=== PATIENT | female | born 1935 | race Caucasian/White ===

== ENCOUNTER 2016-11-30 04:39 | Emergency (ER) | payer OTHER ==
[~2016-11-30] VITALS: Ht 172.7 cm; Wt 77.0 kg
[~2016-11-30 04:39] MED LIST: ALEN70TA2 PO; ASPEC81 PO; CALC600T9 PO; FLUT0.15 NAE; LORA10CA2 PO; LSN5 PO; RXC5 PO; SNM/25100 PO
[2016-11-30 04:40] VITALS: Ht 172.7 cm; Wt 77.0 kg
--- NOTE | 2016-11-30 05:11 | EMERGENCY ROOM VISIT NOTE ---
History Report prepared by Jacob: Hipolito Bustamante Under the Supervision of: Dr. Ray Smith M.D. First contact with patient: 04:46 Chief Complaint: FALL Stated Complaint: FALL-POSSIBLE BROKEN THUMB History of Present Illness The patient is a 81 year old female who presents to the Emergency Room with complaints of right thumb pain that occurred 5 hours ago. She rates her current pain a 10/10 in severity. At this time, the patient fell down onto a carpet floor. She has brush green on her legs and bumped her head. She did not lose consciousness or become weak. She denies any fevers, headache, neck pain, back pain, or any other pain. Source of History: patient Onset: 5 hours ago Position: finger(s) (right thumb) Symptom Intensity: 10/10 Quality: sharp Timing: constant Modifying Factors (Worsening): movement Associated Symptoms: No LOC, No fevers, No headache, No neck pain, No back pain, No weakness Review of Systems See HPI for pertinent positives & negatives. A total of 10 systems reviewed and were otherwise negative. Past Medical & Surgical Medical Problems: (1) HLD (hyperlipidemia) (2) HTN (hypertension) (3) Osteoporosis (4) Parkinson disease Surgical Problems: (1) H/O colonoscopy (2) Hx of cataract surgery Family History FH: cancer FATHER (esophageal) MOTHER (breast) Social History Smoking Status: Never Smoker Smokeless Tobacco Use: No Drug Use: none Marital Status: Housing Status: lives with significant other Occupation Status: retired Current/Historical Medications Scheduled Alendronate Sodium (Fosamax), 70 MG PO WK Calcium Carbonate-Vitamin D (Calcium + D), 1 TAB PO DAILY Fluticasone Propionate (Nasal) (Flonase Allergy Relief), 2 SPRAYS JI DAILY Levodopa/Carbidopa (Sinemet 25MG/100MG), 1 TAB PO TID Lisinopril (Lisinopril), 1 TAB PO DAILY Allergies Coded Allergies: No Known Allergies (Unverified , 11/30/16) Physical Exam Vital Signs Date Time Temp Pulse Resp B/P (MAP) Pulse Ox O2 Delivery O2 Flow Rate FiO2 11/30/16 04:40 36.6 102 18 149/76 96 Nasal Cannula Physical Exam GENERAL: Patient is uncomfortable appearing and in mild acute distress. HEENT: No acute trauma, normocephalic, slight bruise to the left forehead, mucous membranes moist, no nasal congestion, no scleral icterus. Teardrop pupil in the left eye radiating to 5 o'clock, mildly reactive. EOMI. Normal right pupil, reactive. NECK: No stridor, no adenopathy, no meningismus, trachea is midline. LUNGS: No dyspnea. Clear to auscultation and equal bilaterally. No wheeze, no rhonchi. HEART: Regular rate and rhythm. No murmurs, rubs, gallops appreciated. ABDOMEN: Soft, nontender, bowel sounds positive, no masses appreciated, no peritonitis. BACK: No midline tenderness, no CVA tenderness EXTREMITIES: Blue, discolored right thumb with bruising over the thenar eminence. Poor capillary refill in the distal thumb. Sensation intact. Angulation at the MCP joint. Tenderness to palpation. NEUROLOGIC: Alert and oriented, no acute motor or sensory deficits, no focal weakness, cranial nerves grossly intact. SKIN: No rash, no jaundice, no diaphoresis. Medical Decision & Procedures ER Provider Diagnostic Interpretation: Radiology results and stated below per my review and radiologist interpretation: 2 VIEW RIGHT 1ST DIGIT HAND X-RAY: First MCP joint dislocation. Distal phalanx fracture. No foreign body. REPEAT: 3 VIEW RIGHT THUMB: Reduction of MCP joint. Distal phalanx fracture intact. Per me CT HEAD: Comparison: CT dated 06/01/2015. No intracranial hemorrhage, skull fracture, or other acute intracranial abnormality. Mild left forehead soft tissue swelling. Stable mild senescent changes of the brain. Radiologist: Jena Zhu MD Procedure Reduction Procedure: Location: 1st MCP joint on the right hand Indication: Dislocation Reviewed Risks/Benefits and patient gives verbal consent. No anesthesia, patient aware this will be uncomfortable. Gentle traction to thumb with gentle rotation and thumb slid in to place nicely. Immediate improvement in pain. Cap refill improved as well. Neuro intact. Repeat imaging confirms reduction successful. ED Course 0446: The patient was evaluated in room B12B. A complete history and physical exam was performed. 0455: The patient's bedside X-ray was obtained on arrival. It shows a dislocation of the right thumb with a fracture. Thus immediate reduction of the joint was done without sedation and analgesia. Patient tolerated the procedure well. Afterward, she states feeling much improved. 0508: I asked the nursing staff to obtain the patient's visual acuities. 0559: She is feeling okay. She asked for something for the pain to take at home. Her finger has much better coloration. It still has some bruising, but excellent capillary refill. 0600: Ordered Oxycodone HCl 1 homepack PO. Reevaluated the patient. Discussed results and discharge instructions: She verbalized understanding and agreement. The patient is ready for discharge. Medical Decision Differential diagnoses include: Medication Reconciliation: I attest that I have personally reviewed the patient 's current medication list. Blood Pressure Screening: Patient was found to have a slightly elevated blood pressure due to circumstances. I do not believe that the patient requires hypertension monitoring. Very pleasant 81 yr old female with fall last evening striking left forehead, right hand and bilateral knees. No issues with walking and other than mild anterior knee abrasions no evidence knee fracture. Right thumb dislocated by exam and since xray outside door I had them confirm this, thumb was quickly reduced, and repeat imaging done. She did have minor decrease in cap refill to thumb which improved with reduction. Still significant bruising/swelling/ ecchymosis. Advised follow up with ortho in 1 week. She has pupil defect left eye which I do not see having been documented on previous visits. That said, she has stable vision, no pain, and no proptosis. I do not feel she requires emergent transfer to optho but should follow up with her primary optho in the next few days which I explained to her and her . Reviewed symptoms to monitor for and RTED if worsening or other concerns. Splint care reviewed as well. Oxy IR given for discomfort and those instructions reviewed. 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 I confirm that the note above accurately reflects all work, treatment, procedures, and medical decision making performed by me. Departure Information Dispostion Home / Self-Care Referrals Markel James M.D. Benito Hsieh M.D. Forms HOME CARE DOCUMENTATION FORM, IMPORTANT VISIT INFORMATION Patient Instructions My [facility] Additional Instructions Please follow up with your Outside Plant Field Engineer in 1 week for repeat evaluation of your thumb. Left left arm raised when you can and avoid using it. If severe pain or other concerns return for further evaluation. Do not get splint wet. Please follow up with Ophthalmology in the next few days for repeat evaluation of the abnormal pupil of your left eye. If you develop pain, loss of vision or other concerning symptoms return here for further evaluation immediately. You have received a narcotic pain medication. These medications may cause drowsiness and should not be used with other sedative medications. Do not drive , drink alcohol, perform dangerous activities, nor make important decisions after taking these medications. termite exterminator helper use or inappropriate use may lead to addiction. Problem Qualifiers
[2016-11-30] MEDS ORDERED: OXYCODONE IR HOME PACK PO ONE (06:00)
[2016-11-30 06:27] VITALS: BP 164/85; PULSE 89; TEMP 36.6; O2SAT 98
--- NOTE | 2016-11-30 06:38 | DIAGNOSTIC IMAGING REPORT ---
HEAD WITHOUT CONTRAST (CT) HISTORY: left forehead injury status post fall TECHNIQUE: Multiple axial CT images of the head were obtained without contrast. CT DOSE: 537.48 mGy.cm COMPARISON: Head CT 06/01/2015. FINDINGS: No acute intracranial hemorrhage, midline shift, mass, large territorial ischemia or abnormal extra-axial collection. There is mild cerebral atrophy. The calvarium is intact. The paranasal sinuses, mastoid air cells, and middle ear cavities are clear. Mild left frontal soft tissue swelling is present. There has been prior bilateral cataract repair. IMPRESSION: Mild left frontal soft tissue swelling without acute intracranial abnormality or calvarial fracture. The above report was generated using voice recognition software. It may contain grammatical, syntax or spelling errors. Electronically signed by: Meño Aleman M.D. 11/30/2016 6:37 AM Dictated Date/Time: 11/30/2016 6:34 AM
--- NOTE | 2016-11-30 07:01 | DIAGNOSTIC IMAGING REPORT ---
RIGHT FINGER(S) MIN 2 VIEWS ROUTINE CLINICAL HISTORY: Right thumb trauma Right pain COMPARISON: None. DISCUSSION: Limited study suggesting dislocation of the metacarpal phalangeal joint. Degenerative change of the interphalangeal joints as well as first carpometacarpal joint. Moderate soft tissue edema IMPRESSION: Dislocation first metacarpophalangeal joint The above report was generated using voice recognition software. It may contain grammatical, syntax or spelling errors. Electronically signed by: Jc Le M.D. 11/30/2016 7:00 AM Dictated Date/Time: 11/30/2016 6:59 AM
--- NOTE | 2016-11-30 07:03 | DIAGNOSTIC IMAGING REPORT ---
RIGHT FINGER(S) MIN 2 VIEWS ROUTINE CLINICAL HISTORY: s/p thumb reduction Right dislocation COMPARISON: 11/30/2016 4:55 AM DISCUSSION: Anatomic alignment status post closed reduction. Fracture distal phalanx. This is not appreciated on the prior study. No evidence of dislocation. Moderate soft tissue edema IMPRESSION: 1. Anatomic alignment status post closed reduction. 2. Oblique fracture distal phalanx aligned anatomically. This is not appreciated on the prereduction images The above report was generated using voice recognition software. It may contain grammatical, syntax or spelling errors. Electronically signed by: Jc Le M.D. 11/30/2016 7:01 AM Dictated Date/Time: 11/30/2016 7:00 AM
== END 2016-11-30 06:27 | disposition home or self-care (01) ==
LOC: C.EDB 04:39
DX: S62.501B Fracture of unspecified phalanx of right thumb, initial encounter for open fracture (principal); T14.8 Other injury of unspecified body region; H21.562 Pupillary abnormality, left eye; W19.XXXA Unspecified fall, initial encounter; E78.00 Pure hypercholesterolemia, unspecified; I10 Essential (primary) hypertension; M81.0 Age-related osteoporosis without current pathological fracture; G20 Parkinson's disease; Z98.49 Cataract extraction status, unspecified eye; Z80.3 Family history of malignant neoplasm of breast; Z80.0 Family history of malignant neoplasm of digestive organs; Z79.899 Other long term (current) drug therapy

== ENCOUNTER 2017-03-15 08:31 | Inpatient (IN) | payer OTHER ==
[~2017-03-15] VITALS: Ht 172.7 cm; Wt 73.3 kg
[2017-03-15] VITALS (7 sets, daily range): BP systolic 115–152; BP diastolic 59–77; PULSE 77–97; TEMP 36.3–37.3; O2SAT 94–97; Ht 172.7 cm; Wt 73.3 kg
[~2017-03-15 08:31] MED LIST changes: -ASPEC81 PO; -LORA10CA2 PO; -RXC5 PO
[2017-03-15] MEDS ORDERED: SODIUM CHLORIDE 0.9% 1000ML 1,000 ML IV STA (09:09)
--- NOTE | 2017-03-15 09:12 | EMERGENCY ROOM VISIT NOTE ---
History Report prepared by Jacob: Rachel Nix Under the Supervision of: Dr. Karyn Dickson M.D. First contact with patient: 08:46 Chief Complaint: FALL Stated Complaint: MULTIPLE FALLS History of Present Illness The patient is an 81 year old female who presents to the Emergency Room with complaints of persistent weakness that began Tuesday evening. She currently rates her discomfort as a 5/10 in severity. The patient states that recently she has been feeling weak. She states that today she was trying to walk to the bathroom when her legs gave out from under her. The patient states that her legs feel like rubber. Per the patient's daughter in law, the patient fell yesterday and was on the floor for four hours. She notes that the patient's typically goes to dialysis at 0330 Tuesday and Tuesday. The patient's daughter in law states that the patient typically picks her up from dialysis because it is daylight by the time he is finished. She states that since the patient did not arrive to pick her up from dialysis, the patient's called his son to come pick him up. The patient's daughter in law states that when they arrived home they found the patient on the floor. She states that the patient's son picked her up and put her in the bed. The patient states that today she had to lower herself to the floor because of her weakness. She denies any head trauma or loss of consciousness. The patient denies being on any anticoagulants. She reports a decrease in appetite since yesterday. The patient reports a recent increase in urination. She denies any cough, fever, chest pain, shortness of breath, vomiting, or diarrhea. The patient states that she has a history of Parkinson's Disease. Source of History: patient, family (daughter in law) Onset: Tuesday evening Position: other (global) Symptom Intensity: 5/10 Quality: other (weakness) Timing: other (persistent) Associated Symptoms: + urinary symptoms (increase in urination), No LOC, No fevers, No cough, No chest pain, No SOB, No vomiting, No diarrhea Review of Systems See HPI for pertinent positives & negatives. A total of 10 systems reviewed and were otherwise negative. Past Medical & Surgical Medical Problems: (1) Chronic allergic rhinitis (2) Dyslipidemia (3) Elevated troponin (4) History of fracture of left hip (5) HLD (hyperlipidemia) (6) HTN (hypertension) (7) Osteoporosis (8) Parkinson disease Surgical Problems: (1) H/O colonoscopy (2) History of left hip replacement (3) Hx of cataract surgery Family History FH: cancer FATHER (esophageal) MOTHER (breast) Social History Smoking Status: Never Smoker Drug Use: none Marital Status: Housing Status: lives with significant other Occupation Status: retired Current/Historical Medications Scheduled Alendronate Sodium (Fosamax), 70 MG PO WK Calcium Carbonate-Vitamin D (Calcium + D3 600-200 mg-Unit), 1 TAB PO DAILY Fluticasone Propionate (Nasal) (Flonase Allergy Relief), 2 SPRAYS JI DAILY Levodopa/Carbidopa (Sinemet 25MG/100MG), 1.5 TAB PO TID Lisinopril (Lisinopril), 1 TAB PO DAILY Scheduled PRN Hydrochlorothiazide (Hydrochlorothiazide), 1 TAB PO DAILY PRN for LE edema Allergies Coded Allergies: No Known Allergies (Unverified , 03/15/17) Physical Exam Vital Signs Date Time Temp Pulse Resp B/P (MAP) Pulse Ox O2 Delivery O2 Flow Rate FiO2 03/15/17 11:46 80 21 96 03/15/17 11:31 118/72 03/15/17 11:16 78 24 97 03/15/17 11:11 81 27 96 03/15/17 11:01 136/64 03/15/17 10:47 82 18 122/59 96 Room Air 03/15/17 10:41 83 25 96 03/15/17 10:36 84 23 96 03/15/17 10:31 113/76 03/15/17 10:15 122/59 03/15/17 09:39 90 03/15/17 09:36 88 28 94 03/15/17 09:01 116/60 03/15/17 08:58 92 109/60 94 Room Air 03/15/17 08:31 37.1 95 18 103/63 92 Room Air Physical Exam Vital signs reviewed. General: Elderly generally well-appearing female, in no significant distress. Strong smell of urine. HEENT: No scleral icterus, PERRLA, neck supple. Atraumatic. Cardiovascular: Regular rate and rhythm, no extra sounds. Pulmonary: Clear to auscultation bilaterally, normal work of breathing. Abdomen: Soft, nontender, nondistended, positive bowel sounds. Musculoskeletal: Atraumatic, no peripheral edema. No pain with range of motion of lower extremities. No pain with pelvic stress. Neurologic: Patient awake alert and oriented x 3, 4/5 strength in the left lower extremity, 5/5 strength in right lower extremity. Cranial nerves 2 through 12 grossly intact. Skin: Warm, dry, no rash Medical Decision & Procedures ER Provider Diagnostic Interpretation: Radiology results as stated below per my review and radiologist interpretation: CHEST ONE VIEW PORTABLE CLINICAL HISTORY: fall, weakness trauma COMPARISON STUDY: 2015 FINDINGS: The bones soft tissues and hemidiaphragms are normal. The cardiomediastinal silhouette is normal. The lungs are clear. The pulmonary vasculature is normal. IMPRESSION: Negative chest. The above report was generated using voice recognition software. It may contain grammatical, syntax or spelling errors. Electronically signed by: Jc Le M.D. 03/15/2017 9:44 AM Dictated Date/Time: 03/15/2017 9:44 AM HEAD WITHOUT CONTRAST (CT) CT DOSE: 537.48 mGy.cm HISTORY: L status change weakness, fall TECHNIQUE: Multiaxial CT images of the head were performed without the use of intravenous contrast. A dose lowering technique was utilized adhering to the principles of ALARA. Comparison: 11/30/2016 Findings: The paranasal sinuses and mastoid air cells are clear. The calvarium and skull base are intact. The ventricles and sulci are within normal limits. There is no mass, hematoma, midline shift, or acute infarct. Impression: No acute intracranial abnormality. The above report was generated using voice recognition software. It may contain grammatical, syntax or spelling errors. Electronically signed by: Jc Le M.D. 03/15/2017 10:13 AM Dictated Date/Time: 03/15/2017 10:12 AM Laboratory Results Test 03/15/17 09:23 03/15/17 09:34 03/15/17 09:48 Immature Granulocyte % (Auto) 0.2 % White Blood Count 9.41 K/uL (4.8-10.8) Red Blood Count 4.07 M/uL (4.2-5.4) Hemoglobin 12.5 g/dL (12.0-16.0) Hematocrit 37.7 % (37-47) Mean Corpuscular Volume 92.6 fL (80-100) Mean Corpuscular Hemoglobin 30.7 pg (25-34) Mean Corpuscular Hemoglobin Concent 33.2 g/dl (32-36) Platelet Count 160 K/uL (130-400) Mean Platelet Volume 11.4 fL (7.4-10.4) Neutrophils (%) (Auto) 83.4 % Lymphocytes (%) (Auto) 5.0 % Monocytes (%) (Auto) 10.9 % Eosinophils (%) (Auto) 0.2 % Basophils (%) (Auto) 0.3 % Neutrophils # (Auto) 7.84 K/uL (1.4-6.5) Lymphocytes # (Auto) 0.47 K/uL (1.2-3.4) Monocytes # (Auto) 1.03 K/uL (0.11-0.59) Eosinophils # (Auto) 0.02 K/uL (0-0.5) Basophils # (Auto) 0.03 K/uL (0-0.2) Immature Granulocyte # (Auto) 0.02 K/uL (0.00-0.02) Magnesium Level 2.2 mg/dl (1.8-2.4) Total Bilirubin 0.8 mg/dl (0.2-1) Direct Bilirubin 0.2 mg/dl (0-0.2) Aspartate Amino Transf (AST/SGOT) 65 U/L (15-37) Alanine Aminotransferase (ALT/SGPT) 7 U/L (12-78) Alkaline Phosphatase 62 U/L (45-117) Total Protein 7.1 gm/dl (6.4-8.2) Albumin 3.1 gm/dl (3.4-5.0) Thyroid Stimulating Hormone (TSH) 0.414 uIu/ml (0.300-4.500) Bedside Troponin I 1.310 ng/ml (0-0.045) Urine Color DK YELLOW Urine Appearance CLEAR (CLEAR) Urine pH 5.5 (4.5-7.5) Urine Specific [place] 1.018 (1.000-1.030) Urine Protein 2+ (NEG) Urine Glucose (UA) NEG (NEG) Urine Ketones 1+ (NEG) Urine Occult Blood 1+ (NEG) Urine Nitrite POS (NEG) Urine Bilirubin NEG (NEG) Urine Urobilinogen NEG (NEG) Urine Leukocyte Esterase TRACE (NEG) Urine WBC (Auto) 5-10 /hpf (0-5) Urine RBC (Auto) 0-4 /hpf (0-4) Urine Hyaline Casts (Auto) 1-5 /lpf (0-5) Urine Epithelial Cells (Auto) 10-20 /lpf (0-5) Urine Bacteria (Auto) 4+ (NEG) Laboratory results per my review. Medications Administered Medications (Trade) Dose Ordered Sig/Aleks Route Start Time Stop Time Status Last Admin Dose Admin Sodium Chloride 1,000 ml @ 125 mls/hr Q8H STAT IV 03/15/17 09:09 03/15/17 12:59 DC 03/15/17 09:59 125 MLS/HR Aspirin (Aspirin Chew) 324 mg NOW STAT PO 03/15/17 10:14 03/15/17 10:15 DC 03/15/17 10:56 324 MG Ceftriaxone Sodium (Rocephin Inj) 1 gm NOW STAT IV 03/15/17 10:15 03/15/17 10:16 DC 03/15/17 10:55 1 GM Sodium Chloride 250 ml @ 999 mls/hr Q16M STAT IV 03/15/17 10:15 03/15/17 10:30 DC 03/15/17 10:57 999 MLS/HR Acetaminophen (Tylenol Tab) 650 mg Q4H PRN PO 03/15/17 11:30 04/14/17 11:29 03/16/17 16:56 650 MG ECG Indication: weakness Rate (beats per minute): 85 Rhythm: normal sinus Findings: RBBB (incomplete), no acute ischemic change, no ectopy ED Course 0902: Past medical records reviewed. The patient was evaluated in room B7. A complete history and physical examination was performed. 0909: Ordered Sodium Chloride 1000 ml @ 125 mls/hr IV. 1014: Ordered Aspirin 324 mg PO, Sodium Chloride 250 ml @ 999 mls/hr IV, Rocephin Inj 1 gm IV. 1029: I discussed the patients case with Tom Colindres. She is going to evaluate the patient for further treatment. 1040: I reevaluated the patient and she is resting comfortably. I discussed the exam findings with her and I discussed the treatment plan. She verbalized complete understanding and agreement. She is going to be evaluated for further treatment. Medical Decision Differential diagnosis: Etiologies such as metabolic, infection, hypo/hyperglycemia, electrolyte abnormalities, cardiac sources, intracerebral event, toxicologic, neurologic, as well as others were entertained. This pt was evaluated and appeared to be in no distress. IV access was obtained and lab work was drawn. Pt was placed on the case monitor. Pt was hydrated with NSS. EKG reveals no acute ischemia. Lab work is significant for elevated troponin, total CK and dehydration. UA is positive for infection. Pt was medicated with ceftriaxone 1 gm IV. She was given ASA 324 mg, although I suspect this is a demand mediated process from prolonged immobilization/ rhabdomyolysis. Pt was informed of the findings. She again confirms no chest pain. Pt was d/w the hospitalist service who will evaluate for further management. Medication Reconcilliation Current Medication List: was personally reviewed by me Blood Pressure Screening Patient's blood pressure: Normal blood pressure Blood pressure disposition: Did not require urgent referral Consults Time Called: 1014 Consulting Physician: Tom Colindres Returned Call: [phone] I discussed the patients case with Tom Colindres. She is going to evaluate the patient for further treatment. Impression Primary Impression: Rhabdomyolysis Additional Impressions: Weakness Fall Elevated troponin UTI (urinary tract infection) Scribe Attestation The scribe's documentation has been prepared under my direction and personally reviewed by me in its entirety. I confirm that the note above accurately reflects all work, treatment, procedures, and medical decision making performed by me. Departure Information Dispostion Being Evaluated By Hospitalist Referrals Marilou Bobby M.D. (MEDICAL) (PCP) Problem Qualifiers
[2017-03-15 09:39] LABS: BASO % 0.3 %; BASO ABS # 0.03 K/uL (0-0.2); COMPLETE YES; EOS % 0.2 %; HEMATOCRIT 37.7 % (37-47); IG% 0.2 %; LYMPH ABS # 0.47 K/uL (1.2-3.4); MEAN CELL VOLUME 92.6 fL (80-100); MEAN CORPUSCULAR HEMOGLOBIN 30.7 pg (25-34); MEAN CORPUSCULAR HGB CONC 33.2 g/dl (32-36); MEAN PLATELET VOLUME 11.4 fL (7.4-10.4); MONO % 10.9 %; NEUT % 83.4 %; PLATELET COUNT 160 K/uL (130-400); RED BLOOD COUNT 4.07 M/uL (4.2-5.4); WHITE BLOOD COUNT 9.41 K/uL (4.8-10.8)
--- NOTE | 2017-03-15 09:46 | DIAGNOSTIC IMAGING REPORT ---
CHEST ONE VIEW PORTABLE CLINICAL HISTORY: fall, weakness trauma COMPARISON STUDY: 2015 FINDINGS: The bones soft tissues and hemidiaphragms are normal. The cardiomediastinal silhouette is normal. The lungs are clear. The pulmonary vasculature is normal. IMPRESSION: Negative chest. The above report was generated using voice recognition software. It may contain grammatical, syntax or spelling errors. Electronically signed by: Jc Le M.D. 03/15/2017 9:44 AM Dictated Date/Time: 03/15/2017 9:44 AM
[2017-03-15 09:57] LABS: BUN/CREATININE RATIO 31.1 (10-20); CALCIUM 8.6 mg/dl (8.5-10.1); CREATININE 1.07 mg/dl (0.60-1.20); MAGNESIUM 2.2 mg/dl (1.8-2.4); POTASSIUM 3.7 mmol/L (3.5-5.1)
[2017-03-15 10:09] LABS: MANUAL MICROSCOPIC REQUIRED? NO; REVIEW REQ? NO; URINE APPEARANCE CLEAR (CLEAR); URINE BILIRUBIN NEG (NEG); URINE COLOR DK YELLOW; URINE NITRITE POS (NEG); URINE PH 5.5 (4.5-7.5); URINE SPECIFIC GRAVITY 1.018 (1.000-1.030); UROBILINOGEN NEG (NEG); ZZURINE CULT IF INDIC CATH YES
[2017-03-15 10:11] LABS: CKMB/CK RATIO 0.5 (0-3.0); THYROID STIMULATING HORMONE 0.414 uIu/ml (0.300-4.500)
[2017-03-15] MEDS ORDERED: ASPIRIN 81 MG CHEW PO STA (10:14)
[2017-03-15] MEDS ORDERED: CEFTRIAXONE SOD INJ 1 GM ADDVIAL IV STA (10:15)
[2017-03-15] MEDS ORDERED: SODIUM CHLORIDE 0.9% 250ML 250 ML IV STA (10:15)
--- NOTE | 2017-03-15 10:15 | DIAGNOSTIC IMAGING REPORT ---
HEAD WITHOUT CONTRAST (CT) CT DOSE: 537.48 mGy.cm HISTORY: L status change weakness, fall TECHNIQUE: Multiaxial CT images of the head were performed without the use of intravenous contrast. A dose lowering technique was utilized adhering to the principles of ALARA. Comparison: 11/30/2016 Findings: The paranasal sinuses and mastoid air cells are clear. The calvarium and skull base are intact. The ventricles and sulci are within normal limits. There is no mass, hematoma, midline shift, or acute infarct. Impression: No acute intracranial abnormality. The above report was generated using voice recognition software. It may contain grammatical, syntax or spelling errors. Electronically signed by: Jc Le M.D. 03/15/2017 10:13 AM Dictated Date/Time: 03/15/2017 10:12 AM
[2017-03-15] MEDS ORDERED: ONDANSETRON INJ 2 MG/ML 2 ML VIAL IV PRN (11:30)
[2017-03-15] MEDS ORDERED: ACETAMINOPHEN 325 MG TAB PO PRN (11:30)
[2017-03-15] MEDS ORDERED: HYDR12.55 PO ×2 (11:42→12:21)
[2017-03-15] MEDS ORDERED: CALC-388 PO (11:42)
[2017-03-15] MEDS ORDERED: SODIUM CHLORIDE 0.9% 1000ML 1,000 ML IV SCH ×2 (12:45→21:00)
--- NOTE | 2017-03-15 13:50 | History and Physical ---
History & Physical Date & Time of Service: Mar 15, 2017 at 11:57 Chief Complaint: Multiple Falls Primary Care Physician: Marilou Bobby M.D. (MEDICAL) History of Present Illness Source: patient Pt is 81 y/o F with PMHx Parkinson's, HTN, hyperlipidemia, chronic rhinitis, osteoporosis presents with c/o leg weakness and fall. Pt states the past week her legs have been very weak. She typically walks with a cane, however for the past week has been having to use a walker. States yesterday walking back from bathroom and legs so weak that she slid to floor. She was unable to get up. Pt states tried multiple times but was unable to do so. She states she laid on right arm and side for approx 4-5 hours until step son and came home. Pt states while lying on floor she had some tingling to right arm and R leg after lying there for awhile. Once she was helped up later this resolved. States some left upper leg cramping intermittently. Pt states sat around remaining part of yesterday but felt overall weakness. Today tried to get out of bed and legs were too weak to stand and states slid to floor and decided to go to ER. Pt states past 3-4 days with decreased appetite, but has been thirsty past 2 days. yesterday didn't eat much but was drinking water. Pt denies any CP or SOB or MC recently. Denies any pains currently. Has HCTZ to use prn LE edema , however states doesn't use as doesn't have LE edema often. Hx urinary frequency at night. Was started on oxybutynin 5mg BID 01/27/17 - pt states took for 4 days and then stopped as caused dry mouth. Denies any other new meds or changes with meds. Denies dysuria, hematuria. Denies hitting head, fever/chills , diaphoresis, N/V/D/C, MC, dizziness, syncope, vision changes, neck pain, CP, SOB, orthopnea, palpitations, cough, sore throat, choking, otalgia, abdominal pain, pelvic pain, extremity edema, rashes. Hx ECHO 2013: EF: 55-59%, mild aortic valve sclerosis without stenosis, mild tricuspid regurg. Hx carotid u/s: less than 50% stenosis bilateral internal carotid arteries, however calcified plaque Seen in ER today. Negative head CT, negative CXR, troponin 1.3, CKMB: 5.9, CPK: 1164. TSH: 0.4, magnesium: 2.2. EKG: NSR rate 85, incomplete RBBB, no ST elevation. BUN:33, CR:1.0, GFR: 23 (previous from 01/13/17 was BUN 19, CR: 1.0, GFR>60). U/A: pos nitrites, trace leuk, 4+bacteria, 1+blood, 0-4 RBC. Pt afebrile. BP: 116/60, pulse: 92, Resp: 18, pulse ox: 94%. Given NSS 250ml bolus followed by 125/ml hr for total 1L. Past Medical/Surgical History Medical Problems: (1) Chronic allergic rhinitis Status: Chronic (2) Dyslipidemia Status: Chronic (3) History of fracture of left hip Status: Chronic (4) HLD (hyperlipidemia) Status: Chronic (5) HTN (hypertension) Status: Chronic (6) Osteoporosis Status: Chronic (7) Parkinson disease Status: Chronic Surgical Problems: (1) H/O colonoscopy Permanent Comment: 2011 Status: Chronic (2) History of left hip replacement Status: Chronic (3) Hx of cataract surgery Status: Chronic Family History FH: cancer FATHER (esophageal) MOTHER (breast) BROTHER (lymphoma, dx in 60's, age 73) Social History Smoking Status: Never Smoker Smokeless Tobacco Use: No Alcohol Use: none Drug Use: none Marital Status: Housing status: lives with significant other Occupational Status: retired Multi-Drug Resistant Organisms History of MDRO: No Allergies Coded Allergies: No Known Allergies (Unverified , 03/15/17) Home Medications Scheduled Alendronate Sodium (Fosamax), 70 MG PO WK Calcium Carbonate-Vitamin D (Calcium + D3 600-200 mg-Unit), 1 TAB PO DAILY Fluticasone Propionate (Nasal) (Flonase Allergy Relief), 2 SPRAYS JI DAILY Levodopa/Carbidopa (Sinemet 25MG/100MG), 1.5 TAB PO TID Lisinopril (Lisinopril), 1 TAB PO DAILY Scheduled PRN Hydrochlorothiazide (Hydrochlorothiazide), 1 TAB PO DAILY PRN for LE edema Review of Systems See HPI for pertinent positives & negatives. All other systems reviewed and were otherwise negative Physical Exam Vital Signs Date Time Temp Pulse Resp B/P (MAP) Pulse Ox O2 Delivery O2 Flow Rate FiO2 03/15/17 11:52 80 03/15/17 11:11 81 27 96 03/15/17 11:01 136/64 03/15/17 10:47 82 18 122/59 96 Room Air 03/15/17 10:41 83 25 96 03/15/17 10:36 84 23 96 03/15/17 10:31 113/76 03/15/17 10:15 122/59 03/15/17 09:39 90 03/15/17 09:36 88 28 94 03/15/17 09:01 116/60 03/15/17 08:58 92 109/60 94 Room Air 03/15/17 08:31 37.1 95 18 103/63 92 Room Air General Appearance: WD/WN, no apparent distress Head: normocephalic, atraumatic Eyes: EOMI, sclerae normal, + pertinent finding (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 left shoulder with yellow ecchymosis (pt reports hit shoulder on wall corner last week). ROM extremities intact) Neurologic/Psych: alert, normal mood/affect, normal reflexes, oriented x 3 Skin: normal color (ecchymosis as above in extremities), warm/dry Diagnostics Laboratory Results Results Past 24 Hours Test 03/15/17 09:23 03/15/17 09:34 03/15/17 09:48 Range/Units White Blood Count 9.41 4.8-10.8 K/uL Red Blood Count 4.07 4.2-5.4 M/uL Hemoglobin 12.5 12.0-16.0 g/dL Hematocrit 37.7 37-47 % Mean Corpuscular Volume 92.6 80-100 fL Mean Corpuscular Hemoglobin 30.7 25-34 pg Mean Corpuscular Hemoglobin Concent 33.2 32-36 g/dl Platelet Count 160 130-400 K/uL Mean Platelet Volume 11.4 7.4-10.4 fL Neutrophils (%) (Auto) 83.4 % Lymphocytes (%) (Auto) 5.0 % Monocytes (%) (Auto) 10.9 % Eosinophils (%) (Auto) 0.2 % Basophils (%) (Auto) 0.3 % Neutrophils # (Auto) 7.84 1.4-6.5 K/uL Lymphocytes # (Auto) 0.47 1.2-3.4 K/uL Monocytes # (Auto) 1.03 0.11-0.59 K/uL Eosinophils # (Auto) 0.02 0-0.5 K/uL Basophils # (Auto) 0.03 0-0.2 K/uL RDW Standard Deviation 50.9 36.4-46.3 fL RDW Coefficient of Variation 14.9 11.5-14.5 % Immature Granulocyte % (Auto) 0.2 % Immature Granulocyte # (Auto) 0.02 0.00-0.02 K/uL Sodium Level 140 136-145 mmol/L Potassium Level 3.7 3.5-5.1 mmol/L Chloride Level 107 98-107 mmol/L Carbon Dioxide Level 25 21-32 mmol/L Anion Gap 8.0 3-11 mmol/L Blood Urea Nitrogen 33 7-18 mg/dl Creatinine 1.07 0.60-1.20 mg/dl Est Creatinine Clear Calc Drug Dose 23.7 ml/min Estimated GFR () 56.0 Estimated GFR (Non- 48.3 BUN/Creatinine Ratio 31.1 10-20 Random Glucose 125 70-99 mg/dl Calcium Level 8.6 8.5-10.1 mg/dl Magnesium Level 2.2 1.8-2.4 mg/dl Total Bilirubin 0.8 0.2-1 mg/dl Direct Bilirubin 0.2 0-0.2 mg/dl Aspartate Amino Transf (AST/SGOT) 65 15-37 U/L Alanine Aminotransferase (ALT/SGPT) 7 12-78 U/L Alkaline Phosphatase 62 45-117 U/L Total Creatine Kinase 1164 26-192 U/L Creatine Kinase MB 5.9 0.5-3.6 ng/ml Creatine Kinase MB Ratio 0.5 0-3.0 Total Protein 7.1 6.4-8.2 gm/dl Albumin 3.1 3.4-5.0 gm/dl Thyroid Stimulating Hormone (TSH) 0.414 0.300-4.500 uIu/ml Bedside Troponin I 1.310 0-0.045 ng/ml Urine Color DK YELLOW Urine Appearance CLEAR CLEAR Urine pH 5.5 4.5-7.5 Urine Specific Grady 1.018 1.000-1.030 Urine Protein 2+ NEG Urine Glucose (UA) NEG NEG Urine Ketones 1+ NEG Urine Occult Blood 1+ NEG Urine Nitrite POS NEG Urine Bilirubin NEG NEG Urine Urobilinogen NEG NEG Urine Leukocyte Esterase TRACE NEG Urine WBC (Auto) 5-10 0-5 /hpf Urine RBC (Auto) 0-4 0-4 /hpf Urine Hyaline Casts (Auto) 1-5 0-5 /lpf Urine Epithelial Cells (Auto) 10-20 0-5 /lpf Urine Bacteria (Auto) 4+ NEG Microbiology Results 03/15/17 Urine Culture, Received Pending Diagnostic Radiology CXR: IMPRESSION: Negative chest CT HEAD: Impression: No acute intracranial abnormality. EKG EKG: NSR, rate 85, No ST elevation noted, incomplete RBBB read also by cardiology: Normal sinus rhythm Incomplete right bundle branch block Minimal voltage criteria for LVH, may be normal variant Borderline ECG When compared with ECG of 23-JUL-2015 07:55, Incomplete right bundle branch block is now Present Confirmed by JABIER NOVOA ([id number]) on 03/15/2017 11:01:46 AM Impression Assessment and Plan RHABDOMYOLYSIS/ELI CPK: 1164, GFR from >60 to 23 today, CR from 0.7 to 1.0 today. Vitals stable at this time. -will hydrate NSS 125ml/hr x 1 Liter -repeat CBC, PRP in am -continue to monitor CPK -hold HCTZ, lisinopril at this time WEAKNESS Pt with hx Parkinson's. Was doing well previously ambulating with cane until past week. Question if weakness dehydration, UTI -U/A: pos nitrites, trace leuk, 4+bacteria -Urinalysis pending. -Will continue Rocephin -PT/OT consult ELEVATED TROPONIN Pt without any CP or SOB at this time. Will continue to monitor - Repeat EKG in am - Will trend cardiac enzymes -start ASA -lipid panel from 01/13/17: total: 177, LDL: 95, HDL: 61, Triglycerides: 106 -hold on statin at this time -repeat EKG for CP and alert provider if any CP -cardiology consult and then consider ECHO per cardiology -Pt with hx murmur in past PARKINSON'S -continue Sinemet DVT PROPHYLAXIS -Heparin SQ DISPOSITION -admit tele -Full Code as per discussion with pt -Follows with Dr Bobby for routine care Pt was seen with Dr Mcmahan ADDENDUM: I have seen and examined the patient and agree with the assessment and plan as above. Martir, Level of Care Telemetry Advanced Directives Existing Living Will: No Existing Power of Catalogue Compiler: No Resuscitation Status FULL RESUSCITATION VTE Prophylaxis VTE Risk Assessment Done? Y/N: Yes Risk Level: Moderate Given or contraindicated: Unfractionated heparin SQ Additional Copies To Marilou Bobby M.D. (MEDICAL)
[2017-03-15] MEDS: CARBIDOPA/LEVODOPA 25/100MG TAB PO SCH ×2 (13:57→20:44)
[2017-03-15] MEDS ORDERED: PNEUMOCOCCAL POLYSACCHARIDES 25 MCG/0.5 ML VIAL/SYR IM. ONE (14:00)
[2017-03-15] MEDS ORDERED: PNEUMOCOCCAL ADMINISTRATION CHARGE ONE (14:00)
[2017-03-15] MEDS ORDERED: ATORVASTATIN 40 MG TAB PO ONE (14:00)
[2017-03-15] MEDS ORDERED: ENOXAPARIN 30 MG/0.3 ML SYR SC SCH (14:15)
--- NOTE | 2017-03-15 14:17 | CARDIOLOGY CONSULTATION ---
DATE OF CONSULTATION: 03/15/2017 REFERRING PHYSICIAN: Dr. Mcmahan. REASON FOR CONSULTATION: Elevated troponin. CHIEF COMPLAINT ON ADMISSION: Falls. HISTORY OF PRESENT ILLNESS: Ms. Diaz is an 81-year-old female with no past medical cardiovascular history aside from mild bilateral carotid stenosis. She presented to the Emergency Department after a fall. On 03/14/2017, she states that she slid off the edge of her bed and was on the floor for 5 or 6 hours. There was no one to help her up. Eventually, she was brought to her feet with the aid of her . She then had difficulty going to use the restroom and her could not lift her from the ground. She came to the Emergency Department for further evaluation and treatment. She denies any chest discomfort or shortness of breath. No orthopnea, PND, or lower extremity edema. Notes subjective fever and chills. No objective evidence of fever since admission. Denies frequency, urgency or dysuria. No palpitations, lightheadedness, dizziness, syncope or near syncope. The patient notes a longstanding history of lower extremity weakness, which began approximately 2 years ago after a hip fracture. She typically ambulates with the use of a walker. Over the past several days, she has noted progressive weakness of her lower extremities. Baseline lab testing performed in the ED demonstrated mildly elevated troponin. Therefore, cardiac consultation was requested. REVIEW OF SYSTEMS: The pertinent positive noted above. A comprehensive 10-system review is otherwise negative. PAST MEDICAL HISTORY: 1. Parkinson disease. 2. Dyslipidemia. 3. Mild carotid vascular disease. 4. Hypertension. 5. Osteoporosis. PAST SURGICAL HISTORY: 1. Colonoscopy. 2. Cataract surgery. FAMILY HISTORY: Negative for premature CAD or sudden cardiac ; however, noncontributory given the patient's advanced age. SOCIAL HISTORY: Lifelong nonsmoker. She is and lives with her . OUTPATIENT MEDICATIONS: 1. Fosamax 70 mg daily. 2. Calcium carbonate with vitamin D 1 tablet daily. 3. Flonase 2 sprays daily. 4. Sinemet 25/100 t.i.d. 5. Lisinopril 5 mg daily. 6. Hydrochlorothiazide 12.5 mg as needed for edema. EKG on admission demonstrates sinus rhythm with an incomplete right bundle branch block, minimal criteria for left ventricular hypertrophy. No ischemic ST changes. LABORATORY DATA: Sodium is 140, potassium 3.7, chloride is 107, CO2 is 25, BUN is 33, and creatinine is 1.07 with a baseline creatinine of 0.55. Magnesium is 2.2. AST is 65 and ALT is normal. Total CK is 1164. CK-MB is 5.9. Point of care troponin is 1.310. Albumin is 3.1. White blood cell count 9.41, hemoglobin is 12.5, and platelet count is 160. Urinalysis is positive for ketones, occult blood, nitrites, leukocyte esterase, white blood cells, and bacteria. Telemetry demonstrates sinus rhythm. CT of the head: No acute intracranial abnormality. CHEST X-RAY: Negative chest. PHYSICAL EXAMINATION: VITAL SIGNS: Temperature is 36.9 degrees centigrade, pulse 87 beats per minute and regular, respiratory rate 20 breaths per minute, blood pressure 148/76 and SaO2 is 94% on room air. GENERAL: NAD, awake, alert and oriented x3. HEENT: Mucous membranes are dry. There is no scleral icterus. Conjunctivae are pink. NECK: Supple. There is no JVD, no HJR and no carotid bruit appreciated. HEART: Regular with a normal S1 and S2. There is a 2/6 early to mid peaking systolic ejection murmur heard best at the right second intercostal space. ABDOMEN: Soft and nontender. There is no rebound or guarding. Normal bowel sounds. EXTREMITIES: Warm and dry. There is no clubbing, cyanosis, or edema. NEUROLOGIC: Demonstrates no focal motor deficit; however, bilateral lower extremity weakness is present. FINAL IMPRESSION: 1. Mildly elevated troponin of unclear significance; however, may be related to mild rhabdomyolysis in the setting of fall with prolonged downtime on floor of approximately 5 hours and ELI. EKG demonstrates no ischemic changes. The patient denies any anginal symptoms. 2. Acute renal insufficiency secondary to mild rhabdomyolysis and volume depletion. 3. Systolic ejection murmur, suggestive of aortic stenosis -- severity unknown, although exam does not suggest severe disease. 4. Mild carotid vascular disease. 5. Urinary tract infection. PLAN AND RECOMMENDATIONS: I have ordered a resting 2D transthoracic echo to exclude the presence of regional wall motion abnormalities given elevated troponin. ECG is nonischemic. There are no dysrhythmias on telemetry. She will continue to be monitored on telemetry during hospitalization. Agree with intravenous hydration as well as antibiotic therapy for urinary tract infection. Cardiac enzymes will be trended x3 sets with a repeat troponin to be performed now. Repeat ECG will be performed in the a.m. as well. Further recommendations pending clinical course and review of testing. I would not add intravenous anticoagulation currently; however, the patient should continue aspirin daily. I will also add statin therapywhen CPK has normalized. Thank you for allowing me to take part in the care of your patient. NAYA
[2017-03-15 15:03] LABS: CKMB/CK RATIO 0.6 (0-3.0)
[2017-03-15] MEDS ORDERED: IV FLUIDS COMPLETED PRN (16:15)
--- NOTE | 2017-03-15 16:25 | ECHOCARDIOGRAM REPORT ---
*NOTICE TO RECEIVING REPUBLICAN AGENCY This information is strictly Confidential and protected under [place] law. [place] law prohibits you from making any further disclosure of this information unless further disclosure is expressly permitted by the written consent of the person to whom it pertains or is authorized by law. A general authorization for the release of medical or other information is not sufficient for this purpose. Hospital accepts no responsibility if the information is made available to any other person, INCLUDING THE PATIENT. Interpretation Summary * Name: TATIANA QUINTANA Study Date: 03/15/2017 02:50 PM BP: 148/76 mmHg * Patient Location: [facility]\S\N281\S\1 HR: 87 * : 1935 (M/d/yyyy) Gender: Female Height: 68 in * Age: 81 yrs Ethnicity: CA Weight: 167 lb * Ordering Physician: Chris Yost * Referring Physician: Self, Referred * Performed By: Rachel Moreno RDCS * * Reason For Study: ELEVATED TROPONIN * BSA: 1.9 m2 * The study was technically limited. * There is no comparison study available. * -- Conclusions -- * Ejection Fraction = 55-60%. * No regional wall motion abnormalities noted. * The aortic valve is mildly calcified. * 2D imaging and doppler interrogation of the aortic valve are discordant. * Mild to moderate aortic stenosis is suspected. * There is mild mitral regurgitation. * There is mild tricuspid regurgitation. * The estimated systolic PAP is 38mmHg. Procedure Details * A complete two-dimensional transthoracic echocardiogram was performed (2D, M-mode, Doppler and color flow Doppler). Left Ventricle * The left ventricle is normal in size. * There is mild concentric left ventricular hypertrophy. * The basal septum is thickened and angulated consistent with sigmoid septum. * Ejection Fraction = 55-60%. * Left ventricular systolic function is normal. * No regional wall motion abnormalities noted. Right Ventricle * The right ventricle is normal size. * The right ventricular systolic function is normal as assessed by tricuspid annular plane systolic excursion (TAPSE) (normal >1.5 cm). Atria * The left atrial size is normal. * Right atrial size is normal. * There is no evidence of atrial septal defect, but resolution does not allow assessment for a patent foramen ovale. Mitral Valve * There is mild mitral annular calcification. * There is no mitral valve stenosis. * There is mild mitral regurgitation. Tricuspid Valve * The tricuspid valve is normal. * There is no tricuspid stenosis. * There is mild tricuspid regurgitation. * The estimated systolic PAP is 38mmHg. Aortic Valve * The aortic valve is not well visualized. * The aortic valve is mildly calcified. * 2D imaging and doppler interrogation of the aortic valve are discordant. Mild to moderate aortic stenosis is suspected. * There is no significant aortic regurgitation. Pulmonic Valve * The pulmonary valve is not well seen, but the Doppler examination is normal without significant regurgitation or stenosis. Great Vessels * The aortic root is normal size. Pericardium/Pleural * There is no pericardial effusion. Great Vessels * Normal inferior vena cava diameter and respiratory variation suggests normal central venous pressure. Left Ventricular Diastolic Function * Grade I diastolic dysfunction, (abnormal relaxation pattern). MMode 2D Measurements and Calculations IVSd 1.3 cm IVSs 1.9 cm LVIDd 3.8 cm LVIDs 2.9 cm LVPWd 1.3 cm LVPWs 1.8 cm IVS/LVPW 1.0 FS 25.9 % EDV(Teich) 63.8 ml ESV(Teich) 30.9 ml EF(Teich) 51.5 % EDV(cubed) 56.9 ml ESV(cubed) 23.2 ml EF(cubed) 59.3 % % IVS thick 51.3 % % LVPW thick 40.7 % LV mass(C)d 171.2 grams LV mass(C)dI 90.4 grams/m\S\2 LV mass(C)s 218.1 grams LV mass(C)sI 115.2 grams/m\S\2 SV(Teich) 32.9 ml SI(Teich) 17.4 ml/m\S\2 SV(cubed) 33.7 ml SI(cubed) 17.8 ml/m\S\2 Ao root diam 2.9 cm Ao root area 6.7 cm\S\2 LA dimension 3.6 cm LA/Ao 1.2 LVAd ap4 24.6 cm\S\2 LVLd ap4 7.2 cm EDV(MOD-sp4) 70.6 ml EDV(sp4-el) 71.2 ml LVAs ap4 14.9 cm\S\2 LVLs ap4 5.8 cm ESV(MOD-sp4) 33.3 ml ESV(sp4-el) 32.4 ml EF(MOD-sp4) 52.8 % EF(sp4-el) 54.5 % LVAd ap2 25.6 cm\S\2 LVLd ap2 7.4 cm EDV(MOD-sp2) 73.3 ml EDV(sp2-el) 74.7 ml LVAs ap2 15.8 cm\S\2 LVLs ap2 6.4 cm ESV(MOD-sp2) 34.8 ml ESV(sp2-el) 33.2 ml EF(MOD-sp2) 52.5 % EF(sp2-el) 55.6 % LVLd %diff 2.8 % EDV(MOD-bp) 73.1 ml LVLs %diff 9.1 % ESV(MOD-bp) 35.7 ml EF(MOD-bp) 51.2 % SV(MOD-sp4) 37.2 ml SI(MOD-sp4) 19.7 ml/m\S\2 SV(MOD-sp2) 38.5 ml SI(MOD-sp2) 20.3 ml/m\S\2 SV(MOD-bp) 37.4 ml SI(MOD-bp) 19.8 ml/m\S\2 SV(sp4-el) 38.8 ml SI(sp4-el) 20.5 ml/m\S\2 SV(sp2-el) 41.6 ml SI(sp2-el) 22.0 ml/m\S\2 Doppler Measurements and Calculations MV E max clementine 106.8 cm/sec MV A max clementine 140.3 cm/sec MV E/A 0.76 MV dec time 0.18 sec Ao V2 max 211.4 cm/sec Ao max PG 17.9 mmHg Ao max PG (full) 14.5 mmHg LV V1 max PG 3.4 mmHg LV V1 max 91.9 cm/sec TR max clementine 277.6 cm/sec
[2017-03-15 20:22] LABS: PARTIAL THROMBOPLASTIN RATIO 1.2; PROTHROMBIN TIME (PATIENT) 10.8 SECONDS (9.0-12.0)
[2017-03-15 20:46] LABS: CKMB/CK RATIO 0.5 (0-3.0)
[2017-03-15] MEDS: HEPARIN SOD 5000 UNIT/0.5 ML CARP SQ SCH (22:08)
[2017-03-16] VITALS (10 sets, daily range): BP systolic 127–167; BP diastolic 69–79; PULSE 71–94; TEMP 36.5–37.6; O2SAT 92–96
[2017-03-16 02:43] LABS: CKMB/CK RATIO 0.4 (0-3.0)
[2017-03-16] MEDS: HEPARIN SOD 5000 UNIT/0.5 ML CARP SQ SCH ×3 (05:45→20:46)
[2017-03-16 06:13] LABS: HEMATOCRIT 36.4 % (37-47); MEAN CELL VOLUME 94.3 fL (80-100); MEAN CORPUSCULAR HEMOGLOBIN 30.6 pg (25-34); MEAN CORPUSCULAR HGB CONC 32.4 g/dl (32-36); MEAN PLATELET VOLUME 11.4 fL (7.4-10.4); PLATELET COUNT 145 K/uL (130-400); RED BLOOD COUNT 3.86 M/uL (4.2-5.4); WHITE BLOOD COUNT 6.46 K/uL (4.8-10.8)
[2017-03-16 06:48] LABS: BUN/CREATININE RATIO 32.4 (10-20); CALCIUM 7.9 mg/dl (8.5-10.1); CREATININE 0.69 mg/dl (0.60-1.20); POTASSIUM 3.6 mmol/L (3.5-5.1)
[2017-03-16] MEDS: ASPIRIN 81 MG ECTAB PO SCH (07:58)
[2017-03-16] MEDS: CARBIDOPA/LEVODOPA 25/100MG TAB PO SCH ×3 (07:58→20:46)
[2017-03-16] MEDS: FLUTICASONE PROPIONATE NA SPR 16 GM BTL NAE SCH (07:58)
[2017-03-16] MEDS ORDERED: ATORVASTATIN 40 MG TAB PO SCH (09:00)
[2017-03-16] MEDS ORDERED: CEFTRIAXONE SOD INJ 1 GM in DEXTROSE 5% ADD-VANTAGE 50ML 50 ML IV SCH (11:00)
--- NOTE | 2017-03-16 14:08 | Cardiology Follow-Up ---
Subjective General Date of Service: Mar 16, 2017. Pt evaluation today including: conversation w/ patient, physical exam, chart review, lab review, review of studies, review of inpatient medication list History of Present Illness The patient is a 81 year old female seen in follow-up. Denies chest pain or shortness of breath. Lower extremity weakness unchanged. No dysrhythmias on telemetry. Tolerating diet medications. Echocardiogram demonstrates mild to moderate aortic stenosis. Allergies Coded Allergies: No Known Allergies (Unverified , 03/15/17) Social History Smoking Status: Never Smoker Hx Alcohol Use - Type And Amou: No Hx Substance Use - Type And Am: No Problem List Medical Problems: (1) Cardiac ischemia Status: Acute (2) Contusion of multiple sites Status: Acute (3) Dislocation of right thumb Status: Acute (4) Fall Status: Acute (5) Fall Status: Acute (6) Fracture of thumb, right open Status: Acute (7) Left pupil malformation Status: Acute (8) Rhabdomyolysis Status: Acute (9) Weakness Status: Acute Review of Systems Respiratory: No cough, No sputum, No wheezing, No shortness of breath, No dyspnea at rest, No hemoptysis Cardiac: No chest pain, No orthopnea, No PND, No edema, No palpitations Physical Exam Vital Signs Last Vital Signs Documentation Date Time Temp Pulse Resp B/P (MAP) Pulse Ox O2 Delivery O2 Flow Rate FiO2 03/16/17 12:00 96 Room Air 03/16/17 11:31 37.3 84 24 136/74 (94) Physical Exam Constitutional: General Apperance: well-nourished Level of Distress: NAD Ambulation: ambulation with walker Head: normocephalic, atraumatic Neck: supple, trachea midline Lungs: Auscultation: breath sounds normal, no wheezing, no rales/crackles, no rhonchi Cardiovascular: Heart Auscultation: RRR, normal S1, normal S2, II/ MARGE Extremities: no cyanosis, no edema, no clubbing, no ulcers Neurologic: Gait & Station: pertinent finding (B/L LE weakness) Cranial Nerves: grossly intact Assessment and Plan Assessment and Plan FINAL IMPRESSION: 1. Mildly elevated troponin likely related to mild rhabdomyolysis in the setting of fall with prolonged downtime - No ischemic ECG changes. - No regional wall motion at amount is on resting 2-D transthoracic echo - No anginal symptoms 2. Acute renal insufficiency secondary to mild rhabdomyolysis and volume depletion. - improving 3. Mild to moderate aortic stenosis 4. Mild carotid vascular disease. 5. Urinary tract infection. PLAN AND RECOMMENDATIONS: Continue low-dose aspirin. Add statin therapy when CPK within normal range. Consider outpatient stress testing for further risk stratification. Patient will require a follow-up resting 2-D transthoracic echo in 6-12 months for surveillance of aortic stenosis. No other medication changes at this time. I will arrange for outpatient follow-up in 2-4 weeks. Laboratory Results Last 24 Hours Test 03/15/17 19:50 03/16/17 02:03 03/16/17 05:30 Prothrombin Time 10.8 SECONDS Prothromb Time International Ratio 1.0 Activated Partial Thromboplast Time 30.6 SECONDS Partial Thromboplastin Ratio 1.2 Total Creatine Kinase 1159 U/L 888 U/L Creatine Kinase MB 5.3 ng/ml 3.4 ng/ml Creatine Kinase MB Ratio 0.5 0.4 Troponin I 1.860 ng/ml 0.986 ng/ml White Blood Count 6.46 K/uL Red Blood Count 3.86 M/uL Hemoglobin 11.8 g/dL Hematocrit 36.4 % Mean Corpuscular Volume 94.3 fL Mean Corpuscular Hemoglobin 30.6 pg Mean Corpuscular Hemoglobin Concent 32.4 g/dl RDW Standard Deviation 51.6 fL RDW Coefficient of Variation 15.1 % Platelet Count 145 K/uL Mean Platelet Volume 11.4 fL Sodium Level 143 mmol/L Potassium Level 3.6 mmol/L Chloride Level 110 mmol/L Carbon Dioxide Level 25 mmol/L Anion Gap 8.0 mmol/L Blood Urea Nitrogen 23 mg/dl Creatinine 0.69 mg/dl Est Creatinine Clear Calc Drug Dose 63.4 ml/min Estimated GFR () 94.0 Estimated GFR (Non- 81.1 BUN/Creatinine Ratio 32.4 Random Glucose 94 mg/dl Calcium Level 7.9 mg/dl
--- NOTE | 2017-03-16 17:59 | Progress Note ---
Medicine Progress Note Date & Time of Visit: Mar 16, 2017 at 17:49. Subjective 81 yo F with parkinson's disease developed leg weakness and was unable to move from the floor for several hours, developed a mild rhabdomyolysis in the process. She was found to have a UTI and is being treated empirically for GNB. Aside from the weakness she is otherwise asymptomatic today and doing well. -tolerating PO -denies CP, SOB, nausea, vomiting, abdominal pain -feels stronger but is still weak overall -requests to stay one more day 2/2 weakness. Objective Last 8 Hrs Date Time Temp Pulse Resp B/P (MAP) Pulse Ox O2 Delivery O2 Flow Rate FiO2 03/16/17 16:30 Room Air 03/16/17 15:20 37.3 94 20 145/69 (94) 94 Room Air 03/16/17 15:07 89 96 03/16/17 12:00 96 Room Air 03/16/17 11:31 37.3 84 24 136/74 (94) 96 Room Air Physical Exam: GEN: WNWD, in no acute distress, alert and appropriate HEENT: NC/AT, normal sclerae, MMM CARDIO: 3/6 MARGE, no rubs, gallops LUNGS: CTA bilaterally, no crackles, rales or wheezes, good diaphragmatic excursion ABD: soft, non-tender, non-distended, no rebound or guarding, +BS EXTREMITY: RP and DP palpable 2+ bilat, no LE swelling or edema, extremities are warm and well-perfused NEURO/MUSC: CN 2-12 grossly intact, no gross focal deficits. SKIN: warm and dry Laboratory Results: 03/16/17 05:30 03/16/17 05:30 Test 03/15/17 09:23 03/15/17 09:34 03/15/17 09:48 03/15/17 19:50 Immature Granulocyte % (Auto) 0.2 % White Blood Count 9.41 K/uL (4.8-10.8) Red Blood Count 4.07 M/uL (4.2-5.4) Hemoglobin 12.5 g/dL (12.0-16.0) Hematocrit 37.7 % (37-47) Mean Corpuscular Volume 92.6 fL (80-100) Mean Corpuscular Hemoglobin 30.7 pg (25-34) Mean Corpuscular Hemoglobin Concent 33.2 g/dl (32-36) Platelet Count 160 K/uL (130-400) Mean Platelet Volume 11.4 fL (7.4-10.4) Neutrophils (%) (Auto) 83.4 % Lymphocytes (%) (Auto) 5.0 % Monocytes (%) (Auto) 10.9 % Eosinophils (%) (Auto) 0.2 % Basophils (%) (Auto) 0.3 % Neutrophils # (Auto) 7.84 K/uL (1.4-6.5) Lymphocytes # (Auto) 0.47 K/uL (1.2-3.4) Monocytes # (Auto) 1.03 K/uL (0.11-0.59) Eosinophils # (Auto) 0.02 K/uL (0-0.5) Basophils # (Auto) 0.03 K/uL (0-0.2) Immature Granulocyte # (Auto) 0.02 K/uL (0.00-0.02) Magnesium Level 2.2 mg/dl (1.8-2.4) Total Bilirubin 0.8 mg/dl (0.2-1) Direct Bilirubin 0.2 mg/dl (0-0.2) Aspartate Amino Transf (AST/SGOT) 65 U/L (15-37) Alanine Aminotransferase (ALT/SGPT) 7 U/L (12-78) Alkaline Phosphatase 62 U/L (45-117) Total Protein 7.1 gm/dl (6.4-8.2) Albumin 3.1 gm/dl (3.4-5.0) Thyroid Stimulating Hormone (TSH) 0.414 uIu/ml (0.300-4.500) Bedside Troponin I 1.310 ng/ml (0-0.045) Urine Color DK YELLOW Urine Appearance CLEAR (CLEAR) Urine pH 5.5 (4.5-7.5) Urine Specific [place] 1.018 (1.000-1.030) Urine Protein 2+ (NEG) Urine Glucose (UA) NEG (NEG) Urine Ketones 1+ (NEG) Urine Occult Blood 1+ (NEG) Urine Nitrite POS (NEG) Urine Bilirubin NEG (NEG) Urine Urobilinogen NEG (NEG) Urine Leukocyte Esterase TRACE (NEG) Urine WBC (Auto) 5-10 /hpf (0-5) Urine RBC (Auto) 0-4 /hpf (0-4) Urine Hyaline Casts (Auto) 1-5 /lpf (0-5) Urine Epithelial Cells (Auto) 10-20 /lpf (0-5) Urine Bacteria (Auto) 4+ (NEG) Prothrombin Time 10.8 SECONDS (9.0-12.0) Prothromb Time International Ratio 1.0 (0.9-1.1) Activated Partial Thromboplast Time 30.6 SECONDS (21.0-31.0) Partial Thromboplastin Ratio 1.2 Test 03/16/17 02:03 03/16/17 05:30 Total Creatine Kinase 888 U/L (26-192) Creatine Kinase MB 3.4 ng/ml (0.5-3.6) Creatine Kinase MB Ratio 0.4 (0-3.0) Troponin I 0.986 ng/ml (0-0.045) Red Blood Count 3.86 M/uL (4.2-5.4) Mean Corpuscular Volume 94.3 fL (80-100) Mean Corpuscular Hemoglobin 30.6 pg (25-34) Mean Corpuscular Hemoglobin Concent 32.4 g/dl (32-36) RDW Standard Deviation 51.6 fL (36.4-46.3) RDW Coefficient of Variation 15.1 % (11.5-14.5) Mean Platelet Volume 11.4 fL (7.4-10.4) Anion Gap 8.0 mmol/L (3-11) Est Creatinine Clear Calc Drug Dose 63.4 ml/min Estimated GFR () 94.0 Estimated GFR (Non- 81.1 BUN/Creatinine Ratio 32.4 (10-20) Calcium Level 7.9 mg/dl (8.5-10.1) Date/Time Source Procedure Growth Status 03/15/17 09:48 Urine,Catheterized Urine Culture - Preliminary Gram Negative Bacilli Resulted Last 24 Hours Test 03/15/17 19:50 03/16/17 02:03 03/16/17 05:30 Prothrombin Time 10.8 SECONDS Prothromb Time International Ratio 1.0 Activated Partial Thromboplast Time 30.6 SECONDS Partial Thromboplastin Ratio 1.2 Total Creatine Kinase 1159 U/L 888 U/L Creatine Kinase MB 5.3 ng/ml 3.4 ng/ml Creatine Kinase MB Ratio 0.5 0.4 Troponin I 1.860 ng/ml 0.986 ng/ml White Blood Count 6.46 K/uL Red Blood Count 3.86 M/uL Hemoglobin 11.8 g/dL Hematocrit 36.4 % Mean Corpuscular Volume 94.3 fL Mean Corpuscular Hemoglobin 30.6 pg Mean Corpuscular Hemoglobin Concent 32.4 g/dl RDW Standard Deviation 51.6 fL RDW Coefficient of Variation 15.1 % Platelet Count 145 K/uL Mean Platelet Volume 11.4 fL Sodium Level 143 mmol/L Potassium Level 3.6 mmol/L Chloride Level 110 mmol/L Carbon Dioxide Level 25 mmol/L Anion Gap 8.0 mmol/L Blood Urea Nitrogen 23 mg/dl Creatinine 0.69 mg/dl Est Creatinine Clear Calc Drug Dose 63.4 ml/min Estimated GFR () 94.0 Estimated GFR (Non- 81.1 BUN/Creatinine Ratio 32.4 Random Glucose 94 mg/dl Calcium Level 7.9 mg/dl Assessment & Plan 81 yo F with parkinson's disease developed leg weakness and was unable to move from the floor for several hours, developed a mild rhabdomyolysis in the process. She was found to have a UTI and is being treated empirically for GNB. Aside from the weakness she is otherwise asymptomatic today and doing well. 1. Rhabdo-improving. Held IVF as patient eating today and wanted to be cautious with fluid, but will give one more liter overnight. CK improving. Per cards add statin when CPK normalizes. Cont to hold HCTZ and lisinopril one more day. 2. Weakness 2/2 UTI in setting of Parkinson's. Rocephin pending UCx. PT/OT evaluated and recommended returning home. Apprec Case Management involvement to ensure rolling walker availability and to setup HH for PT at home. 3. Elevated trop likely 2/2 demand ischemia per cardiology. Cont with ASA and start statin when CK normalizes based on lipid panel in hospital. Apprec Cards recs. 4. Aortic stenosis-mild to mod on TTE performed this admission. Needs 6-12 month repeat as outpatient to assess progression. 5. Parkinson's-doing well. Cont Sinemet DVT PROPHYLAXIS -Heparin SQ DISPOSITION-transfer to Med/Surg. Likely to home in am. Would like to send with HH for PT. Tea Mcmahan DO [facility] Hospitalist Consultants: Jeffy Current Inpatient Medications: Current Inpatient Medications Medications (Trade) Dose Ordered Sig/Aleks Route Start Time Stop Time Status Last Admin Dose Admin Acetaminophen (Tylenol Tab) 650 mg Q4H PRN PO 03/15/17 11:30 04/14/17 11:29 03/16/17 16:56 650 MG Ondansetron HCl (Zofran Inj) 4 mg Q6H PRN IV 03/15/17 11:30 04/14/17 11:29 Aspirin (Ecotrin Tab) 81 mg QAM PO 03/16/17 09:00 04/15/17 08:59 03/16/17 07:58 81 MG Fluticasone Propionate (Flonase Nasal [place]) 2 sprays DAILY JI 03/16/17 09:00 04/15/17 08:59 03/16/17 07:58 2 SPRAYS Carbidopa/Levodopa (Sinemet 25/ 100MG Tab) 1.5 tab TID PO 03/15/17 14:00 04/14/17 13:59 03/16/17 14:13 1.5 TAB Ceftriaxone Sodium 1 gm/ Dextrose 50 ml @ 100 mls/hr Q24H IV 03/16/17 11:00 03/20/17 10:59 03/16/17 11:33 100 MLS/HR Heparin Sodium (Porcine) (Heparin Sq 5000 Unit/0.5ml) 5,000 unit Q8 SQ 03/15/17 22:00 04/14/17 21:59 03/16/17 14:16 5,000 UNIT Miscellaneous (Iv Fluids Completed) 1 ea PRN PRN N/A 03/15/17 16:15 03/15/18 16:14
[2017-03-16] MEDS ORDERED: SODIUM CHLORIDE 0.9% 1000ML 1,000 ML IV SCH (18:00)
[2017-03-17] MEDS: HEPARIN SOD 5000 UNIT/0.5 ML CARP SQ SCH (05:26)
[2017-03-17 06:10] LABS: BUN/CREATININE RATIO 33.9 (10-20); CREATININE 0.57 mg/dl (0.60-1.20); POTASSIUM 3.4 mmol/L (3.5-5.1)
[2017-03-17 07:59] VITALS: BP 172/84; PULSE 83; TEMP 36.7; O2SAT 95
[2017-03-17 08:00] VITALS: O2SAT 95
[2017-03-17] MEDS: ASPIRIN 81 MG ECTAB PO SCH (08:13)
[2017-03-17] MEDS: CARBIDOPA/LEVODOPA 25/100MG TAB PO SCH (08:14)
[2017-03-17] MEDS: FLUTICASONE PROPIONATE NA SPR 16 GM BTL NAE SCH (08:14)
[2017-03-17] MEDS ORDERED: NITROFURANTOIN MONOHYDRATE 100 MG CAP PO SCH (09:00)
[2017-03-17] MEDS ORDERED: HYDROCHLOROTHIAZIDE 25 MG TAB PO SCH (09:15)
[2017-03-17] MEDS ORDERED: LISINOPRIL 5 MG TAB PO SCH (09:15)
[2017-03-17] MEDS ORDERED: POTASSIUM CHLORIDE 20 MEQ TABCR PO STA (09:25)
[2017-03-17] MEDS ORDERED: MCRB100 PO (12:20)
[2017-03-17] MEDS ORDERED: ASPEC81 PO (12:20)
--- NOTE | 2017-03-17 12:40 | Discharge Instructions ---
Discharge Instructions Date of Service Mar 17, 2017. Admission Reason for Admission: Rhabdomyolysis, Weakness Discharge Discharge Diagnosis / Problem: Rhabdomyolysis Discharge Goals Goal(s): Prevent Disease Progression Activity Recommendations Activity Limitations: per Instructions/Follow-up section . Instructions / Follow-Up Instructions / Follow-Up Please take all medications as prescribed. You have been started on an antibiotic for a urinary tract infection. Please complete the 5 day course. You were also started on a baby aspirin to take daily. You have a follow-up appointment with Dr. Bobby on , 03/22 @ 1:05pm. At this visit you will need to discuss with Dr. Bobby about starting a statin when the CK has normalized. This was a recommendation by Cardiology-Dr. Yost- who saw you in the hospital. You will need a follow-up appointment with Dr. Yost's office in 2-4 weeks as a Cardiology appointment. An outpatient stress test is being considered. You will also need a repeat echocardiogram in 6-12 months to monitor your valve. It was a pleasure taking care of you! Call if you have any questions or problems. You can reach a [facility] hospitalist on duty at [facility] 24 hours a day by calling [phone]. Take care of yourself. Tea Mcmahan DO [facility] Hospitalist Current Hospital Diet Patient's current hospital diet: AHA Diet (Heart Healthy) Discharge Diet Recommended Diet: AHA Diet (Heart Healthy) Procedures Procedures Performed: TTE (03/14): Ejection Fraction = 55-60%. * No regional wall motion abnormalities noted. * The aortic valve is mildly calcified. * 2D imaging and doppler interrogation of the aortic valve are discordant. * Mild to moderate aortic stenosis is suspected. * There is mild mitral regurgitation. * There is mild tricuspid regurgitation. * The estimated systolic PAP is 38mmHg. Pending Studies Studies pending at discharge: no Laboratory Results 03/16/17 05:30 03/17/17 05:17 Test 03/15/17 09:23 03/15/17 09:34 03/15/17 09:48 03/15/17 19:50 Immature Granulocyte % (Auto) 0.2 % White Blood Count 9.41 K/uL (4.8-10.8) Red Blood Count 4.07 M/uL (4.2-5.4) Hemoglobin 12.5 g/dL (12.0-16.0) Hematocrit 37.7 % (37-47) Mean Corpuscular Volume 92.6 fL (80-100) Mean Corpuscular Hemoglobin 30.7 pg (25-34) Mean Corpuscular Hemoglobin Concent 33.2 g/dl (32-36) Platelet Count 160 K/uL (130-400) Mean Platelet Volume 11.4 fL (7.4-10.4) Neutrophils (%) (Auto) 83.4 % Lymphocytes (%) (Auto) 5.0 % Monocytes (%) (Auto) 10.9 % Eosinophils (%) (Auto) 0.2 % Basophils (%) (Auto) 0.3 % Neutrophils # (Auto) 7.84 K/uL (1.4-6.5) Lymphocytes # (Auto) 0.47 K/uL (1.2-3.4) Monocytes # (Auto) 1.03 K/uL (0.11-0.59) Eosinophils # (Auto) 0.02 K/uL (0-0.5) Basophils # (Auto) 0.03 K/uL (0-0.2) Immature Granulocyte # (Auto) 0.02 K/uL (0.00-0.02) Magnesium Level 2.2 mg/dl (1.8-2.4) Total Bilirubin 0.8 mg/dl (0.2-1) Direct Bilirubin 0.2 mg/dl (0-0.2) Aspartate Amino Transf (AST/SGOT) 65 U/L (15-37) Alanine Aminotransferase (ALT/SGPT) 7 U/L (12-78) Alkaline Phosphatase 62 U/L (45-117) Total Protein 7.1 gm/dl (6.4-8.2) Albumin 3.1 gm/dl (3.4-5.0) Thyroid Stimulating Hormone (TSH) 0.414 uIu/ml (0.300-4.500) Bedside Troponin I 1.310 ng/ml (0-0.045) Urine Color DK YELLOW Urine Appearance CLEAR (CLEAR) Urine pH 5.5 (4.5-7.5) Urine Specific [place] 1.018 (1.000-1.030) Urine Protein 2+ (NEG) Urine Glucose (UA) NEG (NEG) Urine Ketones 1+ (NEG) Urine Occult Blood 1+ (NEG) Urine Nitrite POS (NEG) Urine Bilirubin NEG (NEG) Urine Urobilinogen NEG (NEG) Urine Leukocyte Esterase TRACE (NEG) Urine WBC (Auto) 5-10 /hpf (0-5) Urine RBC (Auto) 0-4 /hpf (0-4) Urine Hyaline Casts (Auto) 1-5 /lpf (0-5) Urine Epithelial Cells (Auto) 10-20 /lpf (0-5) Urine Bacteria (Auto) 4+ (NEG) Prothrombin Time 10.8 SECONDS (9.0-12.0) Prothromb Time International Ratio 1.0 (0.9-1.1) Activated Partial Thromboplast Time 30.6 SECONDS (21.0-31.0) Partial Thromboplastin Ratio 1.2 Test 03/16/17 02:03 03/16/17 05:30 03/17/17 05:17 Creatine Kinase MB 3.4 ng/ml (0.5-3.6) Creatine Kinase MB Ratio 0.4 (0-3.0) Troponin I 0.986 ng/ml (0-0.045) Red Blood Count 3.86 M/uL (4.2-5.4) Mean Corpuscular Volume 94.3 fL (80-100) Mean Corpuscular Hemoglobin 30.6 pg (25-34) Mean Corpuscular Hemoglobin Concent 32.4 g/dl (32-36) RDW Standard Deviation 51.6 fL (36.4-46.3) RDW Coefficient of Variation 15.1 % (11.5-14.5) Mean Platelet Volume 11.4 fL (7.4-10.4) Anion Gap 7.0 mmol/L (3-11) Est Creatinine Clear Calc Drug Dose 76.7 ml/min Estimated GFR () 100.1 Estimated GFR (Non- 86.3 BUN/Creatinine Ratio 33.9 (10-20) Calcium Level 8.0 mg/dl (8.5-10.1) Total Creatine Kinase 386 U/L (26-192) Date/Time Source Procedure Growth Status 03/15/17 09:48 Urine,Catheterized Urine Culture - Final Escherichia Coli Complete Medical Emergencies . Who to Call and When: Medical Emergencies: If at any time you feel your situation is an emergency, please call 911 immediately. . Non-Emergent Contact Non-Emergency issues call your: Primary Care Provider . . "Provider Documentation" section prepared by Tea Mcmahan. . VTE Core Measure Inpt VTE Proph given/why not?: Unfractionated heparin SQ
--- NOTE | 2017-03-17 12:50 | Discharge Summary ---
Discharge Summary Date of Service Mar 17, 2017. Discharge Summary Admission Date: Mar 15, 2017 at 11:48 Discharge Date: Mar 17, 2017 Discharge Disposition: Home with services Principal Diagnosis: Weakness 2/2 UTI Rhabdomyolysis ELI Elevated troponin 2./2 demand ischemia Aortic stenosis Parkinson's Disease Hypokalemia Procedures: TTE 03/14: Ejection Fraction = 55-60%. * No regional wall motion abnormalities noted. * The aortic valve is mildly calcified. * 2D imaging and doppler interrogation of the aortic valve are discordant. * Mild to moderate aortic stenosis is suspected. * There is mild mitral regurgitation. * There is mild tricuspid regurgitation. * The estimated systolic PAP is 38mmHg. Vaccinations: Pneumovax 23 on 03/15 Consultations: Jeffy Pending Studies/Follow-Up: see instructions below. Medication Reconciliation New Medications: Aspirin (Aspirin EC Low Dose) 81 Mg Ectab 81 MG PO QAM for 90 Days, #90 TAB 1 Refill Nitrofurantoin Monohyd Macrocr (Nitrofurantoin Monohydrat) 100 Mg Cap 100 MG PO BID for 5 Days, #10 CAP Continued Medications: Alendronate Sodium (Fosamax) 70 Mg Tab 70 MG PO WK, TAB takes once weekly on Fridays Calcium Carbonate-Vitamin D (Calcium + D3 600-200 mg-Unit) 1 Tab Tab 1 TAB PO DAILY Fluticasone Propionate (Nasal) (Flonase Allergy Relief) 50 Mcg/Act Spr 2 SPRAYS JI DAILY Hydrochlorothiazide (Hydrochlorothiazide) 12.5 Mg Tab 1 TAB PO DAILY PRN for LE edema for 30 Days, #30 TAB 5 Refills Levodopa/Carbidopa (Sinemet 25MG/100MG) 1 Ea Tab 1.5 TAB PO TID, TAB Lisinopril (Lisinopril) 5 Mg Tab 1 TAB PO DAILY Admission Information HPI (per Admitting provider): Pt is 81 y/o F with PMHx Parkinson's, HTN, hyperlipidemia, chronic rhinitis, osteoporosis presents with c/o leg weakness and fall. Pt states the past week her legs have been very weak. She typically walks with a cane, however for the past week has been having to use a walker. States yesterday walking back from bathroom and legs so weak that she slid to floor. She was unable to get up. Pt states tried multiple times but was unable to do so. She states she laid on right arm and side for approx 4-5 hours until step son and came home. Pt states while lying on floor she had some tingling to right arm and R leg after lying there for awhile. Once she was helped up later this resolved. States some left upper leg cramping intermittently. Pt states sat around remaining part of yesterday but felt overall weakness. Today tried to get out of bed and legs were too weak to stand and states slid to floor and decided to go to ER. Pt states past 3-4 days with decreased appetite, but has been thirsty past 2 days. yesterday didn't eat much but was drinking water. Pt denies any CP or SOB or MC recently. Denies any pains currently. Has HCTZ to use prn LE edema , however states doesn't use as doesn't have LE edema often. Hx urinary frequency at night. Was started on oxybutynin 5mg BID 01/27/17 - pt states took for 4 days and then stopped as caused dry mouth. Denies any other new meds or changes with meds. Denies dysuria, hematuria. Denies hitting head, fever/chills , diaphoresis, N/V/D/C, MC, dizziness, syncope, vision changes, neck pain, CP, SOB, orthopnea, palpitations, cough, sore throat, choking, otalgia, abdominal pain, pelvic pain, extremity edema, rashes. Hx ECHO 2013: EF: 55-59%, mild aortic valve sclerosis without stenosis, mild tricuspid regurg. Hx carotid u/s: less than 50% stenosis bilateral internal carotid arteries, however calcified plaque Seen in ER today. Negative head CT, negative CXR, troponin 1.3, CKMB: 5.9, CPK: 1164. TSH: 0.4, magnesium: 2.2. EKG: NSR rate 85, incomplete RBBB, no ST elevation. BUN:33, CR:1.0, GFR: 23 (previous from 01/13/17 was BUN 19, CR: 1.0, GFR>60). U/A: pos nitrites, trace leuk, 4+bacteria, 1+blood, 0-4 RBC. Pt afebrile. BP: 116/60, pulse: 92, Resp: 18, pulse ox: 94%. Given NSS 250ml bolus followed by 125/ml hr for total 1L. 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 left shoulder with yellow ecchymosis (pt reports hit shoulder on wall corner last week). ROM extremities intact) Neurologic/Psych: alert, normal mood/affect, normal reflexes, oriented x 3 Skin: normal color (ecchymosis as above in extremities), warm/dry Hospital Course 81 yo F with parkinson's disease developed leg weakness and was unable to move from the floor for several hours, developed a mild rhabdomyolysis in the process. She was found to have a UTI and was treated with IV Ceftriaxone for two days until the culture returned as martínez-sensitive E coli. She was then placed on Macrobid to complete a 7 day course. IVF were given initially and her CK was seen to improve from 1400 to 300 with a resolution of her ELI. BP meds were initially held and then restarted at discharge. Weakness was evaluated by PT and OT who recommended returning home and home health for PT and OT was ordered for her at discharge. She has a rolling walker at home to help with ambulation until her strength is 100%. Her elevated troponin was evaluated by Dr. Yost from Cardiology. She underwent a resting echocardiogram revealing no wall motion abnormalities and a normal ejection fraction. She was noted to have mod aortic stenosis and an outpatient echo was recommended in 6-12 months for monitoring. She did not undergo an inpatient stress test, however, this was recommended as an outpatient soon after discharge. She will be following up with Cardiology in 2-4 weeks for these issues. She was started on a baby aspirin while in the hospital which is recommended for her to continue. She should also get on a statin once her CK has normalized for risk factor modification per Cardiology. On day of discharge she was ambulating well enough to return home per PT, mentating appropriately, tolerating PO, hemodynamically stable and afebrile, asymptomatic and feeling stronger with a resolution of her ELI and a drastic decrease in her elevated CK. She was sent home with home health services in good condition with close PCP followup scheduled within one week. Total time spent on discharge = 60 minutes This includes examination of the patient, discharge planning, medication reconciliation, and communication with other providers. Discharge Instructions [facility] [address] [place] [address] Discharge Medical Patient Name: Cassandra Diaz Unit Number: [id number] Date of : 1935 Patient Status: Admitted Inpatient Attending Doctor: Tea Mcmahan DO DI: Medical v4 Discharge Instructions Date of Service Mar 17, 2017. Admission Reason for Admission: Rhabdomyolysis, Weakness Discharge Discharge Diagnosis / Problem: Rhabdomyolysis Discharge Goals Goal(s): Prevent Disease Progression Activity Recommendations Activity Limitations: per Instructions/Follow-up section . Instructions / Follow-Up Instructions / Follow-Up Please take all medications as prescribed. You have been started on an antibiotic for a urinary tract infection. Please complete the 5 day course. You were also started on a baby aspirin to take daily. You have a follow-up appointment with Dr. Bobby on 03/22 @ 1:05pm. At this visit you will need to discuss with Dr. Bobby about starting a statin when the CK has normalized. This was a recommendation by Cardiology-Dr. Yost- who saw you in the hospital. You will need a follow-up appointment with Dr. Yost's office in 2-4 weeks as a Cardiology appointment. An outpatient stress test is being considered. You will also need a repeat echocardiogram in 6-12 months to monitor your valve. It was a pleasure taking care of you! Call if you have any questions or problems. You can reach a [facility] hospitalist on duty at [facility] 24 hours a day by calling [phone]. Take care of yourself. DO [facility] Hospital[facility] Current Hospital Diet Patient's current hospital diet: AHA Diet (Heart Healthy) Discharge Diet Recommended Diet: AHA Diet (Heart Healthy) Procedures Procedures Performed: TTE (03/14): Ejection Fraction = 55-60%. * No regional wall motion abnormalities noted. * The aortic valve is mildly calcified. * 2D imaging and doppler interrogation of the aortic valve are discordant. * Mild to moderate aortic stenosis is suspected. * There is mild mitral regurgitation. * There is mild tricuspid regurgitation. * The estimated systolic PAP is 38mmHg. Pending Studies Studies pending at discharge: no Laboratory Results 03/16/17 05:30 03/17/17 05:17 Test 03/15/17 09:23 03/15/17 09:34 03/15/17 09:48 03/15/17 19:50 Immature Granulocyte % (Auto) 0.2 % White Blood Count 9.41 K/uL (4.8-10.8) Red Blood Count 4.07 M/uL (4.2-5.4) Hemoglobin 12.5 g/dL (12.0-16.0) Hematocrit 37.7 % (37-47) Mean Corpuscular Volume 92.6 fL (80-100) Mean Corpuscular Hemoglobin 30.7 pg (25-34) Mean Corpuscular Hemoglobin Concent 33.2 g/dl (32-36) Platelet Count 160 K/uL (130-400) Mean Platelet Volume 11.4 fL (7.4-10.4) Neutrophils (%) (Auto) 83.4 % Lymphocytes (%) (Auto) 5.0 % Monocytes (%) (Auto) 10.9 % Eosinophils (%) (Auto) 0.2 % Basophils (%) (Auto) 0.3 % Neutrophils # (Auto) 7.84 K/uL (1.4-6.5) Lymphocytes # (Auto) 0.47 K/uL (1.2-3.4) Monocytes # (Auto) 1.03 K/uL (0.11-0.59) Eosinophils # (Auto) 0.02 K/uL (0-0.5) Basophils # (Auto) 0.03 K/uL (0-0.2) Immature Granulocyte # (Auto) 0.02 K/uL (0.00-0.02) Magnesium Level 2.2 mg/dl (1.8-2.4) Total Bilirubin 0.8 mg/dl (0.2-1) Direct Bilirubin 0.2 mg/dl (0-0.2) Aspartate Amino Transf (AST/SGOT) 65 U/L (15-37) Alanine Aminotransferase (ALT/SGPT) 7 U/L (12-78) Alkaline Phosphatase 62 U/L (45-117) Total Protein 7.1 gm/dl (6.4-8.2) Albumin 3.1 gm/dl (3.4-5.0) Thyroid Stimulating Hormone (TSH) 0.414 uIu/ml (0.300-4.500) Bedside Troponin I 1.310 ng/ml (0-0.045) Urine Color DK YELLOW Urine Appearance CLEAR (CLEAR) Urine pH 5.5 (4.5-7.5) Urine Specific [place]oun 1.018 (1.000-1.030) Urine Protein 2+ (NEG) Urine Glucose (UA) NEG (NEG) Urine Ketones 1+ (NEG) Urine Occult Blood 1+ (NEG) Urine Nitrite POS (NEG) Urine Bilirubin NEG (NEG) Urine Urobilinogen NEG (NEG) Urine Leukocyte Esterase TRACE (NEG) Urine WBC (Auto) 5-10 /hpf (0-5) Urine RBC (Auto) 0-4 /hpf (0-4) Urine Hyaline Casts (Auto) 1-5 /lpf (0-5) Urine Epithelial Cells (Auto) 10-20 /lpf (0-5) Urine Bacteria (Auto) 4+ (NEG) Prothrombin Time 10.8 SECONDS (9.0-12.0) Prothromb Time International Ratio 1.0 (0.9-1.1) Activated Partial Thromboplast Time 30.6 SECONDS (21.0-31.0) Partial Thromboplastin Ratio 1.2 Test 03/16/17 02:03 03/16/17 05:30 03/17/17 05:17 Creatine Kinase MB 3.4 ng/ml (0.5-3.6) Creatine Kinase MB Ratio 0.4 (0-3.0) Troponin I 0.986 ng/ml (0-0.045) Red Blood Count 3.86 M/uL (4.2-5.4) Mean Corpuscular Volume 94.3 fL (80-100) Mean Corpuscular Hemoglobin 30.6 pg (25-34) Mean Corpuscular Hemoglobin Concent 32.4 g/dl (32-36) RDW Standard Deviation 51.6 fL (36.4-46.3) RDW Coefficient of Variation 15.1 % (11.5-14.5) Mean Platelet Volume 11.4 fL (7.4-10.4) Anion Gap 7.0 mmol/L (3-11) Est Creatinine Clear Calc Drug Dose 76.7 ml/min Estimated GFR () 100.1 Estimated GFR (Non- 86.3 BUN/Creatinine Ratio 33.9 (10-20) Calcium Level 8.0 mg/dl (8.5-10.1) Total Creatine Kinase 386 U/L (26-192) Date/Time Source Procedure Growth Status 03/15/17 09:48 Urine,Catheterized Urine Culture - Final Escherichia Coli Complete Medical Emergencies . Who to Call and When: Medical Emergencies: If at any time you feel your situation is an emergency, please call 911 immediately. . Non-Emergent Contact Non-Emergency issues call your: Primary Care Provider . . "Provider Documentation" section prepared by Tea Mcmahan. . VTE Core Measure Inpt VTE Proph given/why not?: Unfractionated heparin SQ Additional Copies To Marilou Bobby M.D. (MEDICAL)
[2017-03-17 13:06] VITALS: BP 131/75; PULSE 78; TEMP 37; O2SAT 96
[2017-03-17 13:19] VITALS: BP 131/75; PULSE 78; TEMP 37; O2SAT 96
--- NOTE | 2017-03-18 12:44 | EDITING REQUIRED CODING QUERY ---
CODING QUERY To promote full compliance with coding requirements relating to patient care, provider participation is requested in all cases of nursery school attendant uncertainty. Please assist us with the question(s) below: Coding Question(s): ELI is documented through the record and on the Discharge Summary. ELI is not a recognized abbreviation. Please clarify below. ( x ) ELI stands for Acute Kidney Injury ( ) ELI stands for Acute Kidney Insufficiency ( ) ELI stands for other diagnosis: Specify Physician's Response(s): Thank you Sophie Sifuentes Principal Diagnosis: "_that condition established after study, to be chiefly responsible for occasioning the admission of the patient to the hospital for care." Co-Existing Principal Diagnosis: "_when two or more diagnoses equally meet the criteria for principal diagnosis as determined by the circumstances of admission, diagnostic work up, and/or therapy provided, and the Alphabetic Index, Tabular List, or another coding guideline does not provide sequencing direction, any one of the diagnoses may be sequenced first." "When the physician has documented what appears to be a current diagnosis in the body of the record, but has not included the diagnosis in the final diagnostic statement, the physician should be asked whether the diagnosis should be added." (Source [facility]oding [facility] 2 QTR90. p3-4)
--- NOTE | 2017-03-18 12:51 | EDITING REQUIRED CODING QUERY ---
CODING QUERY To promote full compliance with coding requirements relating to patient care, provider participation is requested in all cases of certified medical coder uncertainty. Please assist us with the question(s) below: Coding Question(s): Please clarify below, in your clinical opinion, to determine the diagnosis that is chiefly responsible for the inpatient admission. (x ) All of these diagnosis were treated equally as being responsible for the inpatient admission - UTI, ELI, Rhabdomylosis, and Demand Ischemia. ( ) UTI was chiefly responsible for the inpatient admission ( ) Rhabdomylosis was chiefly responsible for the inpatient admission ( ) Demand Ischemia was chiefly responsible for the inpatient admission ( ) ELI (abbreviation clarified on other query) was chiefly responsible for the inpatient admission ( ) Other Diagnosis was chiefly responsible for the inpatient admission - Specify Physician's Response(s): Thank you Sophie Sifuentes Principal Diagnosis: "_that condition established after study, to be chiefly responsible for occasioning the admission of the patient to the hospital for care." Co-Existing Principal Diagnosis: "_when two or more diagnoses equally meet the criteria for principal diagnosis as determined by the circumstances of admission, diagnostic work up, and/or therapy provided, and the Alphabetic Index, Tabular List, or another coding guideline does not provide sequencing direction, any one of the diagnoses may be sequenced first." "When the physician has documented what appears to be a current diagnosis in the body of the record, but has not included the diagnosis in the final diagnostic statement, the physician should be asked whether the diagnosis should be added." (Source [facility]oding [facility] 2 QTR90. p3-4)
== END 2017-03-17 14:10 | disposition home health service (06) | DRG 683 ==
LOC: EDBD 08:31 → C.EDB 08:32 → C.MED 11:48 → ENRESERV 12:22
PROVIDERS: ADMIT Hospitalist; ATTEND Hospitalist
DX: N17.9 Acute kidney failure, unspecified (principal); M62.82 Rhabdomyolysis; N39.0 Urinary tract infection, site not specified; I24.8 Other forms of acute ischemic heart disease; B96.20 Unspecified Escherichia coli [E. coli] as the cause of diseases classified elsewhere; I35.0 Nonrheumatic aortic (valve) stenosis; N28.9 Disorder of kidney and ureter, unspecified; G20 Parkinson's disease; I11.9 Hypertensive heart disease without heart failure; M81.0 Age-related osteoporosis without current pathological fracture; J30.9 Allergic rhinitis, unspecified; Z51.81 Encounter for therapeutic drug level monitoring; Z79.899 Other long term (current) drug therapy; Z91.81 History of falling; Z80.0 Family history of malignant neoplasm of digestive organs; Z80.3 Family history of malignant neoplasm of breast; Z80.7 Family history of other malignant neoplasms of lymphoid, hematopoietic and related tissues

== ENCOUNTER 2017-08-13 09:01 | Inpatient (IN) | payer OTHER ==
[~2017-08-13] VITALS: Ht 172.7 cm; Wt 75.0 kg
[~2017-08-13 09:01] MED LIST changes: +ASPEC81 PO; +CALC-388 PO; -CALC600T9 PO; +HYDR12.55 PO; +MCRB100 PO
[2017-08-13] MEDS ORDERED: SODIUM CHLORIDE 0.9% 1000ML 500 ML IV ONE (09:43)
[2017-08-13] MEDS ORDERED: IMIPENEM/CILASTATIN IV 500 MG in DEXTROSE 5% 100ML 100 ML IV STA (09:43)
[2017-08-13 10:05] LABS: BASO % 0.1 %; BASO ABS # 0.01 K/uL (0-0.2); EOS % 0.2 %; EOS ABS # 0.02 K/uL (0-0.5); HEMOGLOBIN 12.6 g/dL (12.0-16.0); IG# 0.04 K/uL (0.00-0.02); LYMPH ABS # 0.93 K/uL (1.2-3.4); MEAN CELL VOLUME 93.6 fL (80-100); MEAN CORPUSCULAR HGB CONC 33.2 g/dl (32-36); MEAN PLATELET VOLUME 11.2 fL (7.4-10.4); MONO % 13.3 %; MONO ABS # 1.38 K/uL (0.11-0.59); NEUT ABS # 7.96 K/uL (1.4-6.5); PLATELET COUNT 172 K/uL (130-400); RED CELL DISTRIBUTION WIDTH CV 14.6 % (11.5-14.5); RED CELL DISTRIBUTION WIDTH SD 49.8 fL (36.4-46.3); WHITE BLOOD COUNT 10.34 K/uL (4.8-10.8)
--- NOTE | 2017-08-13 10:07 | DIAGNOSTIC IMAGING REPORT ---
SINGLE VIEW CHEST CLINICAL HISTORY: Sepsis. FINDINGS: An AP, portable, upright chest radiograph is compared to study dated 03/15/2017. The examination is degraded by portable technique and patient rotation. The heart is mildly enlarged and there is atherosclerotic calcification of the thoracic aorta. The pulmonary vasculature is noncongested. Chronic interstitial thickening is similar to previous. Minimal bibasilar atelectasis is observed. No airspace consolidation or large pleural effusion is identified. No pneumothorax is seen. The skeletal structures are osteopenic. Degenerative change and scoliosis are noted in the thoracic spine. IMPRESSION: Cardiomegaly with no acute cardiopulmonary abnormality. Electronically signed by: Jone Tinoco M.D. 08/13/2017 10:05 AM Dictated Date/Time: 08/13/2017 10:05 AM
[2017-08-13 10:13] LABS: ALBUMIN 3.3 gm/dl (3.4-5.0); CALCIUM 8.9 mg/dl (8.5-10.1); CREATININE 0.73 mg/dl (0.60-1.20); POTASSIUM 3.7 mmol/L (3.5-5.1)
[2017-08-13 10:14] LABS: PTT PATIENT 30.8 SECONDS (21.0-31.0)
[2017-08-13 10:16] LABS: TOTAL PROTEIN 7.3 gm/dl (6.4-8.2)
[2017-08-13] MEDS ORDERED: ASPI81TA28 PO (10:48)
[2017-08-13] MEDS ORDERED: ACETAMINOPHEN 325 MG TAB PO PRN (11:30)
--- NOTE | 2017-08-13 11:56 | History and Physical ---
History & Physical Date & Time of Service: Aug 13, 2017 at 11:54 . Chief Complaint: weakness . Primary Care Physician: Marilou Bobby M.D. . History of Present Illness Source: patient, clinic records, hospital records 81-year-old female followed by Dr. Bobby. History of hypertension, Parkinson's disease, and other problems noted below. Noted onset of malaise about 3 days prior to admission. Yesterday, she felt weaker and fell without sustaining any injuries. Today she felt even weaker and came to the ED for evaluation. No fever at home, but noted to be febrile upon arrival to the ED. No chills or sweats. No significant cough, nausea, vomiting, abdominal pain, diarrhea, flank pain, dysuria, hematuria. Hypotensive with blood pressure of 95/52 upon arrival to ED. Received bolus 500 mL NSS with improvement of blood pressure. . Past Medical/Surgical History Chronic and Resolved Medical Problems: (1) Aortic stenosis Permanent Comment: mild-moderate per echo 03/15/17 Status: Chronic (2) Chronic allergic rhinitis Status: Chronic (3) Dyslipidemia Status: Chronic (4) History of fracture of left hip Status: Chronic (5) Hypertension Status: Chronic (6) Osteoporosis Status: Chronic (7) Parkinson disease Status: Chronic Surgical Problems: (1) H/O colonoscopy Permanent Comment: 2011 Status: Chronic (2) History of left hip replacement Status: Chronic (3) Hx of cataract surgery Status: Chronic . Family History FH: cancer FATHER (esophageal) MOTHER (breast) BROTHER (lymphoma, dx in 60's, age 73) Social History Smoking Status: Never Smoker Alcohol Use: none Drug Use: none Marital Status: Housing status: lives with significant other Occupational Status: retired Allergies Coded Allergies: No Known Allergies (Unverified , 08/13/17) Home Medications Scheduled Alendronate Sodium (Fosamax), 70 MG PO WK Aspirin (Aspirin Ec), 81 MG PO DAILY Calcium Carbonate-Vitamin D (Calcium + D3 600-200 mg-Unit), 1 TAB PO DAILY Fluticasone Propionate (Nasal) (Flonase Allergy Relief), 2 SPRAYS JI DAILY Levodopa/Carbidopa (Sinemet 25MG/100MG), 1.5 TAB PO TID Lisinopril (Lisinopril), 1 TAB PO DAILY Scheduled PRN Hydrochlorothiazide (Hydrochlorothiazide), 1 TAB PO DAILY PRN for LE edema Review of Systems CONSTITUTIONAL no fever weight fluctuates EYES no acute visual changes EARS, NOSE, MOUTH, AND THROAT no hearing loss no sinus symptoms no pharyngitis CARDIOVASCULAR no chest pain no palpitations no edema RESPIRATORY chronic mild nonproductive cough no dyspnea GASTROINTESTINAL no nausea or vomiting no diarrhea no constipation no melena or hematochezia GENITOURINARY as noted above in HPI MUSCULOSKELETAL no myalgias chronic knee pain INTEGUMENTARY no rash no new / changing lesions NEUROLOGIC no headaches + Parkinson symptoms ENDOCRINE no polyuria or polydipsia HEMATOLOGIC / LYMPHATIC + bruising no adenopathy . Physical Exam Vital Signs Date Time Temp Pulse Resp B/P (MAP) Pulse Ox O2 Delivery O2 Flow Rate FiO2 08/13/17 11:12 37.2 76 16 136/60 95 Room Air 08/13/17 10:11 77 08/13/17 10:05 97 Room Air 08/13/17 10:05 74 18 126/62 97 Room Air 08/13/17 09:09 38.1 89 20 95/52 92 Room Air CONSTITUTIONAL vital signs as noted above elderly female well-developed, well-nourished, no acute distress EYES anicteric conjunctivae clear; lids normal left iridectomy EARS, NOSE, MOUTH AND THROAT external inspection of ears and nose unremarkable hearing grossly intact to spoken voice upper partial plate oropharynx clear NECK no masses; trachea midline thyroid normal RESPIRATORY normal respiratory effort; no respiratory distress clear to percussion clear to auscultation CARDIOVASCULAR regular rate and rhythm III/ systolic murmur at base no gallop, rub appreciated carotid arteries 2/2 abdominal aorta not palpable pedal pulses intact and symmetric capillary refill toes < 2 seconds no pretibial edema GASTROINTESTINAL normal bowel sounds, soft, nontender; no palpable masses no hepatomegaly; no splenomegaly BACK no CVA tenderness LYMPHATIC no cervical adenopathy MUSCULOSKELETAL no cyanosis; no digital clubbing no calf tenderness motor strength extremities grossly intact SKIN no rash warm and dry NEUROLOGIC PERRL, EOMI, no facial palsy, no dysarthria, tongue midline patellar DTR's 1/2 bilat PSYCHIATRIC oriented to person, place, time mood and affect appropriate . Diagnostics Laboratory Results Results Past 24 Hours Test 08/13/17 09:35 08/13/17 09:53 Range/Units White Blood Count 10.34 4.8-10.8 K/uL Red Blood Count 4.06 4.2-5.4 M/uL Hemoglobin 12.6 12.0-16.0 g/dL Hematocrit 38.0 37-47 % Mean Corpuscular Volume 93.6 80-100 fL Mean Corpuscular Hemoglobin 31.0 25-34 pg Mean Corpuscular Hemoglobin Concent 33.2 32-36 g/dl Platelet Count 172 130-400 K/uL Mean Platelet Volume 11.2 7.4-10.4 fL Neutrophils (%) (Auto) 77.0 % Lymphocytes (%) (Auto) 9.0 % Monocytes (%) (Auto) 13.3 % Eosinophils (%) (Auto) 0.2 % Basophils (%) (Auto) 0.1 % Neutrophils # (Auto) 7.96 1.4-6.5 K/uL Lymphocytes # (Auto) 0.93 1.2-3.4 K/uL Monocytes # (Auto) 1.38 0.11-0.59 K/uL Eosinophils # (Auto) 0.02 0-0.5 K/uL Basophils # (Auto) 0.01 0-0.2 K/uL RDW Standard Deviation 49.8 36.4-46.3 fL RDW Coefficient of Variation 14.6 11.5-14.5 % Immature Granulocyte % (Auto) 0.4 % Immature Granulocyte # (Auto) 0.04 0.00-0.02 K/uL Prothrombin Time 10.5 9.0-12.0 SECONDS Prothromb Time International Ratio 1.0 0.9-1.1 Activated Partial Thromboplast Time 30.8 21.0-31.0 SECONDS Partial Thromboplastin Ratio 1.2 Urine Color YELLOW Urine Appearance CLOUDY CLEAR Urine pH 5.0 4.5-7.5 Urine Specific [place] 1.018 1.000-1.030 Urine Protein NEG NEG Urine Glucose (UA) NEG NEG Urine Ketones TRACE NEG Urine Occult Blood NEG NEG Urine Nitrite POS NEG Urine Bilirubin NEG NEG Urine Urobilinogen NEG NEG Urine Leukocyte Esterase MODERATE NEG Urine WBC (Auto) >30 0-5 /hpf Urine RBC (Auto) 0-4 0-4 /hpf Urine Hyaline Casts (Auto) 10-30 0-5 /lpf Urine Epithelial Cells (Auto) 0-5 0-5 /lpf Urine Bacteria (Auto) 4+ NEG Sodium Level 137 136-145 mmol/L Potassium Level 3.7 3.5-5.1 mmol/L Chloride Level 104 98-107 mmol/L Carbon Dioxide Level 28 21-32 mmol/L Anion Gap 5.0 3-11 mmol/L Blood Urea Nitrogen 19 7-18 mg/dl Creatinine 0.73 0.60-1.20 mg/dl Est Creatinine Clear Calc Drug Dose 59.9 ml/min Estimated GFR () 88.9 Estimated GFR (Non- 76.7 BUN/Creatinine Ratio 25.8 10-20 Random Glucose 110 70-99 mg/dl Calcium Level 8.9 8.5-10.1 mg/dl Total Bilirubin 1.2 0.2-1 mg/dl Aspartate Amino Transf (AST/SGOT) 23 15-37 U/L Alanine Aminotransferase (ALT/SGPT) 7 12-78 U/L Alkaline Phosphatase 71 45-117 U/L Total Creatine Kinase 321 26-192 U/L Total Protein 7.3 6.4-8.2 gm/dl Albumin 3.3 3.4-5.0 gm/dl Globulin 4.0 2.5-4.0 gm/dl Albumin/Globulin Ratio 0.8 0.9-2 Bedside Lactic Acid Venous 0.75 0.90-1.70 mmol/L Microbiology Results 08/13/17 Blood Culture, Received Pending 08/13/17 Blood Culture, Received Pending 08/13/17 Urine Culture, Received Pending Diagnostic Radiology CHEST X-RAY FINDINGS: An AP, portable, upright chest radiograph is compared to study dated 03/15/2017. The examination is degraded by portable technique and patient rotation. The heart is mildly enlarged and there is atherosclerotic calcification of the thoracic aorta. The pulmonary vasculature is noncongested. Chronic interstitial thickening is similar to previous. Minimal bibasilar atelectasis is observed. No airspace consolidation or large pleural effusion is identified. No pneumothorax is seen. The skeletal structures are osteopenic. Degenerative change and scoliosis are noted in the thoracic spine. IMPRESSION: Cardiomegaly with no acute cardiopulmonary abnormality. Electronically signed by: Jone Tinoco M.D. 08/13/2017 10:05 AM Dictated Date/Time: 08/13/2017 10:05 AM . EKG EKG performed at 1001 reviewed and demonstrated normal sinus rhythm at 53/minute , first-degree AV block, incomplete right bundle branch block, no acute ST or T- wave abnormalities. Impression Assessment and Plan URINARY TRACT INFECTION Pt presented to ED with fever, mild hypotension, generalized weakness. UA demonstrated pyuria and bacteriuria. Does not meet criteria for sepsis. Mild hypotension responded to fluid resuscitation with 500 mL normal saline. Serum lactate less than 1. Blood and urine cultures obtained in the ED. Patient received a dose of imipenem/cilastatin. Will change antibiotic therapy to ceftriaxone pending culture results. HYPERTENSION BP low in ED. Hold lisinopril. Follow and titrate therapy. ELEVATED CPK CPK 321. Elevation could be secondary to fall, infection, statin. No acute EKG changes. Doubt acute coronary syndrome. Follow. DYSLIPIDEMIA Hold statin in light of generalized weakness and slightly elevated CPK. PARKINSON'S DISEASE Continue Sinemet. Fall precautions. VTE PROPHYLAXIS Moderate risk for VTE. SQ enoxaparin. Ambulate. RESUSCITATION STATUS Discussed with pt. She does not have a living will. She would like resuscitation attempted in the event of a cardiopulmonary arrest. ). Therefore, code status = "Level 1" (full resuscitation). DISPOSITION Admit to Med-Surg Unit. In my clinical judgment this beneficiary meets acute admission criteria, established by [facility], that includes being hospitalized through two midnights. Expected discharge to home. Family Medicine follow-up with Dr. Bobby. . Resuscitation Status VTE Prophylaxis Will order VTE Prophylaxis: Yes
[2017-08-13 11:59] VITALS: O2SAT 95; Ht 172.7 cm; Wt 75.0 kg
[2017-08-13 12:10] VITALS: O2SAT 97
[2017-08-13 13:10] VITALS: BP 136/74; PULSE 80; TEMP 37; O2SAT 97
[2017-08-13] MEDS: CARBIDOPA/LEVODOPA 25/100MG TAB PO SCH ×2 (13:39→18:50)
[2017-08-13] MEDS ORDERED: LACTATED RINGER'S 1000ML 1,000 ML IV SCH (14:00)
[2017-08-13 15:30] VITALS: BP 136/80; PULSE 84; TEMP 37.2; O2SAT 94
--- NOTE | 2017-08-13 16:07 | EMERGENCY ROOM VISIT NOTE ---
History Report prepared by Jacob: Zack Lehman Under the Supervision of: Dr. Chris Mak M.D. First contact with patient: 09:34 Chief Complaint: BILATERAL LEG WEAKNESS Stated Complaint: WEAKNESS IN LEGS History of Present Illness The patient is a 81 year old female who presents to the Emergency Room with complaints of persistent bilateral lower extremity weakness that began yesterday. The patient states that she was getting ready for bed last night and went to sit back. She reports that when she sat back she moved too far and fell of the bed. The patient states that she landed on her buttocks on the floor but denies any injury or discomfort to her head or back. She reports that she has been falling recently because she has been consistently experiencing bilateral lower extremity weakness. She actually clarifies that the weakness is diffuse and all over her body. The patient states that she is also experiencing urinary frequency. She currently reports a headache, but reports she has not had anything to eat this morning. The patient reports she has been mildly coughing intermittently, but denies any cold symptoms. The patient states that she had similar symptoms in February, which she was hospitalized for. She had developed bilateral leg weakness at that time. She reports she was diagnosed with dehydration and a UTI. She denies urinary burning or frequency, chest pains , shortness of breath, vomiting, diarrhea, lightheadedness, and abdominal pain. She denies having any fevers at home. Source of History: patient Onset: yesterday Position: leg (bilateral) Quality: other (weakness) Timing: other (persistent) Associated Symptoms: + headache, + cough, + urinary symptoms, No chest pain , No SOB, No vomiting, No abdominal pain Review of Systems See HPI for pertinent positives & negatives. A total of 10 systems reviewed and were otherwise negative. Past Medical & Surgical Medical Problems: (1) Chronic allergic rhinitis (2) Dyslipidemia (3) Elevated troponin (4) History of fracture of left hip (5) HLD (hyperlipidemia) (6) HTN (hypertension) (7) Osteoporosis (8) Parkinson disease (9) Urinary tract infection Surgical Problems: (1) H/O colonoscopy (2) History of left hip replacement (3) Hx of cataract surgery Family History FH: cancer FATHER (esophageal) MOTHER (breast) BROTHER (lymphoma, dx in 60's, age 73) Social History Smoking Status: Never Smoker Drug Use: none Marital Status: Housing Status: lives with significant other Occupation Status: retired Current/Historical Medications Scheduled Alendronate Sodium (Fosamax), 70 MG PO WK Aspirin (Aspirin Ec), 81 MG PO DAILY Calcium Carbonate-Vitamin D (Calcium + D3 600-200 mg-Unit), 1 TAB PO DAILY Fluticasone Propionate (Nasal) (Flonase Allergy Relief), 2 SPRAYS JI DAILY Levodopa/Carbidopa (Sinemet 25MG/100MG), 1.5 TAB PO TID Lisinopril (Lisinopril), 1 TAB PO DAILY Scheduled PRN Hydrochlorothiazide (Hydrochlorothiazide), 1 TAB PO DAILY PRN for LE edema Allergies Coded Allergies: No Known Allergies (Unverified , 08/13/17) Physical Exam Vital Signs Date Time Temp Pulse Resp B/P (MAP) Pulse Ox O2 Delivery O2 Flow Rate FiO2 08/13/17 11:12 37.2 76 16 136/60 95 Room Air 08/13/17 10:11 77 08/13/17 10:05 97 Room Air 08/13/17 10:05 74 18 126/62 97 Room Air 08/13/17 09:09 38.1 89 20 95/52 92 Room Air Physical Exam Constitutional: Vital signs reviewed. Eyes: Pupils are equal round reactive to light. Conjunctiva are noninjected. ENT: Pharynx is clear without erythema or exudate. Mucous membranes are moist. Neck supple without meningeal signs. Respiratory: Clear to auscultation bilaterally. Breath sounds are equal bilaterally. Cardiovascular: Regular rate and rhythm. No rubs or gallops. GI: Soft, nondistended and nontender. Bowel sounds are present. Musculoskeletal: No peripheral edema. No lower extremity tenderness. No CVA tenderness. No midline tenderness to the lumbar spine. Integumentary: No cyanosis. Neurological: The patient is awake and alert. No focal deficits. Psychiatric: Normal affect. Medical Decision & Procedures ER Provider Diagnostic Interpretation: X-ray results as stated below per interpretation by me and the radiologist: SINGLE VIEW CHEST CLINICAL HISTORY: Sepsis. FINDINGS: An AP, portable, upright chest radiograph is compared to study dated 03/15/2017. The examination is degraded by portable technique and patient rotation. The heart is mildly enlarged and there is atherosclerotic calcification of the thoracic aorta. The pulmonary vasculature is noncongested. Chronic interstitial thickening is similar to previous. Minimal bibasilar atelectasis is observed. No airspace consolidation or large pleural effusion is identified. No pneumothorax is seen. The skeletal structures are osteopenic. Degenerative change and scoliosis are noted in the thoracic spine. IMPRESSION: Cardiomegaly with no acute cardiopulmonary abnormality. Electronically signed by: Jone Tinoco M.D. 08/13/2017 10:05 AM Dictated Date/Time: 08/13/2017 10:05 AM Laboratory Results 08/13/17 09:35 Red Blood Count 4.06, Mean Corpuscular Volume 93.6, Mean Corpuscular Hemoglobin 31.0, Mean Corpuscular Hemoglobin Concent 33.2, Mean Platelet Volume 11.2, Neutrophils (%) (Auto) 77.0, Lymphocytes (%) (Auto) 9.0, Monocytes (%) (Auto) 13.3, Eosinophils (%) (Auto) 0.2, Basophils (%) (Auto) 0.1, Neutrophils # (Auto ) 7.96, Lymphocytes # (Auto) 0.93, Monocytes # (Auto) 1.38, Eosinophils # (Auto ) 0.02, Basophils # (Auto) 0.01 08/13/17 09:35 Test 08/13/17 09:35 08/13/17 09:53 White Blood Count 10.34 K/uL (4.8-10.8) Red Blood Count 4.06 M/uL (4.2-5.4) Hemoglobin 12.6 g/dL (12.0-16.0) Hematocrit 38.0 % (37-47) Mean Corpuscular Volume 93.6 fL (80-100) Mean Corpuscular Hemoglobin 31.0 pg (25-34) Mean Corpuscular Hemoglobin Concent 33.2 g/dl (32-36) Platelet Count 172 K/uL (130-400) Mean Platelet Volume 11.2 fL (7.4-10.4) Neutrophils (%) (Auto) 77.0 % Lymphocytes (%) (Auto) 9.0 % Monocytes (%) (Auto) 13.3 % Eosinophils (%) (Auto) 0.2 % Basophils (%) (Auto) 0.1 % Neutrophils # (Auto) 7.96 K/uL (1.4-6.5) Lymphocytes # (Auto) 0.93 K/uL (1.2-3.4) Monocytes # (Auto) 1.38 K/uL (0.11-0.59) Eosinophils # (Auto) 0.02 K/uL (0-0.5) Basophils # (Auto) 0.01 K/uL (0-0.2) RDW Standard Deviation 49.8 fL (36.4-46.3) RDW Coefficient of Variation 14.6 % (11.5-14.5) Immature Granulocyte % (Auto) 0.4 % Immature Granulocyte # (Auto) 0.04 K/uL (0.00-0.02) Prothrombin Time 10.5 SECONDS (9.0-12.0) Prothromb Time International Ratio 1.0 (0.9-1.1) Activated Partial Thromboplast Time 30.8 SECONDS (21.0-31.0) Partial Thromboplastin Ratio 1.2 Urine Color YELLOW Urine Appearance CLOUDY (CLEAR) Urine pH 5.0 (4.5-7.5) Urine Specific [place] 1.018 (1.000-1.030) Urine Protein NEG (NEG) Urine Glucose (UA) NEG (NEG) Urine Ketones TRACE (NEG) Urine Occult Blood NEG (NEG) Urine Nitrite POS (NEG) Urine Bilirubin NEG (NEG) Urine Urobilinogen NEG (NEG) Urine Leukocyte Esterase MODERATE (NEG) Urine WBC (Auto) >30 /hpf (0-5) Urine RBC (Auto) 0-4 /hpf (0-4) Urine Hyaline Casts (Auto) 10-30 /lpf (0-5) Urine Epithelial Cells (Auto) 0-5 /lpf (0-5) Urine Bacteria (Auto) 4+ (NEG) Anion Gap 5.0 mmol/L (3-11) Est Creatinine Clear Calc Drug Dose 59.9 ml/min Estimated GFR () 88.9 Estimated GFR (Non- 76.7 BUN/Creatinine Ratio 25.8 (10-20) Calcium Level 8.9 mg/dl (8.5-10.1) Total Bilirubin 1.2 mg/dl (0.2-1) Aspartate Amino Transf (AST/SGOT) 23 U/L (15-37) Alanine Aminotransferase (ALT/SGPT) 7 U/L (12-78) Alkaline Phosphatase 71 U/L (45-117) Total Creatine Kinase 321 U/L (26-192) Total Protein 7.3 gm/dl (6.4-8.2) Albumin 3.3 gm/dl (3.4-5.0) Globulin 4.0 gm/dl (2.5-4.0) Albumin/Globulin Ratio 0.8 (0.9-2) Bedside Lactic Acid Venous 0.75 mmol/L (0.90-1.70) Laboratory results as reviewed by me. Medications Administered Medications (Trade) Dose Ordered Sig/Aleks Route Start Time Stop Time Status Last Admin Dose Admin Sodium Chloride 500 ml @ 999 mls/hr Q31M ONCE IV 08/13/17 09:43 08/13/17 10:13 DC 08/13/17 10:07 999 MLS/HR Imipenem/ Cilastatin Sodium 500 mg/Dextrose 110 ml @ 100 mls/hr NOW STAT IV 08/13/17 09:43 08/13/17 10:48 DC 08/13/17 10:07 100 MLS/HR ECG Per My Interpretation Indication: weakness Rate (beats per minute): 73 Rhythm: sinus rhythm Findings: 1st degree AV block, other (No ST elevation) ED Course 0939: The patient was evaluated in room A10. A complete history and physical exam was performed. 0943: Ordered Imipenem/ Cilastatin Sodium 500 mg/ Dextrose 110 ml @ 100 mls/hr IV, Sodium Chloride 500 ml @ 999 mls/hr IV. 1024: Blood pressure is normal after fluid bolus. 1038: Paged Hospitalist. 1050: I reevaluated the patient and discussed test results with her. 1108: I discussed the patients case with Dr. Acuña, [facility] Hospitalist. He understands the patients condition and agrees to accept the patient. The patient will be further evaluated. Medical Decision This is an 81-year-old female presents with weakness and fever. Differential diagnosis includes sepsis, Sirs, UTI, pyelonephritis, pneumonia. I did perform a limited focused review of portions of the patient's old chart on the electronic medical record. The patient had been admitted in February for bilateral leg weakness secondary to a UTI. Her urine culture grew out E. Coli. She also developed rhabdomyolysis because she was unable to move from the floor for several hours. I did evaluate the patient as noted above. Patient is presenting with generalized weakness and fever. IV access was established. The patient was placed on a continuous court recording monitor. Blood cultures were ordered. She is hypotensive and was given half a liter normal saline after which her blood pressure normalized. I did order and personally review the patient's 12-lead EKG and chest x-ray as described above. I did order and review the patient's blood work as noted in the electronic medical record. Her white count is elevated. She has slight elevation of her CPK but no signs of rhabdomyolysis. Her renal function is normal. I did order a catheterized urine which showed obvious infection. I did treat the patient with Primaxin IV. I did reassess the patient. I did discuss case with the hospitalist and case management social worker. Medication Reconcilliation Current Medication List: was personally reviewed by me Blood Pressure Screening Patient's blood pressure: Low blood pressure Consults Time Called: 1038 [facility] Returned Call: [phone] I discussed the [facility] He understands the patients condition and agrees to accept the patient. The patient will be further evaluated. Impression Primary Impression: Generalized weakness Additional Impressions: UTI (urinary tract infection) Hypotension Scribe Attestation The scribe's documentation has been prepared under my direct and personally reviewed by me in its entirety. I confirm that the note above accurately reflects all work, treatment, procedures, and medical decision making performed by me. Departure Information Dispostion Being Evaluated By Hospitalist Referrals Marilou Bobby M.D. (MEDICAL) (PCP) Patient Instructions My [facility] Problem Qualifiers Additional Impressions: UTI (urinary tract infection) Urinary tract infection type: acute cystitis Hematuria presence: without hematuria Qualified Codes: N30.00 - Acute cystitis without hematuria Hypotension Hypotension type: unspecified hypotension type Qualified Codes: I95.9 - Hypotension, unspecified
[2017-08-13] MEDS: CEFTRIAXONE SOD INJ 2,000 MG in DEXTROSE 5% 50ML 50 ML IV SCH (16:31)
[2017-08-13] MEDS: ENOXAPARIN 40 MG/0.4 ML SYR SQ SCH (20:59)
[2017-08-13 23:51] VITALS: BP 132/71; PULSE 79; TEMP 37.2; O2SAT 97
[2017-08-14] MEDS: CARBIDOPA/LEVODOPA 25/100MG TAB PO SCH ×3 (06:28→18:32)
[2017-08-14 07:18] LABS: CALCIUM 8.4 mg/dl (8.5-10.1); CREATININE 0.63 mg/dl (0.60-1.20); POTASSIUM 3.7 mmol/L (3.5-5.1)
[2017-08-14 08:19] VITALS: BP 100/60; PULSE 74; TEMP 36.8; O2SAT 95
[2017-08-14] MEDS: FLUTICASONE PROPIONATE NA SPR 16 GM BTL NAE SCH (08:50)
[2017-08-14] MEDS: ASPIRIN 81 MG ECTAB PO SCH (08:50)
[2017-08-14] MEDS: CEFTRIAXONE SOD INJ 2,000 MG in DEXTROSE 5% 50ML 50 ML IV SCH (16:13)
[2017-08-14 16:21] VITALS: BP 106/57; PULSE 75; TEMP 36.8; O2SAT 94
[2017-08-14] MEDS: ENOXAPARIN 40 MG/0.4 ML SYR SQ SCH (20:02)
--- NOTE | 2017-08-14 21:31 | Progress Note ---
Medicine Progress Note Date & Time of Visit: Aug 14, 2017 at 11:00 . Subjective No fever since ED. Feels stronger. No dysuria or flank pain. No nausea, vomiting, diarrhea. No chest pain. No cough or shortness of breath. . Objective Last 8 Hrs Date Time Temp Pulse Resp B/P (MAP) Pulse Ox O2 Delivery O2 Flow Rate FiO2 08/14/17 20:00 Room Air 08/14/17 16:21 36.8 75 18 106/57 (73) 94 Room Air 08/14/17 16:00 Room Air Physical Exam: General-lying in bed, no distress Lungs- clear to auscultation; no respiratory distress Cardiovascular- RRR; II/ systolic murmur at base; no gallop; no JVD; no pretibial edema Abdomen- + bowel sounds, soft, nontender Extremities- no cyanosis; no calf tenderness Neuro- alert, oriented Skin- warm & dry . Laboratory Results: Last 24 Hours Test 08/14/17 06:13 Sodium Level 138 mmol/L Potassium Level 3.7 mmol/L Chloride Level 105 mmol/L Carbon Dioxide Level 28 mmol/L Anion Gap 4.0 mmol/L Blood Urea Nitrogen 19 mg/dl Creatinine 0.63 mg/dl Est Creatinine Clear Calc Drug Dose 69.4 ml/min Estimated GFR () 96.8 Estimated GFR (Non- 83.5 BUN/Creatinine Ratio 30.9 Random Glucose 83 mg/dl Calcium Level 8.4 mg/dl Assessment & Plan URINARY TRACT INFECTION Pt presented to ED with fever, mild hypotension, generalized weakness. UA demonstrated pyuria and bacteriuria. Did not meet criteria for sepsis. Mild hypotension (95/52) responded to fluid resuscitation with 500 mL normal saline. Serum lactate 0.75. Blood and urine cultures obtained in the ED. Patient received a dose of imipenem/cilastatin. Changed antibiotic therapy to ceftriaxone pending culture results. HYPERTENSION BP low in ED. Holding lisinopril. Blood pressure this morning 100/60. Follow and titrate therapy. ELEVATED CPK CPK 321. Elevation could be secondary to fall, infection, statin. No acute EKG changes. Doubt acute coronary syndrome. Follow. DYSLIPIDEMIA Hold statin in light of generalized weakness and slightly elevated CPK. PARKINSON'S DISEASE Continue Sinemet. Fall precautions. VTE PROPHYLAXIS Moderate risk for VTE. SQ enoxaparin. Ambulate. RESUSCITATION STATUS Full code as noted in admission H&P. DISPOSITION Expected discharge to home. Family Medicine follow-up with Dr. Bobby. . Current Inpatient Medications: Current Inpatient Medications Medications (Trade) Dose Ordered Sig/Aleks Route Start Time Stop Time Status Last Admin Dose Admin Enoxaparin Sodium (Lovenox Inj) 40 mg HS SQ 08/13/17 21:00 09/12/17 20:59 08/14/17 20:02 40 MG Acetaminophen (Tylenol Tab) 650 mg Q4H PRN PO 08/13/17 11:30 09/12/17 11:29 Aspirin (Ecotrin Tab) 81 mg DAILY PO 08/14/17 09:00 09/13/17 08:59 08/14/17 08:50 81 MG Fluticasone Propionate (Flonase Nasal [place]) 2 sprays DAILY JI 08/14/17 09:00 09/13/17 08:59 08/14/17 08:50 2 SPRAYS Carbidopa/Levodopa (Sinemet 25/ 100MG Tab) 1.5 tab TID@0700,1200,1900 PO 08/13/17 12:00 09/12/17 11:59 08/14/17 18:32 1.5 TAB Ceftriaxone Sodium 2000 mg/ Dextrose 70 ml @ 100 mls/hr DAILY@1600 IV 08/13/17 16:00 08/18/17 15:59 08/14/17 16:13 100 MLS/HR
[2017-08-14 23:15] VITALS: BP 129/74; PULSE 76; TEMP 36.5; O2SAT 97
[2017-08-15] MEDS: CARBIDOPA/LEVODOPA 25/100MG TAB PO SCH ×2 (06:23→12:07)
[2017-08-15 07:16] LABS: HEMATOCRIT 37.2 % (37-47); HEMOGLOBIN 12.4 g/dL (12.0-16.0); MEAN CELL VOLUME 92.5 fL (80-100); MEAN CORPUSCULAR HEMOGLOBIN 30.8 pg (25-34); MEAN CORPUSCULAR HGB CONC 33.3 g/dl (32-36); MEAN PLATELET VOLUME 10.4 fL (7.4-10.4); PLATELET COUNT 181 K/uL (130-400); RED CELL DISTRIBUTION WIDTH CV 14.3 % (11.5-14.5); RED CELL DISTRIBUTION WIDTH SD 48.9 fL (36.4-46.3); WHITE BLOOD COUNT 6.04 K/uL (4.8-10.8)
[2017-08-15 07:46] LABS: CALCIUM 8.8 mg/dl (8.5-10.1); CREATININE 0.71 mg/dl (0.60-1.20); POTASSIUM 3.6 mmol/L (3.5-5.1)
[2017-08-15 07:51] VITALS: BP 132/80; PULSE 77; TEMP 36.7; O2SAT 95
[2017-08-15] MEDS: ASPIRIN 81 MG ECTAB PO SCH (07:55)
[2017-08-15] MEDS: FLUTICASONE PROPIONATE NA SPR 16 GM BTL NAE SCH (07:55)
[2017-08-15] MEDS ORDERED: LISINOPRIL 2.5 MG TAB PO SCH (09:00)
--- NOTE | 2017-08-15 12:56 | Progress Note ---
Medicine Progress Note Date & Time of Visit: Aug 15, 2017 at 12:56 . Subjective Doing well. Malaise, generalized weakness resolved. No fever or chills. No dysuria, hematuria, or flank pain. No nausea, vomiting, diarrhea. Ambulating with her cane. . Objective Last 8 Hrs Date Time Temp Pulse Resp B/P (MAP) Pulse Ox O2 Delivery O2 Flow Rate FiO2 08/15/17 08:00 Room Air 08/15/17 07:51 36.7 77 16 132/80 (97) 95 Room Air Physical Exam: General- no distress Lungs- clear to auscultation; no respiratory distress Cardiovascular- RRR; II/ systolic murmur at base; no gallop; no JVD; no pretibial edema Abdomen- + bowel sounds, soft, nontender Extremities- no cyanosis; no calf tenderness Neuro- alert, oriented Skin- warm & dry . Laboratory Results: Last 24 Hours Test 08/15/17 06:40 White Blood Count 6.04 K/uL Red Blood Count 4.02 M/uL Hemoglobin 12.4 g/dL Hematocrit 37.2 % Mean Corpuscular Volume 92.5 fL Mean Corpuscular Hemoglobin 30.8 pg Mean Corpuscular Hemoglobin Concent 33.3 g/dl RDW Standard Deviation 48.9 fL RDW Coefficient of Variation 14.3 % Platelet Count 181 K/uL Mean Platelet Volume 10.4 fL Sodium Level 139 mmol/L Potassium Level 3.6 mmol/L Chloride Level 106 mmol/L Carbon Dioxide Level 25 mmol/L Anion Gap 8.0 mmol/L Blood Urea Nitrogen 22 mg/dl Creatinine 0.71 mg/dl Est Creatinine Clear Calc Drug Dose 61.6 ml/min Estimated GFR () 91.9 Estimated GFR (Non- 79.3 BUN/Creatinine Ratio 31.9 Random Glucose 92 mg/dl Calcium Level 8.8 mg/dl Total Creatine Kinase 95 U/L Assessment & Plan URINARY TRACT INFECTION Pt presented to ED with fever, mild hypotension, generalized weakness. UA demonstrated pyuria and bacteriuria. Did not meet criteria for sepsis. Mild hypotension (95/52) responded to fluid resuscitation with 500 mL normal saline. Serum lactate 0.75. Blood and urine cultures obtained in the ED. Patient received a dose of imipenem/cilastatin. Changed antibiotic therapy to ceftriaxone pending culture results. Urine culture grew E. coli, pansensitive. Discharged on oral therapy with amoxicillin 500 mg TID to complete 7 days of antibiotic therapy. HYPERTENSION BP low in ED. Held lisinopril until hemodynamics improved. Discharged on usual dose of lisinopril. ELEVATED CPK CPK 321. Elevation could be secondary to fall, infection, statin. No acute EKG changes. Doubt acute coronary syndrome. Repeat CPK normal. DYSLIPIDEMIA Held statin in light of generalized weakness and slightly elevated CPK. Resumed at discharge. PARKINSON'S DISEASE Continue Sinemet. VTE PROPHYLAXIS Moderate risk for VTE. SQ enoxaparin. Ambulate. RESUSCITATION STATUS Full code as noted in admission H&P. DISPOSITION Discharge to home. Family Medicine follow-up with Dr. Bobby. . Current Inpatient Medications: Current Inpatient Medications Medications (Trade) Dose Ordered Sig/Aleks Route Start Time Stop Time Status Last Admin Dose Admin Enoxaparin Sodium (Lovenox Inj) 40 mg HS SQ 08/13/17 21:00 09/12/17 20:59 08/14/17 20:02 40 MG Acetaminophen (Tylenol Tab) 650 mg Q4H PRN PO 08/13/17 11:30 09/12/17 11:29 Aspirin (Ecotrin Tab) 81 mg DAILY PO 08/14/17 09:00 09/13/17 08:59 08/15/17 07:55 81 MG Fluticasone Propionate (Flonase Nasal Butler) 2 sprays DAILY JI 08/14/17 09:00 09/13/17 08:59 08/15/17 07:55 2 SPRAYS Carbidopa/Levodopa (Sinemet 25/ 100MG Tab) 1.5 tab TID@0700,1200,1900 PO 08/13/17 12:00 09/12/17 11:59 08/15/17 12:07 1.5 TAB Ceftriaxone Sodium 2000 mg/ Dextrose 70 ml @ 100 mls/hr DAILY@1600 IV 08/13/17 16:00 08/18/17 15:59 08/14/17 16:13 100 MLS/HR Lisinopril (Zestril Tab) 2.5 mg QAM PO 08/15/17 09:00 09/14/17 08:59 08/15/17 07:54 2.5 MG
[2017-08-15] MEDS ORDERED: AMX500 PO (13:01)
--- NOTE | 2017-08-15 13:07 | Discharge Instructions ---
Discharge Instructions Date of Service Aug 15, 2017. Admission Reason for Admission: Urinary Tract Infection Discharge Discharge Diagnosis / Problem: urinary tract infection Discharge Goals Goal(s): Improve disease control Activity Recommendations Activity Limitations: resume your previous activity . Instructions / Follow-Up Instructions / Follow-Up APPOINTMENTS: 08/18/2017 1:00 PM Cheryl Byers DO (covering for Dr. Bobby) [facility] OTHER INSTRUCTIONS: Take amoxicillin 3 times a day until gone. Seek medical attention if you have: * temperature above 101 * unusual weakness * burning when you urinate or blood in urine * chest pain or trouble breathing * abdominal pain, nausea, vomiting * diarrhea, dark stools or bloody stools * any unanswered questions or concerns Call 911 if symptoms are severe. Call if you have any questions or problems. My cell # is [phone]. You can also reach a [facility] hospitalist on duty at [facility] 24 hours a day by calling [phone]. Please take good care of yourself. Dwain Acuña . Current Hospital Diet Patient's current hospital diet: AHA Diet (Heart Healthy) Discharge Diet Recommended Diet: AHA Diet (Heart Healthy) Pending Studies Studies pending at discharge: no Medical Emergencies . Who to Call and When: Medical Emergencies: If at any time you feel your situation is an emergency, please call 911 immediately. . Non-Emergent Contact Non-Emergency issues call your: Primary Care Provider, Hospital Doctor . . "Provider Documentation" section prepared by Dwain Acuña. .
[2017-08-15 13:23] VITALS: BP 132/80; PULSE 77; TEMP 36.7; O2SAT 95
--- NOTE | 2017-08-16 09:54 | Discharge Summary ---
Discharge Summary Date of Service Aug 16, 2017. Discharge Summary Admission Date: Aug 13, 2017 at 11:31 Discharge Date: Aug 15, 2017 Discharge Disposition: Home Principal Diagnosis: urinary tract infection secondary to E. coli (present on admission) . Secondary Diagnoses/Problems: Chronic and Resolved Medical Problems: (1) Aortic stenosis Permanent Comment: Mild-moderate per echo 03/15/17 Status: Chronic (2) Chronic allergic rhinitis Status: Chronic (3) Dyslipidemia Status: Chronic (4) History of fracture of left hip Status: Chronic (5) Hypertension Status: Chronic (6) Osteoporosis Status: Chronic (7) Parkinson disease Status: Chronic Surgical Problems: (1) H/O colonoscopy Permanent Comment: 2011 Status: Chronic (2) History of left hip replacement Status: Chronic (3) Hx of cataract surgery Status: Chronic . Procedures: IV fluids IV meds . Medication Reconciliation New Medications: Amoxicillin (Amoxicillin) 500 Mg Cap 500 MG PO TID, #15 CAP Continued Medications: Alendronate Sodium (Fosamax) 70 Mg Tab 70 MG PO WK, TAB takes once weekly on Fridays Aspirin (Aspirin Ec) 81 Mg Tab 81 MG PO DAILY Calcium Carbonate-Vitamin D (Calcium + D3 600-200 mg-Unit) 1 Tab Tab 1 TAB PO DAILY Fluticasone Propionate (Nasal) (Flonase Allergy Relief) 50 Mcg/Act Spr 2 SPRAYS JI DAILY Hydrochlorothiazide (Hydrochlorothiazide) 12.5 Mg Tab 12.5 MG PO DAILY PRN for swelling of legs or feet, TAB Levodopa/Carbidopa (Sinemet 25MG/100MG) 1 Ea Tab 1.5 TAB PO TID, TAB Lisinopril (Lisinopril) 5 Mg Tab 5 MG PO DAILY Admission Information HPI (per Admitting provider): 81-year-old female followed by Dr. Bobby. History of hypertension, Parkinson's disease, and other problems noted below. Noted onset of malaise about 3 days prior to admission. Yesterday, she felt weaker and fell without sustaining any injuries. Today she felt even weaker and came to the ED for evaluation. No fever at home, but noted to be febrile upon arrival to the ED. No chills or sweats. No significant cough, nausea, vomiting, abdominal pain, diarrhea, flank pain, dysuria, hematuria. Hypotensive with blood pressure of 95/52 upon arrival to ED. Received bolus 500 mL NSS with improvement of blood pressure. . Physical Exam (per Admitting): CONSTITUTIONAL vital signs as noted above elderly female well-developed, well-nourished, no acute distress EYES anicteric conjunctivae clear; lids normal left iridectomy EARS, NOSE, MOUTH AND THROAT external inspection of ears and nose unremarkable hearing grossly intact to spoken voice upper partial plate oropharynx clear NECK no masses; trachea midline thyroid normal RESPIRATORY normal respiratory effort; no respiratory distress clear to percussion clear to auscultation CARDIOVASCULAR regular rate and rhythm III/ systolic murmur at base no gallop, rub appreciated carotid arteries 2/2 abdominal aorta not palpable pedal pulses intact and symmetric capillary refill toes < 2 seconds no pretibial edema GASTROINTESTINAL normal bowel sounds, soft, nontender; no palpable masses no hepatomegaly; no splenomegaly BACK no CVA tenderness LYMPHATIC no cervical adenopathy MUSCULOSKELETAL no cyanosis; no digital clubbing no calf tenderness motor strength extremities grossly intact SKIN no rash warm and dry NEUROLOGIC PERRL, EOMI, no facial palsy, no dysarthria, tongue midline patellar DTR's 1/2 bilat PSYCHIATRIC oriented to person, place, time mood and affect appropriate . Hospital Course URINARY TRACT INFECTION Pt presented to ED with fever, mild hypotension, generalized weakness. UA demonstrated pyuria and bacteriuria. Did not meet criteria for sepsis. Mild hypotension (95/52) responded to fluid resuscitation with 500 mL normal saline. Serum lactate 0.75. Blood and urine cultures obtained in the ED. Patient received a dose of imipenem/cilastatin. Changed antibiotic therapy to ceftriaxone pending culture results. Urine culture grew E. coli, pansensitive. Discharged on oral therapy with amoxicillin 500 mg TID to complete 7 days of antibiotic therapy. HYPERTENSION BP low in ED. Held lisinopril until hemodynamics improved. Discharged on usual dose of lisinopril. ELEVATED CPK CPK 321. Elevation could be secondary to fall, infection, statin. No acute EKG changes. Doubt acute coronary syndrome. Repeat CPK normal. DYSLIPIDEMIA Held statin in light of generalized weakness and slightly elevated CPK. Resumed at discharge. PARKINSON'S DISEASE Continue Sinemet. VTE PROPHYLAXIS Moderate risk for VTE. SQ enoxaparin. Ambulate. RESUSCITATION STATUS Full code as noted in admission H&P. DISPOSITION Discharge to home. Family Medicine follow-up with Dr. Bobby. . Total time spent on discharge = 35 min. This includes examination of the patient, discharge planning, medication reconciliation, and communication with other providers. . Discharge Instructions Date of Service Aug 15, 2017. Admission Reason for Admission: Urinary Tract Infection Discharge Discharge Diagnosis / Problem: urinary tract infection Discharge Goals Goal(s): Improve disease control Activity Recommendations Activity Limitations: resume your previous activity . Instructions / Follow-Up Instructions / Follow-Up APPOINTMENTS: 08/18/2017 1:00 PM Cheryl Byers DO (covering for Dr. Bobby) [facility] OTHER INSTRUCTIONS: Take amoxicillin 3 times a day until gone. Seek medical attention if you have: * temperature above 101 * unusual weakness * burning when you urinate or blood in urine * chest pain or trouble breathing * abdominal pain, nausea, vomiting * diarrhea, dark stools or bloody stools * any unanswered questions or concerns Call 911 if symptoms are severe. Call if you have any questions or problems. My cell # is [phone]. You can also reach a [facility] hospitalist on duty at [facility] 24 hours a day by calling [phone]. Please take good care of yourself. Dwain Acuña . Current Hospital Diet Patient's current hospital diet: AHA Diet (Heart Healthy) Discharge Diet Recommended Diet: AHA Diet (Heart Healthy) Pending Studies Studies pending at discharge: no Medical Emergencies . Who to Call and When: Medical Emergencies: If at any time you feel your situation is an emergency, please call 911 immediately. . Non-Emergent Contact Non-Emergency issues call your: Primary Care Provider, Hospital Doctor . . "Provider Documentation" section prepared by Dwain Acuña. .
== END 2017-08-15 14:10 | disposition home or self-care (01) | DRG 690 ==
LOC: C.EDB 09:02 → C.MS2W 11:31 → CANRESERV 11:46 → ENRESERV 11:46
PROVIDERS: ADMIT Hospitalist; ATTEND Hospitalist
DX: N39.0 Urinary tract infection, site not specified (principal); B96.20 Unspecified Escherichia coli [E. coli] as the cause of diseases classified elsewhere; E78.5 Hyperlipidemia, unspecified; I10 Essential (primary) hypertension; G20 Parkinson's disease; Z80.0 Family history of malignant neoplasm of digestive organs; Z80.3 Family history of malignant neoplasm of breast; Z80.7 Family history of other malignant neoplasms of lymphoid, hematopoietic and related tissues

== ENCOUNTER 2017-12-21 07:16 | Emergency (ER) | payer OTHER ==
[~2017-12-21 07:16] MED LIST changes: +AMX500 PO; -ASPEC81 PO; +ASPI81TA28 PO; +LISI-730 PO; -LSN5 PO; -MCRB100 PO
[2017-12-21 07:19] VITALS: TEMP 37; Ht 172.7 cm
[2017-12-21] MEDS ORDERED: IBUP-1050 PO (07:53)
--- NOTE | 2017-12-21 08:25 | DIAGNOSTIC IMAGING REPORT ---
LEFT HIP 2 VIEWS CLINICAL HISTORY: Left hip pain. FINDINGS: AP and frog-leg views of left hip are compared to study dated 07/23/2015. The skeletal structures are osteopenic. There is no radiographic evidence of fracture involving the left hip or the visualized left hemipelvis. A unipolar left hip arthroplasty is in near-anatomic alignment. No periprosthetic lucency is identified. Mild sclerotic change is noted in the left sacroiliac joint. Enthesophyte arises from the left anterior superior iliac spine. Lumbosacral spondylosis is partially visualized. The overlying soft tissues are within normal limits. IMPRESSION: No acute osseous abnormality is identified in the left hip noting a left hip arthroplasty is in place. Electronically signed by: Jone Tinoco M.D. 12/21/2017 8:23 AM Dictated Date/Time: 12/21/2017 8:22 AM
--- NOTE | 2017-12-21 08:40 | EMERGENCY ROOM VISIT NOTE ---
ED Visit Note First contact with patient: 07:22 I have seen and examined this patient with Dwain Brown and generally agree with the treatment plan as discussed. Problem List Medical Problems: (1) Aortic stenosis Permanent Comment: Mild-moderate per echo 03/15/17 Status: Chronic (2) Chronic allergic rhinitis Status: Chronic (3) Dyslipidemia Status: Chronic (4) History of fracture of left hip Status: Chronic (5) Hypertension Status: Chronic (6) Osteoporosis Status: Chronic (7) Parkinson disease Status: Chronic Surgical Problems: (1) H/O colonoscopy Permanent Comment: 2011 Status: Chronic (2) History of left hip replacement Status: Chronic (3) Hx of cataract surgery Status: Chronic Current/Historical Medications Scheduled Alendronate Sodium (Fosamax), 70 MG PO WK Aspirin (Aspirin Ec), 81 MG PO QAM Calcium Carbonate-Vitamin D (Calcium + D3 600-200 mg-Unit), 1 TAB PO QAM Fluticasone Propionate (Nasal) (Flonase Allergy Relief), 2 SPRAYS JI QAM Ibuprofen (Advil), 200 MG PO UD Levodopa/Carbidopa (Sinemet 25MG/100MG), 1.5 TAB PO TID Lisinopril (Lisinopril), 5 MG PO QAM Scheduled PRN Hydrochlorothiazide (Hydrochlorothiazide), 12.5 MG PO DAILY PRN for swelling of legs or feet Allergies Coded Allergies: No Known Allergies (Unverified , 12/21/17) Vital Signs Date Time Temp Pulse Resp B/P (MAP) Pulse Ox O2 Delivery O2 Flow Rate FiO2 12/21/17 08:15 72 18 146/77 96 Room Air 12/21/17 07:19 37.0 83 18 112/71 94 Room Air Departure Information Referrals Marilou Bobby M.D. (MEDICAL) (PCP) Patient Instructions My [facility]
[2017-12-21] MEDS ORDERED: TRAMADOL HCL 50 MG TAB PO STA (08:45)
[2017-12-21] MEDS ORDERED: METH4PAK PO (08:51)
[2017-12-21] MEDS ORDERED: TRAM-10 PO (08:51)
[2017-12-21 09:06] VITALS: BP 157/76; PULSE 73; O2SAT 96
--- NOTE | 2017-12-21 12:19 | EMERGENCY ROOM VISIT NOTE ---
ED Visit Note First contact with patient: 07:22 Chief Complaint: Left hip pain. History of Present Illness: Ms. Diaz is an 82-year-old female who is brought into the ED via wheelchair accompanied by female friend complaining of left hip pain. Historically patient has a history of osteoarthritis and is status post left knee arthroplasty from a hip fracture in July 2015 following a fall. Patient reports there were no complications postsurgically. Patient reports she started having left hip pain on Tuesday, 2 days ago, since that time her pain has been constant. She reports there was no precipitating injury and remembers the pain starting at rest. Currently patient complains of pain over the proximal femur in the area of the greater trochanter. She does report she has had previous hip bursitis and although this seems similar it is worse and has lasted longer than previous episodes. She currently describes her discomfort as a burning sensation. She rates her discomfort 8/10. Her pain is radiating down the anterior aspect of the thigh to the level of the knee. Moving from the sitting to standing position and ambulation and effort. She has been using ice and ibuprofen with mild relief of her discomfort. She has not taken any medications today for pain. She denies any associated symptoms including fevers, chills, sweats, skin eruptions, skin color changes, lumbar back pain, abdominal pain, nausea, vomiting, diarrhea, constipation, leg weakness/numbness/tingling. Review of Systems: As noted above in history of present illness. 8 body systems were reviewed and found to be negative as noted above. Past Medical History: As previously noted and aortic stenosis, dyslipidemia, hypertension, Parkinson's disease and urinary tract infections. Status post cataract surgery. Current Medications: Medications Dose Route/Sig Max Daily Dose Days Date Category Dose Instructions Advil (Ibuprofen) 200 Mg Tab 200 Mg PO UD 12/21/17 Reported Aspirin Ec (Aspirin) 81 Mg Tab 81 Mg PO QAM 08/13/17 Reported Hydrochlorothiazide 12.5 Mg Tab 12.5 Mg PO DAILY PRN 03/15/17 Reported Calcium + D3 600-200 mg-Unit (Calcium Carbonate-Vitamin D) 1 Tab Tab 1 Tab PO QAM 03/15/17 Reported Fosamax (Alendronate Sodium) 70 Mg Tab 70 Mg PO WK 07/22/15 Reported takes once weekly on Fridays Sinemet 25MG/100MG (Carbidopa/Levodopa) 1 Ea Tab 1.5 Tab PO TID 06/01/15 Reported Flonase Allergy Relief (Fluticasone Propionate (Nasal)) 50 Mcg/Act Spr 2 Sprays JI QAM 06/01/15 Reported Lisinopril 5 Mg Tab 5 Mg PO QAM 06/01/15 Reported Allergies to Medications: Patient denies. Social History: Patient is not employed; she feels safe in her home environment ; she denies tobacco use. Physical Examination: Vital Signs: Date Time Temp Pulse Resp B/P (MAP) Pulse Ox O2 Delivery O2 Flow Rate FiO2 12/21/17 09:06 73 18 157/76 96 Room Air 12/21/17 08:15 72 18 146/77 96 Room Air 12/21/17 07:19 37.0 83 18 112/71 94 Room Air GENERAL: 82-year-old female in mild to moderate distress due to pain, nontoxic- appearing, afebrile and hemodynamically stable. NEUROLOGICAL: Awake, alert and oriented to person, place and time. Answering questions appropriately and following commands. Good hand eye coordination. No focal motor sensory deficits. SKIN: Warm, dry and pink. No soft tissue eruptions or trauma noted. BACK: No tenderness over the bony lumbar spine or paraspinous muscles. ABDOMEN: Flat, soft and nontender. Positive bowel sounds in all quadrants. No guarding, rigidity or organomegaly. LEFT LOWER EXTREMITY: No gross bony deformity. No shortening or malrotation. Mild tenderness over the greater trochanter without erythema, edema, bony deformity or crepitus. Minimal tenderness over the upper femur without bony deformity or crepitus. No tenderness throughout the rest of the femur or knee. Full range of motion in all movements of the hip including flexion, extension , abduction, abduction and internal and external rotation without difficulty. Full range of motion in flexion and extension of the knee in plantarflexion and dorsiflexion of the ankle. Throughout the leg the skin was warm and pink and capillary refill was brisk. Distal pulses were intact and equal bilaterally. She is able to distinguish light sensations to all dermatomes of the leg and foot. ED Course: Patient is assessed as noted above. Patient's medication list was reviewed. Left Hip X-Rays: Were read by myself and the radiologist showing no of the left hip noting left hip arthroplasty is in place. Patient was given 50 mg of Ultram by mouth for pain. Patient's case was reviewed with Dr. Nagy; we agreed on diagnostic approach , treatment, disposition and plan. Patient was educated about today's findings and instructed on her treatment plan ; she verbalized understanding and agreement with this plan. Clinical Impression: Left hip pain. Possible bursitis. Decision-Making: Initially my differential diagnosis I considered bursitis, hip fracture, quadricep strain, tendinitis, muscle spasm, radiculopathy and other causes. Disposition: Patient discharged home in stable condition accompanied by female friend; prior to departure she was reassessed and subjectively reported she was feeling much better and rated her discomfort 2/10. Plan: Patient was encouraged to continue her current medications. Patient was placed on a sliding pain medication scale of acetaminophen, ibuprofen and Ultram; she was warned that Ultram was a narcotic and her name was checked on the state database and no red flags were noted. Additional comfort measures included ice and the use of her walker. Patient was encouraged to follow-up with her orthopedic surgeon for continued care and treatment. Patient was encouraged return the ED for worsening pain, any skin redness/ swelling in the area of the pain, fevers, leg weakness/numbness/tingling or any new/concerning symptoms.
== END 2017-12-21 09:41 | disposition home or self-care (01) ==
LOC: C.EDB 07:19 → C.EDC 09:41
DX: M25.552 Pain in left hip (principal); I10 Essential (primary) hypertension; G20 Parkinson's disease; Z79.82 Long term (current) use of aspirin; Z96.642 Presence of left artificial hip joint

== ENCOUNTER 2018-07-24 18:38 | Inpatient (IN) ==
[2018-07-24 19:45] LABS: Alanine Aminotransferase 11 U/L (12-78); Albumin Level 3.2 gm/dl (3.4-5.0); Aspartate Aminotransferase 17 U/L (15-37); Blood Urea Nitrogen 14 mg/dl (7-18); Calcium 8.8 mg/dl (8.5-10.1); Carbon Dioxide 29 mmol/L (21-32); Chloride 105 mmol/L (98-107); Creatinine Clr Calc Pharmacy 73.3 ml/min; Est GFR (African American) 97.7; Est GFR (Non-African American) 84.3; Glucose 86 mg/dl (70-99); Magnesium 1.9 mg/dl (1.8-2.4); Potassium 3.7 mmol/L (3.5-5.1); Sodium 139 mmol/L (136-145)
--- NOTE | 2018-07-24 19:50 | XRay Report ---
XR chest 1V portable CLINICAL HISTORY: Weakness. Fall. COMPARISON STUDY: Chest radiograph March 21, 2018. FINDINGS: Lung volumes are normal. There is no pneumothorax or pleural effusion. Cardiomegaly is unch anged. There is no evidence for pulmonary edema. There is no consolidation to suggest pneumonia. IMPRESSION: No acute cardiopulmonary findings. Electronically signed by: Uvaldo Peres M.D. 07/24/2018 7:49 PM
--- NOTE | 2018-07-24 19:52 | XRay Report ---
XR elbow LT min 3V routine CLINICAL HISTORY: Fall. COMPARISON: None FINDINGS: Alignment of the left elbow is anatomic. No acute fracture or joint effusion is identified . Irregularity of the medial and lateral condyles is chronic. IMPRESSION: No acute fracture or joint effusion of the left elbow. Electronically signed by: Uvaldo Peres M.D. 07/24/2018 7:51 PM
--- NOTE | 2018-07-24 19:54 | XRay Report ---
XR hand LT min 3V routine CLINICAL HISTORY: fall COMPARISON: None FINDINGS: There is slight cortical irregularity of the distal shaft of the left fifth metacarpal. Th is is age indeterminate. No additional fractures are identified. Carpal bones are intact. There is mo derate to severe osteoarthrosis within multiple articulations of the left hand. IMPRESSION: Slight cortical irregularity of the distal shaft of the left fifth metacarpal. This is pr obably old however could be correlated with point tenderness to exclude an acute fracture. Electronically signed by: Uvaldo Peres M.D. 07/24/2018 7:53 PM
[2018-07-24 19:56] LABS: Albumin Globulin Ratio 0.8 (0.9-2); Alkaline Phosphatase 84 U/L (45-117); Bilirubin,Total 0.5 mg/dl (0.2-1); Globulin 4.1 gm/dl (2.5-4.0); Total Protein 7.3 gm/dl (6.4-8.2); Troponin I < 0.015 ng/ml (0-0.045)
--- NOTE | 2018-07-24 19:56 | Emergency Department Note ---
Entered by Meredith Riggs acting as a scribe for ED Provider Note CHIEF COMPLAINT: Fall HISTORY OF PRESENT ILLNESS: The patient is an 82 year old female who presents to the Emergency Room with complaints of an episode of a fall that happened prior to arrival. The patient reports she was recently discharged from [facility] on Tuesday from previous fall. She states her stepdaughter owns the house she lives in and she wants to get out because she does not feel safe at home anymore. The patient states she was given a walker at [facility] and was trying to carry things with it and fell. She notes she fell on her left arm and has red mejias and bruises. The patient states she was on the ground for an hour. She notes some mild discomfort in the left arm but has no difficulty using it. No medication was given prior to ER arrival. Pt denies LOC, headache, fevers, chills, diaphoresis, visual changes, neck pain, chest pain, breathing difficulties, nausea, vomiting, abdominal pain, back pain, melena, hematochezia, urinary symptoms, numbness, weakness, lymphadenopathy, rash, or other complaints. REVIEW OF SYSTEMS: See HPI for pertinent positives and negatives. A total of ten systems were reviewed and were otherwise negative. PMHx/PSHx: Osteoporosis Parkinson disease Hypertension Dyslipidemia Chronic allergic rhinitis Aortic stenosis Urinary tract infection Hx of cataract surgery Hx of left hip replacement SOCIAL HISTORY: Patient lives at home. PHYSICAL EXAM: GENERAL: Awake, alert, well-appearing, in no distress HENT: Normocephalic, atraumatic. Oropharynx unremarkable. EYES: Normal conjunctiva. Sclera non-icteric. NECK: Inspection normal. Non-tender. Supple. No nuchal rigidity. FROM. No masses. RESPIRATORY: Clear to auscultation. No wheezes. No rales. Normal respiratory effort. CARDIAC: Borderline tachycardic rate. Normal rhythm. Systolic ejection murmur. No rubs. Extremities warm and well perfused. Pulses equal. No JVD. GI: Soft, non-distended. No tenderness to palpation. No rebound or guarding. No masses. RECTAL: Deferred. MUSCULOSKELETAL: Atraumatic. Chest examination reveals no tenderness. The back is symmetrical on inspection without obvious abnormality. There is no CVA tenderness to palpation. No joint edema. LOWER EXTREMITIES: Calves are equal size bilaterally and non-tender. No edema. No discoloration. UPPER EXTREMITIES: ROM of shoulder is well preserved. NEURO: Normal sensorium. No sensory or motor deficits noted. SKIN: No rash or jaundice noted. Contusion to dorsal left hand. Contusion and abrasion to the left elbow and shoulder. EMERGENCY DEPARTMENT COURSE: 1853: Past medical records reviewed. The patient was evaluated in room A3, and a complete history and physical examination were performed. 2124: I reevaluated the patient and updated her on test results. I discussed the treatment plan with her. The patient verbally agreed and understood. 2128: I reviewed the patient's case with Dr. De La Garza, [facility] Hospitalist. He will evaluate the patient for further management. MEDICAL DECISION MAKING: Prior records/ancillary studies reviewed. Nursing notes reviewed and agree them. Additional history obtained from family. The patient's history was concerning for a fall and concerns for safety at home. Differential diagnosis: Etiologies such as metabolic, infection, hypo/hyperglycemia, electrolyte abnormalities, cardiac sources, intracerebral event, toxicologic, neurologic, as well as others were entertained. Physical examination: As above. ER treatment provided: IV Lock Patient declined analgesia On reassessment the patient felt better. Patient was given her evening dose of carbidopa/levodopa IV Rocephin Diagnostics interpretation by me: ECG: No acute change. The labs revealed an unremarkable chemistry panel. Urinalysis very concerning for infection. CBC concerning for leukocytosis. Imaging studies: X-ray imaging of the left upper extremity did not reveal evidence of fracture or dislocation. Consultation: A consultation was placed with the hospitalist. The case was discussed and diagnostics were reviewed. The patient was evaluated in the ER for further treatment. IMPRESSION: UTI Left hand contusion Left elbow contusion Left shoulder contusion Fall Leukocytosis PLAN: Admit The scribe's documentation has been prepared under my direction and personally reviewed by me in its entirety. I confirm that the note above accurately reflects all work, treatment, procedures, and medical decision making performed by me. Impression & Plan UTI (urinary tract infection), Contusion of left hand, Contusion of left elbow, Contusion of left shoulder, Fall, Leukocytosis Past Med/Surg History Medical History Parkinson disease (Chronic) Osteoporosis (Chronic) Hypertension (Chronic) Dyslipidemia (Chronic) Chronic allergic rhinitis (Chronic) Aortic stenosis (Chronic) "Mild-moderate per echo 03/15/17" History of fracture of left hip (Chronic) Urinary tract infection Surgical History H/O colonoscopy (Chronic) "2011" Hx of cataract surgery (Chronic) History of left hip replacement (Chronic) Social History Feels Safe at Home: No Smoking Status: Unknown if ever smoked Results & Data Vital Signs Vital Signs - 24 hr 07/24/18 18:43 07/24/18 18:49 07/24/18 19:00 Temperature 36.7 C Temperature Source Oral Sepsis Recent Fever Within 48 Hours No Sepsis New/Unexplained Change in Mental Status No Sepsis Action Taken by Nursing No Action Required Pulse Rate 100 H 105 H 102 H Pulse Rate [Finger] 105 H Pulse Rate from SpO2 Sensor 101 H 101 H Respiratory Rate 17 19 18 Blood Pressure 153/103 H 153/103 H Blood Pressure [Right Arm] 153/103 H Blood Pressure Mean 119 119 Blood Pressure Mean [Right Arm] 119 Pulse Oximetry 100 96 97 Oxygen Delivery Method Room Air 07/24/18 19:10 07/24/18 19:20 07/24/18 19:30 Temperature Temperature Source Sepsis Recent Fever Within 48 Hours Sepsis New/Unexplained Change in Mental Status Sepsis Action Taken by Nursing Pulse Rate 99 H 102 H 101 H Pulse Rate [Finger] Pulse Rate from SpO2 Sensor Respiratory Rate 20 19 18 Blood Pressure Blood Pressure [Right Arm] Blood Pressure Mean Blood Pressure Mean [Right Arm] Pulse Oximetry Oxygen Delivery Method 07/24/18 19:40 07/24/18 19:50 07/24/18 20:00 Temperature Temperature Source Sepsis Recent Fever Within 48 Hours Sepsis New/Unexplained Change in Mental Status Sepsis Action Taken by Nursing Pulse Rate 100 H 103 H 102 H Pulse Rate [Finger] Pulse Rate from SpO2 Sensor Respiratory Rate 20 22 16 Blood Pressure Blood Pressure [Right Arm] Blood Pressure Mean Blood Pressure Mean [Right Arm] Pulse Oximetry Oxygen Delivery Method 07/24/18 20:10 07/24/18 20:14 07/24/18 20:20 Temperature Temperature Source Sepsis Recent Fever Within 48 Hours Sepsis New/Unexplained Change in Mental Status Sepsis Action Taken by Nursing Pulse Rate 102 H 102 H 108 H Pulse Rate [Finger] 102 H Pulse Rate from SpO2 Sensor 102 H 102 H Respiratory Rate 17 22 18 Blood Pressure 127/78 Blood Pressure [Right Arm] 127/78 Blood Pressure Mean 94 Blood Pressure Mean [Right Arm] 94 Pulse Oximetry 96 96 Oxygen Delivery Method Room Air 07/24/18 20:30 07/24/18 20:40 07/24/18 20:50 Temperature Temperature Source Sepsis Recent Fever Within 48 Hours Sepsis New/Unexplained Change in Mental Status Sepsis Action Taken by Nursing Pulse Rate 103 H 105 H Pulse Rate [Finger] Pulse Rate from SpO2 Sensor 103 H 104 H 109 H Respiratory Rate 19 16 17 Blood Pressure Blood Pressure [Right Arm] Blood Pressure Mean Blood Pressure Mean [Right Arm] Pulse Oximetry 95 94 93 Oxygen Delivery Method 07/24/18 21:06 07/24/18 21:10 07/24/18 21:20 Temperature Temperature Source Sepsis Recent Fever Within 48 Hours Sepsis New/Unexplained Change in Mental Status Sepsis Action Taken by Nursing Pulse Rate 109 H 103 H 107 H Pulse Rate [Finger] Pulse Rate from SpO2 Sensor Respiratory Rate 27 H 26 H 26 H Blood Pressure Blood Pressure [Right Arm] Blood Pressure Mean Blood Pressure Mean [Right Arm] Pulse Oximetry Oxygen Delivery Method 07/24/18 21:30 07/24/18 21:40 07/24/18 21:50 Temperature Temperature Source Sepsis Recent Fever Within 48 Hours Sepsis New/Unexplained Change in Mental Status Sepsis Action Taken by Nursing Pulse Rate 107 H 109 H 107 H Pulse Rate [Finger] Pulse Rate from SpO2 Sensor Respiratory Rate 16 22 22 Blood Pressure Blood Pressure [Right Arm] Blood Pressure Mean Blood Pressure Mean [Right Arm] Pulse Oximetry Oxygen Delivery Method 07/24/18 22:00 07/24/18 22:10 07/24/18 22:23 Temperature Temperature Source Sepsis Recent Fever Within 48 Hours Sepsis New/Unexplained Change in Mental Status Sepsis Action Taken by Nursing Pulse Rate 101 H 99 H Pulse Rate [Finger] 96 H Pulse Rate from SpO2 Sensor Respiratory Rate 22 23 19 Blood Pressure Blood Pressure [Right Arm] 127/78 Blood Pressure Mean Blood Pressure Mean [Right Arm] 94 Pulse Oximetry Oxygen Delivery Method Room Air Home Medications Current Medication List: was personally reviewed by me Laboratory Data Attestation: I reviewed the patient's lab results. Result diagrams: 07/24/18 19:19 07/24/18 19:19 Lab Results 07/24/18 07/24/18 07/24/18 Range/Units 19:19 19:19 21:05 WBC 14.80 H (4.8-10.8) K/uL RBC 4.28 (4.2-5.4) M/uL Hgb 12.7 (12.0-16.0) g/dL Hct 39.4 (37-47) % MCV 92.1 (80-100) fL MCH 29.7 (25-34) pg MCHC 32.2 (32-36) g/dL RDW Std Deviation 61.4 H (36.4-46.3) fL RDW Coeff of Conor 18.1 H (11.5-14.5) % Plt Count 275 (130-400) K/uL MPV 11.6 H (7.4-10.4) fL Immature Gran % (Auto) 0.3 % Neut % (Auto) 80.1 % Lymph % (Auto) 9.9 % [place] % (Auto) 7.2 % Eos % (Auto) 2.2 % Baso % (Auto) 0.3 % Immature Gran # (Auto) 0.05 H (0.00-0.02) K/uL Neut # (Auto) 11.85 H (1.4-6.5) K/uL Lymph # (Auto) 1.46 (1.2-3.4) K/uL [place] # (Auto) 1.07 H (0.11-0.59) K/uL Eos # (Auto) 0.33 (0-0.5) K/uL Baso # (Auto) 0.04 (0-0.2) K/uL Sodium 139 (136-145) mmol/L Potassium 3.7 (3.5-5.1) mmol/L Chloride 105 (98-107) mmol/L Carbon Dioxide 29 (21-32) mmol/L Anion Gap 6.0 (3-11) BUN 14 (7-18) mg/dl Creatinine 0.60 (0.6-1.2) mg/dl Est Cr Clr Drug Dosing 73.3 ml/min Est GFR ( Amer) 97.7 Est GFR (Non-Af Amer) 84.3 BUN/Creatinine Ratio 23.0 H (10-20) Glucose 86 (70-99) mg/dl Calcium 8.8 (8.5-10.1) mg/dl Magnesium 1.9 (1.8-2.4) mg/dl Total Bilirubin 0.5 (0.2-1) mg/dl AST 17 (15-37) U/L ALT 11 L (12-78) U/L Alkaline Phosphatase 84 (45-117) U/L Troponin I < 0.015 (0-0.045) ng/ml Total Protein 7.3 (6.4-8.2) gm/dl Albumin 3.2 L (3.4-5.0) gm/dl Globulin 4.1 H (2.5-4.0) gm/dl Albumin/Globulin Ratio 0.8 L (0.9-2) TSH 1.100 (0.300-4.500) uIu/ml Urine Color Yellow Urine Appearance Cloudy H (Clear) Urine pH 6.5 (4.5-7.5) Ur Specific [employer] 1.017 (1.000-1.030) Urine Protein Negative (Negative) Urine Glucose (UA) Negative (Negative) Urine Ketones 1+ H (Negative) Urine Blood Negative (Negative) Urine Nitrite Positive H (Negative) Urine Bilirubin Negative (Negative) Urine Urobilinogen Negative (Negative) Ur Leukocyte Esterase Trace H (Negative) Urine WBC (Auto) 5-10 H (0-5) /hpf Urine RBC (Auto) 0-4 (0-4) /hpf U Hyaline Cast (Auto) 1-5 (0-5) /lpf U Epithel Cells (Auto) 20-30 H (0-5) /lpf Urine Bacteria (Auto) 4+ H (Negative) Imaging Data Radiologist's Impression: Radiology results as stated below per my review and t he radiologist's interpretation: XR chest 1V portable CLINICAL HISTORY: Weakness. Fall. COMPARISON STUDY: Chest radiograph March 21, 2018. FINDINGS: Lung volumes are normal. There is no pneumothorax or pleural effusion. Cardiomegaly is unchanged. There is no evidence for pulmonary edema. There is no consolidation to suggest pneumonia. IMPRESSION: No acute cardiopulmonary findings. Electronically signed by: Uvaldo Peres M.D. 07/24/2018 7:49 PM XR hand LT min 3V routine CLINICAL HISTORY: fall COMPARISON: None FINDINGS: There is slight cortical irregularity of the distal shaft of the left fifth metacarpal. This is age indeterminate. No additional fractures are identified. Carpal bones are intact. 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 IMPRESSION: Slight cortical irregularity of the distal shaft of the left fifth metacarpal. This is probably old however could be correlated with point tenderness to exclude an acute fracture. Electronically signed by: Uvaldo Peres M.D. 07/24/2018 7:53 PM XR elbow LT min 3V routine CLINICAL HISTORY: Fall. COMPARISON: None FINDINGS: Alignment of the left elbow is anatomic. No acute fracture or joint effusion is identified. Irregularity of the medial and lateral condyles is chronic. IMPRESSION: No acute fracture or joint effusion of the left elbow. Electronically signed by: Uvaldo Peres M.D. 07/24/2018 7:51 PM ECG Data Attestation: I personally reviewed and interpreted this ECG as follows: Indication: other (fall) Rate (beats per minute): 100 Rhythm: sinus rhythm Findings: + other (LVH, poor baseline data) and + left axis deviation Comparison ECG Date: from (March 21, 2018) Change: no significant change Blood Pressure Blood Pressure Findings: Normal blood pressure Blood Pressure Disposition: did not require urgent referral Discharge Plan Visit Data Chief Complaint: Fall Stated Complaint: fall/ L arm pain ED Provider: Dwain Obando Discharge Problem: UTI (urinary tract infection), Contusion of left hand, Contusion of left elbow, Contusion of left shoulder, Fall, Leukocytosis Patient Disposition: Being Evaluated by Hospitalist Forms Stand Alone Forms: My [facility] Prescriptions Prescriptions: No Action aspirin [Aspir-81] 81 mg Tablet,Delayed Release (Dr/Ec) 81 mg PO DAILY RF: 0 alendronate [Fosamax] 70 mg Tablet 70 mg PO WK RF: 0 carbidopa-levodopa 25-100 mg Tablet 1.5 tab PO QID RF: 0 lisinopril 2.5 mg Tablet 2.5 mg PO DAILY RF: 0 tramadol 50 mg Tablet 50 mg PO UD PRN (Reason: Pain) RF: 0 Referrals Referrals: Cheryl Byers [Primary Care Provider] - Discharge Problem: UTI (urinary tract infection) Qualifiers: Urinary tract infection type: site unspecified Hematuria presence: without hematuria Qualified Code(s): N39.0 - Urinary tract infection, site not specified Contusion of left hand Qualifiers: Encounter type: initial encounter Qualified Code(s): S60.222A - Contusion of left hand, initial encounter Contusion of left elbow Qualifiers: Encounter type: initial encounter Qualified Code(s): S50.02XA - Contusion of left elbow, initial encounter Contusion of left shoulder Qualifiers: Encounter type: initial encounter Qualified Code(s): S40.012A - Contusion of left shoulder, initial encounter Fall Qualifiers: Encounter type: initial encounter Qualified Code(s): W19.XXXA - Unspecified fall, initial encounter Leukocytosis Qualifiers: Leukocytosis type: unspecified Qualified Code(s): D72.829 - Elevated white blood cell count, unspecified The scribe's documentation has been prepared under my direction and personally reviewed by me in its entirety. I confirm that the note above accurately reflects all work, treatment, procedures, and medical decision making performed by me.
[2018-07-24 20:53] LABS: Basophils # (auto) 0.04 K/uL (0-0.2); Basophils % (auto) 0.3 %; Eosinophils # (auto) 0.33 K/uL (0-0.5); Eosinophils % (auto) 2.2 %; Hematocrit (blood only) 39.4 % (37-47); Hemoglobin 12.7 g/dL (12.0-16.0); Immature Granulocytes # (auto) 0.05 K/uL (0.00-0.02); Immature Granulocytes % (auto) 0.3 %; Lymphocytes # (auto) 1.46 K/uL (1.2-3.4); Lymphocytes % (auto) 9.9 %; Mean Corpuscular Hgb Conc 32.2 g/dL (32-36); Mean Corpuscular Volume 92.1 fL (80-100); Mean Platelet Volume 11.6 fL (7.4-10.4); Monocytes # (auto) 1.07 K/uL (0.11-0.59); Monocytes % (auto) 7.2 %; Neutrophils # (auto) 11.85 K/uL (1.4-6.5); Neutrophils % (auto) 80.1 %; Platelet Count 275 K/uL (130-400); RDW Coefficient of Variation 18.1 % (11.5-14.5); RDW Standard Deviation 61.4 fL (36.4-46.3); Red Blood Count 4.28 M/uL (4.2-5.4)
[2018-07-24 22:01] LABS: Appearance Urine Cloudy (Clear); Bacteria Urine Automated 4+ (Negative); Bilirubin Urine Negative (Negative); Blood Urine Negative (Negative); Color Urine Yellow; Epithelial Cell Urine Auto 20-30 /lpf (0-5); Glucose Urine UA Negative (Negative); Ketones Urine 1+ (Negative); Leukocyte Esterase Urine Trace (Negative); Nitrite Urine Positive (Negative); Protein Urine Negative (Negative); RBC Urine Automated 0-4 /hpf (0-4); Specific Gravity Urine 1.017 (1.000-1.030); Urobilinogen Urine Negative (Negative); pH Urine 6.5 (4.5-7.5)
[2018-07-24] MEDS ORDERED: cefTRIAXone SODIUM 1,000 MG/50 ML BAG IV STA (22:23)
[2018-07-24] MEDS ORDERED: CARBIDOPA/LEVODOPA 25/100MG TAB PO STA (22:23)
[2018-07-25] MEDS ORDERED: SODIUM CHLORIDE 0.9% 1000ML 1,000 ML IV ONE (00:29)
--- NOTE | 2018-07-25 00:30 | History & Physical Report ---
Date of Service July 25, 2018 Assessment & Plan (1) Severe sepsis: SIRS plus lactic acid elevation secondary to complicated UTI Ambulatory dysfunction Hx Parkinson's disease hypertension, slight elevated history aortic stenosis/PVD as per records chronic anemia, hemoglobin at baseline Medical telemetry Cultures, IV Cefepime IVF, follow lactic acid PT OT eval Social service RE discharge planning (Possible placement at [facility] DVT prophylaxis. Lovenox subcu History of Present Illness Chief Complaint: Fall Primary Care Provider: Cheryl Byers History obtained from patient and records. Medical history significant for Parkinson's disease, hypertension, hyperlipidemia, history aortic stenosis/PVD as per records, chronic anemia (baseline hemoglobin of 10) Recent confinement July 2017 for E. coli UTI. Recent confinement [facility] March 2018 for left distal femoral fracture, manubrium/chest wall fractures, type III odontoid fracture secondary to fall from stairs. Patient underwent left hip surgery. No intervention for cervical fracture except for cervical collar. Cervical collar removed after recent outpatient [facility] Neurosurgery follow-up last month. Patient initially discharged to [facility] for SNF/rehab. Patient discharged from [facility] last Tuesday. Patient had a mechanical fall at home today causing her to land on her left side. No chest pain, no S OB, No head trauma, no LOC. Patient denies fever, chills, urinary symptoms. At the ER, patient received IV Ceftriaxone for UTI. 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 Allergies Allergy/AdvReac Type Severity Reaction Status Date / Time No Known Allergies Allergy Unverified 03/21/18 13:37 Home Medications Home Medications Medication Instructions Recorded Confirmed Type alendronate [Fosamax] 70 mg PO WK 03/21/18 07/24/18 History aspirin [Aspir-81] 81 mg PO DAILY 03/21/18 07/24/18 History carbidopa-levodopa 1.5 tab PO QID 03/21/18 07/24/18 History lisinopril 2.5 mg PO DAILY 03/21/18 07/24/18 History tramadol 50 mg PO UD PRN 07/24/18 07/24/18 History nitrofurantoin monohyd/m-cryst 100 mg PO BID 5 Days #10 cap 07/26/18 Rx Past Med/Surg History Medical History Parkinson disease (Chronic) Osteoporosis (Chronic) Hypertension (Chronic) Dyslipidemia (Chronic) Chronic allergic rhinitis (Chronic) Aortic stenosis (Chronic) "Mild-moderate per echo 03/15/17" History of fracture of left hip (Chronic) Urinary tract infection Surgical History H/O colonoscopy (Chronic) "2011" Hx of cataract surgery (Chronic) History of left hip replacement (Chronic) Social History Preferred Language: German Beliefs That Will Affect Care: None marital status: / Current Living Situation: Alone Other Information That Helps Us Care for You: No Feels Safe at Home: No Safety Concerns: Afraid for Self Smoking Status: Never smoker Hx Alcohol Use: No Hx Substance Use: No Review of Systems As per HPI, all 10 systems reviewed, all other ROS negative Physical Exam Vital Signs (Past 24 Hours): Last Vital Signs Temp 36.7 C 07/24/18 18:49 Pulse 103 H 07/24/18 23:12 Resp 16 07/24/18 23:12 BP 158/77 H 07/24/18 23:12 Pulse Ox 96 07/24/18 23:12 Physical Exam: GENERAL: Comfortable, no respiratory distress SKIN: Pallor, warm HEENT: Pale palpebral conjunctivae, no ptosis, dry buccal mucosa NECK : Supple, no tenderness CHEST : CTA, no tenderness HEART : Tachycardic, systolic murmur ABDOMEN: Some distention, nontender EXTREMITIES : No LE swelling/tenderness, no other conspicuous deformities noted NEUROLOGIC : Coherent, no facial asymmetry, rest tremors, gait and stance not assessed Results & Data Laboratory Results Laboratory Results WBC 14.80 K/uL (4.8-10.8) H 07/24/18 19:19 RBC 4.28 M/uL (4.2-5.4) 07/24/18 19:19 Hgb 12.7 g/dL (12.0-16.0) 07/24/18 19:19 Hct 39.4 % (37-47) 07/24/18 19:19 MCV 92.1 fL (80-100) 07/24/18 19: MCH 29.7 pg (25-34) 07/24/18 19: MCHC 32.2 g/dL (32-36) 07/24/18 19: RDW Std Deviation 61.4 fL (36.4-46.3) H 07/24/18 19:19 RDW Coeff of Conor 18.1 % (11.5-14.5) H 07/24/18 19: Plt Count 275 K/uL (130-400) 07/24/18 19: MPV 11.6 fL (7.4-10.4) H 07/24/18 19: Immature Gran % (Auto) 0.3 % 07/24/18: Neut % (Auto) 80.1 % 07/24/18 19: Lymph % (Auto) 9.9 % 07/24/18: [place] % (Auto) 7.2 % 07/24/18 19: Eos % (Auto) 2.2 % 07/24/18: Baso % (Auto) 0.3 % 07/24/18 19:19 Immature Gran # (Auto) 0.05 K/uL (0.00-0.02) H 07/24/18 19: Neut # (Auto) 11.85 K/uL (1.4-6.5) H 07/24/18 19:19 Lymph # (Auto) 1.46 K/uL (1.2-3.4) 07/24/18 19:19 [place] # (Auto) 1.07 K/uL (0.11-0.59) H 07/24/18 19:19 Eos # (Auto) 0.33 K/uL (0-0.5) 07/24/18:19 Baso # (Auto) 0.04 K/uL (0-0.2) 07/24/18 19:19 Sodium 139 mmol/L (136-145) 07/24/18 19:19 Potassium 3.7 mmol/L (3.5-5.1) 07/24/18 19:19 Chloride 105 mmol/L (98-107) 07/24/18 19:19 Carbon Dioxide 29 mmol/L (21-32) 07/24/18 19:19 Anion Gap 6.0 (3-11) 07/24/18 19:19 BUN 14 mg/dl (7-18) 07/24/18 19:19 Creatinine 0.60 mg/dl (0.6-1.2) 07/24/18 19:19 Est Cr Clr Drug Dosing 73.3 ml/min 07/24/18 19:19 Est GFR ( Amer) 97.7 07/24/18 19: Est GFR (Non-Af Amer) 84.3 07/24/18 19:19 BUN/Creatinine Ratio 23.0 (10-20) H 07/24/18 19:19 Glucose 86 mg/dl (70-99) 07/24/18 19: Lactate 2.7 mmol/L (0.4-2.0) H* 07/24/18 23:37 Calcium 8.8 mg/dl (8.5-10.1) 07/24/18 19: Magnesium 1.9 mg/dl (1.8-2.4) 07/24/18 19: Total Bilirubin 0.5 mg/dl (0.2-1) 07/24/18 19:19 AST 17 U/L (15-37) 07/24/18 19:19 ALT 11 U/L (12-78) L 07/24/18 19:19 Alkaline Phosphatase 84 U/L (45-117) 07/24/18 19:19 Troponin I < 0.015 ng/ml (0-0.045) 07/24/18 19: Total Protein 7.3 gm/dl (6.4-8.2) 07/24/18 19: Albumin 3.2 gm/dl (3.4-5.0) L 07/24/18 19:19 Globulin 4.1 gm/dl (2.5-4.0) H 07/24/18 19:19 Albumin/Globulin Ratio 0.8 (0.9-2) L 07/24/18 19: TSH 1.100 uIu/ml (0.300-4.500) 07/24/18 19:19 Urine Color Yellow 07/24/18 21:05 Urine Appearance Cloudy (Clear) H 07/24/18 21:05 Urine pH 6.5 (4.5-7.5) 07/24/18 21:05 Ur Specific [place] 1.017 (1.000-1.030) 07/24/18 21:05 Urine Protein Negative (Negative) 07/24/18 21:05 Urine Glucose (UA) Negative (Negative) 07/24/18 21:05 Urine Ketones 1+ (Negative) H 07/24/18 21:05 Urine Blood Negative (Negative) 07/24/18 21:05 Urine Nitrite Positive (Negative) H 07/24/18 21:05 Urine Bilirubin Negative (Negative) 07/24/18 21:05 Urine Urobilinogen Negative (Negative) 07/24/18 21:05 Ur Leukocyte Esterase Trace (Negative) H 07/24/18 21:05 Urine WBC (Auto) 5-10 /hpf (0-5) H 07/24/18 21:05 Urine RBC (Auto) 0-4 /hpf (0-4) 07/24/18 21:05 U Hyaline Cast (Auto) 1-5 /lpf (0-5) 07/24/18 21:05 U Epithel Cells (Auto) 20-30 /lpf (0-5) H 07/24/18 21:05 Urine Bacteria (Auto) 4+ (Negative) H 07/24/18 21:05 Diagnostic Findings Chest x-ray: No acute pathology Left hand x-ray: Slight cortical irregularity of the distal shaft of the left fifth metacarpal. This is probably old however could be correlated with point tenderness to exclude an acute fracture. EKG as per my interpretation : Rate 100, NSR, LAD, LAFB, no ischemia
[2018-07-25] MEDS ORDERED: CEFEPIME 2,000 MG in SYRINGE 7.5 ML IV STA (00:34)
[2018-07-25 00:49] LABS: Creatine Kinase 194 U/L (26-192)
[2018-07-25] MEDS ORDERED: ACETAMINOPHEN 325 MG TAB PO PRN (01:58)
[2018-07-25] MEDS ORDERED: TRAMADOL HCL 50 MG TABLET PO PRN ×2 (01:58→12:20)
[2018-07-25] MEDS ORDERED: NITROGLYCERIN SL 0.4 MG/TAB TAB SL PRN (01:58)
[2018-07-25] MEDS ORDERED: CEFEPIME CONSULT ACTIVE PRN (02:54)
[2018-07-25] MEDS ORDERED: NSS + 20MEQ KCL 20 MEQ/1,000 ML BAG IV SCH ×2 (05:00→06:54)
[2018-07-25 05:56] LABS: Basophils # (auto) 0.03 K/uL (0-0.2); Basophils % (auto) 0.3 %; Eosinophils # (auto) 0.53 K/uL (0-0.5); Eosinophils % (auto) 6.1 %; Hematocrit (blood only) 34.6 % (37-47); Hemoglobin 11.3 g/dL (12.0-16.0); Immature Granulocytes # (auto) 0.02 K/uL (0.00-0.02); Immature Granulocytes % (auto) 0.2 %; Lymphocytes # (auto) 1.96 K/uL (1.2-3.4); Lymphocytes % (auto) 22.6 %; Mean Corpuscular Hgb Conc 32.7 g/dL (32-36); Mean Platelet Volume 10.5 fL (7.4-10.4); Monocytes # (auto) 0.74 K/uL (0.11-0.59); Monocytes % (auto) 8.5 %; Neutrophils # (auto) 5.38 K/uL (1.4-6.5); Neutrophils % (auto) 62.3 %; Platelet Count 211 K/uL (130-400); RDW Coefficient of Variation 18.2 % (11.5-14.5); RDW Standard Deviation 61.3 fL (36.4-46.3); Red Blood Count 3.76 M/uL (4.2-5.4); White Blood Count 8.66 K/uL (4.8-10.8)
[2018-07-25 06:19] LABS: BUN Creatinine Ratio 24.1 (10-20); Calcium 7.6 mg/dl (8.5-10.1); Creatinine Clr Calc Pharmacy 75.3 ml/min; Est GFR (African American) 101.8; Est GFR (Non-African American) 87.8; Potassium 3.7 mmol/L (3.5-5.1)
[2018-07-25] MEDS: LISINOPRIL 2.5 MG TAB PO SCH (09:13)
[2018-07-25] MEDS: CARBIDOPA/LEVODOPA 25/100MG TAB PO SCH ×4 (09:13→21:16)
[2018-07-25] MEDS: ASPIRIN 81 MG ECTAB PO SCH (09:13)
[2018-07-25] MEDS: ENOXAPARIN INJ 30 MG/0.3 ML SYR SQ SCH (09:50)
[2018-07-25] MEDS: CEFEPIME 2,000 MG in SYRINGE 7.5 ML IV SCH (11:48)
[2018-07-25] MEDS ORDERED: BISACODYL 10 MG SUPP PR PRN (11:56)
--- NOTE | 2018-07-25 11:56 | Hospitalist Progress Note ---
Date of Service July 25, 2018 Assessment & Plan (1) Sepsis: Resuscitated on IVF and Cefepime. Source is likely UTI-cont antibiotics pending culture results. (2) UTI (urinary tract infection): as above (3) Fracture of fifth metacarpal bone of left hand: Ortho to evaluate. APAP as needed. (4) Fall: Multiple falls at home. Dispo to [facility] to strengthen her. (5) Ambulatory dysfunction: Ambulates with a walker. Will need to use extra care in the future and remove all rugs and tripping hazards in her home. She was on carpet when she fell. Cont PT/OT (6) DVT prophylaxis: Lovenox Full Dispo-to [facility] in 1-2 days. Awaiting Ortho recs and urine culture. Tea Mcmahan DO [facility] Hospitalist Subjective 82 yo F with a history of multiple falls in the last 6 months, again suffered a fall at home last night. She was alone in the house as her daughters had left. She reports trying to handl esome mail which slipped out of her hand and caused her to fall. She denies any loss of consciousness and has no chest pain, shortness of breath, abdominal pain, recent dysuria or urinary urgency. Chronic medical problems appear stable. She does report weakness in her legs for several days prior to the fall. And she reports she was unable to get up after the fall 2/2 LUE weakness. ROM appears intact aside from some difficulty with overhead press. There is some ecchymosis present that is minor on her proximal arm. X-rays revealed no fracture, but there was a question of fracture in the left hand. She has normal ROM of the hand and fingers and no tenderness on exam, however, Ortho was consulted to evaluate this further. She otherwise denies any pain in her hips or legs and these areas were also examined and nontender. She is tolerating PO. She denies fevers or chills. She reports ambulating w her walker this morning. Currently she is trying to move into a low-income housing ([facility]) which does not offer assistance. She reports that her daughter and granddaughter will be with her most of the time. She will consider something such as a Life Alert system in the event of future falls. Physical Exam Vital Signs (Past 24 Hours): Last Vital Signs Temp 36.6 C 07/25/18 11:16 Pulse 89 07/25/18 11:16 Resp 16 07/25/18 11:16 BP 124/69 07/25/18 11:16 Pulse Ox 95 07/25/18 11:16 CONSTITUTIONAL: WNWD, vitals as above, generally well-appearing EYES: normal conjuctivae, no scleral icterus ENT: MMM RESPIRATORY: clear to auscultation bilaterally, no crackles, rales or wheezes, normal respiratory effort CARDIOVASCULAR: regular rate and rhythm, 3/6 MARGE across precordium, no gallops or rubs, no JVD, no peripheral edema GASTROINTESTINAL: normal bowel sounds, soft, nontender, nondistended MUSCULOSKELETAL: strength 5/5 throughout, head is normocephalic and atraumatic, neck supple, normal palpation of chest wall without tenderness. Able to close left hand into a fist and open it fully stretched. No point tenderness on L hand, wrist or forearm. Restricted ROM of L wrist but this may be her baseline?, ecchymosis to dorsal hand and on arm proximal to elbow. Elbow demonstrates normal flexion and extension without point TTP. L shoulder is not painful to palpation and appears to have normal ROM but exam is limited 2/2 weakness. She cannot perform overhead press that well, again ? if this is her baseline per her report. No hip TTP bilaterally, well-healed scar on outer left thigh with some TTP along this without bruising. L knee with some restricted flexion but this is chronic per patient. Normal ROM of RLE. SKIN: warm and dry, minor bruising on LUE as above. NEUROLOGIC: No facial palsy, no dysarthria. CN 2-12 grossly intact, normal cognition, normal speech, no tremor PSYCHIATRIC: alert cooperative and oriented to person, place and time. Results & Data Laboratory Results Short CBC 07/24/18 07/25/18 Range/Units 19:19 05:37 WBC 14.80 H 8.66 (4.8-10.8) K/uL Hgb 12.7 11.3 L (12.0-16.0) g/dL Hct 39.4 34.6 L (37-47) % Plt Count 275 211 (130-400) K/uL BMP 07/24/18 07/25/18 19:19 05:37 Sodium 139 142 Potassium 3.7 3.7 Chloride 105 111 H Carbon Dioxide 29 26 BUN 14 13 Creatinine 0.60 0.53 L Glucose 86 79 Calcium 8.8 7.6 L Cardiac Enzymes 07/24/18 Range/Units 19:19 Total Creatine Kinase 194 H (26-192) U/L Troponin I < 0.015 (0-0.045) ng/ml Liver Function 07/24/18 Range/Units 19:19 Total Bilirubin 0.5 (0.2-1) mg/dl AST 17 (15-37) U/L ALT 11 L (12-78) U/L Alkaline Phosphatase 84 (45-117) U/L Albumin 3.2 L (3.4-5.0) gm/dl Urine 07/24/18 Range/Units 21:05 Urine Color Yellow Urine Appearance Cloudy H (Clear) Urine pH 6.5 (4.5-7.5) Ur Specific [place] 1.017 (1.000-1.030) Urine Protein Negative (Negative) Urine Glucose (UA) Negative (Negative) Diagnostic Findings XR hand LT min 3V routine CLINICAL HISTORY: fall COMPARISON: None FINDINGS: There is slight cortical irregularity of the distal shaft of the left fifth metacarpal. This is age indeterminate. No additional fractures are identified. Carpal bones are intact. 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 IMPRESSION: Slight cortical irregularity of the distal shaft of the left fifth metacarpal. This is probably old however could be correlated with point tenderness to exclude an acute fracture. XR chest 1V portable CLINICAL HISTORY: Weakness. Fall. COMPARISON STUDY: Chest radiograph March 21, 2018. FINDINGS: Lung volumes are normal. There is no pneumothorax or pleural effusion. Cardiomegaly is unchanged. There is no evidence for pulmonary edema. There is no consolidation to suggest pneumonia. IMPRESSION: No acute cardiopulmonary findings. XR elbow LT min 3V routine CLINICAL HISTORY: Fall. COMPARISON: None FINDINGS: Alignment of the left elbow is anatomic. No acute fracture or joint effusion is identified. Irregularity of the medial and lateral condyles is chronic. IMPRESSION: No acute fracture or joint effusion of the left elbow. Medications Administered Current Inpatient Medications Acetaminophen (Tylenol) 650 mg PO Q4H PRN PRN Reason: Pain or Fever Stop: 08/24/18 01:57 Aspirin (Ecotrin Ectab) 81 mg PO DAILY [facility] Stop: 08/24/18 08:59 Last Admin: 07/25/18 09:13 Dose: 81 mg Documented by: Carbidopa/Levodopa (Sinemet 25/100 Mg) 1.5 tab PO QID JEN Stop: 08/24/18 08:59 Last Admin: 07/25/18 09:13 Dose: 1.5 tab Documented by: Enoxaparin Sodium (Lovenox) 30 mg SQ QAM [facility] Stop: 08/24/18 08:59 Last Admin: 07/25/18 09:50 Dose: 30 mg Documented by: Cefepime HCl 2,000 mg/ Syringe 20 mls @ 5 mls/min IV Q12H [facility]; Protocol Stop: 08/04/18 11:59 Last Admin: 07/25/18 11:48 Dose: 5 mls/min Documented by: Potassium Chloride/Sodium Chloride (Normal Saline W/20 Meq Kcl) 20 meq in 1,000 mls @ 100 mls/hr IV .Q10H [facility] Stop: 07/25/18 16:53 Last Admin: 07/25/18 09:50 Dose: 100 mls/hr Documented by: Lisinopril (Zestril) 2.5 mg PO DAILY [facility] Stop: 08/24/18 08:59 Last Admin: 07/25/18 09:13 Dose: 2.5 mg Documented by: Miscellaneous Information (Cefepime Consult Active) 1 ea N/A UD PRN PRN Reason: Consult Stop: 08/24/18 02:53 Nitroglycerin (Nitrostat) 0.4 mg SL UD PRN PRN Reason: Chest Pain Stop: 08/24/18 01:57 Tramadol HCl (Ultram) 25 - 50 mg PO Q4H PRN PRN Reason: Pain Stop: 08/24/18 01:57 (1) UTI (urinary tract infection) Hematuria presence: without hematuria Urinary tract infection type: site unspecified Qualified Code(s): N39.0 - Urinary tract infection, site not specified (2) Fall Encounter type: initial encounter Qualified Code(s): W19.XXXA - Unspecified fall, initial encounter
--- NOTE | 2018-07-25 12:00 | Orthopedic Consultation ---
Date of Consultation July 25, 2018 Assessment & Plan (1) Fracture of fifth metacarpal bone of left hand: xrays reviewed, question of an old vs new fx of the 5th metacarpal, she denies any previous injuries or trauma to that hand, exam is consistent with a new fracture. fracture is non displaced and non angulated, no rotational deformity, no extensor lag. will place into a short arm ulnar gutter cast, RICE, she may use a walker as tolerated with her left hand, if it is too painful she could consider using a platform walker. she should contact [facility] at [phone] to schedule an appointment in 10-12 days to have repeat xrays performed and likely transition into a cast at that time. History of Present Illness Reason for Consultation: left hand pain Attending Physician: Tea Mcmahan, History of Present Illness Cassandra is an 82 year old female who presented to the Emergency Room on 07/24/18 with complaints of an episode of a fall that happened prior to arrival, during that fall she landed onto her left elbow and hand. she is a RHD female and denies any previous injuries or trauma to that left hand. she reports she was recently discharged from [facility] on Tuesday from another previous fall. She states her stepdaughter owns the house she lives in and she wants to get out because she does not feel safe at home anymore. The patient states she was given a walker at [facility] and was trying to carry things with it it, she dropped the item and then she fell to the ground. She notes she fell on her left arm and noticed bruises. The patient states she was on the ground for an hour. she denies any other injuries or trauma. Allergies Allergy/AdvReac Type Severity Reaction Status Date / Time No Known Allergies Allergy Unverified 03/21/18 13:37 Home Medications Home Medications Medication Instructions Recorded Confirmed Type alendronate [Fosamax] 70 mg PO WK 03/21/18 07/24/18 History aspirin [Aspir-81] 81 mg PO DAILY 03/21/18 07/24/18 History carbidopa-levodopa 1.5 tab PO QID 03/21/18 07/24/18 History lisinopril 2.5 mg PO DAILY 03/21/18 07/24/18 History tramadol 50 mg PO UD PRN 07/24/18 07/24/18 History Patient History Medical History Parkinson disease (Chronic) Osteoporosis (Chronic) Hypertension (Chronic) Dyslipidemia (Chronic) Chronic allergic rhinitis (Chronic) Aortic stenosis (Chronic) "Mild-moderate per echo 03/15/17" History of fracture of left hip (Chronic) Urinary tract infection Surgical History H/O colonoscopy (Chronic) "2011" Hx of cataract surgery (Chronic) History of left hip replacement (Chronic) Social History Communication Ability: Effective Beliefs That Will Affect Care: None marital status: / Current Living Situation: Alone Other Information That Helps Us Care for You: No Feels Safe at Home: No Safety Concerns: Afraid for Self Smoking Status: Never smoker Hx Alcohol Use: No Hx Substance Use: No Review of Systems Constitutional: as per Subjective / HPI Cardiovascular: no chest pain, no dyspnea and no orthopnea Gastrointestinal: no nausea and no vomiting Physical Exam Vital Signs (Past 24 Hours): Last Vital Signs Temp 36.6 C 07/25/18 11:16 Pulse 89 07/25/18 11:16 Resp 16 07/25/18 11:16 BP 124/69 07/25/18 11:16 Pulse Ox 95 07/25/18 11:16 Constitutional: WD/WN, vitals as above no acute distress Musculoskeletal: gentle A/PROM of her left shoulder and elbow show no discomfort. she does have ecchymotic area noted to her left dorsum hand with tenderness present over the shaft of her 4th and 5th metacarpals. she is NVDI, radial pulse +2, radial/ulnar/median nerves intact. CR less than 2 seconds. she has 4+/5 strength to her left wrist and elbow with flexion and extension. there is no extensor lag noted, no rotational deformity present. Results & Data Diagnostic Findings XR hand LT min 3V routine CLINICAL HISTORY: fall COMPARISON: None FINDINGS: There is slight cortical irregularity of the distal shaft of the left fifth metacarpal. This is age indeterminate. No additional fractures are identified. Carpal bones are intact. 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 IMPRESSION: Slight cortical irregularity of the distal shaft of the left fifth metacarpal. This is probably old however could be correlated with point tenderness to exclude an acute fracture.
[2018-07-26] MEDS: CEFEPIME 2,000 MG in SYRINGE 7.5 ML IV SCH ×2 (00:29→12:00)
[2018-07-26 07:28] LABS: Hematocrit (blood only) 35.4 % (37-47); Hemoglobin 11.3 g/dL (12.0-16.0); Mean Corpuscular Hgb Conc 31.9 g/dL (32-36); Mean Corpuscular Volume 91.2 fL (80-100); Mean Platelet Volume 10.8 fL (7.4-10.4); Platelet Count 213 K/uL (130-400); RDW Coefficient of Variation 18.2 % (11.5-14.5); RDW Standard Deviation 60.9 fL (36.4-46.3); Red Blood Count 3.88 M/uL (4.2-5.4); White Blood Count 7.02 K/uL (4.8-10.8)
[2018-07-26 08:07] LABS: BUN Creatinine Ratio 21.4 (10-20); Calcium 8.3 mg/dl (8.5-10.1); Creatinine Clr Calc Pharmacy 72.6 ml/min; Est GFR (African American) 100.5; Est GFR (Non-African American) 86.7; Potassium 3.9 mmol/L (3.5-5.1)
[2018-07-26] MEDS: ENOXAPARIN INJ 30 MG/0.3 ML SYR SQ SCH (08:22)
[2018-07-26] MEDS: CARBIDOPA/LEVODOPA 25/100MG TAB PO SCH ×2 (08:22→12:01)
[2018-07-26] MEDS: LISINOPRIL 2.5 MG TAB PO SCH (08:22)
[2018-07-26] MEDS: ASPIRIN 81 MG ECTAB PO SCH (08:22)
--- NOTE | 2018-07-26 12:50 | Discharge Summary ---
Date of Service July 26, 2018 Admission HPI Per Admitting Provider History obtained from patient and records. Medical history significant for Parkinson's disease, hypertension, hyperlipidemia, history aortic stenosis/PVD as per records, chronic anemia (baseline hemoglobin of 10) Recent confinement July 2017 for E. coli UTI. Recent confinement [facility] March 2018 for left distal femoral fracture, manubrium/chest wall fractures, type III odontoid fracture secondary to fall from stairs. Patient underwent left hip surgery. No intervention for cervical fracture except for cervical collar. Cervical collar removed after recent outpatient [facility] Neurosurgery follow-up last month. Patient initially discharged to [facility] for SNF/rehab. Patient discharged from [facility] last Tuesday. Patient had a mechanical fall at home today causing her to land on her left side. No chest pain, no S OB, No head trauma, no LOC. Patient denies fever, chills, urinary symptoms. At the ER, patient received IV Ceftriaxone for UTI. Admission Exam Per Admitting Provider per ER provider PHYSICAL EXAM: GENERAL: Awake, alert, well-appearing, in no distress HENT: Normocephalic, atraumatic. Oropharynx unremarkable. EYES: Normal conjunctiva. Sclera non-icteric. NECK: Inspection normal. Non-tender. Supple. No nuchal rigidity. FROM. No masses. RESPIRATORY: Clear to auscultation. No wheezes. No rales. Normal respiratory effort. CARDIAC: Borderline tachycardic rate. Normal rhythm. Systolic ejection murmur. No rubs. Extremities warm and well perfused. Pulses equal. No JVD. GI: Soft, non-distended. No tenderness to palpation. No rebound or guarding. No masses. RECTAL: Deferred. MUSCULOSKELETAL: Atraumatic. Chest examination reveals no tenderness. The back is symmetrical on inspection without obvious abnormality. There is no CVA tenderness to palpation. No joint edema. LOWER EXTREMITIES: Calves are equal size bilaterally and non-tender. No edema. No discoloration. UPPER EXTREMITIES: ROM of shoulder is well preserved. NEURO: Normal sensorium. No sensory or motor deficits noted. SKIN: No rash or jaundice noted. Contusion to dorsal left hand. Contusion and abrasion to the left elbow and shoulder. Principal Diagnosis Sepsis secondary to E. coli UTI-resuscitated Fracture of left fifth metacarpal bone Status post multiple falls at home Ambulatory dysfunction Discharge Data Allergies Allergy/AdvReac Type Severity Reaction Status Date / Time No Known Allergies Allergy Unverified 03/21/18 13:37 Consultations 07/24/18 22:39 ED Decision to Admit Stat 07/25/18 01:58 Consult Case Management - Discharge Planning Routine 07/25/18 10:46 Consult Orthopedic Surgery Routine Hospital Course (1) Sepsis: (2) Ambulatory dysfunction: (3) Fracture of fifth metacarpal bone of left hand: (4) UTI (urinary tract infection): 82 yo F with a history of multiple falls in the last 6 months, again suffered a fall at home one day prior to arrival.. She was alone in the house as her daughters had left. She was trying to handle some mail which slipped out of her hand and caused her to fall. She denied any loss of consciousness and h as no chest pain, shortness of breath, abdominal pain, recent dysuria or urinary urgency. Chronic medical problems appeared stable. She did report weakness in her legs for several days prior to the fall. And she reports she was unable to get up after the fall 2/2 LUE weakness. ROM appears intact aside from some difficulty with overhead press. There is some ecchymosis present that is minor on her proximal arm. X-rays revealed questionable fracture in the left hand. Ortho was consulted to further evaluate this. X-rays revealed a questionable old versus new fracture of the left fifth metacarpal. Exam was consistent with a new fracture which was nondisplaced and nonangulated. She was placed in a short arm ulnar gutter cast with RICE therapy recommended. Other recommendations included using her walker as tolerated with her left hand but if too painful could consider using a platform walker. She will need to [place] [facility] [place] [phone] to schedule an appointment in 10-12 days to have repeat x- rays performed and likely transition into a cast at that time. She otherwise denies any pain in her hips or legs and these areas were also examined and nontender. She was able to ambulate with her walker. Currently she is trying to move into a low-income housing ([facility]) which does not offer personal or medical assistance. She reports that her daughter and granddaughter will be with her most of the time and they can help her. She will consider something such as a Life Alert system in the event of future falls. At time of discharge she was hemodynamically stable and afebrile. Physical exam revealed no abdominal tenderness and was otherwise unremarkable. She was asymptomatic from a urinary tract infection standpoint. She denied any pain and reported some improvement in left lower leg weakness since admission. Urine culture revealed E. coli that was pansensitive and she was placed on Macrobid. Total Time Total Time Spent Total Time Spent (In Minutes): 60 Total Time Includes: Examination of the Patient, Discharge Planning, Medication Reconciliation and Communication With Other Providers Discharge Plan Discharge Items Patient Disposition[facility] Reason For Visit: SEPSIS Discharge Diagnosis: Sepsis 2/2 E coli UTI L finger fracture s/p fall at home Discharge Goals: Increase independence Activity: Resume your previous activity Non-emergency contact: Primary Care Provider Call non-emergency contact if: you have any medication questions, your symptoms worsen, your pain is not controlled and you have a fever Follow-up/Referrals: Cheryl Byers [Primary Care Provider] - Diet: Heart Healthy Addtl Provider Instructions: Please take all medications as instructed below. It is recommended that you follow-up with your primary care doctor within 1 week of discharge from [facility]. It was a pleasure taking care of you! Please call if you have any questions or problems. You can reach a [facility] hospitalist on duty at [facility] 24 hours a day by calling [phone]. Take care of yourself. Tea Mcmahan DO [facility] Hospitalist Prescriptions: New nitrofurantoin monohyd/m-cryst 100 mg Capsule 100 mg PO BID 5 Days Qty: 10 RF: 0 Continued aspirin [Aspir-81] 81 mg Tablet,Delayed Release (Dr/Ec) 81 mg PO DAILY RF: 0 alendronate [Fosamax] 70 mg Tablet 70 mg PO WK RF: 0 carbidopa-levodopa 25-100 mg Tablet 1.5 tab PO QID RF: 0 lisinopril 2.5 mg Tablet 2.5 mg PO DAILY RF: 0 tramadol 50 mg Tablet 50 mg PO UD PRN (Reason: Pain) RF: 0 Stand-Alone Forms: My [facility] Admission Data Admit Date/Time: 07/25/18 00:32 Attending Provider: Tea Mcmahan Admit Provider: Lazaro De La Garza Primary Care Provider: Cheryl Byers Other Providers: Lazaro De La Garza Casey R Service: Telemetry Medical
[2018-07-26] MEDS ORDERED: NITROFURANTOIN MONOHYDRATE 100 MG CAP PO SCH (21:00)
== END 2018-07-26 13:55 | DRG 872 ==
LOC: ED 18:38 → 2N 07-25 00:32

== ENCOUNTER 2020-05-30 21:03 | Inpatient (IN) ==
--- NOTE | 2020-05-30 21:20 | Emergency Department Note ---
History of Present Illness General Chief complaint: Weakness Stated complaint: WEAKNESS Time Seen by Provider: 05/30/20 21:08 Source: patient History of Present Illness Provider complaint: Weakness Onset (ago): day(s) 3 Location: upper extremity, lower extremity, left and right Severity: moderate Pain Consistency: + constant Quality: + other (Generalized weakness) Relieved By: + none Associated symptoms: + weakness; no chest pain, no cough, no fever/chills, no headaches, no nausea/vomiting, no shortness of breath and no syncope This is an 84-year-old female who presents with generalized weakness for the past 3 days. The patient normally lives in an independent [facility]. She gets around using a wheelchair. Over the past 3 days she has been having trouble transferring herself from the wheelchair due to generalized weakness. Her daughter came to visit her and brought her head in for evaluation as the last time she had similar symptoms she had a urinary tract infection. The patient complains of generalized weakness without any specific focal weakness. She denies fever, cough or cold symptoms, chest pain, shortness of breath, abdominal pain, vomiting, diarrhea, black or bloody stools or known exposure to COVID-19. The patient does states she is normally incontinent of urine. Home Medications Medication Instructions Recorded Confirmed Type alendronate [Fosamax] 70 mg PO WK 03/21/18 05/30/20 History carbidopa-levodopa 1.5 tab PO QID 03/21/18 05/30/20 History lisinopril 2.5 mg PO DAILY 03/21/18 05/30/20 History tramadol 50 mg PO UD PRN 07/24/18 05/30/20 History aspirin 81 mg PO DAILY 05/30/20 05/30/20 History Allergies Allergy/AdvReac Type Severity Reaction Status Date / Time No Known Allergies Allergy Verified 05/30/20 23:03 Past Med/Surg History Medical History (Updated 05/30/20 @ 23:41 by Chris Mak MD) Aortic stenosis "Mild-moderate per echo 03/15/17" Chronic allergic rhinitis Dyslipidemia History of fracture of left hip Hypertension Osteoporosis Parkinson disease Urinary tract infection Surgical History H/O colonoscopy "2011" History of left hip replacement Hx of cataract surgery Social History Smoking Status: Never smoker Second Hand Exposure: No; Hx Alcohol Use: No Hx Substance Use: No Preferred Language: Indonesian Communication Ability: Effective [employer] Required: No Beliefs That Will Affect Care: None marital status: / Current Living Situation: Alone How many Children do You have: 1 Feels Safe at Home: Yes Assistive Devices: Walker Review of Systems See HPI for pertinent positives & negatives. and A total of 10 systems reviewed and were otherwise negative Physical Exam Vital Signs Vital Signs - 24 hr 05/30/20 21:07 05/30/20 21:13 05/30/20 21:17 Temperature 36.9 C Temperature Source Oral Pulse Rate 84 86 84 Pulse Rate from SpO2 Sensor 85 83 Pulse Rhythm Regular Pulse Strength Normal Respiratory Rate 23 26 H 21 Respiratory Effort / Characteristics Non-Labored Respiratory Depth Normal Respiratory Pattern Regular Blood Pressure 195/88 H 195/88 H Blood Pressure Mean 123 139 Blood Pressure Position Lying Pulse Oximetry 98 96 97 Oxygen Delivery Method Room Air Sepsis Recent Fever Within 48 Hours No Sepsis New/Unexplained Change in Mental Status N/A Sepsis Action Taken by Nursing No Action Required 05/30/20 21:30 05/30/20 22:00 05/30/20 22:30 Temperature Temperature Source Pulse Rate 84 79 80 Pulse Rate from SpO2 Sensor 84 79 81 Pulse Rhythm Pulse Strength Respiratory Rate 22 20 20 Respiratory Effort / Characteristics Respiratory Depth Respiratory Pattern Blood Pressure 189/95 H 201/88 H 166/82 H Blood Pressure Mean 126 128 123 Blood Pressure Position Pulse Oximetry 99 97 96 Oxygen Delivery Method Sepsis Recent Fever Within 48 Hours Sepsis New/Unexplained Change in Mental Status Sepsis Action Taken by Nursing 05/30/20 23:00 05/30/20 23:31 Temperature Temperature Source Pulse Rate 85 88 Pulse Rate from SpO2 Sensor 84 89 Pulse Rhythm Pulse Strength Respiratory Rate 18 19 Respiratory Effort / Characteristics Respiratory Depth Respiratory Pattern Blood Pressure 143/70 H 158/105 H Blood Pressure Mean 99 121 Blood Pressure Position Pulse Oximetry 95 96 Oxygen Delivery Method Room Air Room Air Sepsis Recent Fever Within 48 Hours Sepsis New/Unexplained Change in Mental Status Sepsis Action Taken by Nursing Constitutional: Vital signs reviewed. Eyes: Pupils are equal round reactive to light. Conjunctiva are noninjected. ENT: Pharynx is clear without erythema or exudate. Mucous membranes are moist. Neck supple without meningeal signs. Respiratory: Clear to auscultation bilaterally. Breath sounds are equal bilaterally. Cardiovascular: Regular rate and rhythm. No rubs or gallops. GI: Soft, nondistended and nontender. Bowel sounds are present. Musculoskeletal: No peripheral edema. No lower extremity tenderness. Integumentary: No cyanosis. or jaundice. Neurological: The patient is awake and alert. No focal deficits. Psychiatric: Normal affect. Not anxious appearing. Course Administered Medications Sodium Chloride (1/2 Nss) 1,000 mls @ 60 mls/hr IV .[id number] STA Stop: 05/31/20 15:41 Last Admin: 05/30/20 23:13 Dose: 60 mls/hr Documented by: [id number] Discontinued Medications Lisinopril (Lisinopril 5 Mg Tab) 5 mg PO NOW STA Stop: 05/30/20 23:03 Last Admin: 05/30/20 23:13 Dose: 5 mg Documented by: [id number] Medical Decision Making Differential Diagnosis UTI, sepsis, bacteremia, dehydration, metabolic derangement, cardiac Medical Records Attestation: I reviewed the patient's medical records. I did perform a limited focused review of portions of the patient's old chart on the electronic medical record. The patient was admitted in July of 2018 for sepsis secondary to a UTI with E. coli. She was seen here in January of last year and had a UTI which grew out E. coli. She was not admitted at that time. Home Medications Current Medication List: was personally reviewed by me Laboratory Data Attestation: I reviewed the patient's lab results. Result diagrams: 05/30/20 21:40 05/30/20 21:40 Lab Results 05/30/20 05/30/20 05/30/20 Range/Units 21:17 21:40 21:40 WBC 9.10 (4.8-10.8) K/uL RBC 4.34 (4.2-5.4) M/uL Hgb 13.4 (12.0-16.0) g/dL Hct 42.0 (37-47) % MCV 96.8 (80-100) fL MCH 30.9 (25-34) pg MCHC 31.9 L (32-36) g/dL RDW Std Deviation 53.9 H (36.4-46.3) fL RDW Coeff of Conor 15.2 H (11.5-14.5) % Plt Count 212 (130-400) K/uL MPV 11.7 H (7.4-10.4) fL Immature Gran % (Auto) 0.3 % Neut % (Auto) 69.7 % Lymph % (Auto) 15.7 % [place] % (Auto) 8.4 % Eos % (Auto) 5.6 % Baso % (Auto) 0.3 % Neut # (Auto) 6.34 (1.4-6.5) K/uL Lymph # (Auto) 1.43 (1.2-3.4) K/uL [place] # (Auto) 0.76 H (0.11-0.59) K/uL Eos # (Auto) 0.51 H (0-0.5) K/uL Baso # (Auto) 0.03 (0-0.2) K/uL Immature Gran # (Auto) 0.03 H (0.00-0.02) K/uL PT (9.0-12.0) Seconds INR (0.9-1.1) APTT (21.0-31.0) Seconds PTT Ratio Sodium 141 (136-145) mmol/L Potassium 4.2 (3.5-5.1) mmol/L Chloride 109 H (98-107) mmol/L Carbon Dioxide 29 (21-32) mmol/L Anion Gap 3.0 (3-11) BUN 41 H (7-18) mg/dl Creatinine 0.94 (0.6-1.2) mg/dl Est Cr Clr Drug Dosing 42.6 ml/min Est GFR ( Amer) 64.1 Est GFR (Non-Af Amer) 55.3 BUN/Creatinine Ratio 42.9 H (10-20) Glucose 112 H (70-99) mg/dl Lactate (0.4-2.0) mmol/L Calcium 9.5 (8.5-10.1) mg/dl Magnesium 2.2 (1.8-2.4) mg/dl Total Bilirubin 0.4 (0.2-1) mg/dl AST 12 L (15-37) U/L ALT 8 L (12-78) U/L Alkaline Phosphatase 84 (45-117) U/L Troponin I < 0.015 (0-0.045) ng/ml Total Protein 7.8 (6.4-8.2) gm/dl Albumin 3.6 (3.4-5.0) gm/dl Globulin 4.2 H (2.5-4.0) gm/dl Albumin/Globulin Ratio 0.8 L (0.9-2) TSH 0.843 (0.300-4.500) uIu/ml Urine Color Yellow Urine Appearance Clear (Clear) Urine pH 5.0 (4.5-7.5) Ur Specific [place] 1.025 (1.000-1.030) Urine Protein Negative (Negative) Urine Glucose (UA) Negative (Negative) Urine Ketones Trace H (Negative) Urine Blood Negative (Negative) Urine Nitrite Negative (Negative) Urine Bilirubin Negative (Negative) Urine Urobilinogen Negative (Negative) Ur Leukocyte Esterase Negative (Negative) COVID-19 Eval Order SARS-CoV-2, RNA, NAAT (NEGATIVE) 05/30/20 05/30/20 05/30/20 Range/Units 21:40 21:40 21:40 WBC (4.8-10.8) K/uL RBC (4.2-5.4) M/uL Hgb (12.0-16.0) g/dL Hct (37-47) % MCV (80-100) fL MCH (25-34) pg MCHC (32-36) g/dL RDW Std Deviation (36.4-46.3) fL RDW Coeff of Conor (11.5-14.5) % Plt Count (130-400) K/uL MPV (7.4-10.4) fL Immature Gran % (Auto) % Neut % (Auto) % Lymph % (Auto) % [place] % (Auto) % Eos % (Auto) % Baso % (Auto) % Neut # (Auto) (1.4-6.5) K/uL Lymph # (Auto) (1.2-3.4) K/uL [place] # (Auto) (0.11-0.59) K/uL Eos # (Auto) (0-0.5) K/uL Baso # (Auto) (0-0.2) K/uL Immature Gran # (Auto) (0.00-0.02) K/uL PT 10.3 (9.0-12.0) Seconds INR 1.0 (0.9-1.1) APTT 32.2 H (21.0-31.0) Seconds PTT Ratio 1.2 Sodium (136-145) mmol/L Potassium (3.5-5.1) mmol/L Chloride (98-107) mmol/L Carbon Dioxide (21-32) mmol/L Anion Gap (3-11) BUN (7-18) mg/dl Creatinine (0.6-1.2) mg/dl Est Cr Clr Drug Dosing ml/min Est GFR ( Amer) Est GFR (Non-Af Amer) BUN/Creatinine Ratio (10-20) Glucose (70-99) mg/dl Lactate 1.3 (0.4-2.0) mmol/L Calcium (8.5-10.1) mg/dl Magnesium Cancelled (1.8-2.4) mg/dl Total Bilirubin (0.2-1) mg/dl AST (15-37) U/L ALT (12-78) U/L Alkaline Phosphatase (45-117) U/L Troponin I Cancelled (0-0.045) ng/ml Total Protein (6.4-8.2) gm/dl Albumin (3.4-5.0) gm/dl Globulin (2.5-4.0) gm/dl Albumin/Globulin Ratio (0.9-2) TSH (0.300-4.500) uIu/ml Urine Color Urine Appearance (Clear) Urine pH (4.5-7.5) Ur Specific [place] (1.000-1.030) Urine Protein (Negative) Urine Glucose (UA) (Negative) Urine Ketones (Negative) Urine Blood (Negative) Urine Nitrite (Negative) Urine Bilirubin (Negative) Urine Urobilinogen (Negative) Ur Leukocyte Esterase (Negative) COVID-19 Eval Order SARS-CoV-2, RNA, NAAT (NEGATIVE) 05/30/20 05/30/20 Range/Units 23:03 23:03 WBC (4.8-10.8) K/uL RBC (4.2-5.4) M/uL Hgb (12.0-16.0) g/dL Hct (37-47) % MCV (80-100) fL MCH (25-34) pg MCHC (32-36) g/dL RDW Std Deviation (36.4-46.3) fL RDW Coeff of Conor (11.5-14.5) % Plt Count (130-400) K/uL MPV (7.4-10.4) fL Immature Gran % (Auto) % Neut % (Auto) % Lymph % (Auto) % [place] % (Auto) % Eos % (Auto) % Baso % (Auto) % Neut # (Auto) (1.4-6.5) K/uL Lymph # (Auto) (1.2-3.4) K/uL [place] # (Auto) (0.11-0.59) K/uL Eos # (Auto) (0-0.5) K/uL Baso # (Auto) (0-0.2) K/uL Immature Gran # (Auto) (0.00-0.02) K/uL PT (9.0-12.0) Seconds INR (0.9-1.1) APTT (21.0-31.0) Seconds PTT Ratio Sodium (136-145) mmol/L Potassium (3.5-5.1) mmol/L Chloride (98-107) mmol/L Carbon Dioxide (21-32) mmol/L Anion Gap (3-11) BUN (7-18) mg/dl Creatinine (0.6-1.2) mg/dl Est Cr Clr Drug Dosing ml/min Est GFR ( Amer) Est GFR (Non-Af Amer) BUN/Creatinine Ratio (10-20) Glucose (70-99) mg/dl Lactate (0.4-2.0) mmol/L Calcium (8.5-10.1) mg/dl Magnesium (1.8-2.4) mg/dl Total Bilirubin (0.2-1) mg/dl AST (15-37) U/L ALT (12-78) U/L Alkaline Phosphatase (45-117) U/L Troponin I (0-0.045) ng/ml Total Protein (6.4-8.2) gm/dl Albumin (3.4-5.0) gm/dl Globulin (2.5-4.0) gm/dl Albumin/Globulin Ratio (0.9-2) TSH (0.300-4.500) uIu/ml Urine Color Urine Appearance (Clear) Urine pH (4.5-7.5) Ur Specific [place] (1.000-1.030) Urine Protein (Negative) Urine Glucose (UA) (Negative) Urine Ketones (Negative) Urine Blood (Negative) Urine Nitrite (Negative) Urine Bilirubin (Negative) Urine Urobilinogen (Negative) Ur Leukocyte Esterase (Negative) COVID-19 Eval Order Covid19 IDNow [facility] SARS-CoV-2, RNA, NAAT NEGATIVE (NEGATIVE) Imaging Data Attestation: I personally reviewed and interpreted this imaging study as follows: My Impression: Chest x-ray per my interpretation shows no acute cardiopulmonary process. ECG Data Attestation: I personally reviewed and interpreted this ECG as follows: Indication: + weakness Rate (beats per minute): 87 Rhythm: + normal sinus ECG Intervals/blocks: + First degree AV block and + Incomplete right bundle branch block ECG ST segments: no ST elevation ECG Findings: no PVCs MDM Narrative I did evaluate the patient as noted above. The patient is presenting with generalized weakness. She is unable to transfer herself from her wheelchair. The last time this happened she had a urinary tract infection. IV access was established. I did place an order for continuous cardiac monitoring. The monitor showed normal sinus rhythm at a rate of 85 bpm. I did order and personally review the patient's 12-lead EKG as described above. She has no acute ischemic changes. I did order and personally reviewed the images of the patient's chest x-ray as described above. There is no evidence of acute process. I did order a urine analysis. She does not have a UTI. I did order and review the patient's blood work as noted in the electronic medical record. Her white blood cell count is not elevated. She is not anemic. Platelets are within normal limits. Electrolytes are unremarkable. Lactate is negative. LFTs are unremarkable. I did discuss the test results with the patient. I did discuss the results with her daughter Milly as well with her permission. The patient lives alone and is unable to care for herself. Her daughter has been trying to get home care for her but has not been successful. She has been working with a gearcase assembler. She will be hospitalized here for further care and evaluation. I did discuss the case with the hospitalist and gearcase assembler. Impression & Plan Generalized weakness Discharge Plan Visit Data Chief Complaint: Weakness Stated Complaint: WEAKNESS ED Provider: Chris Mak Discharge Problem: Generalized weakness Patient Disposition: Being Evaluated by Hospitalist Forms Stand Alone Forms: My [facility] Prescriptions Prescriptions: No Action alendronate [Fosamax] 70 mg Tablet 70 mg PO WK RF: 0 carbidopa-levodopa 25-100 mg Tablet 1.5 tab PO QID RF: 0 lisinopril 2.5 mg Tablet 2.5 mg PO DAILY RF: 0 aspirin 81 mg Tablet,Delayed Release (Dr/Ec) 81 mg PO DAILY RF: 0 tramadol 50 mg Tablet 50 mg PO UD PRN (Reason: Pain) RF: 0 Referrals Referrals: Cheryl Byers DO [Primary Care Provider] -
[2020-05-30 21:37] LABS: Appearance Urine Clear (Clear); Bilirubin Urine Negative (Negative); Blood Urine Negative (Negative); Color Urine Yellow; Glucose Urine UA Negative (Negative); Ketones Urine Trace (Negative); Leukocyte Esterase Urine Negative (Negative); Nitrite Urine Negative (Negative); Protein Urine Negative (Negative); Specific Gravity Urine 1.025 (1.000-1.030); Urobilinogen Urine Negative (Negative)
[2020-05-30 21:58] LABS: Basophils # (auto) 0.03 K/uL (0-0.2); Basophils % (auto) 0.3 %; Eosinophils # (auto) 0.51 K/uL (0-0.5); Eosinophils % (auto) 5.6 %; Hemoglobin 13.4 g/dL (12.0-16.0); Immature Granulocytes # (auto) 0.03 K/uL (0.00-0.02); Immature Granulocytes % (auto) 0.3 %; Lymphocytes # (auto) 1.43 K/uL (1.2-3.4); Lymphocytes % (auto) 15.7 %; Mean Corpuscular Hemoglobin 30.9 pg (25-34); Mean Corpuscular Hgb Conc 31.9 g/dL (32-36); Mean Corpuscular Volume 96.8 fL (80-100); Mean Platelet Volume 11.7 fL (7.4-10.4); Monocytes # (auto) 0.76 K/uL (0.11-0.59); Monocytes % (auto) 8.4 %; Neutrophils # (auto) 6.34 K/uL (1.4-6.5); Neutrophils % (auto) 69.7 %; Platelet Count 212 K/uL (130-400); RDW Coefficient of Variation 15.2 % (11.5-14.5); RDW Standard Deviation 53.9 fL (36.4-46.3); Red Blood Count 4.34 M/uL (4.2-5.4)
[2020-05-30 22:07] LABS: Partial Thromboplastin Ratio 1.2; Partial Thromboplastin Time 32.2 Seconds (21.0-31.0); Prothrombin Time 10.3 Seconds (9.0-12.0)
[2020-05-30 22:15] LABS: Alanine Aminotransferase 8 U/L (12-78); Albumin Level 3.6 gm/dl (3.4-5.0); Aspartate Aminotransferase 12 U/L (15-37); BUN Creatinine Ratio 42.9 (10-20); Blood Urea Nitrogen 41 mg/dl (7-18); Calcium 9.5 mg/dl (8.5-10.1); Carbon Dioxide 29 mmol/L (21-32); Chloride 109 mmol/L (98-107); Creatinine Clr Calc Pharmacy 42.6 ml/min; Est GFR (African American) 64.1; Est GFR (Non-African American) 55.3; Glucose 112 mg/dl (70-99); Magnesium 2.2 mg/dl (1.8-2.4); Potassium 4.2 mmol/L (3.5-5.1); Sodium 141 mmol/L (136-145)
[2020-05-30 22:19] LABS: Albumin Globulin Ratio 0.8 (0.9-2); Alkaline Phosphatase 84 U/L (45-117); Bilirubin,Total 0.4 mg/dl (0.2-1); Globulin 4.2 gm/dl (2.5-4.0); Total Protein 7.8 gm/dl (6.4-8.2); Troponin I < 0.015 ng/ml (0-0.045)
[2020-05-30] MEDS ORDERED: lisinopril 5 MG TAB PO STA (23:02)
[2020-05-30] MEDS ORDERED: SODIUM CHLORIDE 0.45 % 1,000 ML IV STA (23:02)
[2020-05-30 23:27] LABS: Thyroid Stimulating Hormone 0.843 uIu/ml (0.300-4.500)
--- NOTE | 2020-05-30 23:59 | History & Physical Report ---
Date of Service May 30, 2020 History of Present Illness Primary Care Provider: Cheryl Byers DO Allergies Allergy/AdvReac Type Severity Reaction Status Date / Time No Known Allergies Allergy Verified 05/30/20 23:03 Home Medications Medication Instructions Recorded Confirmed Type alendronate [Fosamax] 70 mg PO WK 03/21/18 05/30/20 History carbidopa-levodopa 1.5 tab PO QID 03/21/18 05/30/20 History lisinopril 2.5 mg PO DAILY 03/21/18 05/30/20 History tramadol 50 mg PO UD PRN 07/24/18 05/30/20 History aspirin 81 mg PO DAILY 05/30/20 05/30/20 History Past Med/Surg History Medical History (Updated 05/30/20 @ 23:41 by Chris Mak MD) Aortic stenosis "Mild-moderate per echo 03/15/17" Chronic allergic rhinitis Dyslipidemia History of fracture of left hip Hypertension Osteoporosis Parkinson disease Urinary tract infection Surgical History H/O colonoscopy "2011" History of left hip replacement Hx of cataract surgery Social History Smoking Status: Never smoker Second Hand Exposure: No; Hx Alcohol Use: No Hx Substance Use: No Preferred Language: Portuguese Communication Ability: Effective Digital [employer] Required: No Beliefs That Will Affect Care: None marital status: / Current Living Situation: Alone How many Children do You have: 1 Feels Safe at Home: Yes Assistive Devices: Walker Results & Data Results & Data ([facility]) Vital Signs (Past 12 Hours) Vital Signs Temp Pulse Resp BP Pulse Ox 05/30/20 23:31 88 19 158/105 H 96 05/30/20 23:00 85 18 143/70 H 95 05/30/20 22:30 80 20 166/82 H 96 05/30/20 22:00 79 20 201/88 H 97 05/30/20 21:30 84 22 189/95 H 99 05/30/20 21:17 84 21 97 05/30/20 21:13 86 26 H 195/88 H 96 05/30/20 21:07 36.9 C 84 23 195/88 H 98 Laboratory Results Laboratory Results WBC 9.10 K/uL (4.8-10.8) 05/30/20 21:40 RBC 4.34 M/uL (4.2-5.4) 05/30/20 21:40 Hgb 13.4 g/dL (12.0-16.0) 05/30/20 21:40 Hct 42.0 % (37-47) 05/30/20 21:40 MCV 96.8 fL (80-100) 05/30/20 21:40 MCH 30.9 pg (25-34) 05/30/20 21:40 MCHC 31.9 g/dL (32-36) L 05/30/20 21:40 RDW Std Deviation 53.9 fL (36.4-46.3) H 05/30/20:40 RDW Coeff of Conor 15.2 % (11.5-14.5) H 05/30/20 21:40 Plt Count 212 K/uL (130-400) 05/30/20 21:40 MPV 11.7 fL (7.4-10.4) H 05/30/20 21:40 Immature Gran % (Auto) 0.3 % 05/30/20 21:40 Neut % (Auto) 69.7 % 05/30/20 21:40 Lymph % (Auto) 15.7 % 05/30/20 21:40 [place] % (Auto) 8.4 % 05/30/20 21:40 Eos % (Auto) 5.6 % 05/30/20 21:40 Baso % (Auto) 0.3 % 05/30/20 21:40 Neut # (Auto) 6.34 K/uL (1.4-6.5) 05/30/20 21:40 Lymph # (Auto) 1.43 K/uL (1.2-3.4) 05/30/20 21:40 [place] # (Auto) 0.76 K/uL (0.11-0.59) H 05/30/20 21:40 Eos # (Auto) 0.51 K/uL (0-0.5) H 05/30/20 21:40 Baso # (Auto) 0.03 K/uL (0-0.2) 05/30/20 21:40 Immature Gran # (Auto) 0.03 K/uL (0.00-0.02) H 05/30/20 21:40 PT 10.3 Seconds (9.0-12.0) 05/30/20 21:40 INR 1.0 (0.9-1.1) 05/30/20 21:40 APTT 32.2 Seconds (21.0-31.0) H 05/30/20 21:40 PTT Ratio 1.2 05/30/20 21:40 Sodium 141 mmol/L (136-145) 05/30/20 21:40 Potassium 4.2 mmol/L (3.5-5.1) 05/30/20 21:40 Chloride 109 mmol/L (98-107) H 05/30/20 21:40 Carbon Dioxide 29 mmol/L (21-32) 05/30/20 21:40 Anion Gap 3.0 (3-11) 05/30/20 21:40 BUN 41 mg/dl (7-18) H 05/30/20 21:40 Creatinine 0.94 mg/dl (0.6-1.2) 05/30/20 21:40 Est Cr Clr Drug Dosing 42.6 ml/min 05/30/20 21:40 Est GFR ( Amer) 64.1 05/30/20 21:40 Est GFR (Non-Af Amer) 55.3 05/30/20 21:40 BUN/Creatinine Ratio 42.9 (10-20) H 05/30/20 21:40 Glucose 112 mg/dl (70-99) H 05/30/20 21:40 Lactate 1.3 mmol/L (0.4-2.0) 05/30/20 21:40 Calcium 9.5 mg/dl (8.5-10.1) 05/30/20 21:40 Magnesium 2.2 mg/dl (1.8-2.4) 05/30/20 21:40 Magnesium Cancelled 05/30/20 21:40 Total Bilirubin 0.4 mg/dl (0.2-1) 05/30/20 21:40 AST 12 U/L (15-37) L 05/30/20 21:40 ALT 8 U/L (12-78) L 05/30/20 21:40 Alkaline Phosphatase 84 U/L (45-117) 05/30/20 21:40 Troponin I < 0.015 ng/ml (0-0.045) 05/30/20 21:40 Troponin I Cancelled 05/30/20 21:40 Total Protein 7.8 gm/dl (6.4-8.2) 05/30/20 21:40 Albumin 3.6 gm/dl (3.4-5.0) 05/30/20 21:40 Globulin 4.2 gm/dl (2.5-4.0) H 05/30/20 21:40 Albumin/Globulin Ratio 0.8 (0.9-2) L 05/30/20 21:40 TSH 0.843 uIu/ml (0.300-4.500) 05/30/20 21:40 Urine Color Yellow 05/30/20 21:17 Urine Appearance Clear (Clear) 05/30/20 21:17 Urine pH 5.0 (4.5-7.5) 05/30/20 21:17 Ur Specific [place] 1.025 (1.000-1.030) 05/30/20 21:17 Urine Protein Negative (Negative) 05/30/20 21:17 Urine Glucose (UA) Negative (Negative) 05/30/20 21:17 Urine Ketones Trace (Negative) H 05/30/20 21:17 Urine Blood Negative (Negative) 05/30/20 21:17 Urine Nitrite Negative (Negative) 05/30/20 21:17 Urine Bilirubin Negative (Negative) 05/30/20 21:17 Urine Urobilinogen Negative (Negative) 05/30/20 21:17 Ur Leukocyte Esterase Negative (Negative) 05/30/20 21:17 COVID-19 Eval Order Covid19 IDNow [facility] 05/30/20 23:03 SARS-CoV-2, RNA, NAAT NEGATIVE (NEGATIVE) 05/30/20 23:03
--- NOTE | 2020-05-31 00:11 | History & Physical Report ---
Date of Service May 31, 2020 Assessment & Plan (1) Asymptomatic hypertensive urgency: Weakness, mild clinical dehydration (supported by ketonuria) Ambulatory dysfunction Hx Parkinson's disease hypertension, slight elevated Possible syncopal event January 2020 ? Progression of aortic stenosis hx PVD as per records OBS Medical telemetry Cautious titration of home lisinopril dose given aortic stenosis Gentle IV hydration Update TTE Re: Recent syncopal event, history moderate aortic stenosis PT OT eval Social service RE discharge planning DVT prophylaxis. Lovenox subcu Full code Patient's daughter requesting updates for providers. Ms. Nu Pool, contact #[phone]. Text document was generated using [employer] voice recognition software. It may contain grammatical or spelling errors. Kindly contact undersigned for clarification of any documentation item in question. History of Present Illness Chief Complaint: Weakness, trouble with wheelchair transfer, passed out a few months ago Primary Care Provider: Cheryl Byers, History obtained from patient and records. Medical history significant for Parkinson's disease, hypertension, hyperlipidemia, moderate aortic stenosis (TTE 2018), PVD as per records. Last confinement July 2018 for sepsis secondary to E. coli UTI. Patient seen at the ER January 2020 for confusion, UTI, possible syncope as per patient. Discharged home on antibiotic prescription for UTI. 3 days history of worsening weakness of both legs without headache, syncope, chest pain, S OB, cough, abdominal pain, diarrhea, UTI symptoms. Fair appetite. Patient had trouble transferring from wheelchair today. Patient brought to the ER for evaluation. 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 Allergies Allergy/AdvReac Type Severity Reaction Status Date / Time No Known Allergies Allergy Verified 05/30/20 23:03 Home Medications Medication Instructions Recorded Confirmed Type alendronate [Fosamax] 70 mg PO WK 03/21/18 05/30/20 History carbidopa-levodopa 1.5 tab PO QID 03/21/18 05/30/20 History lisinopril 2.5 mg PO DAILY 03/21/18 05/30/20 History tramadol 50 mg PO UD PRN 07/24/18 05/30/20 History aspirin 81 mg PO DAILY 05/30/20 05/30/20 History Past Med/Surg History Medical History (Updated 05/31/20 @ 00:56 by Lazaro De La Garza MD) Aortic stenosis "Mild-moderate per echo 03/15/17" Chronic allergic rhinitis Dyslipidemia History of fracture of left hip Hypertension Osteoporosis Parkinson disease Urinary tract infection Surgical History H/O colonoscopy "2011" History of left hip replacement Hx of cataract surgery Social History Smoking Status: Never smoker Second Hand Exposure: No; Do You Dip or Chew Tobacco: No; Hx Alcohol Use: No Hx Substance Use: No Preferred Language: Finnish Communication Ability: Effective Administrative Support Technician Required: No Beliefs That Will Affect Care: None marital status: / Current Living Situation: Alone How many Children do You have: 1 Other Information That Helps Us Care for You: No Feels Safe at Home: Yes Safety Concerns: Feels Safe At This Time Assistive Devices: Denture - Upper Review of Systems Review of Systems: As per HPI, all 10 systems reviewed, all other ROS negative Physical Exam Physical Exam: GENERAL: Comfortable, pleasant, no respiratory distress SKIN: Normal color , warm HEENT: pink palpebral conjunctivae, no ptosis, dry buccal mucosa NECK : Supple, no tenderness CHEST : CTA, no tenderness HEART : RRR, systolic murmur ABDOMEN: Some distention, nontender EXTREMITIES : No LE swelling/tenderness, no other conspicuous deformities noted NEUROLOGIC : Coherent, no facial asymmetry, MMTS BUE, BLE 3/5, intention tremors, gait and stance not assessed Results & Data Results & Data ([facility]) Vital Signs (Past 12 Hours) Vital Signs Temp Pulse Resp BP Pulse Ox 05/30/20 23:31 88 19 158/105 H 96 05/30/20 23:00 85 18 143/70 H 95 05/30/20 22:30 80 20 166/82 H 96 05/30/20 22:00 79 20 201/88 H 97 05/30/20 21:30 84 22 189/95 H 99 05/30/20 21:17 84 21 97 05/30/20 21:13 86 26 H 195/88 H 96 05/30/20 21:07 36.9 C 84 23 195/88 H 98 Laboratory Results Laboratory Results WBC 9.10 K/uL (4.8-10.8) 05/30/20 21:40 RBC 4.34 M/uL (4.2-5.4) 05/30/20 21:40 Hgb 13.4 g/dL (12.0-16.0) 05/30/20 21:40 Hct 42.0 % (37-47) 05/30/20 21:40 MCV 96.8 fL (80-100) 05/30/20 21:40 MCH 30.9 pg (25-34) 05/30/20 21:40 MCHC 31.9 g/dL (32-36) L 05/30/20 21:40 RDW Std Deviation 53.9 fL (36.4-46.3) H 05/30/20 21:40 RDW Coeff of Conor 15.2 % (11.5-14.5) H 05/30/20 21:40 Plt Count 212 K/uL (130-400) 05/30/20 21:40 MPV 11.7 fL (7.4-10.4) H 05/30/20 21:40 Immature Gran % (Auto) 0.3 % 05/30/20 21:40 Neut % (Auto) 69.7 % 05/30/20 21:40 Lymph % (Auto) 15.7 % 05/30/20 21:40 Carbon % (Auto) 8.4 % 05/30/20 21:40 Eos % (Auto) 5.6 % 05/30/20 21:40 Baso % (Auto) 0.3 % 05/30/20 21:40 Neut # (Auto) 6.34 K/uL (1.4-6.5) 05/30/20 21:40 Lymph # (Auto) 1.43 K/uL (1.2-3.4) 05/30/20 21:40 Carbon # (Auto) 0.76 K/uL (0.11-0.59) H 05/30/20 21:40 Eos # (Auto) 0.51 K/uL (0-0.5) H 05/30/20 21:40 Baso # (Auto) 0.03 K/uL (0-0.2) 05/30/20 21:40 Immature Gran # (Auto) 0.03 K/uL (0.00-0.02) H 05/30/20 21:40 PT 10.3 Seconds (9.0-12.0) 05/30/20 21:40 INR 1.0 (0.9-1.1) 05/30/20 21:40 APTT 32.2 Seconds (21.0-31.0) H 05/30/20 21:40 PTT Ratio 1.2 05/30/20 21:40 Sodium 141 mmol/L (136-145) 05/30/20 21:40 Potassium 4.2 mmol/L (3.5-5.1) 05/30/20 21:40 Chloride 109 mmol/L (98-107) H 05/30/20 21:40 Carbon Dioxide 29 mmol/L (21-32) 05/30/20 21:40 Anion Gap 3.0 (3-11) 05/30/20 21:40 BUN 41 mg/dl (7-18) H 05/30/20 21:40 Creatinine 0.94 mg/dl (0.6-1.2) 05/30/20 21:40 Est Cr Clr Drug Dosing 42.6 ml/min 05/30/20 21:40 Est GFR ( Amer) 64.1 05/30/20 21:40 Est GFR (Non-Af Amer) 55.3 05/30/20 21:40 BUN/Creatinine Ratio 42.9 (10-20) H 05/30/20 21:40 Glucose 112 mg/dl (70-99) H 05/30/20 21:40 Lactate 1.3 mmol/L (0.4-2.0) 05/30/20 21:40 Calcium 9.5 mg/dl (8.5-10.1) 05/30/20 21:40 Magnesium 2.2 mg/dl (1.8-2.4) 05/30/20 21:40 Magnesium Cancelled 05/30/20 21:40 Total Bilirubin 0.4 mg/dl (0.2-1) 05/30/20 21:40 AST 12 U/L (15-37) L 05/30/20 21:40 ALT 8 U/L (12-78) L 05/30/20 21:40 Alkaline Phosphatase 84 U/L (45-117) 01/15/21 21:40 Troponin I < 0.015 ng/ml (0-0.045) 05/30/20 21:40 Troponin I Cancelled 05/30/20 21:40 Total Protein 7.8 gm/dl (6.4-8.2) 05/30/20 21:40 Albumin 3.6 gm/dl (3.4-5.0) 05/30/20 21:40 Globulin 4.2 gm/dl (2.5-4.0) H 05/30/20 21:40 Albumin/Globulin Ratio 0.8 (0.9-2) L 05/30/20 21:40 TSH 0.843 uIu/ml (0.300-4.500) 05/30/20 21:40 Urine Color Yellow 05/30/20 21:17 Urine Appearance Clear (Clear) 05/30/20 21:17 Urine pH 5.0 (4.5-7.5) 05/30/20 21:17 Ur Specific [place] 1.025 (1.000-1.030) 05/30/20 21:17 Urine Protein Negative (Negative) 05/30/20 21:17 Urine Glucose (UA) Negative (Negative) 05/30/20 21:17 Urine Ketones Trace (Negative) H 05/30/20 21:17 Urine Blood Negative (Negative) 05/30/20 21:17 Urine Nitrite Negative (Negative) 05/30/20 21:17 Urine Bilirubin Negative (Negative) 05/30/20 21:17 Urine Urobilinogen Negative (Negative) 05/30/20 21:17 Ur Leukocyte Esterase Negative (Negative) 05/30/20 21:17 COVID-19 Eval Order Covid19 [facility]Now [facility] 05/30/20 23:03 SARS-CoV-2, RNA, NAAT NEGATIVE (NEGATIVE) 05/30/20 23:[address] head initial read: No ICH, mass-effect, or edema. No evidence of acute cortical stroke. Involutional changes. Cataract surgery. Chest x-ray as per my interpretation: Atelectasis, cardiomegaly EKG as per my interpretation : Rate 85, NSR, 1 AVB, LAD, LAFB, incomplete RBBB, LVH, no ischemia
[2020-05-31] MEDS ORDERED: PROMETHAZINE HCL 6.25 MG in SODIUM CHLORIDE 0.9% 50 ML IV PRN (01:46)
[2020-05-31] MEDS ORDERED: traMADol HCL 50 MG TABLET PO PRN (01:46)
[2020-05-31] MEDS ORDERED: ACETAMINOPHEN 325 MG TAB PO PRN (01:46)
[2020-05-31] MEDS: CARBIDOPA/LEVODOPA 25/100MG TAB PO SCH ×5 (02:26→20:23)
[2020-05-31 06:09] LABS: Basophils # (auto) 0.02 K/uL (0-0.2); Basophils % (auto) 0.3 %; Eosinophils # (auto) 0.53 K/uL (0-0.5); Eosinophils % (auto) 6.8 %; Hemoglobin 11.7 g/dL (12.0-16.0); Immature Granulocytes # (auto) 0.02 K/uL (0.00-0.02); Immature Granulocytes % (auto) 0.3 %; Lymphocytes # (auto) 1.76 K/uL (1.2-3.4); Lymphocytes % (auto) 22.5 %; Mean Corpuscular Hemoglobin 30.2 pg (25-34); Mean Corpuscular Hgb Conc 31.6 g/dL (32-36); Mean Corpuscular Volume 95.4 fL (80-100); Mean Platelet Volume 11.8 fL (7.4-10.4); Monocytes # (auto) 0.64 K/uL (0.11-0.59); Monocytes % (auto) 8.2 %; Neutrophils # (auto) 4.84 K/uL (1.4-6.5); Neutrophils % (auto) 61.9 %; Platelet Count 207 K/uL (130-400); RDW Coefficient of Variation 15.1 % (11.5-14.5); RDW Standard Deviation 53.1 fL (36.4-46.3); Red Blood Count 3.88 M/uL (4.2-5.4); White Blood Count 7.81 K/uL (4.8-10.8)
[2020-05-31 06:39] LABS: BUN Creatinine Ratio 59.5 (10-20); Calcium 8.5 mg/dl (8.5-10.1); Creatinine Clr Calc Pharmacy 62.4 ml/min; Est GFR (African American) 92.9; Est GFR (Non-African American) 80.2; Potassium 3.9 mmol/L (3.5-5.1)
[2020-05-31] MEDS: ENOXAPARIN INJ 30 MG/0.3 ML SYR SQ SCH (07:25)
[2020-05-31] MEDS: ASPIRIN 81 MG ECTAB PO SCH (07:25)
--- NOTE | 2020-05-31 08:34 | CT Scan Report ---
HEAD CT NONCONTRAST CT DOSE: 614.27 mGy.cm HISTORY: leg weakness TECHNIQUE: Multiaxial CT images of the head were performed without the use of intravenous contrast. A utomated exposure control was utilized for this study. A dose lowering technique was utilized adheri ng to the principles of ALARA. Comparison: Head CT 02/03/2020. Findings: The paranasal sinuses and mastoid air cells are clear. The calvarium and skull base are int act. There is no mass, hematoma, midline shift, acute infarct. White matter hypodensity is nonspecifi c but suggestive of microvascular ischemic change. The ventricles and sulci demonstrate mild age-rela christine involutional changes. Impression: No significant change compared to the prior study. No acute intracranial abnormality. ACT 112: Negative or not required by law. Electronically signed by: Carlos Billings M.D. 05/31/2020 8:32 AM
--- NOTE | 2020-05-31 08:57 | XRay Report ---
XR chest 1V portable HISTORY: SEPSIS COMPARISON: Chest 02/03/2020. FINDINGS: No pleural effusions. No pneumothorax. The heart remains enlarged. Mild interstitial thicke liliana at the lung bases has progressed. Otherwise, no new focal lung consolidations to suggest pneumon ia. No evidence for pulmonary edema. No rib fractures. IMPRESSION: 1. Stable mild cardiomegaly. 2. Mild interstitial thickening at the lung bases which has slightly progressed. However, no new foca l lung consolidations. ACT 112: Negative or not required by law. Electronically signed by: Carlos Billings M.D. 05/31/2020 8:56 AM
[2020-05-31] MEDS ORDERED: lisinopril 5 MG TAB PO SCH ×3 (09:00→21:00)
--- NOTE | 2020-05-31 11:22 | Hospitalist Progress Note ---
Date of Service May 31, 2020 Assessment & Plan (1) Ambulatory dysfunction: Patient is a 84-year-old female with past medical history of Parkinson's disease, hypertension, hyperlipidemia, osteoarthritis, aortic valve stenosis and dyslipidemia presented to the ED with generalized weakness. Ported that she was having difficulty transferring from her wheelchair. Review of system is mainly negative. Denies any headache, dizziness, chest pain, cough, sore throat, fever, abdominal pain, diarrhea, dysuria, tingling/numbness or any focal weakness. COVID-19 is negative. White count is within normal limit. BMP is mostly unremarkable. UA is negative. Cardiac enzyme is most concerning. He was nonischemic. CT head was negative for any concerning findings. Chest x-ray did not reveal anything concerning. Blood cultures were obtained on admission, currently pending. Plan to work with PT/OT.. Patient agreeable to go to rehab. Will discontinue IV fluids. (2) Generalized weakness: (3) Asymptomatic hypertensive urgency: On admission patient was found to be in hypertensive urgency with pressure in the 180s to 200s. Continue with 5 mg daily. IV fluids have been discontinued. If patient remains persistently hypertensive, will go up on lisinopril. She does have history of aortic stenosis. Cautious with antihypertensives. (4) Parkinson disease: Continue with PUBLIC AFFAIRS MANAGER Sinemet. (5) Hypertension: As above. (6) Dyslipidemia: (7) Chronic allergic rhinitis: No active complaints. (8) Aortic stenosis: Moderate aortic stenosis. Patient denies any episodes of dizziness. We will continue to monitor. Admission and Anticipated Discharge Date Admission Date: May 31, 2020 Daughter was updated over the phone today. Subjective Patient is doing okay this morning. She is currently having breakfast. She is awake, alert and oriented x3. Denies falling or passing out. Shelia was moving from one chair to her wheelchair and was feeling weak. Rest of the review of system is mainly negative. Her daughter lives nearby and she helps her with every day activities. Usually able to ambulate to the bathroom herself. Review of Systems Review of Systems: All systems reviewed & are unremarkable except as noted in HPI & below Physical Exam Physical Exam: General: A&Ox3, currently having breakfast HENT: NCAT, MMM, EOMI Eyes: PERRLA Neck: Supple, normal range of motion CVS: normal rate and rhythm Resp: b/l good breath sounds Abdomen: Soft, ND/NT, +BS Extremities: Absence of any edema Neuro: No gross focal deficits appreciated Skin: warm and dry, no rashes/lesions/errythema MSK: No joint swelling/erythema Results & Data Results & Data ([facility]) Vital Signs (Past 12 Hours) Vital Signs Temp Pulse Pulse Resp BP BP Pulse Ox 05/31/20 11:07 36.5 C 82 18 150/84 H 97 05/31/20 08:00 79 05/31/20 07:19 36.6 C 85 18 170/85 H 95 05/31/20 04:00 36.6 C 84 18 122/72 93 05/31/20 03:22 86 05/31/20 01:00 82 18 110/50 L 93 05/31/20 00:30 81 21 131/81 94 05/31/20 00:00 88 24 154/82 H 95 05/30/20 23:31 88 19 158/105 H 96
[2020-05-31] MEDS ORDERED: lisinopril 10 MG TAB PO SCH (21:00)
--- NOTE | 2020-05-31 22:00 | Electrocardiogram Report ---
Test Reason : Blood Pressure : / mmHG Vent. Rate : 087 BPM Atrial Rate : 087 BPM P-R Int : 218 ms QRS Dur : 092 ms QT Int : 352 ms P-R-T Axes : 059 -46 034 degrees QTc Int : 423 ms Sinus rhythm with 1st degree A-V block Left axis deviation Incomplete right bundle branch block Moderate voltage criteria for LVH, may be normal variant Abnormal ECG When compared with ECG of 03-FEB-2020 09:32, No significant change Confirmed by Ja Vargas ([id number]) on 05/31/2020 10:00:18 PM Referred By: REFERRED SELF Confirmed By:Ja Vargas
[2020-06-01] MEDS ORDERED: lisinopril 5 MG TAB PO ONE (04:12)
[2020-06-01 06:37] LABS: Basophils # (auto) 0.03 K/uL (0-0.2); Basophils % (auto) 0.4 %; Eosinophils # (auto) 0.51 K/uL (0-0.5); Eosinophils % (auto) 6.4 %; Hematocrit (blood only) 40.2 % (37-47); Hemoglobin 12.8 g/dL (12.0-16.0); Immature Granulocytes # (auto) 0.02 K/uL (0.00-0.02); Immature Granulocytes % (auto) 0.3 %; Lymphocytes # (auto) 1.54 K/uL (1.2-3.4); Lymphocytes % (auto) 19.3 %; Mean Corpuscular Hemoglobin 30.4 pg (25-34); Mean Corpuscular Hgb Conc 31.8 g/dL (32-36); Mean Corpuscular Volume 95.5 fL (80-100); Mean Platelet Volume 11.9 fL (7.4-10.4); Monocytes # (auto) 0.61 K/uL (0.11-0.59); Monocytes % (auto) 7.6 %; Neutrophils # (auto) 5.27 K/uL (1.4-6.5); Platelet Count 212 K/uL (130-400); RDW Coefficient of Variation 14.9 % (11.5-14.5); RDW Standard Deviation 52.6 fL (36.4-46.3); Red Blood Count 4.21 M/uL (4.2-5.4); White Blood Count 7.98 K/uL (4.8-10.8)
[2020-06-01 07:11] LABS: BUN Creatinine Ratio 42.1 (10-20); Calcium 9.1 mg/dl (8.5-10.1); Creatinine Clr Calc Pharmacy 59.5 ml/min; Est GFR (Non-African American) 77.7
[2020-06-01] MEDS: ASPIRIN 81 MG ECTAB PO SCH (07:33)
[2020-06-01] MEDS: CARBIDOPA/LEVODOPA 25/100MG TAB PO SCH ×4 (07:33→20:09)
[2020-06-01] MEDS: ENOXAPARIN INJ 30 MG/0.3 ML SYR SQ SCH (07:33)
--- NOTE | 2020-06-01 11:40 | Hospitalist Progress Note ---
Date of Service June 01, 2020 Assessment & Plan (1) Ambulatory dysfunction: Patient is a 84-year-old female with past medical history of Parkinson's disease, hypertension, hyperlipidemia, osteoarthritis, aortic valve stenosis and dyslipidemia presented to the ED with generalized weakness. Ported that she was having difficulty transferring from her wheelchair. Review of system is mainly negative. Denies any headache, dizziness, chest pain, cough, sore throat, fever, abdominal pain, diarrhea, dysuria, tingling/numbness or any focal weakness. COVID-19 is negative. White count is within normal limit. BMP is mostly unremarkable. UA is negative. Cardiac enzyme is most concerning. He was nonischemic. CT head was negative for any concerning findings. Chest x-ray did not reveal anything concerning. Blood cultures were obtained on admission, currently pending. Continue to work with PT/OT. Patient agreeable to go to rehab. (2) Generalized weakness: (3) Asymptomatic hypertensive urgency: On admission patient was found to be in hypertensive urgency with pressure in the 180s to 200s. Continue with 5 mg daily. Lisinopril was increased to 10 mg daily. If patient continues to remain hypertensive, will add carvedilol. She does have history of aortic stenosis. Cautious with antihypertensives. 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 (5) Hypertension: As above. (6) Dyslipidemia: (7) Chronic allergic rhinitis: No active complaints. (8) Aortic stenosis: Moderate aortic stenosis. Patient denies any episodes of dizziness. We will continue to monitor. Admission and Anticipated Discharge Date Admission Date: May 31, 2020 Subjective This morning patient is awake, alert and oriented. Was having breakfast. No active major complaints. Follows command. Was hypertensive overnight but okay this morning. Reivew of system is mainly negative. Review of Systems Review of Systems: All systems reviewed & are unremarkable except as noted in HPI & below Physical Exam Physical Exam: General: A&Ox3, currently having breakfast HENT: NCAT, MMM, EOMI Eyes: PERRLA Neck: Supple, normal range of motion CVS: normal rate and rhythm Resp: b/l good breath sounds Abdomen: Soft, ND/NT, +BS Extremities: Absence of any edema Neuro: No gross focal deficits appreciated Skin: warm and dry, no rashes/lesions/errythema MSK: No joint swelling/erythema Results & Data Results & Data ([facility]) Vital Signs (Past 12 Hours) Vital Signs Temp Pulse Pulse Resp BP Pulse Ox 06/01/20 11:01 36.8 C 77 18 111/81 94 06/01/20 08:00 85 06/01/20 07:24 36.6 C 81 18 168/78 H 94 06/01/20 03:00 36.5 C 77 20 182/96 H 93 06/01/20 00:30 36.8 C 85 20 146/77 H 93
[2020-06-01] MEDS ORDERED: lisinopril 10 MG TAB PO SCH (21:00)
[2020-06-02] MEDS: ASPIRIN 81 MG ECTAB PO SCH (07:40)
[2020-06-02] MEDS: ENOXAPARIN INJ 30 MG/0.3 ML SYR SQ SCH (07:40)
[2020-06-02] MEDS: CARBIDOPA/LEVODOPA 25/100MG TAB PO SCH ×2 (07:40→13:18)
--- NOTE | 2020-06-02 12:06 | Hospitalist Progress Note ---
Date of Service June 02, 2020 Assessment & Plan (1) Ambulatory dysfunction: Patient is a 84-year-old female with past medical history of Parkinson's disease, hypertension, hyperlipidemia, osteoarthritis, aortic valve stenosis and dyslipidemia presented to the ED with generalized weakness. Ported that she was having difficulty transferring from her wheelchair. Review of system is mainly negative. Denies any headache, dizziness, chest pain, cough, sore throat, fever, abdominal pain, diarrhea, dysuria, tingling/numbness or any focal weakness. COVID-19 is negative. White count is within normal limit. BMP is mostly unremarkable. UA is negative. Cardiac enzyme is most concerning. He was nonischemic. CT head was negative for any concerning findings. Chest x-ray did not reveal anything concerning. Blood cultures were obtained on admission, currently pending. Continue to work with PT/OT. Patient agreeable to go to rehab. Medically okay to be discharged from my end. Awaiting authorization. (2) Generalized weakness: (3) Asymptomatic hypertensive urgency: On admission patient was found to be in hypertensive urgency with pressure in the 180s to 200s. Continue with lisinopril 10 mg daily. If patient continues to remain hypertensive, will add carvedilol. She does have history of aortic stenosis. Cautious with antihypertensives. (4) Parkinson disease: Continue with AIR TRAFFIC COORDINATOR Sinemet. (5) Hypertension: As above. (6) Dyslipidemia: (7) Chronic allergic rhinitis: No active complaints. (8) Aortic stenosis: Moderate aortic stenosis. Patient denies any episodes of dizziness. We will continue to monitor. Admission and Anticipated Discharge Date Admission Date: May 31, 2020 Subjective Currently doing okay. Hemodynamically stable. Clinically status quo. No new issues. Review of Systems Review of Systems: All systems reviewed & are unremarkable except as noted in HPI & below Physical Exam Physical Exam: General: A&Ox3, currently having breakfast HENT: NCAT, MMM, EOMI Eyes: PERRLA Neck: Supple, normal range of motion CVS: normal rate and rhythm Resp: b/l good breath sounds Abdomen: Soft, nondistended and nontender Extremities: Absence of any edema Neuro: No gross focal deficits appreciated Skin: warm and dry MSK: No joint swelling/erythema Results & Data Results & Data ([facility]) Vital Signs (Past 12 Hours) Vital Signs Temp Pulse Pulse Resp BP Pulse Ox 06/02/20 11:39 36.6 C 80 20 106/67 97 06/02/20 08:00 78 06/02/20 07:36 36.9 C 86 18 127/65 93 06/02/20 04:42 36.5 C 86 18 128/74 94
--- NOTE | 2020-06-02 14:50 | Discharge Summary ---
Date of Service June 02, 2020 Admission HPI Per Admitting Provider History obtained from patient and records. Medical history significant for Parkinson's disease, hypertension, hyperlipidemia, moderate aortic stenosis (TTE 2018), PVD as per records. Last confinement July 2018 for sepsis secondary to E. coli UTI. Patient seen at the ER January 2020 for confusion, UTI, possible syncope as per patient. Discharged home on antibiotic prescription for UTI. 3 days history of worsening weakness of both legs without headache, syncope, chest pain, S OB, cough, abdominal pain, diarrhea, UTI symptoms. Fair appetite. Patient had trouble transferring from wheelchair today. Patient brought to the ER for evaluation. 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 Admission Exam Per Admitting Provider GENERAL: Comfortable, pleasant, no respiratory distress SKIN: Normal color , warm HEENT: pink palpebral conjunctivae, no ptosis, dry buccal mucosa NECK : Supple, no tenderness CHEST : CTA, no tenderness HEART : RRR, systolic murmur ABDOMEN: Some distention, nontender EXTREMITIES : No LE swelling/tenderness, no other conspicuous deformities noted NEUROLOGIC : Coherent, no facial asymmetry, MMTS BUE, BLE 3/5, intention tremors, gait and stance not assessed Principal Diagnosis hypertensive urgency generalized weakness Discharge Exam General: A&Ox3, currently having breakfast HENT: NCAT, MMM, EOMI Eyes: PERRLA Neck: Supple, normal range of motion CVS: normal rate and rhythm Resp: b/l good breath sounds Abdomen: Soft, nondistended and nontender Extremities: Absence of any edema Neuro: No gross focal deficits appreciated Skin: warm and dry MSK: No joint swelling/erythema Discharge Data Allergies Allergy/AdvReac Type Severity Reaction Status Date / Time No Known Allergies Allergy Verified 05/30/20 23:03 Consultations 05/30/20 22:56 ED Decision to Admit Stat 05/31/20 01:46 Consult Case Management - Discharge Planning Routine Ordered Studies 05/31/20 00:11 CT head/brain wo con Urgent Hospital Course (1) Ambulatory dysfunction: Patient is a 84-year-old female with past medical history of Parkinson's disease, hypertension, hyperlipidemia, osteoarthritis, aortic valve stenosis and dyslipidemia presented to the ED with generalized weakness. She reported that she was having difficulty transferring from her wheelchair. Review of system was mainly negative. Denies any headache, dizziness, chest pain, cough, sore throat, fever, abdominal pain, diarrhea, dysuria, tingling/numbness or any focal weakness. COVID-19 was negative. White count was within normal limit. BMP was mostly unremarkable. UA was negative. Cardiac enzyme were most concerning. EKG was nonischemic. CT head was negative for any concerning findings. Chest x-ray did not reveal anything concerning. Blood cultures were obtained on admission, negative at the time of discharge. On the of discharge patient was stable. HD she was fine. patinet was dc to SNF> (2) Generalized weakness: (3) Asymptomatic hypertensive urgency: On admission patient was found to be in hypertensive urgency with pressure in the 180s to 200s. Lisinopril increased to 10 mg daily. (4) Parkinson disease: Continue with METALWORKER Sinemet. (5) Hypertension: As above. (6) Dyslipidemia: (7) Chronic allergic rhinitis: No active complaints. (8) Aortic stenosis: Moderate aortic stenosis. Patient denies any episodes of dizziness. We w ill continue to monitor. Total Time Total Time Spent Total Time Spent (In Minutes): 35 Discharge Plan Discharge Items Patient Disposition: Transfer [facility]way Fac Reason For Visit: HTN URGENCY Discharge Diagnosis: ambulatory weakness hypertensive weakness Activity: Resume your previous activity Non-emergency contact: Primary Care Provider Call non-emergency contact if: your symptoms worsen Follow-up/Referrals: Cheryl Byers DO [Primary Care Provider] - Diet: Heart Healthy Addtl Attending Provider Instructions: Continue to monitor blood pressure. Pending Studies at Discharge: No Stand-Alone Forms: [facility] Skilled Items Patient informed of condition?: Yes DNR: No Discharge Level of Care: Skilled Communicable Disease: No Discharge Prognosis: Stable Lines: None Urinary Catheter: No Medications and DC Order Prescriptions: Continued alendronate [Fosamax] 70 mg Tablet 70 mg PO WK RF: 0 carbidopa-levodopa 25-100 mg Tablet 1.5 tab PO QID RF: 0 aspirin 81 mg Tablet,Delayed Release (Dr/Ec) 81 mg PO DAILY RF: 0 tramadol 50 mg Tablet 50 mg PO UD PRN (Reason: Pain) RF: 0 Changed lisinopril 2.5 mg Tablet 10 mg PO DAILY Qty: 0 RF: 0 Discharge Orders: Discharge Order (Routine); Ordered 06/02/20 Ordered By: Hasmukh Villarreal Admission Data Admit Date/Time: 05/31/20 14:22 Attending Provider: Hasmukh Villarreal Admit Provider: Lazaro De La Garza Primary Care Provider: Cheryl Byers Other Providers: Lazaro De La Garza ; [facility] ; [facility],
== END 2020-06-02 16:00 | DRG 305 ==
LOC: 2N 21:03 → ED 21:03 → 2N 05-31 01:21

== ENCOUNTER 2020-07-06 08:11 | Observation (INO) ==
--- NOTE | 2020-07-06 08:36 | Emergency Department Note ---
History of Present Illness General Chief complaint: Fall Time Seen by Provider: 07/06/20 08:22 Source: patient Mode of arrival: EMS Limitations: no limitations History of Present Illness Maximum Pain Intensity: 4 This patient is a 84-year-old female comes in after suffering what appears to be a mechanical fall around 3:00 in the morning she was trying to get into bed and she says she was going from her wheelchair to her bed and fell she landed on her left side and complains of left hip/femur pain as well as left wrist pain. She says she may have hit her left face but has no pain or headache there is no loss of conscious no chest pain shortness of breath or palpitations. No recent illness. No dysuria or hematuria. no blood or melena stool. Her daughter found her on the floor around 7:30 in the morning. She does have a history of Parkinson's. She has not had Covid symptoms, Covid disease or Covid vaccine. She was scheduled get the Covid vaccine but it got canceled because of the weather Home Medications Medication Instructions Recorded Confirmed Type alendronate [Fosamax] 70 mg PO FR 03/21/18 07/06/20 History carbidopa-levodopa See Rx Instructions .ROUTE .COMPLEX 03/21/18 07/06/20 History tramadol 50 mg PO UD PRN 07/24/18 07/06/20 History aspirin 81 mg PO QAM 05/30/20 07/06/20 History carbidopa-levodopa 2 tab PO HS 07/06/20 07/06/20 History lisinopril 5 mg PO QAM 07/06/20 07/06/20 History Allergies Allergy/AdvReac Type Severity Reaction Status Date / Time No Known Allergies Allergy Verified 07/06/20 08:55 Past Med/Surg History Medical History (Updated 07/06/20 @ 15:04 by Heri Reaves MD) Aortic stenosis "Mild-moderate per echo 03/15/17" Chronic allergic rhinitis Dyslipidemia Generalized weakness History of fracture of left hip Hypertension Osteoporosis Parkinson disease Urinary tract infection Surgical History H/O colonoscopy "2011" History of left hip replacement Hx of cataract surgery Social History Smoking Status: Never smoker Second Hand Exposure: No; Hx Alcohol Use: No Hx Substance Use: No Preferred Language: [place] Communication Ability: Impaired Drapery Hand Required: No Beliefs That Will Affect Care: None marital status: / Current Living Situation: Alone How many Children do You have: 1 Feels Safe at Home: Yes Assistive Devices: None Review of Systems A total of 10 systems reviewed and were otherwise negative Physical Exam Vital Signs Vital Signs - 24 hr 07/06/20 08:15 07/06/20 08:30 07/06/20 08:58 Temperature 36.5 C Temperature Source Oral Pulse Rate 85 87 Pulse Rate from SpO2 Sensor 86 85 Pulse Rhythm Regular Pulse Strength Normal Respiratory Rate 18 18 Respiratory Effort / Characteristics Non-Labored Spontaneous Respiratory Depth Normal Respiratory Pattern Regular Blood Pressure 197/83 H Blood Pressure Mean 121 Blood Pressure Position Lying Pulse Oximetry 98 98 97 Oxygen Delivery Method Room Air Room Air Oxygen Flow Rate Sepsis Recent Fever Within 48 Hours No Sepsis New/Unexplained Change in Mental Status No Sepsis Action Taken by Nursing No Action Required 07/06/20 09:00 07/06/20 09:30 07/06/20 10:00 Temperature Temperature Source Pulse Rate 85 81 87 Pulse Rate from SpO2 Sensor 84 80 88 Pulse Rhythm Pulse Strength Respiratory Rate 15 15 17 Respiratory Effort / Characteristics Respiratory Depth Respiratory Pattern Blood Pressure Blood Pressure Mean Blood Pressure Position Pulse Oximetry 99 97 99 Oxygen Delivery Method Oxygen Flow Rate Sepsis Recent Fever Within 48 Hours Sepsis New/Unexplained Change in Mental Status Sepsis Action Taken by Nursing 07/06/20 10:30 07/06/20 11:09 07/06/20 11:30 Temperature Temperature Source Pulse Rate 92 H 91 H 92 H Pulse Rate from SpO2 Sensor 93 H 91 H 90 Pulse Rhythm Pulse Strength Respiratory Rate 17 17 16 Respiratory Effort / Characteristics Respiratory Depth Respiratory Pattern Blood Pressure 169/98 H 168/90 H Blood Pressure Mean 121 116 Blood Pressure Position Pulse Oximetry 98 98 98 Oxygen Delivery Method Oxygen Flow Rate Sepsis Recent Fever Within 48 Hours Sepsis New/Unexplained Change in Mental Status Sepsis Action Taken by Nursing 07/06/20 11:31 07/06/20 12:00 07/06/20 12:19 Temperature Temperature Source Pulse Rate 96 H 95 H 98 H Pulse Rate from SpO2 Sensor 88 94 H 99 H Pulse Rhythm Pulse Strength Respiratory Rate 17 20 20 Respiratory Effort / Characteristics Respiratory Depth Respiratory Pattern Blood Pressure 177/95 H 172/102 H Blood Pressure Mean 122 125 Blood Pressure Position Pulse Oximetry 98 98 98 Oxygen Delivery Method Oxygen Flow Rate Sepsis Recent Fever Within 48 Hours Sepsis New/Unexplained Change in Mental Status Sepsis Action Taken by Nursing 07/06/20 12:30 07/06/20 13:01 07/06/20 13:16 Temperature Temperature Source Pulse Rate 98 H 87 87 Pulse Rate from SpO2 Sensor Pulse Rhythm Pulse Strength Respiratory Rate 20 20 20 Respiratory Effort / Characteristics Respiratory Depth Respiratory Pattern Blood Pressure 159/75 H 85/42 L 77/45 L Blood Pressure Mean 103 56 55 Blood Pressure Position Pulse Oximetry 96 96 Oxygen Delivery Method Nasal Cannula Nasal Cannula Oxygen Flow Rate 2 2 Sepsis Recent Fever Within 48 Hours Sepsis New/Unexplained Change in Mental Status Sepsis Action Taken by Nursing 07/06/20 13:17 07/06/20 13:25 07/06/20 13:27 Temperature Temperature Source Pulse Rate 88 88 86 Pulse Rate from SpO2 Sensor 89 86 Pulse Rhythm Pulse Strength Respiratory Rate 24 24 25 H Respiratory Effort / Characteristics Respiratory Depth Respiratory Pattern Blood Pressure 80/37 L 99/65 L 93/52 L Blood Pressure Mean 51 76 65 Blood Pressure Position Pulse Oximetry 96 95 Oxygen Delivery Method Nasal Cannula Nasal Cannula Oxygen Flow Rate 2 2 Sepsis Recent Fever Within 48 Hours Sepsis New/Unexplained Change in Mental Status Sepsis Action Taken by Nursing 07/06/20 13:30 07/06/20 14:01 Temperature Temperature Source Pulse Rate 83 79 Pulse Rate from SpO2 Sensor 83 79 Pulse Rhythm Pulse Strength Respiratory Rate 20 19 Respiratory Effort / Characteristics Respiratory Depth Respiratory Pattern Blood Pressure 98/54 L 126/77 Blood Pressure Mean 68 93 Blood Pressure Position Pulse Oximetry 95 96 Oxygen Delivery Method Nasal Cannula Oxygen Flow Rate 2 Sepsis Recent Fever Within 48 Hours Sepsis New/Unexplained Change in Mental Status Sepsis Action Taken by Nursing General: Well developed well nourished older female who appears in no acute distress, breathing comfortably on room air. Normal speech HEENT: Normal cephalic atraumatic. Pupils are equal round and reactive to light. Extraocular movements are intact. Oropharynx is pink with moist mucous membranes. No swelling of the mouth lips or tongue. Neck: Supple with a midline trachea. No meningeal signs or stiffness, no JVD or bruits. No Stridor. No external signs of trauma to the face. Chest: Clear to auscultation bilaterally. No wheezes or rhonchi. No increased work of breathing. Heart: Regular rate and rhythm without murmurs or gallops. Abdomen: Soft nontender, nondistended without rebound guarding or rigidity. Extremities: No cyanosis clubbing or edema. No calf tenderness or assymetry. She has a scar from previous femur surgery on the left leg. Her hips are mobile and did not appear to be dislocated. The leg is not shortened or deformed is no marked swelling. She has some mild tenderness in the posterior femur area and towards the hip. She is neurologically neurovascular intact. She says her left wrist hurts as well is not significantly swollen. Spine/Back. Non tender to palpation. No CVA tenderness Skin: Good turgor without rashes. Neurologic exam: Cranial nerves two through 12 are intact. Motor and sensation are intact and symmetrical throughout. Course Administered Medications Hydralazine HCl (Hydralazine Hcl 20 Mg/Ml Vial) 5 mg IV Q6H PRN PRN Reason: Blood Pressure - High Stop: 08/05/20 11:13 Last Admin: 07/06/20 12:22 Dose: 5 mg Documented by: [id number] Discontinued Medications Carbidopa/Levodopa (Carbidopa/Levodopa 25/100mg Tab) 2 tab PO NOW STA Stop: 07/06/20 10:51 Last Admin: 07/06/20 12:18 Dose: 2 tab Documented by: [id number] Sodium Chloride (Nss 1000ml) 500 mls @ 500 mls/hr IV .Q1H ONE Stop: 07/06/20 14:20 Last Infusion: 07/06/20 14:53 Dose: 0 mls/hr Documented by: [id number] Admin: 07/06/20 13:22 Dose: 500 mls/hr Documented by: [id number] Medical Decision Making Differential Diagnosis Traumatic injuries, orthopedic injuries, syncope, anemia, rhabdo, electrolyte or metabolic abnormality, infection, Covid Medical Records Attestation: I reviewed the patient's medical records. Home Medications Current Medication List: was personally reviewed by me Laboratory Data Attestation: I reviewed the patient's lab results. Result diagrams: 07/06/20 08:45 07/06/20 08:45 Lab Results 07/06/20 07/06/20 07/06/20 Range/Units 08:45 08:45 08:45 WBC 11.64 H (4.8-10.8) K/uL RBC 4.31 (4.2-5.4) M/uL Hgb 13.4 (12.0-16.0) g/dL Hct 41.8 (37-47) % MCV 97.0 (80-100) fL MCH 31.1 (25-34) pg MCHC 32.1 (32-36) g/dL RDW Std Deviation 54.0 H (36.4-46.3) fL RDW Coeff of Conor 15.2 H (11.5-14.5) % Plt Count 239 (130-400) K/uL MPV 11.0 H (7.4-10.4) fL Immature Gran % (Auto) 0.3 % Neut % (Auto) 80.8 % Lymph % (Auto) 9.0 % Dade % (Auto) 6.7 % Eos % (Auto) 2.9 % Baso % (Auto) 0.3 % Neut # (Auto) 9.41 H (1.4-6.5) K/uL Lymph # (Auto) 1.05 L (1.2-3.4) K/uL Dade # (Auto) 0.78 H (0.11-0.59) K/uL Eos # (Auto) 0.34 (0-0.5) K/uL Baso # (Auto) 0.03 (0-0.2) K/uL Immature Gran # (Auto) 0.03 H (0.00-0.02) K/uL PT 9.7 (9.0-12.0) Seconds INR 1.0 (0.9-1.1) APTT 28.2 (21.0-31.0) Seconds PTT Ratio 1.1 Sodium 142 (136-145) mmol/L Potassium 4.0 (3.5-5.1) mmol/L Chloride 106 (98-107) mmol/L Carbon Dioxide 29 (21-32) mmol/L Anion Gap 7.0 (3-11) BUN 27 H (7-18) mg/dl Creatinine 0.72 (0.6-1.2) mg/dl Est Cr Clr Drug Dosing 58.1 ml/min Est GFR ( Amer) 88.5 Est GFR (Non-Af Amer) 76.4 BUN/Creatinine Ratio 36.7 H (10-20) Glucose 87 (70-99) mg/dl Calcium 9.5 (8.5-10.1) mg/dl Magnesium 2.1 (1.8-2.4) mg/dl Total Bilirubin 0.5 (0.2-1) mg/dl AST 8 L (15-37) U/L ALT 7 L (12-78) U/L Alkaline Phosphatase 82 (45-117) U/L Total Creatine Kinase 42 (26-192) U/L CK-MB (CK-2) 1.4 (0.5-3.6) ng/ml CK/CKMB % Calc 3.3 H (0-3.0) Total Protein 7.6 (6.4-8.2) gm/dl Albumin 3.4 (3.4-5.0) gm/dl Globulin 4.2 H (2.5-4.0) gm/dl Albumin/Globulin Ratio 0.8 L (0.9-2) TSH 1.150 (0.300-4.500) uIu/ml COVID-19 Eval Order SARS-CoV-2, RNA, NAAT (NEGATIVE) 07/06/20 07/06/20 Range/Units 12:44 12:44 WBC (4.8-10.8) K/uL RBC (4.2-5.4) M/uL Hgb (12.0-16.0) g/dL Hct (37-47) % MCV (80-100) fL MCH (25-34) pg MCHC (32-36) g/dL RDW Std Deviation (36.4-46.3) fL RDW Coeff of Conor (11.5-14.5) % Plt Count (130-400) K/uL MPV (7.4-10.4) fL Immature Gran % (Auto) % Neut % (Auto) % Lymph % (Auto) % Dade % (Auto) % Eos % (Auto) % Baso % (Auto) % Neut # (Auto) (1.4-6.5) K/uL Lymph # (Auto) (1.2-3.4) K/uL Dade # (Auto) (0.11-0.59) K/uL Eos # (Auto) (0-0.5) K/uL Baso # (Auto) (0-0.2) K/uL Immature Gran # (Auto) (0.00-0.02) K/uL PT (9.0-12.0) Seconds INR (0.9-1.1) APTT (21.0-31.0) Seconds PTT Ratio Sodium (136-145) mmol/L Potassium (3.5-5.1) mmol/L Chloride (98-107) mmol/L Carbon Dioxide (21-32) mmol/L Anion Gap (3-11) BUN (7-18) mg/dl Creatinine (0.6-1.2) mg/dl Est Cr Clr Drug Dosing ml/min Est GFR ( Amer) Est GFR (Non-Af Amer) BUN/Creatinine Ratio (10-20) Glucose (70-99) mg/dl Calcium (8.5-10.1) mg/dl Magnesium (1.8-2.4) mg/dl Total Bilirubin (0.2-1) mg/dl AST (15-37) U/L ALT (12-78) U/L Alkaline Phosphatase (45-117) U/L Total Creatine Kinase (26-192) U/L CK-MB (CK-2) (0.5-3.6) ng/ml CK/CKMB % Calc (0-3.0) Total Protein (6.4-8.2) gm/dl Albumin (3.4-5.0) gm/dl Globulin (2.5-4.0) gm/dl Albumin/Globulin Ratio (0.9-2) TSH (0.300-4.500) uIu/ml COVID-19 Eval Order [facility]19 [facility] SARS-CoV-2, RNA, NAAT NEGATIVE (NEGATIVE) Imaging Data Attestation: I personally reviewed and interpreted this imaging study as follows: Radiologist's Impression: XR chest 1V portable HISTORY: 84 years-old Female fall acute chest trauma status post fall COMPARISON: Chest radiograph 05/30/2020 TECHNIQUE: Portable AP view of the chest FINDINGS: Cardiac silhouette is upper limits of normal in size. Calcified plaque of the thoracic aorta. No pneumothorax, pleural effusion, airspace consolidation or overt pulmonary edema. Degenerative changes of the shoulders and spine. IMPRESSION: No acute process. XR wrist LT min 3V routine HISTORY: 84 years-old Female fall . Left wrist pain status post fall COMPARISON: Left hand radiographs 07/24/2018 TECHNIQUE: 4 views of the left wrist FINDINGS: Demineralized appearance of the bones. Mild dorsal soft tissue prominence. Mild radiocarpal with mild to moderate first carpometacarpal osteoarthritis. No acute fracture, dislocation or opaque foreign body. IMPRESSION: No acute fracture or dislocation. XR femur RT 2V routine, XR hip LT 2V w pelvis HISTORY: 84 years-old Female fall acute pelvic and right femur and left hip pain status post fall COMPARISON: Pelvis radiograph 02/03/2020 TECHNIQUE: AP view of the pelvis with 2 views of the left hip and 2 views of the right femur FINDINGS: PELVIS/LEFT HIP: Chronic fracture of the left inferior pubic ramus with unchanged alignment. Left hip total joint arthroplasty with plate and screw fusion hardware of the proximal left femoral diaphysis redemonstrated. Moderate right hip osteoarthritis. Demineralized appearance of the bones without acute fracture, dislocation or evidence of hardware complication. RIGHT FEMUR: Moderate right hip osteoarthritis. No acute fracture, dislocation or avascular necrosis. Unremarkable soft tissues. Arterial calcifications. Trace joint effusion of the knee with tricompartmental osteoarthritis. IMPRESSION: 1. No acute fracture or dislocation. 2. Chronic fracture of the left inferior pubic ramus with unchanged alignment. XR femur RT 2V routine, XR hip LT 2V w pelvis HISTORY: 84 years-old Female fall acute pelvic and right femur and left hip pain status post fall COMPARISON: Pelvis radiograph 02/03/2020 TECHNIQUE: AP view of the pelvis with 2 views of the left hip and 2 views of the right femur FINDINGS: PELVIS/LEFT HIP: Chronic fracture of the left inferior pubic ramus with unchanged alignment. Left hip total joint arthroplasty with plate and screw fusion hardware of the proximal left femoral diaphysis redemonstrated. Moderate right hip osteoarthritis. Demineralized appearance of the bones without acute fracture, dislocation or evidence of hardware complication. RIGHT FEMUR: Moderate right hip osteoarthritis. No acute fracture, dislocation or avascular necrosis. Unremarkable soft tissues. Arterial calcifications. Trace joint effusion of the knee with tricompartmental osteoarthritis. IMPRESSION: 1. No acute fracture or dislocation. 2. Chronic fracture of the left inferior pubic ramus with unchanged alignment. ECG Data Attestation: I personally reviewed and interpreted this ECG as follows: Indication: + weakness Rate (beats per minute): 84 Rhythm: + normal sinus ECG Intervals/blocks: + Normal QRS and + Normal QT ECG Lebo: + Normal and + Left axis deviation ECG Findings: + LVH; no PACs and no PVCs Comparison ECG Date: from (05/30/20) Change: no significant change MDM Narrative This patient comes in as described above. She was placed on a potato grader in room B7. She is here after suffering a mechanical fall. She is complaining of left wrist and left femur/hip pain. X-rays were obtained of this. Given the fact that she was on the floor for about 4-1/2 hours I also checked a CK and there is no evidence of rhabdo. EKG does not suggest ischemia and her symptoms do not suggest cardiac disease. Troponins not elevated. She has no significant white count or fever to suggest infection she no acute electrolyte or metabolic abnormalities. X-rays do not show any acute injuries or abnormalities. The patient is resting comfortably. I talked to the patient as well as her daughter Milly [phone] at length. The patient does use a wheelchair at home and fell once earlier in the week as well. she is having a hard time caring for herself as she lives alone. Milly tells me that been try to get increased help in the house for her. The patient tells me she does not feel comfortable going home. I did have our case preparer and liner talk to her and the patient does seem to want to go to [facility]. At this point, she is a fall risk and we will admit/observe her in the hospital and continue talked to the patient and family about possible placement. Impression & Plan Weakness, Parkinson disease, Fall, Contusion of left leg, Left wrist sprain Discharge Plan Visit Data Chief Complaint: Fall ED Provider: Heri Reaves Discharge Problem: Weakness, Parkinson disease, Fall, Contusion of left leg, Left wrist sprain Forms Stand Alone Forms: My [facility] [employer] Prescriptions Prescriptions: No Action alendronate [Fosamax] 70 mg Tablet 70 mg PO FR RF: 0 carbidopa-levodopa 25-100 mg Tablet See Rx Instructions .ROUTE .COMPLEX RF: 0 aspirin 81 mg Tablet,Delayed Release (Dr/Ec) 81 mg PO QAM RF: 0 tramadol 50 mg Tablet 50 mg PO UD PRN (Reason: Pain) RF: 0 lisinopril 2.5 mg tablet 5 mg PO QAM RF: 0 carbidopa-levodopa 25-100 mg Tablet Extended Release 2 tab PO HS RF: 0 Discharge Problem: Fall Qualifiers: Encounter type: initial encounter Qualified Code(s): W19.XXXA - Unspecified fa ll, initial encounter Contusion of left leg Qualifiers: Encounter type: initial encounter Qualified Code(s): S80.12XA - Contusion of left lower leg, initial encounter Left wrist sprain Qualifiers: Encounter type: initial encounter Qualified Code(s): S63.502A - Unspecified sprain of left wrist, initial encounter
[2020-07-06 08:56] LABS: Basophils # (auto) 0.03 K/uL (0-0.2); Basophils % (auto) 0.3 %; Eosinophils # (auto) 0.34 K/uL (0-0.5); Eosinophils % (auto) 2.9 %; Hematocrit (blood only) 41.8 % (37-47); Hemoglobin 13.4 g/dL (12.0-16.0); Immature Granulocytes # (auto) 0.03 K/uL (0.00-0.02); Immature Granulocytes % (auto) 0.3 %; Lymphocytes # (auto) 1.05 K/uL (1.2-3.4); Mean Corpuscular Hemoglobin 31.1 pg (25-34); Mean Corpuscular Hgb Conc 32.1 g/dL (32-36); Monocytes # (auto) 0.78 K/uL (0.11-0.59); Monocytes % (auto) 6.7 %; Neutrophils # (auto) 9.41 K/uL (1.4-6.5); Neutrophils % (auto) 80.8 %; Platelet Count 239 K/uL (130-400); RDW Coefficient of Variation 15.2 % (11.5-14.5); Red Blood Count 4.31 M/uL (4.2-5.4); White Blood Count 11.64 K/uL (4.8-10.8)
[2020-07-06 09:16] LABS: Albumin Level 3.4 gm/dl (3.4-5.0); BUN Creatinine Ratio 36.7 (10-20); Calcium 9.5 mg/dl (8.5-10.1); Creatinine Clr Calc Pharmacy 58.1 ml/min; Est GFR (African American) 88.5; Est GFR (Non-African American) 76.4; Magnesium 2.1 mg/dl (1.8-2.4)
[2020-07-06 09:24] LABS: Partial Thromboplastin Ratio 1.1; Partial Thromboplastin Time 28.2 Seconds (21.0-31.0); Prothrombin Time 9.7 Seconds (9.0-12.0)
--- NOTE | 2020-07-06 09:26 | XRay Report ---
XR femur RT 2V routine, XR hip LT 2V w pelvis HISTORY: 84 years-old Female fall acute pelvic and right femur and left hip pain status post fall COMPARISON: Pelvis radiograph 02/03/2020 TECHNIQUE: AP view of the pelvis with 2 views of the left hip and 2 views of the right femur FINDINGS: PELVIS/LEFT HIP: Chronic fracture of the left inferior pubic ramus with unchanged alignment. Left hip total joint arth roplasty with plate and screw fusion hardware of the proximal left femoral diaphysis redemonstrated. Moderate right hip osteoarthritis. Demineralized appearance of the bones without acute fracture, disl ocation or evidence of hardware complication. RIGHT FEMUR: Moderate right hip osteoarthritis. No acute fracture, dislocation or avascular necrosis. Unremarkable soft tissues. Arterial calcifications. Trace joint effusion of the knee with tricompartmental osteoa rthritis. IMPRESSION: 1. No acute fracture or dislocation. 2. Chronic fracture of the left inferior pubic ramus with unchanged alignment. ACT 112: Negative or not required by law. The above report was generated using voice recognition software. It may contain grammatical, syntax o r spelling errors. Electronically signed by: Meño Aleman M.D. 07/06/2020 9:24 AM
[2020-07-06 09:27] LABS: Albumin Globulin Ratio 0.8 (0.9-2); Bilirubin,Total 0.5 mg/dl (0.2-1); Creatine Kinase MB 1.4 ng/ml (0.5-3.6); Globulin 4.2 gm/dl (2.5-4.0); Thyroid Stimulating Hormone 1.15 uIu/ml (0.300-4.500); Total Protein 7.6 gm/dl (6.4-8.2)
--- NOTE | 2020-07-06 09:31 | XRay Report ---
XR chest 1V portable HISTORY: 84 years-old Female fall acute chest trauma status post fall COMPARISON: Chest radiograph 05/30/2020 TECHNIQUE: Portable AP view of the chest FINDINGS: Cardiac silhouette is upper limits of normal in size. Calcified plaque of the thoracic aorta. No pneu mothorax, pleural effusion, airspace consolidation or overt pulmonary edema. Degenerative changes of the shoulders and spine. IMPRESSION: No acute process. ACT 112: Negative or not required by law. The above report was generated using voice recognition software. It may contain grammatical, syntax o r spelling errors. Electronically signed by: Meño Aleman M.D. 07/06/2020 9:30 AM
--- NOTE | 2020-07-06 09:35 | XRay Report ---
XR wrist LT min 3V routine HISTORY: 84 years-old Female fall . Left wrist pain status post fall COMPARISON: Left hand radiographs 07/24/2018 TECHNIQUE: 4 views of the left wrist FINDINGS: Demineralized appearance of the bones. Mild dorsal soft tissue prominence. Mild radiocarpal with mild to moderate first carpometacarpal osteoarthritis. No acute fracture, dislocation or opaque foreign b dione. IMPRESSION: No acute fracture or dislocation. ACT 112: Negative or not required by law. The above report was generated using voice recognition software. It may contain grammatical, syntax o r spelling errors. Electronically signed by: Meño Aleman M.D. 07/06/2020 9:33 AM
[2020-07-06] MEDS ORDERED: CARBIDOPA/LEVODOPA 25/100MG TAB PO STA (10:50)
[2020-07-06] MEDS ORDERED: hydrALAZINE HCL 20 MG/ML VIAL IV PRN (11:14)
--- NOTE | 2020-07-06 11:18 | History & Physical Report ---
Date of Service July 06, 2020 Assessment & Plan (1) Fall: Patient with multiple falls at home Admitted today for a fall at 3 AM on left side transferring from wheelchair to bed Most recent fall prior to that was on Tuesday Due to multiple falls, Parkinson's disease, progressive generalized weakness it is felt the patient would be best served with placement Patient and daughter agree with this Will request case management to assist with referral to [facility] 3-day overnight is not required per case management We will see if they can accept patient tomorrow PT OT is ordered for evaluation and treatment (2) Parkinson disease: Patient states it appears to be stable Continue carbidopa/levodopa per home regimen (3) Ambulatory dysfunction: Patient states that she lives alone and is wheelchair-bound Falls have been secondary to weakness transferring from wheelchair to bed or wheelchair to chair We will request PT/OT consult for evaluation and treatment and referral to alf facility (4) Hypertension: Patient previously on lisinopril 5 mg daily. This was increased to 10 mg daily at her last hospital stay when she was discharged 06/02/2020 We will continue lisinopril 10 mg daily We will also add hydralazine 5 mg IV every 6 hours for systolic blood pressure greater than 160 May require second agent such as Norvasc Will reevaluate during the stay prior to discharge (5) Dyslipidemia: No statin at home We will continue with outpatient management (6) Osteoporosis: Continue alendronate every Tuesday (7) Aortic stenosis: Patient denies history of rheumatic fever but states that she has "always had a murmur" Moderate aortic stenosis per echocardiogram completed 06/02/2020 This is progressed from mild in 2017 Watch fluid balance (8) DVT prophylaxis: Heparin 5000 units subcutaneously every 12 hours Please refer to Dr. Ndiaye's addendum for further recommendations and corrections. History of Present Illness Primary Care Provider: Cheryl Byers DO Attending: Dr. Ndiaye This is a pleasant 84-year-old female who currently lives alone at home. She has a past medical history of parkinsonian disease, ambulatory dysfunction, chronic wheelchair use, osteoporosis is, hypertension, dyslipidemia, chronic allergic rhinitis, aortic stenosis, history of left hip fracture. The patient presents with weakness and reports multiple falls in the last 2 weeks. She lives alone but has support from her daughter. The patient is wheelchair-bound. She has been talking with her daughter about placement secondary to her parkinsonism. At 3 AM this morning she was transferring from her wheelchair to her bed and fell on her left side. She complained of left hip and femur pain as well as left wrist pain. X-ray imaging of hip pelvis leg and wrist are all negative for acute fracture. At the time of my examination she denied any pain to these areas. She has no recent illness. She denies any symptoms of Covid. She denies previous history of Covid. She has no fever or chills. She has no irritation with urination. She states that her weakness is chronic and progressive secondary to Parkinson's. She has no other complaints at this time. Allergies Allergy/AdvReac Type Severity Reaction Status Date / Time No Known Allergies Allergy Verified 07/06/20 08:55 Home Medications Medication Instructions Recorded Confirmed Type alendronate [Fosamax] 70 mg PO FR 03/21/18 07/06/20 History carbidopa-levodopa See Rx Instructions .ROUTE .COMPLEX 03/21/18 07/06/20 History tramadol 50 mg PO UD PRN 07/24/18 07/06/20 History aspirin 81 mg PO QAM 05/30/20 07/06/20 History carbidopa-levodopa 2 tab PO HS 07/06/20 07/06/20 History lisinopril 5 mg PO QAM 07/06/20 07/06/20 History Past Med/Surg History Medical History (Updated 07/06/20 @ 12:15 by Jone Osborn PA-C) Aortic stenosis "Mild-moderate per echo 03/15/17" Chronic allergic rhinitis Dyslipidemia Generalized weakness History of fracture of left hip Hypertension Osteoporosis Parkinson disease Urinary tract infection Surgical History H/O colonoscopy "2011" History of left hip replacement Hx of cataract surgery Social History Smoking Status: Never smoker Second Hand Exposure: No; Hx Alcohol Use: No Hx Substance Use: No Preferred Language: Gabonese Communication Ability: Impaired 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 No specific rales or rhonchi. HEART: Regular, rate controlled ABDOMEN: Soft, NT, ND, BS Present EXTREMITIES: No LE edema, pedal pulses intact NEURO: A&OX3. No cogwheeling. Minimal weakness of her lower extremities. Patient has good sensation to palpation. Results & Data Results & Data ([facility]) Vital Signs (Past 12 Hours) Vital Signs Temp Pulse Resp BP Pulse Ox 07/06/20 08:58 97 07/06/20 08:15 36.5 C 87 18 197/83 H 97 Laboratory Results 07/06/20 08:45 07/06/20 08:45 Diagnostic Findings XR chest 1V portable HISTORY: 84 years-old Female fall acute chest trauma status post fall COMPARISON: Chest radiograph 05/30/2020 TECHNIQUE: Portable AP view of the chest FINDINGS: Cardiac silhouette is upper limits of normal in size. Calcified plaque of the thoracic aorta. No pneumothorax, pleural effusion, airspace consolidation or overt pulmonary edema. Degenerative changes of the shoulders and spine. IMPRESSION: No acute process. Electronically signed by: Meño Aleman M.D. 07/06/2020 9:30 AM XR wrist LT min 3V routine HISTORY: 84 years-old Female fall . Left wrist pain status post fall COMPARISON: Left hand radiographs 07/24/2018 TECHNIQUE: 4 views of the left wrist FINDINGS: Demineralized appearance of the bones. Mild dorsal soft tissue prominence. Mild radiocarpal with mild to moderate first carpometacarpal osteoarthritis. No acute fracture, dislocation or opaque foreign body. IMPRESSION: No acute fracture or dislocation. Electronically signed by: Meño Aleman M.D. 07/06/2020 9:33 AM XR femur RT 2V routine, XR hip LT 2V w pelvis HISTORY: 84 years-old Female fall acute pelvic and right femur and left hip pain status post fall COMPARISON: Pelvis radiograph 02/03/2020 TECHNIQUE: AP view of the pelvis with 2 views of the left hip and 2 views of the right femur FINDINGS: PELVIS/LEFT HIP: Chronic fracture of the left inferior pubic ramus with unchanged alignment. Left hip total joint arthroplasty with plate and screw fusion hardware of the proximal left femoral diaphysis redemonstrated. Moderate right hip osteoarthritis. Demineralized appearance of the bones without acute fracture, dislocation or evidence of hardware complication. RIGHT FEMUR: Moderate right hip osteoarthritis. No acute fracture, dislocation or avascular necrosis. Unremarkable soft tissues. Arterial calcifications. Trace joint effusion of the knee with tricompartmental osteoarthritis. IMPRESSION: 1. No acute fracture or dislocation. 2. Chronic fracture of the left inferior pubic ramus with unchanged alignment. Electronically signed by: Meño Aleman M.D. 07/06/2020 9:24 AM XR femur RT 2V routine, XR hip LT 2V w pelvis HISTORY: 84 years-old Female fall acute pelvic and right femur and left hip pain status post fall COMPARISON: Pelvis radiograph 02/03/2020 TECHNIQUE: AP view of the pelvis with 2 views of the left hip and 2 views of the right femur FINDINGS: PELVIS/LEFT HIP: Chronic fracture of the left inferior pubic ramus with unchanged alignment. Left hip total joint arthroplasty with plate and screw fusion hardware of the proximal left femoral diaphysis redemonstrated. Moderate right hip osteoarthr itis. Demineralized appearance of the bones without acute fracture, dislocation or evidence of hardware complication. RIGHT FEMUR: Moderate right hip osteoarthritis. No acute fracture, dislocation or avascular necrosis. Unremarkable soft tissues. Arterial calcifications. Trace joint effusion of the knee with tricompartmental osteoarthritis. IMPRESSION: 1. No acute fracture or dislocation. 2. Chronic fracture of the left inferior pubic ramus with unchanged alignment. Electronically signed by: Meño Aleman M.D. 07/06/2020 9:24 AM Code Status & VTE Plan Code Status DNR/DNI VTE Prophylaxis Plan VTE Prophylaxis will be ordered: Yes Supervising Physician Co-Signing Physician Notes Patient seen examined by me, care coordinated with Jone Osborn PA-C, please refer to his note above for further detail. Patient seen in ED room B7, currently in no acute distress, pleasant, also denies any pain. She is awake alert and answering questions appropriately. Heart sounds regular, positive systolic murmur, lung sounds clear to auscultation bilaterally. Abdomen soft, nontender, nondistended. Patient is able to move all her extremities. No lower extremity edema. Skin is warm, dry, no rashes or lesions noted. Patient was found quite hypertensive in the ED, and hydralazine provided. EKG did not show any significant/ischemic changes. Multiple radiographic images of her bones did not show any fracture or acute process. PT OT ordered, blood pressure will be closely monitored and medications adjusted. Case management aware about possible need for placement. Marlene Ndiaye MD (1) Osteoporosis Osteoporosis type: age-related Presence of current pathological fracture: without current pathological fracture Qualified Code(s): M81.0 - Age-related osteoporosis without current pathological fracture (2) Aortic stenosis Cardiac valve disease etiology: nonrheumatic Qualified Code(s): I35.0 - Nonrheumatic aortic (valve) stenosis (3) Fall Encounter type: initial encounter Qualified Code(s): W19.XXXA - Unspecified fall, initial encounter
[2020-07-06] MEDS ORDERED: SODIUM CHLORIDE 0.9% 1000ML 500 ML IV ONE (13:21)
--- NOTE | 2020-07-06 13:32 | Electrocardiogram Report ---
Test Reason : Blood Pressure : / mmHG Vent. Rate : 084 BPM Atrial Rate : 084 BPM P-R Int : 204 ms QRS Dur : 090 ms QT Int : 356 ms P-R-T Axes : 080 -42 041 degrees QTc Int : 420 ms Normal sinus rhythm 1st degree AV block Left axis deviation Pulmonary disease pattern Minimal voltage criteria for LVH, may be normal variant Abnormal ECG When compared with ECG of 30-MAY-2020 21:19, Incomplete right bundle branch block is no longer Present Confirmed by Deejay Harding ([id number]) on 07/06/2020 1:32:22 PM Referred By: Eugene Oconnellfelicia Confirmed By:Jose Harding
[2020-07-06] MEDS ORDERED: ACETAMINOPHEN 325 MG TAB PO PRN (15:28)
[2020-07-06] MEDS ORDERED: POLYETHYLENE (MIRALAX) 17 GM PACK PO PRN (15:28)
[2020-07-06] MEDS ORDERED: ALBUT/IPRATROP 3MG/0.5MG NEB 3 ML VIAL NEB PRN (15:28)
[2020-07-06 16:33] LABS: Appearance Urine Cloudy (Clear); Bacteria Urine Automated 3+ (Negative); Bilirubin Urine Negative (Negative); Blood Urine Negative (Negative); Cast Urine Automated 0 /lpf (0-5); Color Urine Yellow; Epithelial Cell Urine Auto 0-5 /lpf (0-5); Glucose Urine UA Negative (Negative); Ketones Urine Trace (Negative); Leukocyte Esterase Urine 1+ (Negative); Nitrite Urine Positive (Negative); Protein Urine Negative (Negative); Specific Gravity Urine 1.017 (1.000-1.030); Urobilinogen Urine Negative (Negative); WBC Urine Automated >30 /hpf (0-5); pH Urine 7.5 (4.5-7.5)
--- NOTE | 2020-07-06 16:34 | Electrocardiogram Report ---
Test Reason : Blood Pressure : / mmHG Vent. Rate : 084 BPM Atrial Rate : 084 BPM P-R Int : 204 ms QRS Dur : 090 ms QT Int : 392 ms P-R-T Axes : 025 -44 007 degrees QTc Int : 463 ms Normal sinus rhythm Left axis deviation Moderate voltage criteria for LVH, may be normal variant Abnormal ECG When compared with ECG of 06-JUL-2020 08:58, No significant change was found Confirmed by Deejay Harding ([id number]) on 07/06/2020 4:34:33 PM Referred By: Eugene Oconnellfelicia Confirmed By:Jose Harding
[2020-07-06] MEDS: lisinopril 10 MG TAB PO SCH (16:49)
[2020-07-06] MEDS: CARBIDOPA/LEVODOPA 25/100MG TAB PO SCH (16:50)
[2020-07-06] MEDS ORDERED: NURSING DECISION MEDICATION ONE (19:02)
[2020-07-06] MEDS ORDERED: MICONAZOLE NITRATE POWDER 43 GM EXT PRN (19:03)
[2020-07-06] MEDS: HEPARIN SOD 5,000 UNIT/0.5 ML VIAL SQ SCH (20:35)
[2020-07-06] MEDS: CARBIDOPA/LEVODOPA 25/100MG EXT REL TAB PO SCH (20:35)
[2020-07-07 06:34] LABS: Hematocrit (blood only) 40.5 % (37-47); Mean Corpuscular Hemoglobin 30.7 pg (25-34); Mean Corpuscular Hgb Conc 32.1 g/dL (32-36); Mean Corpuscular Volume 95.5 fL (80-100); Mean Platelet Volume 11.6 fL (7.4-10.4); Platelet Count 232 K/uL (130-400); RDW Coefficient of Variation 15.4 % (11.5-14.5); RDW Standard Deviation 54.2 fL (36.4-46.3); Red Blood Count 4.24 M/uL (4.2-5.4); White Blood Count 11.46 K/uL (4.8-10.8)
[2020-07-07 07:09] LABS: BUN Creatinine Ratio 31.8 (10-20); Calcium 9.2 mg/dl (8.5-10.1); Creatinine Clr Calc Pharmacy 58.8 ml/min; Est GFR (Non-African American) 75.1; Potassium 4.3 mmol/L (3.5-5.1)
[2020-07-07] MEDS: CARBIDOPA/LEVODOPA 25/100MG TAB PO SCH ×4 (08:33→17:52)
[2020-07-07] MEDS: HEPARIN SOD 5,000 UNIT/0.5 ML VIAL SQ SCH ×2 (08:33→21:54)
[2020-07-07] MEDS: ASPIRIN 81 MG ECTAB PO SCH (08:34)
[2020-07-07] MEDS: lisinopril 10 MG TAB PO SCH (08:34)
[2020-07-07] MEDS: cefTRIAXone SODIUM 1,000 MG in DEXTROSE 5% 50 ML IV SCH (09:26)
--- NOTE | 2020-07-07 13:24 | Hospitalist Progress Note ---
Date of Service July 07, 2020 Assessment & Plan (1) Fall: Patient with multiple falls at home Admitted today for a fall at 3 AM on left side transferring from wheelchair to bed Most recent fall prior to that was on Tuesday Due to multiple falls, Parkinson's disease, progressive generalized weakness it is felt the patient would be best served with placement Patient and daughter agree with this Will request case management to assist with referral to [facility] 3-day overnight is not required per case management We will see if they can accept patient PT OT is ordered for evaluation and treatment UTI UA concerning for UTI, urine culture is growing gram-negative bacilli -We will start Rocephin (2) Parkinson disease: Patient states it appears to be stable Continue carbidopa/levodopa per home regimen (3) Ambulatory dysfunction: Patient states that she lives alone and is wheelchair-bound Falls have been secondary to weakness transferring from wheelchair to bed or wheelchair to chair We will request PT/OT consult for evaluation and treatment and referral to [facility] facility (4) Hypertension: Patient previously on lisinopril 5 mg daily. This was increased to 10 mg daily at her last hospital stay when she was discharged 06/02/2020 We will continue lisinopril 10 mg daily We will also add hydralazine 5 mg IV every 6 hours for systolic blood pressure greater than 160 May require second agent such as Norvasc Will reevaluate during the stay prior to discharge (5) Dyslipidemia: No statin at home We will continue with outpatient management (6) Osteoporosis: Continue alendronate every Tuesday (7) Aortic stenosis: Patient denies history of rheumatic fever but states that she has "always had a murmur" Moderate aortic stenosis per echocardiogram completed 06/02/2020 This is progressed from mild in 2017 Watch fluid balance (8) DVT prophylaxis: Heparin 5000 units subcutaneously every 12 hours Admission and Anticipated Discharge Date Admission Date: July 06, 2020 Subjective Pt seen in follow-up of ambulatory dysfunction, in the setting of Parkinson's disease, possible UTI Currently patient is sitting up in bed, in no distress, eating lunch No fevers or chills, chest pain or shortness of breath Review of Systems Review of Systems: All systems reviewed & are unremarkable except as noted in HPI & below Constitutional: no fever and no chills Respiratory: no cough and no dyspnea Cardiovascular: no chest pain and no palpitations Gastrointestinal: no abdominal pain, no nausea and no vomiting Physical Exam Physical Exam: GENERAL : Elderly female sitting up in bed, in no acute distress EYES: No icterus, gaze conjugate NOSE: No evidence of epistaxis MOUTH: Normal oropharynx NECK: Supple LUNGS: CTAB, no wheezing, rhonchi, crackles HEART: Regular, rate controlled, + syst. murmur ABDOMEN: Soft, NT, ND, BS Present EXTREMITIES: No LE edema, pedal pulses intact NEURO: A&OX3. Answers questions appropriately. Moves extremities spontaneously Results & Data Results & Data ([facility]) Vital Signs (Past 12 Hours) Vital Signs Temp Pulse Resp BP BP Pulse Ox 07/07/20 12:49 83 107/66 07/07/20 07:25 36.9 C 87 18 175/84 H 182/81 H 92 Laboratory Results 07/07/20 07/07/20 07/06/20 Range/Units 05:47 05:47 16:20 WBC 11.46 H (4.8-10.8) K/uL RBC 4.24 (4.2-5.4) M/uL Hgb 13.0 (12.0-16.0) g/dL Hct 40.5 (37-47) % MCV 95.5 (80-100) fL MCH 30.7 (25-34) pg MCHC 32.1 (32-36) g/dL RDW Std Deviation 54.2 H (36.4-46.3) fL RDW Coeff of Conor 15.4 H (11.5-14.5) % Plt Count 232 (130-400) K/uL MPV 11.6 H (7.4-10.4) fL Sodium 143 (136-145) mmol/L Potassium 4.3 (3.5-5.1) mmol/L Chloride 109 H (98-107) mmol/L Carbon Dioxide 27 (21-32) mmol/L Anion Gap 7.0 (3-11) BUN 23 H (7-18) mg/dl Creatinine 0.73 (0.6-1.2) mg/dl Est Cr Clr Drug Dosing 58.8 ml/min Est GFR ( Amer) 87.0 Est GFR (Non-Af Amer) 75.1 BUN/Creatinine Ratio 31.8 H (10-20) Glucose 84 (70-99) mg/dl Calcium 9.2 (8.5-10.1) mg/dl Urine Color Yellow Urine Appearance Cloudy A (Clear) Urine pH 7.5 (4.5-7.5) Ur Specific [place] 1.017 (1.000-1.030) Urine Protein Negative (Negative) Urine Glucose (UA) Negative (Negative) Urine Ketones Trace H (Negative) Urine Blood Negative (Negative) Urine Nitrite Positive A (Negative) Urine Bilirubin Negative (Negative) Urine Urobilinogen Negative (Negative) Ur Leukocyte Esterase 1+ H (Negative) Urine WBC (Auto) >30 H (0-5) /hpf Urine RBC (Auto) 10-30 H (0-4) /hpf U Hyaline Cast (Auto) 0 (0-5) /lpf U Epithel Cells (Auto) 0-5 (0-5) /lpf Urine Bacteria (Auto) 3+ H (Negative) Medications Administered Current Inpatient Medications Acetaminophen (Acetaminophen 325 Mg Tab) 650 mg PO Q4H PRN PRN Reason: pain/fever Stop: 08/05/20 15:27 Albuterol (Albut/Ipratrop 3mg/0.5mg Neb 3 Ml Vial) 3 ml NEB Q4R PRN PRN Reason: Shortness Of Breath Or Wheezing Stop: 08/05/20 15:27 Alendronate Sodium (Alendronate Sodium 70 Mg Tab) 70 mg PO Fr@0630 [facility] Stop: 08/10/20 06:29 Aspirin (Aspirin 81 Mg Ectab) 81 mg PO QAM [facility] Stop: 08/06/20 08:59 Last Admin: 07/07/20 08:34 Dose: 81 mg Documented by: Carbidopa/Levodopa (Carbidopa/Levodopa 25/100mg Ext Rel Tab) 2 tab PO HS [facility] Stop: 08/05/20 20:59 Last Admin: 07/06/20 20:35 Dose: 2 tab Documented by: Carbidopa/Levodopa (Carbidopa/Levodopa 25/100mg Tab) 2 tab PO QAM [facility] Stop: 08/06/20 08:59 Last Admin: 07/07/20 08:33 Dose: 2 tab Documented by: Carbidopa/Levodopa (Carbidopa/Levodopa 25/100mg Tab) 1.5 tab PO TID@1100,1400,1700 [facility] Stop: 08/05/20 16:59 Last Admin: 07/07/20 11:12 Dose: 1.5 tab Documented by: Heparin Sodium (Porcine) (Heparin Sod 5,000 Unit/0.5 Ml Vial) 5,000 units SQ Q12 [facility] Stop: 08/05/20 20:59 Last Admin: 07/07/20 08:33 Dose: 5,000 units Documented by: Hydralazine HCl (Hydralazine Hcl 20 Mg/Ml Vial) 5 mg IV Q6H PRN PRN Reason: Blood Pressure - High Stop: 08/05/20 11:13 Last Admin: 07/06/20 12:22 Dose: 5 mg Documented by: Ceftriaxone Sodium 1,000 mg/ (Dextrose) 50 mls @ 100 mls/hr IV Q24H [facility]; Protocol Stop: 07/12/20 07:59 Last Infusion: 07/07/20 10:00 Dose: Infused Documented by: Lisinopril (Lisinopril 10 Mg Tab) 10 mg PO QAM [facility] Stop: 08/05/20 15:59 Last Admin: 07/07/20 08:34 Dose: 10 mg Documented by: Miconazole Nitrate (Miconazole Nitrate Powder 43 Gm) 1 appln EXT PRN PRN PRN Reason: Affected Skin Folds Stop: 08/05/20 19:02 Polyethylene Glycol (Polyethylene (Miralax) 17 Gm Pack) 17 gm PO DAILY PRN PRN Reason: Constipation Stop: 08/05/20 15:27 (1) Fall Encounter type: initial encounter Qualified Code(s): W19.XXXA - Unspecified fall, initial encounter (2) Osteoporosis Osteoporosis type: age-related Presence of current pathological fracture: without current pathological fracture Qualified Code(s): M81.0 - Age-related osteoporosis without current pathological fracture (3) Aortic stenosis Cardiac valve disease etiology: nonrheumatic Qualified Code(s): I35.0 - Nonrheumatic aortic (valve) stenosis
[2020-07-07] MEDS: CARBIDOPA/LEVODOPA 25/100MG EXT REL TAB PO SCH (21:51)
[2020-07-08 06:55] LABS: Hematocrit (blood only) 38.4 % (37-47); Hemoglobin 12.2 g/dL (12.0-16.0); Mean Corpuscular Hemoglobin 30.2 pg (25-34); Mean Corpuscular Hgb Conc 31.8 g/dL (32-36); Mean Platelet Volume 11.1 fL (7.4-10.4); Platelet Count 206 K/uL (130-400); RDW Coefficient of Variation 15.2 % (11.5-14.5); RDW Standard Deviation 53.4 fL (36.4-46.3); Red Blood Count 4.04 M/uL (4.2-5.4); White Blood Count 6.27 K/uL (4.8-10.8)
--- NOTE | 2020-07-08 07:25 | Hospitalist Progress Note ---
Date of Service July 08, 2020 Assessment & Plan (1) Fall: Patient with multiple falls at home Admitted today for a fall at 3 AM on left side transferring from wheelchair to bed Most recent fall prior to that was on Tuesday Due to multiple falls, Parkinson's disease, progressive generalized weakness it is felt the patient would be best served with placement Patient and daughter agree with this Will request case management to assist with referral to [facility] 3-day overnight is not required per case management PT OT is ordered for evaluation and treatment -recommend SNF Pt was accepted - plan to dc to snf UTI UA concerning for UTI, urine culture is growing E. coli, pansensitive - cont. Rocephin while inpatient, switch to cefuroxime p.o. on discharge (2) Parkinson disease: Patient states it appears to be stable Continue carbidopa/levodopa per home regimen (3) Ambulatory dysfunction: Patient states that she lives alone and is wheelchair-bound Falls have been secondary to weakness transferring from wheelchair to bed or wheelchair to chair PT/OT consult for evaluation and treatment and referral to longterm facility (4) Hypertension: Patient previously on lisinopril 5 mg daily. This was increased to 10 mg daily at her last hospital stay when she was discharged 06/02/2020 We will continue lisinopril 10 mg daily Hydralazine 5 mg IV every 6 hours for systolic blood pressure greater than 160 while inpt May require second agent such as Norvasc Will reevaluate during the stay prior to discharge (5) Dyslipidemia: No statin at home We will continue with outpatient management (6) Osteoporosis: Continue alendronate every Tuesday (7) Aortic stenosis: Patient denies history of rheumatic fever but states that she has "always had a murmur" Moderate aortic stenosis per echocardiogram completed 06/02/2020 This is progressed from mild in 2017 Watch fluid balance (8) DVT prophylaxis: Heparin 5000 units subcutaneously every 12 hours while inpt Admission and Anticipated Discharge Date Admission Date: July 06, 2020 Subjective Pt seen in follow-up of ambulatory dysfunction, in the setting of Parkinson's disease, possible UTI Currently patient is lying in bed, in no acute distress No fevers or chills, chest pain or shortness of breath Review of Systems Review of Systems: All systems reviewed & are unremarkable except as noted in HPI & below Constitutional: no fever and no chills Respiratory: no cough and no dyspnea Cardiovascular: no chest pain and no palpitations Gastrointestinal: no abdominal pain, no nausea and no vomiting Physical Exam Physical Exam: GENERAL : Elderly female sitting up in bed, in no acute distress EYES: No icterus, gaze conjugate NOSE: No evidence of epistaxis MOUTH: Normal oropharynx NECK: Supple LUNGS: CTAB, no wheezing, rhonchi, crackles HEART: Regular, rate controlled, + syst. murmur ABDOMEN: Soft, NT, ND, BS Present EXTREMITIES: No LE edema, pedal pulses intact NEURO: A&OX3. Answers questions appropriately. Moves extremities spontaneously Results & Data Results & Data ([facility]) Vital Signs (Past 12 Hours) Vital Signs Temp Pulse Resp BP Pulse Ox 07/07/20 23:44 36.6 C 82 16 101/58 L 94 Laboratory Results 07/08/20 07/08/20 Range/Units 06:16 06:16 WBC 6.27 (4.8-10.8) K/uL RBC 4.04 L (4.2-5.4) M/uL Hgb 12.2 (12.0-16.0) g/dL Hct 38.4 (37-47) % MCV 95.0 (80-100) fL MCH 30.2 (25-34) pg MCHC 31.8 L (32-36) g/dL RDW Std Deviation 53.4 H (36.4-46.3) fL RDW Coeff of Conor 15.2 H (11.5-14.5) % Plt Count 206 (130-400) K/uL MPV 11.1 H (7.4-10.4) fL Sodium 143 (136-145) mmol/L Potassium 3.9 (3.5-5.1) mmol/L Chloride 111 H (98-107) mmol/L Carbon Dioxide 27 (21-32) mmol/L Anion Gap 5.0 (3-11) BUN 26 H (7-18) mg/dl Creatinine 0.67 (0.6-1.2) mg/dl Est Cr Clr Drug Dosing 64.0 ml/min Est GFR ( Amer) 92.9 Est GFR (Non-Af Amer) 80.2 BUN/Creatinine Ratio 37.9 H (10-20) Glucose 79 (70-99) mg/dl Calcium 8.7 (8.5-10.1) mg/dl Medications Administered Current Inpatient Medications Acetaminophen (Acetaminophen 325 Mg Tab) 650 mg PO Q4H PRN PRN Reason: pain/fever Stop: 08/05/20 15:27 Albuterol (Albut/Ipratrop 3mg/0.5mg Neb 3 Ml Vial) 3 ml NEB Q4R PRN PRN Reason: Shortness Of Breath Or Wheezing Stop: 08/05/20 15:27 Alendronate Sodium (Alendronate Sodium 70 Mg Tab) 70 mg PO Fr@0630 [facility] Stop: 08/10/20 06:29 Aspirin (Aspirin 81 Mg Ectab) 81 mg PO QAM [facility] Stop: 08/06/20 08:59 Last Admin: 07/07/20 08:34 Dose: 81 mg Documented by: Carbidopa/Levodopa (Carbidopa/Levodopa 25/100mg Ext Rel Tab) 2 tab PO HS [facility] Stop: 08/05/20 20:59 Last Admin: 07/07/20 21:51 Dose: 2 tab Documented by: Carbidopa/Levodopa (Carbidopa/Levodopa 25/100mg Tab) 2 tab PO QAM [facility] Stop: 08/06/20 08:59 Last Admin: 07/07/20 08:33 Dose: 2 tab Documented by: Carbidopa/Levodopa (Carbidopa/Levodopa 25/100mg Tab) 1.5 tab PO TID@1100,1400,1700 [facility] Stop: 08/05/20 16:59 Last Admin: 07/07/20 17:52 Dose: 1.5 tab Documented by: Heparin Sodium (Porcine) (Heparin Sod 5,000 Unit/0.5 Ml Vial) 5,000 units SQ Q12 [facility] Stop: 08/05/20 20:59 Last Admin: 07/07/20 21:54 Dose: 5,000 units Documented by: Hydralazine HCl (Hydralazine Hcl 20 Mg/Ml Vial) 5 mg IV Q6H PRN PRN Reason: Blood Pressure - High Stop: 08/05/20 11:13 Last Admin: 07/06/20 12:22 Dose: 5 mg Documented by: Ceftriaxone Sodium 1,000 mg/ (Dextrose) 50 mls @ 100 mls/hr IV Q24H [facility]; Protocol Stop: 07/12/20 07:59 Last Infusion: 07/07/20 10:00 Dose: Infused Documented by: Lisinopril (Lisinopril 10 Mg Tab) 10 mg PO QAM JEN Stop: 08/05/20 15:59 Last Admin: 07/07/20 08:34 Dose: 10 mg Documented by: Miconazole Nitrate (Miconazole Nitrate Powder 43 Gm) 1 appln EXT PRN PRN PRN Reason: Affected Skin Folds Stop: 08/05/20 19:02 Polyethylene Glycol (Polyethylene (Miralax) 17 Gm Pack) 17 gm PO DAILY PRN PRN Reason: Constipation Stop: 08/05/20 15:27 (1) Osteoporosis Osteoporosis type: age-related Presence of current pathological fracture: without current pathological fracture Qualified Code(s): M81.0 - Age-related osteoporosis without current pathological fracture (2) Aortic stenosis Cardiac valve disease etiology: nonrheumatic Qualified Code(s): I35.0 - Nonrheumatic aortic (valve) stenosis (3) Fall Encounter type: initial encounter Qualified Code(s): W19.XXXA - Unspecified fall, initial encounter
[2020-07-08 07:27] LABS: BUN Creatinine Ratio 37.9 (10-20); Calcium 8.7 mg/dl (8.5-10.1); Est GFR (African American) 92.9; Est GFR (Non-African American) 80.2; Potassium 3.9 mmol/L (3.5-5.1)
--- NOTE | 2020-07-08 08:35 | Discharge Summary ---
Date of Service July 08, 2020 Admission HPI Per Admitting Provider Attending: Dr. Ndiaye This is a pleasant 84-year-old female who currently lives alone at home. She has a past medical history of parkinsonian disease, ambulatory dysfunction, chronic wheelchair use, osteoporosis is, hypertension, dyslipidemia, chronic allergic rhinitis, aortic stenosis, history of left hip fracture. The patient presents with weakness and reports multiple falls in the last 2 weeks. She lives alone but has support from her daughter. The patient is wheelchair-bound. She has been talking with her daughter about placement secondary to her parkinsonism. At 3 AM this morning she was transferring from her wheelchair to her bed and fell on her left side. She complained of left hip and femur pain as well as left wrist pain. X-ray imaging of hip pelvis leg and wrist are all negative for acute fracture. At the time of my examination she denied any pain to these areas. She has no recent illness. She denies any symptoms of Covid. She denies previous history of Covid. She has no fever or chills. She has no irritation with urination. She states that her weakness is chronic and progressive secondary to Parkinson's. She has no other complaints at this time. Admission Exam Per Admitting Provider GENERAL : No acute distress EYES: No icterus, gaze conjugate NOSE: No evidence of epistaxis MOUTH: No lesions or candidiasis NECK: Supple LUNGS: Some upper field bronchospasm with expiration. No specific rales or rhonchi. HEART: Regular, rate controlled ABDOMEN: Soft, NT, ND, BS Present EXTREMITIES: No LE edema, pedal pulses intact NEURO: A&OX3. No cogwheeling. Minimal weakness of her lower extremities. Patient has good sensation to palpation. Principal Diagnosis Fall Ambulatory dysfunction secondary to Parkinson's disease UTI Hypertension Discharge Exam GENERAL : Elderly female laying bed, in no acute distress HEAD: NC/AT EYES: no icterus, PERRL, EOMI MOUTH: Normal oropharynx NECK: Supple LUNGS: CTAB, no wheezing, rhonchi, crackles HEART: Regular, rate controlled, + syst. murmur ABDOMEN: Soft, NT, ND, BS Present EXTREMITIES: No LE edema, pedal pulses intact NEURO: A&OX3. Answers questions appropriately. Moves extremities spontaneously Discharge Data Allergies Allergy/AdvReac Type Severity Reaction Status Date / Time No Known Allergies Allergy Verified 07/06/20 08:55 Consultations 07/06/20 10:35 ED Decision to Admit Stat 07/06/20 15:28 Consult Case Management - Discharge Planning Routine Hospital Course (1) Fall: Patient with multiple falls at home Admitted today for a fall at 3 AM on left side transferring from wheelchair to bed Most recent fall prior to that was on Tuesday Due to multiple falls, Parkinson's disease, progressive generalized weakness it is felt the patient would be best served with placement Patient and daughter agree with this Will request case management to assist with referral to [facility] 3-day overnight is not required per case management PT OT is ordered for evaluation and treatment -recommend SNF Pt was accepted - plan to dc to snf UTI UA concerning for UTI, urine culture is growing E. coli, pansensitive - cont. Rocephin while inpatient, switch to cefuroxime p.o. on discharge (2) Parkinson disease: Patient states it appears to be stable Continue carbidopa/levodopa per home regimen (3) Ambulatory dysfunction: Patient states that she lives alone and is wheelchair-bound Falls have been secondary to weakness transferring from wheelchair to bed or wheelchair to chair PT/OT consult for evaluation and treatment and referral to senior care facility (4) Hypertension: Patient previously on lisinopril 5 mg daily. This was increased to 10 mg daily at her last hospital stay when she was discharged 06/02/2020 We will continue lisinopril 10 mg daily Hydralazine 5 mg IV every 6 hours for systolic blood pressure greater than 160 while inpt May require second agent such as Norvasc Will reevaluate during the stay prior to discharge (5) Dyslipidemia: No statin at home We will continue with outpatient management (6) Osteoporosis: Continue alendronate every Tuesday (7) Aortic stenosis: Patient denies history of rheumatic fever but states that she has "always had a murmur" Moderate aortic stenosis per echocardiogram completed 06/02/2020 This is progressed from mild in 2017 Watch fluid balance (8) DVT prophylaxis: Heparin 5000 units subcutaneously every 12 hours while inpt Total Time Total Time Spent Total Time Spent (In Minutes): 35 Total Time Includes: Examination of the Patient, Discharge Planning and Medicat ion Reconciliation Discharge Plan Discharge Items Patient Disposition: Transfer Detention Fac Reason For Visit: FALLS,WEAKNESS Discharge Diagnosis: Fall Ambulatory dysfunction secondary to Parkinson's disease UTI Hypertension Activity: Per Instructions section Non-emergency contact: Primary Care Provider Call non-emergency contact if: you have any medication questions and your symptoms worsen Follow-up/Referrals: Cheryl Byers, [Primary Care Provider] - Diet: Heart Healthy Addtl Attending Provider Instructions: Finish the antibiotic treatment for UTI, as prescribed. Monitor your blood pressure on a regular basis, your blood pressure medications may need further adjustment. For now increase your dose of lisinopril to 10 mg daily. Pending Studies at Discharge: Yes Stand-Alone Forms: My [facility] Skilled Items Patient informed of condition?: Yes DNR: Yes Discharge Level of Care: Skilled Communicable Disease: No Discharge Prognosis: Stable Lines: None Urinary Catheter: No Medications and DC Order Prescriptions: New lisinopril 10 mg Tablet 10 mg PO QAM Qty: 14 RF: 0 cefuroxime axetil 250 mg tablet 250 mg PO BID 2 Days Qty: 4 RF: 0 Continued alendronate [Fosamax] 70 mg Tablet 70 mg PO FR RF: 0 carbidopa-levodopa 25-100 mg Tablet See Rx Instructions .ROUTE .COMPLEX RF: 0 aspirin 81 mg Tablet,Delayed Release (Dr/Ec) 81 mg PO QAM RF: 0 tramadol 50 mg Tablet 50 mg PO UD PRN (Reason: Pain) RF: 0 carbidopa-levodopa 25-100 mg Tablet Extended Release 2 tab PO HS RF: 0 Discontinued lisinopril 2.5 mg tablet 5 mg PO QAM RF: 0 Discharge Orders: Discharge Order (Routine); Ordered 07/08/20 Ordered By: Sridhar Ndiaye Admission Data Admit Date/Time: 07/06/20 11:14 Attending Provider: Sridhar Ndiaye Admit Provider: Sridhar Ndiaye Primary Care Provider: Cheryl Byers Other Providers: Sridhar Ndiaye ; [facility]
[2020-07-08] MEDS: ASPIRIN 81 MG ECTAB PO SCH (08:55)
[2020-07-08] MEDS: cefTRIAXone SODIUM 1,000 MG in DEXTROSE 5% 50 ML IV SCH (08:56)
[2020-07-08] MEDS: lisinopril 10 MG TAB PO SCH (08:56)
[2020-07-08] MEDS: CARBIDOPA/LEVODOPA 25/100MG TAB PO SCH ×2 (08:56→10:30)
[2020-07-08] MEDS: HEPARIN SOD 5,000 UNIT/0.5 ML VIAL SQ SCH (08:57)
[2020-07-11] MEDS ORDERED: ALENDRONATE SODIUM 70 MG TAB PO SCH (06:30)
== END 2020-07-08 12:51 ==
LOC: ED 08:11 → 3W 08:11

== ENCOUNTER 2020-08-27 13:11 | Observation (INO) ==
--- NOTE | 2020-08-27 13:32 | CT Scan Report ---
CT head/brain wo con CLINICAL HISTORY: 84 years-old Female with Stroke Like Symptoms. Acute strokelike symptoms TECHNIQUE: Multiple axial CT images of the head were obtained without contrast. A dose lowering tech nique was utilized adhering to the principles of ALARA. CT DOSE: 1259.45 mGycm COMPARISON: Head CT 07/08/2020 FINDINGS: No acute intracranial hemorrhage, midline shift, intracranial mass, hydrocephalus, territorial ischem ia or abnormal extra-axial collection. Motion degraded exam. Age-related involutional changes with ch ronic microvascular ischemic disease. Cerebral vascular calcifications. The calvarium is intact. Prior bilateral lens replacement. Unchanged metallic density structure of th e left parietal scalp. The paranasal sinuses, mastoid air cells, and middle ear cavities are clear. IMPRESSION: Motion degraded exam without acute intracranial abnormality identified. ACT 112: Negative or not required by law. The above report was generated using voice recognition software. It may contain grammatical, syntax o r spelling errors. Electronically signed by: Meño Aleman M.D. 08/27/2020 1:31 PM
[2020-08-27] MEDS ORDERED: OPTIRAY 320 125ml IV ONE (13:35)
--- NOTE | 2020-08-27 13:44 | CT Scan Report ---
CT angio head w con CLINICAL HISTORY: 84 years-old Female with Stroke Like Symptoms. Acute strokelike symptoms COMPARISON STUDY: Head CT of same day and also 07/08/2020 TECHNIQUE: Following the IV administration of 118 cc of Optiray 320, CT angiogram of the brain was pe rformed from the skull base to the vertex. Images are reviewed in the axial, sagittal, and coronal pl anes. 3-D MIPS images are created and assessed. IV contrast was administered without complication. Al l measurements were obtained according to NASCET criteria. A dose lowering technique was utilized adh ering to the principles of ALARA. CT DOSE: 1176.79 mGycm FINDINGS: CT ANGIOGRAM OF THE BRAIN: Motion degraded exam. Calcified plaque of the cavernous, clinoid and supraclinoid segments of the int ernal carotid arteries without high-grade stenosis. The middle and anterior cerebral arteries are pat ent. Diminutive right A1 segment, likely developmental. The imaged vertebral arteries are patent. Curtis cified plaque of the V4 segment left vertebral artery without high-grade stenosis. Patent basilar art luisa. There is mild multifocal luminal narrowing of the posterior cerebral arteries. No aneurysm, diss ection, high-grade stenosis or proximal branch occlusion. The cerebral venous sinuses are patent. No abnormal intracranial enhancement. Unremarkable soft tissues. Prior bilateral lens repair. Metallic density surgical clip-shaped structu re of the left parietal scalp redemonstrated. IMPRESSION: Unremarkable CTA of the head. ACT 112: Negative or not required by law. The above report was generated using voice recognition software. It may contain grammatical, syntax o r spelling errors. Electronically signed by: Meño Aleman M.D. 08/27/2020 1:42 PM
--- NOTE | 2020-08-27 13:53 | CT Scan Report ---
CT ANGIOGRAPHY OF THE NECK WITH CONTRAST CLINICAL HISTORY: Stroke Like Symptoms COMPARISON STUDY: No previous studies for comparison. Technique: CT angiography of the carotid and vertebral arteries was obtained using [employer] 320 IV and 3D reconstruction on an independent workstation. NASCET criteria was utilized. Automated exposure c ontrol was utilized for the study. A dose lowering technique was utilized adhering to the principles of ALARA. Findings: No acute cervical fracture is noted. There is no cervical lymphadenopathy. There is a porti on of the lung apices are unremarkable. There is moderate plaque within the bilateral carotid bifurca tions. There is no significant stenosis within the right common carotid or internal carotid arteries. There is 40% stenosis of the distal left common carotid artery. The more proximal common carotid art luisa measures 7 mm in caliber wall of the vessel measures 3.6 mm in caliber at site of stenosis. There is no stenosis within the cervical portion of the left internal carotid artery. There is no dissecti on within the vessels within the neck. The bilateral vertebral arteries are patent. IMPRESSION: 1. Moderate plaque within the bilateral carotid bifurcations. 40% stenosis of the distal left common carotid artery. No significant stenosis within the bilateral cervical internal carotid arteries. 2. No dissection within neck. ACT 112: Negative or not required by law. Electronically signed by: Uvaldo Peres M.D. 08/27/2020 1:51 PM
[2020-08-27 14:00] LABS: Basophils # (auto) 0.03 K/uL (0-0.2); Basophils % (auto) 0.4 %; Eosinophils % (auto) 6.1 %; Hematocrit (blood only) 33.9 % (37-47); Hemoglobin 11.1 g/dL (12.0-16.0); Immature Granulocytes # (auto) 0.03 K/uL (0.00-0.02); Immature Granulocytes % (auto) 0.4 %; Lymphocytes # (auto) 1.58 K/uL (1.2-3.4); Lymphocytes % (auto) 19.2 %; Mean Corpuscular Hemoglobin 30.7 pg (25-34); Mean Corpuscular Hgb Conc 32.7 g/dL (32-36); Mean Corpuscular Volume 93.9 fL (80-100); Mean Platelet Volume 11.7 fL (7.4-10.4); Monocytes # (auto) 0.66 K/uL (0.11-0.59); Neutrophils # (auto) 5.45 K/uL (1.4-6.5); Neutrophils % (auto) 65.9 %; Platelet Count 202 K/uL (130-400); RDW Coefficient of Variation 15.2 % (11.5-14.5); RDW Standard Deviation 52.6 fL (36.4-46.3); Red Blood Count 3.61 M/uL (4.2-5.4); White Blood Count 8.25 K/uL (4.8-10.8)
[2020-08-27 14:18] LABS: Appearance Urine Clear (Clear); Bilirubin Urine Negative (Negative); Blood Urine Negative (Negative); Color Urine Yellow; Glucose Urine UA Negative (Negative); Ketones Urine Negative (Negative); Leukocyte Esterase Urine Negative (Negative); Nitrite Urine Negative (Negative); Protein Urine Negative (Negative); Specific Gravity Urine > 1.045 (1.000-1.030); Urobilinogen Urine Negative (Negative)
[2020-08-27 14:21] LABS: Alanine Aminotransferase < 6 U/L (12-78); Albumin Level 2.5 gm/dl (3.4-5.0); BUN Creatinine Ratio 41.7 (10-20); Blood Urea Nitrogen 26 mg/dl (7-18); Carbon Dioxide 26 mmol/L (21-32); Chloride 110 mmol/L (98-107); Est GFR (African American) 94.8; Est GFR (Non-African American) 81.8; Glucose 93 mg/dl (70-99)
[2020-08-27 14:27] LABS: Partial Thromboplastin Ratio 0.9; Partial Thromboplastin Time 24.6 Seconds (21.0-31.0); Prothrombin Time 10.5 Seconds (9.0-12.0)
[2020-08-27 14:44] LABS: Albumin Globulin Ratio 0.7 (0.9-2); Alkaline Phosphatase 88 U/L (45-117); Anion Gap 5 (3-11); Aspartate Aminotransferase 8 U/L (15-37); Bilirubin,Total 0.5 mg/dl (0.2-1); Globulin 3.7 gm/dl (2.5-4.0); Magnesium 2.1 mg/dl (1.8-2.4); Potassium 4.2 mmol/L (3.5-5.1); Sodium 141 mmol/L (136-145); Total Protein 6.2 gm/dl (6.4-8.2); Troponin I < 0.015 ng/ml (0-0.045)
--- NOTE | 2020-08-27 14:59 | Emergency Department Note ---
History of Present Illness General Chief complaint: Stroke Alert Time Seen by Provider: 08/27/20 13:14 Source: patient and EMS Mode of arrival: EMS Limitations: no limitations History of Present Illness This patient came in with a last known well at 930. She reportedly had some confusion a blank stare and difficult speech. BMI BLS arrival also thought she might be weak on her left side of her face. I did call and talk to the paramedics who felt that her neurologic exam had improved but he was not sure about her speech she does have a history of Parkinson's. Blood sugar was okay on route as was her blood pressure. She had no fall or trauma she did have a cat bite or lesion on her left hand. No known trauma trauma or fall. Denies any change in vision. Upon arrival she answers questions appropriately and does not seem to have any definite deficits. I did call a stroke alert prior to arrival and she got a CT of her head as well as a CT of the head neck. Home Medications Medication Instructions Recorded Confirmed Type alendronate [Fosamax] 70 mg PO WK 03/21/18 08/27/20 History carbidopa-levodopa See Rx Instructions .ROUTE .COMPLEX 03/21/18 08/27/20 History tramadol 50 mg PO UD PRN 07/24/18 08/27/20 History aspirin 81 mg PO QAM 05/30/20 08/27/20 History lisinopril 10 mg PO QAM #14 tab 07/08/20 08/27/20 Rx clindamycin phosphate 1 applic TOPICAL AMHS 08/27/20 08/27/20 History clotrimazole 1 applic TOPICAL BID 08/27/20 08/27/20 History nystatin 1 applic TOPICAL BID 08/27/20 08/27/20 History triamcinolone acetonide 1 applic TOPICAL BID 08/27/20 08/27/20 History Allergies Allergy/AdvReac Type Severity Reaction Status Date / Time No Known Allergies Allergy Verified 08/27/20 14:51 Past Med/Surg History Medical History Aortic stenosis "Mild-moderate per echo 03/15/17" Chronic allergic rhinitis Dyslipidemia Generalized weakness Hypertension Osteoporosis Parkinson disease Urinary tract infection Surgical History H/O colonoscopy "2011" History of fracture of left hip History of left hip replacement Hx of cataract surgery Family History (Updated 08/27/20 @ 17:20 by Eryn Kam PA-C) Father Esophageal cancer Mother Breast cancer Social History Smoking Status: Never smoker Second Hand Exposure: No; Hx Alcohol Use: No Hx Substance Use: No Preferred Language: Moldovan Communication Ability: Effective Display Card Writer Required: No Beliefs That Will Affect Care: None marital status: / Current Living Situation: Alone Current Living Situation Comment: daughter comes in to help during the day How many Children do You have: 1 Feels Safe at Home: Yes Assistive Devices: Denture - Upper, Denture - Lower and Wheelchair Review of Systems A total of 10 systems reviewed and were otherwise negative Physical Exam Vital Signs Vital Signs - 24 hr 08/27/20 13:45 08/27/20 13:53 08/27/20 14:01 Temperature 36.5 C Temperature Source Oral Pulse Rate 90 91 H Pulse Rate from SpO2 Sensor 91 H 92 H Respiratory Rate 21 27 H Respiratory Effort / Characteristics Non-Labored Spontaneous Respiratory Depth Normal Blood Pressure 190/94 H 190/98 H Blood Pressure Mean 126 128 Pulse Oximetry 100 99 Oxygen Delivery Method Room Air Room Air Sepsis Recent Fever Within 48 Hours No Sepsis New/Unexplained Change in Mental Status No Sepsis Action Taken by Nursing No Action Required 08/27/20 14:15 08/27/20 14:30 08/27/20 14:45 Temperature Temperature Source Pulse Rate 79 73 79 Pulse Rate from SpO2 Sensor 78 74 78 Respiratory Rate 20 19 19 Respiratory Effort / Characteristics Respiratory Depth Blood Pressure 191/98 H 186/109 H 194/78 H Blood Pressure Mean 129 134 116 Pulse Oximetry 100 100 98 Oxygen Delivery Method Sepsis Recent Fever Within 48 Hours Sepsis New/Unexplained Change in Mental Status Sepsis Action Taken by Nursing 08/27/20 15:00 08/27/20 15:15 08/27/20 15:30 Temperature Temperature Source Pulse Rate 78 81 78 Pulse Rate from SpO2 Sensor 78 80 78 Respiratory Rate 20 18 17 Respiratory Effort / Characteristics Respiratory Depth Blood Pressure 199/92 H 197/94 H 193/87 H Blood Pressure Mean 127 128 122 Pulse Oximetry 100 100 100 Oxygen Delivery Method Sepsis Recent Fever Within 48 Hours Sepsis New/Unexplained Change in Mental Status Sepsis Action Taken by Nursing 08/27/20 15:45 08/27/20 16:00 08/27/20 16:15 Temperature Temperature Source Pulse Rate 80 85 83 Pulse Rate from SpO2 Sensor 79 85 83 Respiratory Rate 18 20 17 Respiratory Effort / Characteristics Respiratory Depth Blood Pressure 198/82 H 196/95 H 190/88 H Blood Pressure Mean 120 128 122 Pulse Oximetry 100 100 100 Oxygen Delivery Method Sepsis Recent Fever Within 48 Hours Sepsis New/Unexplained Change in Mental Status Sepsis Action Taken by Nursing 08/27/20 16:30 08/27/20 16:45 Temperature Temperature Source Pulse Rate 89 91 H Pulse Rate from SpO2 Sensor 89 90 Respiratory Rate 23 21 Respiratory Effort / Characteristics Respiratory Depth Blood Pressure 190/91 H 173/108 H Blood Pressure Mean 124 129 Pulse Oximetry 97 99 Oxygen Delivery Method Sepsis Recent Fever Within 48 Hours Sepsis New/Unexplained Change in Mental Status Sepsis Action Taken by Nursing General: Well developed, well nourished older female in no acute distress. Normal speech, no facial assymetry HEENT: Normal cephalic atraumatic. Pupils are equal round and reactive to light. Extraocular movements are intact. Oropharynx is pink with moist mucous membranes. No swelling of the mouth lips or tongue. Neck: Supple with a midline trachea. No meningeal signs or stiffness, no JVD or bruits. No Stridor. Chest: Clear to auscultation bilaterally. No wheezes or rhonchi. No increased work of breathing. Heart: Regular rate and rhythm without murmurs or gallops. Abdomen: Soft nontender, nondistended without rebound guarding or rigidity. Extremities: No cyanosis clubbing or edema. No calf tenderness or assymetry Spine/Back. Non tender to palpation. No CVA tenderness Skin: Good turgor without rashes. Neurologic exam: Cranial nerves two through 12 are intact. Motor and sensation are intact and symmetrical throughout. General: Well developed well nourished in no acute distress, breathing comfortably on room air. Normal speech Course Administered Medications Discontinued Medications Aspirin (Aspirin 81 Mg Chew) 324 mg PO NOW STA Stop: 08/27/20 17:00 Last Admin: 08/27/20 17:07 Dose: 324 mg Documented by: [id number] Ioversol (Optiray 320 125ml) 120 ml IV ONCE ONE Stop: 08/27/20 13:36 Last Admin: 08/27/20 13:35 Dose: 120 ml Documented by: [id number] Medical Decision Making Differential Diagnosis Stroke, Sepsis, electrolyte or metabolic abnormality, infection, trauma, medication side effect Medical Records Attestation: I reviewed the patient's medical records. Home Medications Current Medication List: was personally reviewed by me Laboratory Data Attestation: I reviewed the patient's lab results. Result diagrams: 08/27/20 13:41 08/27/20 13:41 Lab Results 08/27/20 08/27/20 08/27/20 Range/Units 13:41 13:41 13:41 WBC 8.25 (4.8-10.8) K/uL RBC 3.61 L (4.2-5.4) M/uL Hgb 11.1 L (12.0-16.0) g/dL Hct 33.9 L (37-47) % MCV 93.9 (80-100) fL MCH 30.7 (25-34) pg MCHC 32.7 (32-36) g/dL RDW Std Deviation 52.6 H (36.4-46.3) fL RDW Coeff of Conor 15.2 H (11.5-14.5) % Plt Count 202 (130-400) K/uL MPV 11.7 H (7.4-10.4) fL Immature Gran % (Auto) 0.4 % Neut % (Auto) 65.9 % Lymph % (Auto) 19.2 % [place] % (Auto) 8.0 % Eos % (Auto) 6.1 % Baso % (Auto) 0.4 % Neut # (Auto) 5.45 (1.4-6.5) K/uL Lymph # (Auto) 1.58 (1.2-3.4) K/uL [place] # (Auto) 0.66 H (0.11-0.59) K/uL Eos # (Auto) 0.50 (0-0.5) K/uL Baso # (Auto) 0.03 (0-0.2) K/uL Immature Gran # (Auto) 0.03 H (0.00-0.02) K/uL PT 10.5 (9.0-12.0) Seconds INR 1.0 (0.9-1.1) APTT 24.6 (21.0-31.0) Seconds PTT Ratio 0.9 Sodium 141 (136-145) mmol/L Potassium 4.2 (3.5-5.1) mmol/L Chloride 110 H (98-107) mmol/L Carbon Dioxide 26 (21-32) mmol/L Anion Gap 5 (3-11) BUN 26 H (7-18) mg/dl Creatinine 0.63 (0.6-1.2) mg/dl Est Cr Clr Drug Dosing 69.0 ml/min Est GFR ( Amer) 94.8 Est GFR (Non-Af Amer) 81.8 BUN/Creatinine Ratio 41.7 H (10-20) Glucose 93 (70-99) mg/dl POC Glucose (70-99) mg/dl Calcium 8.0 L (8.5-10.1) mg/dl Magnesium 2.1 (1.8-2.4) mg/dl Total Bilirubin 0.5 (0.2-1) mg/dl AST 8 L (15-37) U/L ALT < 6 L (12-78) U/L Alkaline Phosphatase 88 (45-117) U/L Troponin I < 0.015 (0-0.045) ng/ml Total Protein 6.2 L (6.4-8.2) gm/dl Albumin 2.5 L (3.4-5.0) gm/dl Globulin 3.7 (2.5-4.0) gm/dl Albumin/Globulin Ratio 0.7 L (0.9-2) Urine Color Urine Appearance (Clear) Urine pH (4.5-7.5) Ur Specific [place] (1.000-1.030) Urine Protein (Negative) Urine Glucose (UA) (Negative) Urine Ketones (Negative) Urine Blood (Negative) Urine Nitrite (Negative) Urine Bilirubin (Negative) Urine Urobilinogen (Negative) Ur Leukocyte Esterase (Negative) COVID-19 Eval Order SARS-CoV-2 (PCR) (Negative) Influenza Type A (PCR) (Neg) Influenza Type B (PCR) (Neg) RSV (RT-PCR) (Neg) 08/27/20 08/27/20 08/27/20 Range/Units 13:46 14:05 14:05 WBC (4.8-10.8) K/uL RBC (4.2-5.4) M/uL Hgb (12.0-16.0) g/dL Hct (37-47) % MCV (80-100) fL MCH (25-34) pg MCHC (32-36) g/dL RDW Std Deviation (36.4-46.3) fL RDW Coeff of Conor (11.5-14.5) % Plt Count (130-400) K/uL MPV (7.4-10.4) fL Immature Gran % (Auto) % Neut % (Auto) % Lymph % (Auto) % [place] % (Auto) % Eos % (Auto) % Baso % (Auto) % Neut # (Auto) (1.4-6.5) K/uL Lymph # (Auto) (1.2-3.4) K/uL [place] # (Auto) (0.11-0.59) K/uL Eos # (Auto) (0-0.5) K/uL Baso # (Auto) (0-0.2) K/uL Immature Gran # (Auto) (0.00-0.02) K/uL PT (9.0-12.0) Seconds INR (0.9-1.1) APTT (21.0-31.0) Seconds PTT Ratio Sodium (136-145) mmol/L Potassium (3.5-5.1) mmol/L Chloride (98-107) mmol/L Carbon Dioxide (21-32) mmol/L Anion Gap (3-11) BUN (7-18) mg/dl Creatinine (0.6-1.2) mg/dl Est Cr Clr Drug Dosing ml/min Est GFR ( Amer) Est GFR (Non-Af Amer) BUN/Creatinine Ratio (10-20) Glucose (70-99) mg/dl POC Glucose 100 H (70-99) mg/dl Calcium (8.5-10.1) mg/dl Magnesium (1.8-2.4) mg/dl Total Bilirubin (0.2-1) mg/dl AST (15-37) U/L ALT (12-78) U/L Alkaline Phosphatase (45-117) U/L Troponin I (0-0.045) ng/ml Total Protein (6.4-8.2) gm/dl Albumin (3.4-5.0) gm/dl Globulin (2.5-4.0) gm/dl Albumin/Globulin Ratio (0.9-2) Urine Color Yellow Urine Appearance Clear (Clear) Urine pH 7.0 (4.5-7.5) Ur Specific [place] > 1.045 H (1.000-1.030) Urine Protein Negative (Negative) Urine Glucose (UA) Negative (Negative) Urine Ketones Negative (Negative) Urine Blood Negative (Negative) Urine Nitrite Negative (Negative) Urine Bilirubin Negative (Negative) Urine Urobilinogen Negative (Negative) Ur Leukocyte Esterase Negative (Negative) COVID-19 Eval Order CovFluRsv at [facility] SARS-CoV-2 (PCR) (Negative) Influenza Type A (PCR) (Neg) Influenza Type B (PCR) (Neg) RSV (RT-PCR) (Neg) 08/27/20 Range/Units 14:05 WBC (4.8-10.8) K/uL RBC (4.2-5.4) M/uL Hgb (12.0-16.0) g/dL Hct (37-47) % MCV (80-100) fL MCH (25-34) pg MCHC (32-36) g/dL RDW Std Deviation (36.4-46.3) fL RDW Coeff of Conor (11.5-14.5) % Plt Count (130-400) K/uL MPV (7.4-10.4) fL Immature Gran % (Auto) % Neut % (Auto) % Lymph % (Auto) % [place] % (Auto) % Eos % (Auto) % Baso % (Auto) % Neut # (Auto) (1.4-6.5) K/uL Lymph # (Auto) (1.2-3.4) K/uL [place] # (Auto) (0.11-0.59) K/uL Eos # (Auto) (0-0.5) K/uL Baso # (Auto) (0-0.2) K/uL Immature Gran # (Auto) (0.00-0.02) K/uL PT (9.0-12.0) Seconds INR (0.9-1.1) APTT (21.0-31.0) Seconds PTT Ratio Sodium (136-145) mmol/L Potassium (3.5-5.1) mmol/L Chloride (98-107) mmol/L Carbon Dioxide (21-32) mmol/L Anion Gap (3-11) BUN (7-18) mg/dl Creatinine (0.6-1.2) mg/dl Est Cr Clr Drug Dosing ml/min Est GFR ( Amer) Est GFR (Non-Af Amer) BUN/Creatinine Ratio (10-20) Glucose (70-99) mg/dl POC Glucose (70-99) mg/dl Calcium (8.5-10.1) mg/dl Magnesium (1.8-2.4) mg/dl Total Bilirubin (0.2-1) mg/dl AST (15-37) U/L ALT (12-78) U/L Alkaline Phosphatase (45-117) U/L Troponin I (0-0.045) ng/ml Total Protein (6.4-8.2) gm/dl Albumin (3.4-5.0) gm/dl Globulin (2.5-4.0) gm/dl Albumin/Globulin Ratio (0.9-2) Urine Color Urine Appearance (Clear) Urine pH (4.5-7.5) Ur Specific [place] (1.000-1.030) Urine Protein (Negative) Urine Glucose (UA) (Negative) Urine Ketones (Negative) Urine Blood (Negative) Urine Nitrite (Negative) Urine Bilirubin (Negative) Urine Urobilinogen (Negative) Ur Leukocyte Esterase (Negative) COVID-19 Eval Order SARS-CoV-2 (PCR) NEGATIVE (Negative) Influenza Type A (PCR) Negative (Neg) Influenza Type B (PCR) Negative (Neg) RSV (RT-PCR) Negative (Neg) Imaging Data Radiologist's Impression: Head CT 08/27/20 13:15 CT head/brain wo con CLINICAL HISTORY: 84 years-old Female with Stroke Like Symptoms. Acute strokelike symptoms TECHNIQUE: Multiple axial CT images of the head were obtained without contrast. A dose lowering technique was utilized adhering to the principles of ALARA. CT DOSE: 1259.45 mGycm COMPARISON: Head CT 07/08/2020 FINDINGS: No acute intracranial hemorrhage, midline shift, intracranial mass, hydrocephalus, territorial ischemia or abnormal extra-axial collection. Motion degraded exam. Age-related involutional changes with chronic microvascular ischemic disease. Cerebral vascular calcifications. The calvarium is intact. Prior bilateral lens replacement. Unchanged metallic density structure of the left parietal scalp. The paranasal sinuses, mastoid air cells, and middle ear cavities are clear. IMPRESSION: Motion degraded exam without acute intracranial abnormality identified. ACT 112: Negative or not required by law. The above report was generated using voice recognition software. It may contain grammatical, syntax or spelling errors. Electronically signed by: Meño Aleman M.D. 08/27/2020 1:31 PM Head CTA 08/27/20 13:15 CT angio head w con CLINICAL HISTORY: 84 years-old Female with Stroke Like Symptoms. Acute strokelike symptoms COMPARISON STUDY: Head CT of same day and also 07/08/2020 TECHNIQUE: Following the IV administration of 118 cc of Optiray 320, CT angiogram of the brain was performed from the skull base to the vertex. Images are reviewed in the axial, sagittal, and coronal planes. 3-D MIPS images are created and assessed. IV contrast was administered without complication. All measurements were obtained according to NASCET criteria. A dose lowering technique was utilized adhering to the principles of ALARA. CT DOSE: 1176.79 mGycm FINDINGS: CT ANGIOGRAM OF THE BRAIN: Motion degraded exam. Calcified plaque of the cavernous, clinoid and supraclinoid segments of the internal carotid arteries without high-grade stenosis. The middle and anterior cerebral arteries are patent. Diminutive right A1 segment, likely developmental. The imaged vertebral arteries are patent. Calcified plaque of the V4 segment left vertebral artery without high-grade stenosis. Patent basilar artery. There is mild multifocal luminal narrowing of the posterior cerebral arteries. No aneurysm, dissection, high-grade stenosis or proximal branch occlusion. The cerebral venous sinuses are patent. No abnormal intracranial enhancement. Unremarkable soft tissues. Prior bilateral lens repair. Metallic density surgical clip-shaped structure of the left parietal scalp redemonstrated. IMPRESSION: Unremarkable CTA of the head. ACT 112: Negative or not required by law. The above report was generated using voice recognition software. It may contain grammatical, syntax or spelling errors. Electronically signed by: Meño Aleman M.D. 08/27/2020 1:42 PM Neck CTA 08/27/20 13:15 CT ANGIOGRAPHY OF THE NECK WITH CONTRAST CLINICAL HISTORY: Stroke Like Symptoms COMPARISON STUDY: No previous studies for comparison. Technique: CT angiography of the carotid and vertebral arteries was obtained using [employer] 320 IV and 3D reconstruction on an independent workstation. NASCET criteria was utilized. Automated exposure control was utilized for the study. A dose lowering technique was utilized adhering to the principles of ALARA. Findings: No acute cervical fracture is noted. There is no cervical lymphadenopathy. There is a portion of the lung apices are unremarkable. There i s moderate plaque within the bilateral carotid bifurcations. There is no significant stenosis within the right common carotid or internal carotid arteries. There is 40% stenosis of the distal left common carotid artery. The more proximal common carotid artery measures 7 mm in caliber wall of the vessel measures 3.6 mm in caliber at site of stenosis. There is no stenosis within the cervical portion of the left internal carotid artery. There is no dissection within the vessels within the neck. The bilateral vertebral arteries are patent. IMPRESSION: 1. Moderate plaque within the bilateral carotid bifurcations. 40% stenosis of the distal left common carotid artery. No significant stenosis within the bilateral cervical internal carotid arteries. 2. No dissection within neck. ACT 112: Negative or not required by law. Electronically signed by: Uvaldo Peres M.D. 08/27/2020 1:51 PM Venous Doppler Study 08/27/20 17:22 BILATERAL LOWER EXTREMITY VENOUS DOPPLER CLINICAL HISTORY: Bilateral lower extremity swelling. COMPARISON STUDY: No previous studies for comparison. TECHNIQUE: Sonography of the deep venous system of the bilateral lower extremities was performed. Compression and augmentation were evaluated. FINDINGS: The bilateral common femoral, superficial femoral and popliteal veins were compressible. Augmentation was normal. Flow was shown within the deep calf vessels. IMPRESSION: No evidence of deep venous thrombus within the bilateral lower extremities. ACT 112: Negative or not required by law. Electronically signed by: Uvaldo Peres M.D. 08/27/2020 6:01 PM ECG Data Attestation: I personally reviewed and interpreted this ECG as follows: Indication: + weakness Rate (beats per minute): 87 Rhythm: + normal sinus ECG Intervals/blocks: + First degree AV block, + Normal QRS and + Normal QT ECG [place]: + Left axis deviation ECG ST segments: + Normal ST segments ECG Findings: + LVH; no PACs and no PVCs Comparison ECG Date: from (07/08/20) Change: no significant change MDM Narrative This patient comes in as described above. 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 I did call a stroke alert. The patient went straight to CAT scan had a CT a of her head neck as well as a CAT scan. I saw her when she came back her neurologic exam appears to be improved. She has no deficits. It is a little bit difficult to understand her talking but I do not think that she has any significant dysphagia. Her symptoms are certainly mild if at all present. She has a history of Parkinson's. She has no complaints. IV access was established and multiple blood testing was obtained. CAT scan and CTA of the head neck were unremarkable. Her blood work is unremarkable. EKG is unremarkable. I think she may have had a TIA she had an episode where she was staring off and was less responsive and had slurred speech and may be left-sided weakness. I do think she would benefit from observation. I did order aspirin 324 mg chewable and consult the [facility] to see this patient for his measure. Impression & Plan Transient neurologic deficit, Parkinson disease, Weakness, Aphasia Discharge Plan Visit Data Chief Complaint: Stroke Alert ED Provider: Heri Reaves Discharge Problem: Transient neurologic deficit, Parkinson disease, Weakness, Aphasia Forms Stand Alone Forms: [facility] [place] [employer] Daily Prescriptions Prescriptions: No Action alendronate [Fosamax] 70 mg Tablet 70 mg PO WK RF: 0 carbidopa-levodopa 25-100 mg Tablet See Rx Instructions .ROUTE .COMPLEX RF: 0 aspirin 81 mg Tablet,Delayed Release (Dr/Ec) 81 mg PO QAM RF: 0 tramadol 50 mg Tablet 50 mg PO UD PRN (Reason: Pain) RF: 0 lisinopril 10 mg Tablet 10 mg PO QAM Qty: 14 RF: 0 nystatin 100,000 unit/gram Powder 1 applic TOPICAL BID RF: 0 clindamycin phosphate 1 % Gel 1 applic TOPICAL AMHS RF: 0 triamcinolone acetonide 0.1 % Ointment 1 applic TOPICAL BID RF: 0 clotrimazole 1 % Cream 1 applic TOPICAL BID RF: 0
[2020-08-27 15:13] LABS: Influenza A virus by PCR Negative (Neg); Influenza B virus by PCR Negative (Neg); RSV by PCR Negative (Neg); SARS CoV2 RNA(COVID-19) InHosp NEGATIVE (Negative)
[2020-08-27] MEDS ORDERED: ASPIRIN 81 MG CHEW PO STA (16:59)
--- NOTE | 2020-08-27 17:17 | History & Physical Report ---
Date of Service August 27, 2020 Assessment & Plan (1) Stroke-like symptom: (2) Parkinson disease: (3) Hypertension: (4) Dyslipidemia: (5) Aortic stenosis: This is a 84-year-old female who has significant past medical history of Parkinson's disease, HTN, HLD, aortic valve stenosis, CKD stage IIIa, osteoporosis, chronic anemia, wheelchair-bound in setting of left femur fracture who presents to ED secondary to weakness left side and slurred speech since 9:30 AM. Pt with L sided weakness, confusion, blank stare and slurred speech this morning. LKW @ 0930. Pt does not recall events and doesn't know why she is here, last thing she recalls is seeing her daughter and being in Ambulance. Symptoms seem to have all resolved except L sided weakness, which per nurse pt does have at baseline ever since L femur fx. CTA head /neck no acute abnormality, moderate plaque within the b/l carotid bifurcations. Stroke alert was called but pt not TPA candidate 2/2 to sx resolving. She did take a.m. aspirin 81mg. Initial dysphagia screen @ 1300 was determined a fail due to facial asymmetry; sx have resolved and repeat screen at 1700 determined pass and patient took 324mg ASA. Admit to med tele for stroke up MRI w/wo contrast consult neurology already on ASA, add plavix 75mg daily and statin PT/OT/ST Echo 06/02/20: EF 55 to 60%, moderate aortic stenosis EEG a1c, fasting lipid panel in am Hypertensive Urgency HTN given concern for cva will allow permissive hypertension tx if SBP > 220 or DBP >110 hold lisinopril for now, resume after 24hr or if MRI negative Parkinson Disease continue sinemet Genoveva/Erythematous Intertrigo consult wound nurse continue nystatin and ketoconazole Chronic ambulatory dysfunction/wheel chair bound hx of L femur fx PT/OT Dispo:med tele PCP: Modesta DNR/DNI Pt was seen and examined in collaboration with Dr. Hankins, please see addendum History of Present Illness Chief Complaint: Left-sided weakness and slurred speech since 9:30 AM. Primary Care Provider: Cheryl Byers, DO This is a 84-year-old female who has significant past medical history of Parkinson's disease, HTN, HLD, aortic valve stenosis, CKD stage IIIa, osteoporosis, chronic anemia, wheelchair-bound in setting of left femur fracture who presents to ED secondary to weakness left side and slurred speech since 9:30 AM. Her last known time well was 9:30 AM. 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 When daughter came to see her at approximately 930 she noted her to have slurred speech, difficulty speaking, blank stare and confusion. There was also concern for possible left- sided weakness. EMS was summoned. She was made a stroke alert in ER. Symptoms were resolving and therefore TPA was not initiated. She underwent head CT, and CTA of head and neck. Both were unremarkable for acute abnormality although neck CTA did reveal moderate plaque within the bilateral carotid bifurcations.Currently patient is unsure how she got here. Last thing she can remember is talking to her daughter and then realizing she was in an ambulance. She is unable to elicit exact details prior to arrival. She admits to this happening 3 times in the past. In ED she denies any fever, chills, sweats, lightheadedness, dizziness, headache, change in vision or hearing, chest pain, shortness with, cough, nausea, vomiting, abdominal pain. She denies any recent illness. She did recently just complete a 10-day course of oral doxycycline secondary to a rash on her left and right breast. She did grow positive MRSA culture per outpatient records. She continues to use topical creams for this. Allergies Allergy/AdvReac Type Severity Reaction Status Date / Time No Known Allergies Allergy Verified 08/27/20 14:51 Home Medications Medication Instructions Recorded Confirmed Type alendronate [Fosamax] 70 mg PO WK 03/21/18 08/27/20 History carbidopa-levodopa See Rx Instructions .ROUTE .COMPLEX 03/21/18 08/27/20 History tramadol 50 mg PO UD PRN 07/24/18 08/27/20 History aspirin 81 mg PO QAM 05/30/20 08/27/20 History lisinopril 10 mg PO QAM #14 tab 07/08/20 08/27/20 Rx clindamycin phosphate 1 applic TOPICAL [facility] 08/27/20 08/27/20 History clotrimazole 1 applic TOPICAL BID 08/27/20 08/27/20 History nystatin 1 applic TOPICAL BID 08/27/20 08/27/20 History triamcinolone acetonide 1 applic TOPICAL BID 08/27/20 08/27/20 History Past Med/Surg History Medical History Aortic stenosis "Mild-moderate per echo 03/15/17" Chronic allergic rhinitis Dyslipidemia Generalized weakness Hypertension Osteoporosis Parkinson disease Urinary tract infection Surgical History H/O colonoscopy "2011" History of fracture of left hip History of left hip replacement Hx of cataract surgery Family History (Updated 08/27/20 @ 17:20 by Eryn Kam PA-C) Father Esophageal cancer Mother Breast cancer Social History Smoking Status: Never smoker Second Hand Exposure: No; Hx Alcohol Use: No Hx Substance Use: No Preferred Language: [place] Citizen Communication Ability: Effective 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 Beliefs That Will Affect Care: None marital status: / Current Living Situation: Alone Current Living Situation Comment: daughter comes in to help during the day How many Children do You have: 1 Feels Safe at Home: Yes Assistive Devices: Denture - Upper, Denture - Lower and Wheelchair Review of Systems Review of Systems: All systems reviewed & are unremarkable except as noted in HPI & below Physical Exam Physical Exam: Constitutional: Elderly, F, WD/WN, vitals as above, NAD, sitting up in bed, pleasant, conversing easily Head: Normocephalic, Atraumatic Eyes: PERRL, conjunctivae normal, anicteric sclerae ENMT: external ear and nose normal, oropharynx normal, poor dentition Neck: trachea midline, no thyromegaly normal visual inspection Respiratory: normal respiratory effort, lungs clear to auscultation, LLL crackle, no rales and rhonchi. 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 account representative Skin: + erythematous confluent rash under b/l rash, genoveva intertrigo, warm and dry normal turgor Neurologic: PERRL, EOMI, accommodation nl, no face palsy, no facial asymmetry, no dysarthria CN's II-XI intact bilaterally and moves all extremities Psychiatric: A+Ox3, euthymic affect : deferred Results & Data Results & Data ([place]) Vital Signs (Past 12 Hours) Vital Signs Temp Pulse Resp BP Pulse Ox 08/27/20 16:45 91 H 21 173/108 H 99 08/27/20 16:30 89 23 190/91 H 97 08/27/20 16:15 83 17 190/88 H 100 08/27/20 16:00 85 20 196/95 H 100 08/27/20 15:45 80 18 198/82 H 100 08/27/20 15:30 78 17 193/87 H 100 08/27/20 15:15 81 18 197/94 H 100 08/27/20 15:00 78 20 199/92 H 100 08/27/20 14:45 79 19 194/78 H 98 08/27/20 14:30 73 19 186/109 H 100 08/27/20 14:15 79 20 191/98 H 100 08/27/20 14:01 91 H 27 H 190/98 H 99 08/27/20 13:45 36.5 C 90 21 190/94 H [address] 08/27/20 13:15 CT head/brain wo con CLINICAL HISTORY: 84 years-old Female with Stroke Like Symptoms. Acute strokelike symptoms TECHNIQUE: Multiple axial CT images of the head were obtained without contrast. A dose lowering technique was utilized adhering to the principles of ALARA. CT DOSE: 1259.45 mGycm COMPARISON: Head CT 07/08/2020 FINDINGS: No acute intracranial hemorrhage, midline shift, intracranial mass, hydrocephalus, territorial ischemia or abnormal extra-axial collection. Motion degraded exam. Age-related involutional changes with chronic microvascular ischemic disease. Cerebral vascular calcifications. The calvarium is intact. Prior bilateral lens replacement. Unchanged metallic density structure of the left parietal scalp. The paranasal sinuses, mastoid air cells, and middle ear cavities are clear. IMPRESSION: Motion degraded exam without acute intracranial abnormality identified. ACT 112: Negative or not required by law. The above report was generated using voice recognition software. It may contain grammatical, syntax or spelling errors. Electronically signed by: Meño Aleman M.D. 08/27/2020 1:31 PM Head CTA 08/27/20 13:15 CT angio head w con CLINICAL HISTORY: 84 years-old Female with Stroke Like Symptoms. Acute stroke like symptoms COMPARISON STUDY: Head CT of same day and also 07/08/2020 TECHNIQUE: Following the IV administration of 118 cc of Optiray 320, CT angiogram of the brain was performed from the skull base to the vertex. Images are reviewed in the axial, sagittal, and coronal planes. 3-D MIPS images are created and assessed. IV contrast was administered without complication. All measurements were obtained according to NASCET criteria. A dose lowering technique was utilized adhering to the principles of ALARA. CT DOSE: 1176.79 mGycm FINDINGS: CT ANGIOGRAM OF THE BRAIN: Motion degraded exam. Calcified plaque of the cavernous, clinoid and supraclinoid segments of the internal carotid arteries without high-grade stenosis. The middle and anterior cerebral arteries are patent. Diminutive right A1 segment, likely developmental. The imaged vertebral arteries are patent. Calcified plaque of the V4 segment left vertebral artery without high-grade stenosis. Patent basilar artery. There is mild multifocal luminal narrowing of the posterior cerebral arteries. No aneurysm, dissection, high-grade stenosis or proximal branch occlusion. The cerebral venous sinuses are patent. No abnormal intracranial enhancement. Unremarkable soft tissues. Prior bilateral lens repair. Metallic density surgical clip-shaped structure of the left parietal scalp redemonstrated. IMPRESSION: Unremarkable CTA of the head. ACT 112: Negative or not required by law. The above report was generated using voice recognition software. It may contain grammatical, syntax or spelling errors. Electronically signed by: Meño Aleman M.D. 08/27/2020 1:42 PM Neck CTA 08/27/20 13:15 CT ANGIOGRAPHY OF THE NECK WITH CONTRAST CLINICAL HISTORY: Stroke Like Symptoms COMPARISON STUDY: No previous studies for comparison. Technique: CT angiography of the carotid and vertebral arteries was obtained using Optiray 320 IV and 3D reconstruction on an independent workstation. NASCET criteria was utilized. Automated exposure control was utilized for the study. A dose lowering technique was utilized adhering to the principles of ALARA. Findings: No acute cervical fracture is noted. There is no cervical lymphadenopathy. There is a portion of the lung apices are unremarkable. There is moderate plaque within the bilateral carotid bifurcations. There is no significant stenosis within the right common carotid or internal carotid arteries. There is 40% stenosis of the distal left common carotid artery. The more proximal common carotid artery measures 7 mm in caliber wall of the vessel measures 3.6 mm in caliber at site of stenosis. There is no stenosis within the cervical portion of the left internal carotid artery. There is no dissection within the vessels within the neck. The bilateral vertebral arteries are patent. IMPRESSION: 1. Moderate plaque within the bilateral carotid bifurcations. 40% stenosis of the distal left common carotid artery. No significant stenosis within the bilateral cervical internal carotid arteries. 2. No dissection within neck. ACT 112: Negative or not required by law. Electronically signed by: Uvaldo Peres M.D. 08/27/2020 1:51 PM Medications Administered Discontinued Medications Aspirin (Aspirin 81 Mg Chew) 324 mg PO NOW STA Stop: 08/27/20 17:00 Last Admin: 08/27/20 17:07 Dose: 324 mg Documented by: [id number] Ioversol (Optiray 320 125ml) 120 ml IV ONCE ONE Stop: 08/27/20 13:36 Last Admin: 08/27/20 13:35 Dose: 120 ml Documented by: [id number] ECG Rate (beats per minute): 87 Rhythm: normal sinus Findings: + 1st degree AV block COVID-19 Results Results COVID-19 Adm Lab Results: RBC 3.61 M/uL (4.2-5.4) L 08/27/20 WBC 8.25 K/uL (4.8-10.8) 08/27/20 Hgb 11.1 g/dL (12.0-16.0) L 08/27/20 Hct 33.9 % (37-47) L 08/27/20 Plt Count 202 K/uL (130-400) 08/27/20 Neutrophils (%) (Auto) 65.9 % 08/27/20 Lymphocytes (%) (Auto) 19.2 % 08/27/20 Monocytes # (Auto) 0.66 K/uL (0.11-0.59) H 08/27/20 Eosinophils # (Auto) 0.50 K/uL (0-0.5) 08/27/20 Immature Granulocyte % (Auto) 0.4 % 08/27/20 Neutrophils # (Auto) 5.45 K/uL (1.4-6.5) 08/27/20 Lymphocytes # (Auto) 1.58 K/uL (1.2-3.4) 08/27/20 Monocytes # (Auto) 0.66 K/uL (0.11-0.59) H 08/27/20 Eosinophils # (Auto) 0.50 K/uL (0-0.5) 08/27/20 Basophils # (Auto) 0.03 K/uL (0-0.2) 08/27/20 Immature Granulocyte # (Auto) 0.03 K/uL (0.00-0.02) H 08/27/20 Na 141 mmol/L (136-145) 08/27/20 K 4.2 mmol/L (3.5-5.1) 08/27/20 Cl 110 mmol/L (98-107) H 08/27/20 CO2 26 mmol/L (21-32) 08/27/20 Anion Gap 5 (3-11) 08/27/20 BUN 26 mg/dl (7-18) H 08/27/20 Creatinine 0.63 mg/dl (0.6-1.2) 08/27/20 BUN/Creatinine Ratio 41.7 (10-20) H 08/27/20 Glucose Level 93 mg/dl (70-99) 08/27/20 Ca 8.0 mg/dl (8.5-10.1) L 08/27/20 Total Bilirubin 0.5 mg/dl (0.2-1) 08/27/20 AST/SGOT 8 U/L (15-37) L 08/27/20 ALT/SGPT < 6 U/L (12-78) L 08/27/20 Alkaline Phosphatase 88 U/L (45-117) 08/27/20 Total Protein 6.2 gm/dl (6.4-8.2) L 08/27/20 Albumin 2.5 gm/dl (3.4-5.0) L 08/27/20 Globulin 3.7 gm/dl (2.5-4.0) 08/27/20 Albumin/Globulin Ratio 0.7 (0.9-2) L 08/27/20 Troponin I < 0.015 ng/ml (0-0.045) 08/27/20 PTT 24.6 Seconds (21.0-31.0) 08/27/20 INR 1.0 (0.9-1.1) 08/27/20 COVID-19 PCR NEGATIVE (Negative) 08/27/20 Influenza Virus Type A (PCR) Negative (Neg) 08/27/20 Influenza Virus Type B (PCR) Negative (Neg) 08/27/20 Code Status & VTE Plan Code Status DNR/DNI VTE Prophylaxis Plan VTE Prophylaxis will be ordered: Yes Supervising Physician Co-Signing Physician Notes Patient is an 84-year-old female with history of Parkinson disease, CKD stage III, wheelchair-bound at baseline and other medical problems presents with history of sudden onset of left-sided weakness associated with slurred speech this morning. She also was noted to have transient confusion and had a blank stare which currently resolved. Patient unaware of the events which happened this morning and currently denies any subjective focal weakness, change in vision, difficulty with speech, chest pain, shortness of breath, abdominal pain, headache, head trauma. She admits to having similar episodes X 3 in the past as well. Please review HPI for complete details of presentation. CT Head showed no acute intracranial findings. Head CTA was unremarkable. Neck CTA showed moderate plaque within bilateral carotid bifurcations and 40% stenosis of the distal left common carotid artery. On exam patient is moderately built and nourished, elderly, no apparent distress, normocephalic atraumatic, lungs are clear to auscultation, normal breath sounds, S1-S2,+ systolic murmur, LLE 1-2+ Edema, RLE trace edema, Chest:+ Erythematous rash Below the breast folds and mid chest region, alert, awake, oriented, left lower extremity, left upper extremity minimal weakness when compared to the right but was able to move all extremities. Patient is admitted for management of strokelike symptoms-- DD: CVA/syncopal episode. Agree with stroke work-up including MRI brain, and neurochecks, neurology consulted, A1c, lipid panel. Also obtain EEG. PT OT, fall precautions, speech therapy, aspiration precautions. She passed the swallow eval at bedside while in ED. Will obtain Doppler ultrasound of lower extremities to rule out DVT. Agree with starting Plavix and plan to continue aspirin for now. Monitor on telemetry bed. Allow permissive hypertension in setting of possible acute CVA. Case management to help with discharge planning. I personally reviewed the record. Patient is interviewed and examined at bedside. Patient's care is coordinated with Eryn Kam PA-C. Please refer to the documentation above for details of patient's presentation and for discussion of other issues. (1) Aortic stenosis Cardiac valve disease etiology: nonrheumatic Qualified Code(s): I35.0 - Nonrheumatic aortic (valve) stenosis
[2020-08-27] MEDS ORDERED: CARBIDOPA/LEVODOPA 25/100MG TAB PO STA (17:56)
--- NOTE | 2020-08-27 18:02 | Ultrasound Report ---
BILATERAL LOWER EXTREMITY VENOUS DOPPLER CLINICAL HISTORY: Bilateral lower extremity swelling. COMPARISON STUDY: No previous studies for comparison. TECHNIQUE: Sonography of the deep venous system of the bilateral lower extremities was performed. Co mpression and augmentation were evaluated. FINDINGS: The bilateral common femoral, superficial femoral and popliteal veins were compressible. A ugmentation was normal. Flow was shown within the deep calf vessels. IMPRESSION: No evidence of deep venous thrombus within the bilateral lower extremities. ACT 112: Negative or not required by law. Electronically signed by: Uvaldo Peres M.D. 08/27/2020 6:01 PM
[2020-08-27] MEDS ORDERED: GADOBUTROL 65ML VIAL IV ONE (18:58)
--- NOTE | 2020-08-27 20:01 | Magnetic Resonance Report ---
MRI OF THE BRAIN WITHOUT AND WITH IV CONTRAST CLINICAL HISTORY: Left sided weakness, r/o CVA COMPARISON STUDY: Head CT and CTA of the head performed earlier today. Head CT July 08, 2020. TECHNIQUE: Utilizing a 1.5 Elena magnet and dedicated coil, multiplanar, multiecho imaging of the br ain was performed pre and postcontrast administration. IV administration of 7.5 mL of Gadavist contr ast was uneventful. FINDINGS: There are no foci of restricted diffusion to suggest acute infarct. No acute intracranial h emorrhage, midline shift or mass effect is present. Ventricular system is unremarkable. Basal cistern s are patent. There are no extra-axial collections. Flow-voids for the major intracranial vessels are present. No intracranial mass or pathologic enhancement is present. Note is made of moderate atrophy . White matter T2 hyperintense foci suggest small vessel disease. Calvarial signal is unremarkable. O rbits are unremarkable. Sinuses are clear. There is no fluid within the mastoid air cells. IMPRESSION: 1. No acute intracranial findings. 2. No intracranial mass or pathologic enhancement. 3. Moderate atrophy. 4. White matter T2 hyperintense foci suggestive of small vessel disease. ACT 112: Negative or not required by law. Electronically signed by: Uvaldo Peres M.D. 08/27/2020 8:00 PM
[2020-08-27] MEDS ORDERED: PHARMACIST DISCHARGE MED REC CONSULT PRN (20:14)
[2020-08-27] MEDS ORDERED: POLYETHYLENE (MIRALAX) 17 GM PACK PO PRN (20:14)
[2020-08-27] MEDS ORDERED: MAGNESIUM HYDROXIDE SUSP 30 ML UDC PO PRN (20:14)
[2020-08-27] MEDS ORDERED: ONDANSETRON INJ 2 MG/ML 2 ML VIAL IV PRN (20:14)
[2020-08-27] MEDS ORDERED: ACETAMINOPHEN 325 MG TAB PO PRN (20:14)
[2020-08-27] MEDS ORDERED: ALUMINUM/MAGNESIUM SUSP 30 ML UDC PO PRN (20:14)
[2020-08-27] MEDS ORDERED: CLINDAMYCIN PHOSPHATE 1% TOP SCH (21:00)
[2020-08-27] MEDS: CARBIDOPA/LEVODOPA 25/100MG TAB PO SCH (21:15)
[2020-08-27] MEDS: CLOPIDOGREL BISULFATE 75 MG TAB PO SCH (21:15)
[2020-08-27] MEDS: CLOTRIMAZOLE 1% CR 15 GM TUBE TOP SCH (21:16)
[2020-08-27] MEDS: NYSTATIN POWDER 15GM BTL EXT SCH (21:16)
[2020-08-27] MEDS: TRIAMCINOLONE ACET 0.1% OINT 15 GM TUBE TOP SCH (21:16)
[2020-08-28] MEDS: ATORVASTATIN 40 MG TAB PO SCH (07:40)
[2020-08-28] MEDS: ASPIRIN 81 MG ECTAB PO SCH (07:40)
[2020-08-28] MEDS: CARBIDOPA/LEVODOPA 25/100MG TAB PO SCH ×5 (07:40→20:02)
[2020-08-28] MEDS: CLOPIDOGREL BISULFATE 75 MG TAB PO SCH (07:40)
[2020-08-28] MEDS: NYSTATIN POWDER 15GM BTL EXT SCH ×2 (07:40→20:01)
[2020-08-28] MEDS: CLOTRIMAZOLE 1% CR 15 GM TUBE TOP SCH ×2 (07:41→20:02)
[2020-08-28] MEDS: TRIAMCINOLONE ACET 0.1% OINT 15 GM TUBE TOP SCH ×2 (07:41→20:02)
[2020-08-28] MEDS ORDERED: hydrALAZINE HCL 20 MG/ML VIAL IV PRN (07:54)
[2020-08-28 08:16] LABS: BUN Creatinine Ratio 35.5 (10-20); Calcium 8.8 mg/dl (8.5-10.1); Creatinine Clr Calc Pharmacy 66.2 ml/min; Est GFR (African American) 93.8; Potassium 4.2 mmol/L (3.5-5.1)
[2020-08-28 08:26] LABS: Estimated Average Glucose 108 mg/dl; Hemoglobin A1C 5.4 % (4.5-5.6)
[2020-08-28 09:17] LABS: Basophils # (auto) 0.05 K/uL (0-0.2); Basophils % (auto) 0.7 %; Eosinophils # (auto) 0.61 K/uL (0-0.5); Eosinophils % (auto) 8.4 %; Hematocrit (blood only) 37.5 % (37-47); Immature Granulocytes # (auto) 0.03 K/uL (0.00-0.02); Immature Granulocytes % (auto) 0.4 %; Lymphocytes # (auto) 1.52 K/uL (1.2-3.4); Lymphocytes % (auto) 20.9 %; Mean Corpuscular Hemoglobin 29.8 pg (25-34); Mean Corpuscular Volume 93.1 fL (80-100); Monocytes # (auto) 0.73 K/uL (0.11-0.59); Neutrophils # (auto) 4.34 K/uL (1.4-6.5); Neutrophils % (auto) 59.6 %; Platelet Count 182 K/uL (130-400); RDW Coefficient of Variation 15.1 % (11.5-14.5); RDW Standard Deviation 51.9 fL (36.4-46.3); Red Blood Count 4.03 M/uL (4.2-5.4); White Blood Count 7.28 K/uL (4.8-10.8)
--- NOTE | 2020-08-28 09:18 | Hospitalist Progress Note ---
Date of Service August 28, 2020 Assessment & Plan (1) Stroke-like symptom: (2) Parkinson disease: (3) Hypertension: (4) Dyslipidemia: (5) Aortic stenosis: 84-year-old female who has significant past medical history of Parkinson's disease, HTN, HLD, aortic valve stenosis, CKD stage IIIa, osteoporosis, chronic anemia, wheelchair-bound in setting of left femur fracture who presents to ED secondary to weakness left side and slurred speech since 9:30 AM on 08/27/20 Pt reported to have had L sided weakness, confusion, blank stare and slurred speech this morning. Pt does not recall events Symptoms seem to have all resolved CTA head /neck no acute abnormality, moderate plaque within the b/l carotid bifurcations. Stroke alert was called but pt not TPA candidate as symptoms were resolving at the time She did take a.m. aspirin 81mg on the day of presentation. Got 324mg on admission MRI brain did not show any acute infarct per report Echo 06/02/20: EF 55 to 60%, moderate aortic stenosis Possible TIA Patient does have some hypomimia and low volume speech. This may be due to parkinson's and may affect evaluation for stroke deficits. Will appreciate Neurologist eval and recommendation. Patient also follows with neurology outpatient for parkinsons Patient's BP meds had been on hold allowing for permissive hypertension Will follow up with neuro about resuming antihypertensives since its been 24hrs since symptom onset. 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 Plan to resume lisinopril later today Parkinson Disease Continue sinemet Trang/Erythematous Intertrigo MRSA infection Per Derm outpatient note, from 08/12/20, cultures grew MRSA Patient completed doxycycline Continue topical clotrimazole Get wound on board Chronic ambulatory dysfunction/wheel chair bound hx of L femur fx Admission and Anticipated Discharge Date Admission Date: August 27, 2020 Subjective Patient seen and examined this morning. Patient is currently AAO x3. Does not recall what happened prior to admission. Stated that she last remembered being in her house before being in the hospital yesterday. Patient has a history of parkinsonism. Stated that she has been using wheelchair due to lower extremity weakness for over 1 year. Patient denies any headache, dizziness Denies any fevers, chills Denies any chest pain, palpitation or dyspnea Patient reports that her speech is normal for her. Denies any new focal weakness in any part of the limb, dysphagia/odynophagia, sensory deficits Denies nausea, vomiting, abdominal pain, diarrhea or constipation Denies dysuria, frequency or urgency Physical Exam Constitutional: + well hydrated; no acute distress Elderly woman in no distress Eyes: PERRL, conjunctivae normal, anicteric sclerae ENMT: external ear and nose normal, oropharynx normal Respiratory: normal respiratory effort, lungs clear to auscultation Cardiovascular: Rate/Rhythm: regular rate and regular rhythm S1 S2 Gastrointestinal (Abdomen): normal bowel sounds, soft, nontender, no hepatosplenomegaly Musculoskeletal: No pedal edema Skin: Erythematous rash under breasts bilaterally, with confluent area. Neurologic: PERRL, EOMI, accommodation nl, no face palsy, no dysarthria Power s 4/5 in both lower extremities (to knee extension and elevation off bed) and 5/5 in upper extremities Psychiatric: A+Ox3, euthymic affect Results & Data Results & Data ([facility]) Vital Signs (Past 12 Hours) Vital Signs Temp Pulse Pulse Pulse Resp BP Pulse Ox 08/28/20 07:35 36.6 C 82 18 192/80 H 97 08/28/20 07:34 80 194/82 H 08/28/20 07:00 80 08/28/20 03:02 37.0 C 87 20 151/70 H 95 08/28/20 00:22 86 08/27/20 23:31 36.3 C L 93 H 20 144/72 H 96 08/27/20 22:16 83 Laboratory Results Laboratory Results - last 24 hr 08/27/20 08/27/20 08/28/20 13:41 14:05 07:21 WBC 7.28 RBC 4.03 L Hgb 12.0 Hct 37.5 MCV 93.1 MCH 29.8 MCHC 32.0 RDW Std Deviation 51.9 H RDW Coeff of Conor 15.1 H Plt Count 182 MPV 12.0 H Immature Gran % (Auto) 0.4 Neut % (Auto) 59.6 Lymph % (Auto) 20.9 [place] % (Auto) 10.0 Eos % (Auto) 8.4 Baso % (Auto) 0.7 Neut # (Auto) 4.34 Lymph # (Auto) 1.52 [place] # (Auto) 0.73 H Eos # (Auto) 0.61 H Baso # (Auto) 0.05 Immature Gran # (Auto) 0.03 H Sodium 141 Potassium 4.2 Chloride Carbon Dioxide Anion Gap 5 BUN Creatinine Est Cr Clr Drug Dosing Est GFR ( Amer) Est GFR (Non-Af Amer) BUN/Creatinine Ratio Glucose Estimat Average Glucose Hemoglobin A1c Calcium Magnesium 2.1 Total Bilirubin 0.5 AST 8 L Alkaline Phosphatase 88 Troponin I < 0.015 Total Protein 6.2 L Globulin 3.7 Albumin/Globulin Ratio 0.7 L Triglycerides Cholesterol LDL Cholesterol, Calc VLDL Cholesterol, Calc HDL Cholesterol Cholesterol/HDL Ratio SARS-CoV-2 (PCR) NEGATIVE Influenza Type A (PCR) Negative Influenza Type B (PCR) Negative RSV (RT-PCR) Negative 08/28/20 08/28/20 07:21 07:21 WBC RBC Hgb Hct MCV MCH MCHC RDW Std Deviation RDW Coeff of Conor Plt Count MPV Immature Gran % (Auto) Neut % (Auto) Lymph % (Auto) [place] % (Auto) Eos % (Auto) Baso % (Auto) Neut # (Auto) Lymph # (Auto) [place] # (Auto) Eos # (Auto) Baso # (Auto) Immature Gran # (Auto) Sodium 141 Potassium 4.2 Chloride 111 H Carbon Dioxide 27 Anion Gap 3.0 BUN 23 H Creatinine 0.65 Est Cr Clr Drug Dosing 66.2 Est GFR ( Amer) 93.8 Est GFR (Non-Af Amer) 81.0 BUN/Creatinine Ratio 35.5 H Glucose 79 Estimat Average Glucose 108 Hemoglobin A1c 5.4 Calcium 8.8 Magnesium Total Bilirubin AST Alkaline Phosphatase Troponin I Total Protein Globulin Albumin/Globulin Ratio Triglycerides 83 Cholesterol 142 LDL Cholesterol, Calc 71 VLDL Cholesterol, Calc 17 HDL Cholesterol 54 Cholesterol/HDL Ratio 3 SARS-CoV-2 (PCR) Influenza Type A (PCR) Influenza Type B (PCR) RSV (RT-PCR) (1) Aortic stenosis Cardiac valve disease etiology: nonrheumatic Qualified Code(s): I35.0 - Nonrheumatic aortic (valve) stenosis
--- NOTE | 2020-08-28 12:34 | Neurology Consultation ---
Date of Consultation August 28, 2020 Assessment & Plan (1) Stroke-like symptom: 1. resolved - left leg weakness ongoing 2. PT/OT for discharge needs 3. MRI - no stroke 4. TTE- done 05/2020 - EF 55-60% no ASD 5. CTA bilateral plaque carotid 6. likely need increase in supervision 7. slowly correct blood pressure to normal tensive but consider patients age 8. add plavix 75 mg to aspirin 81 mg x 21 days then plavix for life time Present on Admission?: Yes (2) Parkinson disease: 1. continue Sinemet 25/100 mg 1.5 tab 1100/1400/1700 2. will reevaluate as outpatient but current no cogwheeling tremor Present on Admission?: Yes Supervising Physician Co-Signing Physician Notes I have seen and discussed above patient with Dr Martha Avendano, neurology. pt seen and examined. mild dysarthria, flat L NLF, mild facial masking, some cogwheel at wrist, no asymmetric weakness. Suspect TIA, agree with managment as above. Rec inperson rehab, pt inidcates she is not walking at home. LENA Avendano MD History of Present Illness Attending Physician: Loraine Andrade MD History of Present Illness Osman Trujillo is a 84 year old female with a PMH- Parkinson's disease, HTN, HLD, aortic valve stenosis, CKD stage IIIa, osteoporosis, chronic anemia, wheelchair- bound in setting of left femur fracture. She presented to [facility] ED secondary to weakness left side and slurred speech, confusion, blank stare and slurred speech this morning. Symptoms started to resolve except L sided weakness which is baseline ever since L femur fracture. CTA head /neck no acute abnormality, mode rate plaque within the b/l carotid bifurcations. Stroke alert but no TPA given. She did take a.m. aspirin 81mg and once she passed the swallowing study she was given aspirin 325 mg. She thinks she is doing well. she thinks the weakness felt like her legs were "rubbery". Her left leg has been weaker than the right since the fracture. She lives alone and ambulates with a wheelchair her daughter checks on her she lives close. She was in longterm after the fall but she is back home now. denies CP, SOB, abdominal pain, new weakness. Allergies Allergy/AdvReac Type Severity Reaction Status Date / Time No Known Allergies Allergy Verified 08/27/20 14:51 Home Medications Medication Instructions Recorded Confirmed Type alendronate [Fosamax] 70 mg PO WK 03/21/18 08/27/20 History carbidopa-levodopa See Rx Instructions .ROUTE .COMPLEX 03/21/18 08/27/20 History tramadol 50 mg PO UD PRN 07/24/18 08/27/20 History aspirin 81 mg PO QAM 05/30/20 08/27/20 History lisinopril 10 mg PO QAM #14 tab 07/08/20 08/27/20 Rx clindamycin phosphate 1 applic TOPICAL [facility] 08/27/20 08/27/20 History clotrimazole 1 applic TOPICAL BID 08/27/20 08/27/20 History nystatin 1 applic TOPICAL BID 08/27/20 08/27/20 History triamcinolone acetonide 1 applic TOPICAL BID 08/27/20 08/27/20 History Patient History Medical History Aortic stenosis "Mild-moderate per echo 03/15/17" Chronic allergic rhinitis Dyslipidemia Generalized weakness Hypertension Osteoporosis Parkinson disease Urinary tract infection Surgical History H/O colonoscopy "2011" History of fracture of left hip History of left hip replacement Hx of cataract surgery Family History (Updated 08/27/20 @ 17:20 by Eryn Kam PA-C) Father Esophageal cancer Mother Breast cancer Social History Smoking Status: Never smoker Second Hand Exposure: No; Do You Dip or Chew Tobacco: No; Tobacco Cessation Education Requested by Patient: No Hx Alcohol Use: No Hx Substance Use: No Preferred Language: [place] Communication Ability: Effective Mass Communications Instructor Required: No Beliefs That Will Affect Care: None marital status: / Current Living Situation: Alone Current Living Situation Comment: daughter comes in to help during the day How many Children do You have: 1 Other Information That Helps Us Care for You: No Feels Safe at Home: No Is there a partner from a previous relationship who is making you feel unsafe now?: No Any Concerns about Your Family Situation: No Would You Like to Speak to Someone About Your Situation: No Assistive Devices: Wheelchair Review of Systems Review of Systems: All systems reviewed & are unremarkable except as noted in HPI & below Physical Exam 2 Physical Exam: Physical Exam: Constitutional: appearance nourished, NAD Ears, Nose, Mouth and Throat: mucous membranes moist, no injection and skin normal, eyes normal Cardiovascular: normal S-1 and S-2 and regular rate and rhythm, opening murmur Respiratory: clear to auscultation (CTA) and no rales, ronchi or wheeze Musculoskeletal: no peripheral edema and good distal pulses, contracture on right 4 th digit, OA deformities Skin: no stigmata of neurocutaneous disease noted and normal and intact Eyes: extraocular muscles intact (EOMI) and pupils equal, round and reactive to light (PERRL), decreased blink NEUROLOGIC EXAMINATION: Mental status: Alert and interactive Oriented to president Feliciano, 2011, location [facility] Oriented to person Speech raspy speech, low voice tone Cranial Nerves no facial asymmetry Reflexes: Deep tendon reflexes were symmetrical and graded 2/5 neurtral toes Sensory: intact to light and cool touch Coordination: finger to nose, no reaching tremor, no resting tremor no cogwheeling rigidity Gait/Stance: Posture normal. sitting up in bed Motor: Negative for pronator drift of out stretched arms with eyes closed. Strength: UE- hand support clerk, biceps triceps 4+/5, hip flex right 5/5, left 4/5, plantar flex ext 5/5 Results & Data ([facility]) Vital Signs (Past 12 Hours) Vital Signs Temp Pulse Pulse Pulse Resp BP Pulse Ox 08/28/20 07:35 36.6 C 82 18 192/80 H 97 08/28/20 07:34 80 194/82 H 08/28/20 07:00 80 08/28/20 03:02 37.0 C 87 20 151/70 H 95 Diagnostic Findings CTA head- no acute abnormalities CTA neck- Moderate plaque within the bilateral carotid bifurcations. 40% stenosis of the distal left common carotid artery. No significant stenosis within the bilateral cervical internal carotid arteries. No dissection within neck. MRI brain-No acute intracranial findings. No intracranial mass or pathologic enhancement. Moderate atrophy. . White matter T2 hyperintense foci suggestive of small vessel disease. venous doppler-No evidence of deep venous thrombus within the bilateral lower extremities. EEG- normal
[2020-08-28] MEDS ORDERED: lisinopril 5 MG TAB PO ONE (15:24)
--- NOTE | 2020-08-28 16:03 | Electroencephalogram ---
EEG Procedure Note Date of Service August 28, 2020 Start / End Times Start Time: 524 End Time: 544 Referring Physician Eryn Higuera History confusion Home Medication List Medication Instructions Recorded Confirmed Type alendronate [Fosamax] 70 mg PO WK 03/21/18 08/27/20 History carbidopa-levodopa See Rx Instructions .ROUTE .COMPLEX 03/21/18 08/27/20 History tramadol 50 mg PO UD PRN 07/24/18 08/27/20 History aspirin 81 mg PO QAM 05/30/20 08/27/20 History lisinopril 10 mg PO QAM #14 tab 07/08/20 08/27/20 Rx clindamycin phosphate 1 applic TOPICAL [facility] 08/27/20 08/27/20 History clotrimazole 1 applic TOPICAL BID 08/27/20 08/27/20 History nystatin 1 applic TOPICAL BID 08/27/20 08/27/20 History triamcinolone acetonide 1 applic TOPICAL BID 08/27/20 08/27/20 History Inpatient Medication List Aspirin (Aspirin 81 Mg Ectab) 81 mg PO QAM [facility] Stop: 09/27/20 08:59 Last Admin: 08/28/20 07:40 Dose: 81 mg Documented by: [id number] Atorvastatin Calcium (At[facility]vastatin 40 Mg Tab) [facility] [place]: 09/27/20 08:59 Last Admin: 08/28/20 07:40 Dose: 40 mg Documented by: [id number] Carbidopa/Levodopa (Carbidopa/Levodopa 25/100mg Tab) 2 tab PO BID [facility] Stop: 09/26/20 20:59 Last Admin: 08/28/20 07:40 Dose: 2 tab Documented by: [id number] Admin: 08/27/20 21:15 Dose: 2 tab Documented by: [id number] Carbidopa/Levodopa (Carbidopa/Levodopa 25/100mg Tab) 1.5 tab PO DAILY@1100,140 0,1700 [facility] Stop: 09/27/20 10:59 Last Admin: 08/28/20 15:01 Dose: 1.5 tab Documented by: [id number] Admin: 08/28/20 12:01 Dose: 1.5 tab Documented by: [id number] Clopidogrel Bisulfate (Clopidogrel Bisulfate 75 Mg Tab) 75 mg PO QAM [facility] Stop: 09/26/20 20:13 Last Admin: 08/28/20 07:40 Dose: 75 mg Documented by: [id number] Admin: 08/27/20 21:15 Dose: 75 mg Documented by: [id number] Clotrimazole (Clotrimazole 1% Cr 15 Gm Tube) 1 appln TOP BID [facility] Stop: 09/26/20 20:59 Last Admin: 08/28/20 07:41 Dose: 1 appln Documented by: [id number] Admin: 08/27/20 21:16 Dose: 1 appln Documented by: [id number] Miscellaneous (Clindamycin Phos Gel 1%: Order Awaiting Action) 1 ea N/A QS [facility] Stop: 09/27/20 00:00 Last Admin: 08/28/20 15:02 Dose: Not Given Documented by: [id number] Admin: 08/28/20 07:47 Dose: Not Given Documented by: [id number] Admin: 08/28/20 00:17 Dose: Not Given Documented by: [id number] Nystatin (Nystatin Powder 15gm Btl) 1 appln EXT BID JEN Stop: 09/26/20 20:59 Last Admin: 08/28/20 07:40 Dose: 1 appln Documented by: [id number] Admin: 08/27/20 21:16 Dose: 1 appln Documented by: [id number] Triamcinolone Acetonide (Triamcinolone Acet 0.1% Oint 15 Gm Tube) 1 appln TOP BID [facility] Stop: 09/26/20 20:59 Last Admin: 08/28/20 07:41 Dose: 1 appln Documented by: [id number] Admin: 08/27/20 21:16 Dose: 1 appln Documented by: [id number] Discontinued Medications Aspirin (Aspirin 81 Mg Chew) 324 mg PO NOW STA Stop: 08/27/20 17:00 Last Admin: 08/27/20 17:07 Dose: 324 mg Documented by: [id number] Carbidopa/Levodopa (Carbidopa/Levodopa 25/100mg Tab) 1.5 tab PO NOW STA Stop: 08/27/20 17:57 Last Admin: 08/27/20 21:17 Dose: Not Given Documented by: [id number] Gadobutrol (Gadobutrol 65ml Vial) 7.5 ml IV ONCE ONE Stop: 08/27/20 18:59 Last Admin: 08/27/20 18:58 Dose: 7.5 ml Documented by: [id number] Ioversol (Optiray 320 125ml) 120 ml IV ONCE ONE Stop: 08/27/20 13:36 Last Admin: 08/27/20 13:35 Dose: 120 ml Documented by: [id number] Description This is a 21 electrode EEG with a single channel dedicated to limited EKG. The electrodes were placed in accordance with the International 10-20 system. This EEG was done as a bedside recording and is of good technical quality with few or no muscle movement artifacts. Photic stimulation was performed. Drow siness and sleep not recorded. Under these conditions there is evidence for a well-developed background rhythm in the alpha range of 9 to 10 Hz maximum frequency and 20 V maximum amplitude which is maximum posterior head regions bilaterally symmetrical. Polymorphic mid to upper frequency theta activity of modest voltage is seen centrally and symmetrically. Beta activity seen bifrontally. Stimulation function normal driving response with no photo myogenic or photoparoxysmal components At no time during the waking tracing is evidence for potential epileptogenic activity seen Interpretation This is a normal EEG during wakefulness Clinical Correlation This EEG is normal during wakefulness without evidence for focal generalized encephalopathy without evidence for potential epileptogenic activity Dwain Hobbs MD
--- NOTE | 2020-08-28 22:09 | Electrocardiogram Report ---
Test Reason : Blood Pressure : / mmHG Vent. Rate : 087 BPM Atrial Rate : 087 BPM P-R Int : 218 ms QRS Dur : 088 ms QT Int : 362 ms P-R-T Axes : 035 -42 047 degrees QTc Int : 435 ms Poor data quality, interpretation may be adversely affected Sinus rhythm with 1st degree A-V block Left axis deviation Moderate voltage criteria for LVH, may be normal variant Abnormal ECG When compared with ECG of 08-JUL-2020 15:19, No significant change was found Confirmed by Ja Vargas ([id number]) on 08/28/2020 10:09:46 PM Referred By: REFERRED SELF Confirmed By:Ja Vargas
[2020-08-29 06:51] LABS: Basophils # (auto) 0.04 K/uL (0-0.2); Basophils % (auto) 0.5 %; Eosinophils # (auto) 0.67 K/uL (0-0.5); Eosinophils % (auto) 9.2 %; Hemoglobin 11.8 g/dL (12.0-16.0); Immature Granulocytes # (auto) 0.03 K/uL (0.00-0.02); Immature Granulocytes % (auto) 0.4 %; Lymphocytes # (auto) 1.48 K/uL (1.2-3.4); Lymphocytes % (auto) 20.3 %; Mean Corpuscular Hemoglobin 29.9 pg (25-34); Mean Corpuscular Hgb Conc 31.9 g/dL (32-36); Mean Corpuscular Volume 93.7 fL (80-100); Mean Platelet Volume 11.4 fL (7.4-10.4); Monocytes # (auto) 0.59 K/uL (0.11-0.59); Monocytes % (auto) 8.1 %; Neutrophils # (auto) 4.49 K/uL (1.4-6.5); Neutrophils % (auto) 61.5 %; Platelet Count 198 K/uL (130-400); RDW Coefficient of Variation 15.2 % (11.5-14.5); RDW Standard Deviation 52.6 fL (36.4-46.3); Red Blood Count 3.95 M/uL (4.2-5.4)
[2020-08-29 07:32] LABS: BUN Creatinine Ratio 37.2 (10-20); Calcium 8.4 mg/dl (8.5-10.1); Creatinine Clr Calc Pharmacy 65.8 ml/min; Est GFR (African American) 93.6; Est GFR (Non-African American) 80.8
[2020-08-29] MEDS: NYSTATIN POWDER 15GM BTL EXT SCH ×2 (07:41→20:31)
[2020-08-29] MEDS: CLOPIDOGREL BISULFATE 75 MG TAB PO SCH (07:41)
[2020-08-29] MEDS: ASPIRIN 81 MG ECTAB PO SCH (07:41)
[2020-08-29] MEDS: ATORVASTATIN 40 MG TAB PO SCH (07:41)
[2020-08-29] MEDS: TRIAMCINOLONE ACET 0.1% OINT 15 GM TUBE TOP SCH ×2 (07:41→20:30)
[2020-08-29] MEDS: CARBIDOPA/LEVODOPA 25/100MG TAB PO SCH ×5 (07:41→20:31)
[2020-08-29] MEDS: CLOTRIMAZOLE 1% CR 15 GM TUBE TOP SCH ×2 (07:41→20:30)
[2020-08-29] MEDS ORDERED: lisinopril 10 MG TAB PO SCH (09:00)
[2020-08-29] MEDS ORDERED: SODIUM CHLORIDE 0.9% 1000ML 500 ML IV ONE (09:30)
--- NOTE | 2020-08-29 10:22 | Hospitalist Progress Note ---
Date of Service August 29, 2020 Assessment & Plan (1) Stroke-like symptom: (2) Parkinson disease: (3) Hypertension: (4) Dyslipidemia: (5) Aortic stenosis: 84-year-old female who has significant past medical history of Parkinson's disease, HTN, HLD, aortic valve stenosis, CKD stage IIIa, osteoporosis, chronic anemia, wheelchair-bound in setting of left femur fracture who presents to ED secondary to weakness left side and slurred speech since 9:30 AM on 08/27/20 Pt reported to have had L sided weakness, confusion, blank stare and slurred speech this morning. Pt does not recall events Symptoms seem to have all resolved and patient back to baseline CTA head /neck no acute abnormality, moderate plaque within the b/l carotid bifurcations. Stroke alert was called but pt not TPA candidate as symptoms were resolving at the time She did take a.m. aspirin 81mg on the day of presentation. Got 324mg on admission MRI brain did not show any acute infarct per report Echo 06/02/20: EF 55 to 60%, moderate aortic stenosis Possible TIA Patient does have some hypomimia and low volume speech/mild dysarthria. Neurologist evaluation and recommendations appreciated Continue ASA and plavix for 21 days, after which aspirin is discontinued and continue plavix only Continue atorvastatin Resumed lisinopril yesterday at lower dose and then usual dose this AM as BP has remained persistently elevated . However, during my physical exam this morning. Her BP check was 81/45, even on manual recheck Lisinopril discontinued. 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 I called daughter to update her and discuss discharge planning. She stated she is not able to talk right now but will be available at 5pm. Will call back then Hypertensive Urgency Now Hypotensive However, during my physical exam this morning. Her BP check was 81/45, even on manual recheck Lisinopril discontinued. Give NSS bolus and monitor BP Parkinson Disease Continue sinemet Trang/Erythematous Intertrigo MRSA infection Per Derm outpatient note, from 08/12/20, cultures grew MRSA Patient completed doxycycline Continue topical clotrimazole Get wound on board Chronic ambulatory dysfunction/wheel chair bound hx of L femur fx Admission and Anticipated Discharge Date Admission Date: August 27, 2020 Subjective Patient seen and examined this morning Denies any complaints except for chronic lower extremity weakness [left slightly more than right Review of Systems Constitutional: no fever, no chills and no body aches Eyes: no problem reported Ear, Nose, Mouth, Throat: no problem reported Respiratory: no cough, no chest congestion and no dyspnea Cardiovascular: no chest pain, no dyspnea, no orthopnea and no palpitations Gastrointestinal: no abdominal pain, no nausea, no vomiting, no dysphagia, no constipation and no diarrhea/loose stools Genitourinary: no dysuria, no urinary frequency and no urinary urgency Musculoskeletal: Lower extremity weakness Neurologic: no dizziness, no syncope and no headache(s) Psychiatric: no depression and no anxiety Physical Exam Constitutional: + well hydrated; no acute distress Eyes: PERRL, conjunctivae normal, anicteric sclerae ENMT: external ear and nose normal, oropharynx normal Respiratory: normal respiratory effort, lungs clear to auscultation Cardiovascular: Rate/Rhythm: regular rate and regular rhythm S1 S2 BP during exam was 81/45 Gastrointestinal (Abdomen): normal bowel sounds, soft, nontender, no hepatosplenomegaly Musculoskeletal: Power 4/5 in both lower extremities (knee extension) and 5/5 in upper extremities Neurologic: PERRL, EOMI, accommodation nl, no face palsy, no dysarthria Psychiatric: A+Ox3, euthymic affect Results & Data Results & Data ([facility]) Vital Signs (Past 12 Hours) Vital Signs Temp Pulse Pulse Pulse Resp BP BP 08/29/20 09:13 78 81/45 L 08/29/20 07:40 81 177/80 H 08/29/20 07:30 36.6 C 76 20 180/81 H 08/29/20 07:00 74 08/29/20 04:41 36.6 C 78 20 156/76 H 08/29/20 00:00 73 08/28/20 23:11 36.5 C 76 20 164/77 H Pulse Ox 08/29/20 09:13 08/29/20 07:40 08/29/20 07:30 96 08/29/20 07:00 08/29/20 04:41 98 08/29/20 00:00 08/28/20 23:11 92 Laboratory Results Laboratory Results - last 24 hr 08/29/20 08/29/20 06:11 06:11 WBC 7.30 RBC 3.95 L Hgb 11.8 L Hct 37.0 MCV 93.7 MCH 29.9 MCHC 31.9 L RDW Std Deviation 52.6 H RDW Coeff of Conor 15.2 H Plt Count 198 MPV 11.4 H Immature Gran % (Auto) 0.4 Neut % (Auto) 61.5 Lymph % (Auto) 20.3 [place] % (Auto) 8.1 Eos % (Auto) 9.2 Baso % (Auto) 0.5 Neut # (Auto) 4.49 Lymph # (Auto) 1.48 [place] # (Auto) 0.59 Eos # (Auto) 0.67 H Baso # (Auto) 0.04 Immature Gran # (Auto) 0.03 H Sodium 142 Potassium 4.0 Chloride 111 H Carbon Dioxide 26 Anion Gap 5.0 BUN 24 H Creatinine 0.64 Est Cr Clr Drug Dosing 65.8 Est GFR ( Amer) 93.6 Est GFR (Non-Af Amer) 80.8 BUN/Creatinine Ratio 37.2 H Glucose 80 Calcium 8.4 L (1) Aortic stenosis Cardiac valve disease etiology: nonrheumatic Qualified Code(s): I35.0 - Nonrheumatic aortic (valve) stenosis
--- NOTE | 2020-08-29 13:37 | Neurology Progress Note ---
Date of Service August 29, 2020 Assessment & Plan (1) Stroke-like symptom: 1. resolved - left leg weakness ongoing 2. PT/OT for discharge needs 3. MRI - no stroke 4. TTE- done 05/2020 - EF 55-60% no ASD 5. CTA bilateral plaque carotid 6. likely need increase in supervision - unclear how she is able to live alone- nursing visit to evaluate for safe discharge 7. slowly correct blood pressure to normal tensive but consider patients age 8. add plavix 75 mg to aspirin 81 mg x 21 days then plavix for life time will sign off for now follow up with Martha Avendano MD 4-6 weeks after discharge. (2) Parkinson disease: 1. continue Sinemet 25/100 mg 1.5 tab 1100/1400/1700 2. will reevaluate as outpatient but current no cogwheeling tremor Admission and Anticipated Discharge Date Admission Date: August 27, 2020 Supervising Physician Co-Signing Physician Notes I Agree with recommendations as noted by Martha Neal PA-C as noted below. Outpatient follow up with neurology. Will defer to PT/OT recs for rehab needs. Please call with any additional questions or concerns. Polo Trujillo is a 84 year old female with a PMH- Parkinson's disease, HTN, HLD, aortic valve stenosis, CKD stage IIIa, osteoporosis, chronic anemia, wheelchair- bound in setting of left femur fracture. She presented to [facility] ED secondary to weakness left side and slurred speech, confusion, blank stare and slurred speech this morning. Symptoms started to resolve except L sided weakness which is baseline ever since L femur fracture. CTA head /neck no acute abnormality, moderate plaque within the b/l carotid bifurcations. Stroke alert but no TPA given. She did take a.m. aspirin 81mg and once she passed the swallowing study she was given aspirin 325 mg. She thinks she is doing well. she thinks the weakness felt like her legs were "rubbery". Her left leg has been weaker than the right since the fracture. She lives alone and ambulates with a wheelchair her daughter checks on her she lives close. She was in [facility] after the fall but she is back home now. denies CP, SOB, abdominal pain, new weakness. Review of Systems Review of Systems: All systems reviewed & are unremarkable except as noted in HPI & below Physical Exam Physical Exam: Physical Exam: Constitutional: appearance nourished, NAD Ears, Nose, Mouth and Throat: mucous membranes moist, no injection and skin normal, eyes normal Cardiovascular: normal S-1 and S-2 and regular rate and rhythm, opening murmur Respiratory: clear to auscultation (CTA) and no rales, ronchi or wheeze Musculoskeletal: no peripheral edema and good distal pulses, contracture on right 4 th digit, OA deformities Skin: no stigmata of neurocutaneous disease noted and normal and intact Eyes: extraocular muscles intact (EOMI) and pupils equal, round and reactive to light (PERRL), decreased blink NEUROLOGIC EXAMINATION: Mental status: Alert and interactive Oriented to president Feliciano, 2012, location [facility] Oriented to person Speech raspy speech, low voice tone Cranial Nerves no facial asymmetry Reflexes: Deep tendon reflexes were symmetrical and graded 2/5 neurtral toes Sensory: intact to light and cool touch Coordination: finger to nose, no reaching tremor, no resting tremor no cogwheeling rigidity Gait/Stance: Posture normal. sitting up in bed Motor: Negative for pronator drift of out stretched arms with eyes closed. Strength: UE- hand cement breaker, biceps triceps 4+/5, hip flex right 5/5, left 4/5, plantar flex e xt 5/5 Results & Data ([facility]) Vital Signs (Past 12 Hours) Vital Signs Temp Pulse Pulse Pulse Resp BP BP 08/29/20 11:16 36.4 C L 77 20 144/67 H 08/29/20 09:13 78 81/45 L 08/29/20 07:40 81 177/80 H 08/29/20 07:30 36.6 C 76 20 180/81 H 08/29/20 07:00 74 08/29/20 04:41 36.6 C 78 20 156/76 H Pulse Ox 08/29/20 11:16 98 08/29/20 09:13 08/29/20 07:40 08/29/20 07:30 96 08/29/20 07:00 08/29/20 04:41 98
[2020-08-30] MEDS: TRIAMCINOLONE ACET 0.1% OINT 15 GM TUBE TOP SCH ×2 (07:51→20:21)
[2020-08-30] MEDS: CLOTRIMAZOLE 1% CR 15 GM TUBE TOP SCH ×2 (07:51→20:22)
[2020-08-30] MEDS: CARBIDOPA/LEVODOPA 25/100MG TAB PO SCH ×5 (07:52→20:23)
[2020-08-30] MEDS: ASPIRIN 81 MG ECTAB PO SCH (07:54)
[2020-08-30] MEDS: CLOPIDOGREL BISULFATE 75 MG TAB PO SCH (07:54)
[2020-08-30] MEDS: ATORVASTATIN 40 MG TAB PO SCH (07:54)
[2020-08-30] MEDS: NYSTATIN POWDER 15GM BTL EXT SCH ×2 (07:55→20:23)
--- NOTE | 2020-08-30 10:09 | Hospitalist Progress Note ---
Date of Service August 30, 2020 Assessment & Plan (1) Stroke-like symptom: (2) Parkinson disease: (3) Hypertension: (4) Dyslipidemia: (5) Aortic stenosis: 84-year-old female who has significant past medical history of Parkinson's disease, HTN, HLD, aortic valve stenosis, CKD stage IIIa, osteoporosis, chronic anemia, wheelchair-bound in setting of left femur fracture who presents to ED secondary to weakness left side and slurred speech since 9:30 AM on 08/27/20 Pt reported to have had L sided weakness, confusion, blank stare and slurred speech this morning. Pt does not recall events Symptoms seem to have all resolved and patient back to baseline CTA head /neck no acute abnormality, moderate plaque within the b/l carotid bifurcations. Stroke alert was called but pt not TPA candidate as symptoms were resolving at the time She did take a.m. aspirin 81mg on the day of presentation. Got 324mg on admission MRI brain did not show any acute infarct per report Echo 06/02/20: EF 55 to 60%, moderate aortic stenosis Possible TIA Patient does have some hypomimia and low volume speech/mild dysarthria. Neurologist evaluation and recommendations appreciated Continue ASA and plavix for 21 days, after which aspirin is discontinued and continue plavix only Continue atorvastatin BP has been quite labile Was 112/81 during my exam this morning Will continue to monitor. If persistently elevated, will do lower dose of lisinopril 5mg or amlodipine 5mg PT/OT/MANAGED CARE MANAGER evaluation noted Per CM, daughter is not interested in SNF at this time Patient gets HH but only for about 5hrs a day. I called daughter yesterday evening. She stated that she was already working with an agency who will provide a live-in caregiver before patient got admitted I explained that it is not safe to discharge patient to a home where she is not being cared for 06/12 as she is 2 person max assist and requires help right now with ADLs. The only safe option will be SNF or daughter's home except if said agency will provide the live-in caregiver soonest I discussed this with CM today who will follow up with daughter and said agency Hypertensive Urgency Had hypotension after resumption of home lisinopril Lisinopril discontinued. BP has been labile since. Currently normal Parkinson Disease Continue sinemet Trang/Erythematous Intertrigo MRSA infection Per Derm outpatient note, from 08/12/20, cultures grew MRSA Patient completed doxycycline Continue topical clotrimazole Get wound on board Chronic ambulatory dysfunction/wheel chair bound hx of L femur fx Admission and Anticipated Discharge Date Admission Date: August 27, 2020 Subjective Patient seen and examined. No new complaints Review of Systems Constitutional: no fever, no chills and no body aches Eyes: no problem reported Ear, Nose, Mouth, Throat: no problem reported Respiratory: no cough, no chest congestion and no dyspnea Cardiovascular: no chest pain, no dyspnea, no orthopnea and no lightheadedness Gastrointestinal: no abdominal pain, no nausea, no vomiting, no constipation and no diarrhea/loose stools Genitourinary: no dysuria, no difficulty urinating and no urinary frequency Musculoskeletal: Lower extremity weakness Neurologic: no dizziness, no headache(s) and no confusion Psychiatric: no depression and no anxiety Physical Exam Constitutional: + well hydrated; no acute distress Eyes: PERRL, conjunctivae normal, anicteric sclerae ENMT: external ear and nose normal, oropharynx normal Respiratory: normal respiratory effort, lungs clear to auscultation Cardiovascular: Rate/Rhythm: regular rate and regular rhythm S1-S2 Gastrointestinal (Abdomen): normal bowel sounds, soft, nontender, no hepatosplenomegaly Musculoskeletal: Power 4/5 in both lower extremities (knee extension) and 5/5 in upper extremities Skin: Erythematous rash under breasts bilaterally, with confluent area. Neurologic: PERRL, EOMI, accommodation nl, no face palsy, no dysarthria Psychiatric: A+Ox3, euthymic affect Results & Data Results & Data ([facility]) Vital Signs (Past 12 Hours) Vital Signs Temp Pulse Pulse Resp BP Pulse Ox 08/30/20 07:35 36.6 C 78 16 186/84 H 95 08/30/20 03:39 36.4 C L 74 14 173/81 H 95 08/29/20 23:41 70 08/29/20 23:24 36.5 C 71 18 128/74 93 Laboratory Results Laboratory Results - last 24 hr 08/30/20 08/30/20 09:37 09:37 WBC 7.30 RBC 4.09 L Hgb 12.3 Hct 38.6 MCV 94.4 MCH 30.1 MCHC 31.9 L RDW Std Deviation 52.4 H RDW Coeff of Conor 15.1 H Plt Count 197 MPV 11.8 H Immature Gran % (Auto) 0.4 Neut % (Auto) 71.0 Lymph % (Auto) 14.4 [place] % (Auto) 7.5 Eos % (Auto) 6.4 Baso % (Auto) 0.3 Neut # (Auto) 5.18 Lymph # (Auto) 1.05 L [place] # (Auto) 0.55 Eos # (Auto) 0.47 Baso # (Auto) 0.02 Immature Gran # (Auto) 0.03 H Sodium 141 Potassium 3.7 Chloride 108 H Carbon Dioxide 27 Anion Gap 6.0 BUN 22 H Creatinine 0.61 Est Cr Clr Drug Dosing 67.3 Est GFR ( Amer) 95.1 Est GFR (Non-Af Amer) 82.1 BUN/Creatinine Ratio 35.7 H Glucose 131 H Calcium 8.3 L (1) Aortic stenosis Cardiac valve disease etiology: nonrheumatic Qualified Code(s): I35.0 - Nonrheumatic aortic (valve) stenosis
[2020-08-30 10:24] LABS: Basophils # (auto) 0.02 K/uL (0-0.2); Basophils % (auto) 0.3 %; Eosinophils # (auto) 0.47 K/uL (0-0.5); Eosinophils % (auto) 6.4 %; Hematocrit (blood only) 38.6 % (37-47); Hemoglobin 12.3 g/dL (12.0-16.0); Immature Granulocytes # (auto) 0.03 K/uL (0.00-0.02); Immature Granulocytes % (auto) 0.4 %; Lymphocytes # (auto) 1.05 K/uL (1.2-3.4); Lymphocytes % (auto) 14.4 %; Mean Corpuscular Hemoglobin 30.1 pg (25-34); Mean Corpuscular Hgb Conc 31.9 g/dL (32-36); Mean Corpuscular Volume 94.4 fL (80-100); Mean Platelet Volume 11.8 fL (7.4-10.4); Monocytes # (auto) 0.55 K/uL (0.11-0.59); Monocytes % (auto) 7.5 %; Neutrophils # (auto) 5.18 K/uL (1.4-6.5); Platelet Count 197 K/uL (130-400); RDW Coefficient of Variation 15.1 % (11.5-14.5); RDW Standard Deviation 52.4 fL (36.4-46.3); Red Blood Count 4.09 M/uL (4.2-5.4)
[2020-08-30 10:53] LABS: BUN Creatinine Ratio 35.7 (10-20); Calcium 8.3 mg/dl (8.5-10.1); Creatinine Clr Calc Pharmacy 67.3 ml/min; Est GFR (African American) 95.1; Est GFR (Non-African American) 82.1; Potassium 3.7 mmol/L (3.5-5.1)
[2020-08-31] MEDS: CLOPIDOGREL BISULFATE 75 MG TAB PO SCH (08:42)
[2020-08-31] MEDS: ATORVASTATIN 40 MG TAB PO SCH (08:42)
[2020-08-31] MEDS: TRIAMCINOLONE ACET 0.1% OINT 15 GM TUBE TOP SCH ×2 (08:43→20:07)
[2020-08-31] MEDS: NYSTATIN POWDER 15GM BTL EXT SCH ×2 (08:43→20:06)
[2020-08-31] MEDS: CARBIDOPA/LEVODOPA 25/100MG TAB PO SCH ×5 (08:43→20:07)
[2020-08-31] MEDS: ASPIRIN 81 MG ECTAB PO SCH (08:43)
[2020-08-31] MEDS: CLOTRIMAZOLE 1% CR 15 GM TUBE TOP SCH ×2 (08:43→20:06)
--- NOTE | 2020-08-31 09:43 | Hospitalist Progress Note ---
Date of Service August 31, 2020 Assessment & Plan (1) Stroke-like symptom: (2) Parkinson disease: (3) Hypertension: (4) Dyslipidemia: (5) Aortic stenosis: 84-year-old female who has significant past medical history of Parkinson's disease, HTN, HLD, aortic valve stenosis, CKD stage IIIa, osteoporosis, chronic anemia, wheelchair-bound in setting of left femur fracture who presents to ED secondary to weakness left side and slurred speech since 9:30 AM on 08/27/20 Pt reported to have had L sided weakness, confusion, blank stare and slurred speech this morning. Pt did not recall events Symptoms resolved and patient back to baseline CTA head /neck no acute abnormality, moderate plaque within the b/l carotid bifurcations. Stroke alert was called but pt not TPA candidate as symptoms were resolving at the time She did take a.m. aspirin 81mg on the day of presentation. Got 324mg [facility] MRI brain did not show any acute infarct per report Echo 06/02/20: EF 55 to 60%, moderate aortic stenosis Possible TIA Patient does have some hypomimia and low volume speech/mild dysarthria. Neurologist evaluation and recommendations appreciated Continue ASA and plavix for 21 days, after which aspirin is discontinued and continue plavix only Continue atorvastatin BP has been quite labile She became hypotensive after resuming home lisinopril which has since been discontinued Will continue to monitor.Will like discharge without antihypertensive for now but if needed will do lower dose of lisinopril 5mg or amlodipine 5mg PT/OT/MEDICAL TECHNOLOGIST GENERALIST evaluation noted Patient's daughter now agreeable to SNF while she is working out a 24-hour caregiver with agency. seafood manager working on SNF placement Hypertensive Urgency Had hypotension after resumption of home lisinopril Lisinopril discontinued. BP has been labile since. Parkinson Disease Continue sinemet Trang/Erythematous Intertrigo MRSA infection Per Derm outpatient note, from 08/12/20, cultures grew MRSA Patient completed doxycycline Continue topical clotrimazole Chronic ambulatory dysfunction/wheel chair bound hx of L femur fx DVT ppx- lovenox Admission and Anticipated Discharge Date Admission Date: August 27, 2020 Subjective Patient seen and examined. No new complaints. Lower extremity weakness and skin rash on review of system Physical Exam Constitutional: + well hydrated; no acute distress Eyes: PERRL, conjunctivae normal, anicteric sclerae ENMT: external ear and nose normal, oropharynx normal Respiratory: normal respiratory effort, lungs clear to auscultation Cardiovascular: Rate/Rhythm: regular rate and regular rhythm Gastrointestinal (Abdomen): normal bowel sounds, soft, nontender, no hepatosplenomegaly Musculoskeletal: Power 3/5 in both lower extremities (knee extension), 4/5 to dorsi- and plantar flexion and 5/5 in upper extremities Skin: Erythematous rash under breasts bilaterally, with confluent area mildly improved Neurologic: PERRL, EOMI, accommodation nl, no face palsy, no dysarthria Psychiatric: A+Ox3, euthymic affect Results & Data Results & Data ([facility]) Vital Signs (Past 12 Hours) Vital Signs Temp Pulse Pulse Pulse Resp BP Pulse Ox 08/31/20 08:11 146/81 H 08/31/20 08:10 87 08/31/20 08:04 36.5 C 83 16 194/69 H 08/31/20 02:43 36.5 C 79 18 156/78 H 94 08/31/20 00:55 72 08/30/20 22:57 36.5 C 74 22 108/69 95 Laboratory Results Laboratory Results - last 24 hr 08/30/20 08/30/20 09:37 09:37 WBC 7.30 RBC 4.09 L Hgb 12.3 Hct 38.6 MCV 94.4 MCH 30.1 MCHC 31.9 L RDW Std Deviation 52.4 H RDW Coeff of Conor 15.1 H Plt Count 197 MPV 11.8 H Immature Gran % (Auto) 0.4 Neut % (Auto) 71.0 Lymph % (Auto) 14.4 [place] % (Auto) 7.5 Eos % (Auto) 6.4 Baso % (Auto) 0.3 Neut # (Auto) 5.18 Lymph # (Auto) 1.05 L [place] # (Auto) 0.55 Eos # (Auto) 0.47 Baso # (Auto) 0.02 Immature Gran # (Auto) 0.03 H Sodium 141 Potassium 3.7 Chloride 108 H Carbon Dioxide 27 Anion Gap 6.0 BUN 22 H Creatinine 0.61 Est Cr Clr Drug Dosing 67.3 Est GFR ( Amer) 95.1 Est GFR (Non-Af Amer) 82.1 BUN/Creatinine Ratio 35.7 H Glucose 131 H Calcium 8.3 L (1) Aortic stenosis Cardiac valve disease etiology: nonrheumatic Qualified Code(s): I35.0 - Nonrheumatic aortic (valve) stenosis
[2020-08-31] MEDS: ENOXAPARIN INJ 40 MG/0.4 ML SYR SQ SCH (10:58)
[2020-09-01] MEDS: ASPIRIN 81 MG ECTAB PO SCH (08:49)
[2020-09-01] MEDS: CLOPIDOGREL BISULFATE 75 MG TAB PO SCH (08:50)
[2020-09-01] MEDS: CARBIDOPA/LEVODOPA 25/100MG TAB PO SCH ×5 (08:50→20:14)
[2020-09-01] MEDS: NYSTATIN POWDER 15GM BTL EXT SCH ×2 (08:50→20:15)
[2020-09-01] MEDS: CLOTRIMAZOLE 1% CR 15 GM TUBE TOP SCH ×2 (08:50→20:15)
[2020-09-01] MEDS: ATORVASTATIN 40 MG TAB PO SCH (08:51)
[2020-09-01] MEDS: TRIAMCINOLONE ACET 0.1% OINT 15 GM TUBE TOP SCH ×2 (08:51→20:15)
[2020-09-01] MEDS: ENOXAPARIN INJ 40 MG/0.4 ML SYR SQ SCH (08:51)
--- NOTE | 2020-09-01 12:01 | Hospitalist Progress Note ---
Date of Service September 01, 2020 Assessment & Plan (1) Stroke-like symptom: (2) Parkinson disease: (3) Hypertension: (4) Dyslipidemia: (5) Aortic stenosis: 84-year-old female who has significant past medical history of Parkinson's disease, HTN, HLD, aortic valve stenosis, CKD stage IIIa, osteoporosis, chronic anemia, wheelchair-bound in setting of left femur fracture who presents to ED secondary to weakness left side and slurred speech since 9:30 AM on 08/27/20 Pt reported to have had L sided weakness, confusion, blank stare and slurred speech this morning. Pt did not recall events Symptoms resolved and patient back to baseline CTA head /neck no acute abnormality, moderate plaque within the b/l carotid bifurcations. Stroke alert was called but pt not TPA candidate as symptoms were resolving at the time She did take a.m. aspirin 81mg on the day of presentation. Got 324mg [facility] MRI brain did not show any acute infarct per report Echo 06/02/20: EF 55 to 60%, moderate aortic stenosis Possible TIA Patient does have some hypomimia and low volume speech/mild dysarthria. Neurologist evaluation and recommendations appreciated Continue ASA and plavix for 21 days, after which aspirin is discontinued and continue plavix only Continue atorvastatin BP has been quite labile She became hypotensive after resuming home lisinopril which has since been discontinued We will discontinue lisinopril even on discharge PT/OT/HOUSEHOLD APPLIANCE ASSEMBLER evaluation noted Patient's daughter now agreeable to SNF while she is working out a 24-hour caregiver with agency. emergency department manager working on SNF placement Hypertensive Urgency Had hypotension after resumption of home lisinopril Lisinopril discontinued. BP has been labile since. Parkinson Disease Continue sinemet Trang/Erythematous Intertrigo MRSA infection Per Derm outpatient note, from 08/12/20, cultures grew MRSA Patient completed doxycycline Continue topical clotrimazole Chronic ambulatory dysfunction/wheel chair bound hx of L femur fx DVT ppx- lovenox Admission and Anticipated Discharge Date Admission Date: August 27, 2020 Subjective Patient seen and examined. Patient has no new complaints. Patient is currently alert and oriented to person, place, time, good insight into diagnosis and plan. Per RN, patient had a brief episode yesterday evening when she was confused, trying to get out of bed without aid and had to be redirected Physical Exam Constitutional: + well hydrated; no acute distress Eyes: PERRL, conjunctivae normal, anicteric sclerae ENMT: external ear and nose normal, oropharynx normal Respiratory: normal respiratory effort, lungs clear to auscultation Cardiovascular: Rate/Rhythm: regular rate and regular rhythm Gastrointestinal (Abdomen): normal bowel sounds, soft, nontender, no hepatosplenomegaly Musculoskeletal: Power 4/5 in both lower extremities (knee extension), 4/5 to dorsi- and plantar flexion and 5/5 in upper extremities Skin: Erythematous rash under breasts bilaterally, with confluent area mildly improved compared to admission. Intertrigo right groin skin fold Neurologic: PERRL, EOMI, accommodation nl, no face palsy, no dysarthria Psychiatric: A+Ox3, euthymic affect Results & Data Results & Data ([facility]) Vital Signs (Past 12 Hours) Vital Signs Temp Pulse Resp BP Pulse Ox 09/01/20 11:34 36.5 C 76 18 112/68 97 09/01/20 07:44 36.9 C 85 18 144/76 H 93 (1) Aortic stenosis Cardiac valve disease etiology: nonrheumatic Qualified Code(s): I35.0 - Nonrheumatic aortic (valve) stenosis
[2020-09-02] MEDS: ENOXAPARIN INJ 40 MG/0.4 ML SYR SQ SCH (09:01)
[2020-09-02] MEDS: CLOPIDOGREL BISULFATE 75 MG TAB PO SCH (09:02)
[2020-09-02] MEDS: ASPIRIN 81 MG ECTAB PO SCH (09:02)
[2020-09-02] MEDS: CARBIDOPA/LEVODOPA 25/100MG TAB PO SCH ×5 (09:02→20:39)
[2020-09-02] MEDS: ATORVASTATIN 40 MG TAB PO SCH (09:02)
[2020-09-02] MEDS: CLOTRIMAZOLE 1% CR 15 GM TUBE TOP SCH ×2 (09:03→20:39)
[2020-09-02] MEDS: TRIAMCINOLONE ACET 0.1% OINT 15 GM TUBE TOP SCH ×2 (09:03→20:39)
[2020-09-02] MEDS: NYSTATIN POWDER 15GM BTL EXT SCH ×2 (09:04→20:39)
--- NOTE | 2020-09-02 09:27 | Hospitalist Progress Note ---
Date of Service September 02, 2020 Assessment & Plan (1) Stroke-like symptom: (2) Parkinson disease: (3) Hypertension: (4) Dyslipidemia: (5) Aortic stenosis: 84-year-old female who has significant past medical history of Parkinson's disease, HTN, HLD, aortic valve stenosis, CKD stage IIIa, osteoporosis, chronic anemia, wheelchair-bound in setting of left femur fracture who presents to ED secondary to weakness left side and slurred speech since 9:30 AM on 08/27/20 Pt reported to have had L sided weakness, confusion, blank stare and slurred speech this morning. Pt did not recall events Symptoms resolved and patient back to baseline CTA head /neck no acute abnormality, moderate plaque within the b/l carotid bifurcations. Stroke alert was called but pt not TPA candidate as symptoms were resolving at the time She did take a.m. aspirin 81mg on the day of presentation. Got [facility]mg [facility] MRI brain did not show any acute infarct per report Echo 06/02/20: EF 55 to 60%, moderate aortic stenosis Possible TIA Patient does have some hypomimia and low volume speech/mild dysarthria. Neurologist evaluation and recommendations appreciated Continue ASA and plavix for 21 days, after which aspirin is discontinued and continue plavix only Continue atorvastatin BP has been quite labile She became hypotensive after resuming home lisinopril which has since been discontinued We will discontinue lisinopril even on discharge PT/OT/ENROLLER evaluation noted Patient's daughter now agreeable to SNF while she is working out a 24-hour caregiver with agency. manager industrial working on SNF placement Hypertensive Urgency Had hypotension after resumption of home lisinopril Lisinopril discontinued. BP has been labile since. Parkinson Disease Continue sinemet Trang/Erythematous Intertrigo MRSA infection Per Derm outpatient note, from 08/12/20, cultures grew MRSA Patient completed doxycycline Continue topical clotrimazole Chronic ambulatory dysfunction/wheel chair bound hx of L femur fx Miralax prn for constipation Monitor urine output DVT ppx - lovenox Discussed with CM. [facility] will be able to take patient tomorrow morning Admission and Anticipated Discharge Date Admission Date: August 27, 2020 Subjective Patient seen and examined Reports feeling constipated this morning Had urinary retention overnight with straight cath draining 1L Denied any other new symptoms Physical Exam Constitutional: + well hydrated; no acute distress Eyes: PERRL, conjunctivae normal, anicteric sclerae ENMT: external ear and nose normal, oropharynx normal Respiratory: normal respiratory effort, lungs clear to auscultation Cardiovascular: Rate/Rhythm: regular rate and regular rhythm Heart Sounds: + murmur S1 S2. No pedal edema Gastrointestinal (Abdomen): normal bowel sounds, soft, nontender, no hepatosplenomegaly Musculoskeletal: Power 4/5 in both lower extremities (knee extension), 4/5 to dorsi- and plantar flexion and 5/5 in upper extremities Skin: Erythematous rash under breasts bilaterally, with confluent area mildly improved compared to admission. Intertrigo right groin skin fold Neurologic: PERRL, EOMI, accommodation nl, no face palsy, no dysarthria Psychiatric: A+Ox3, euthymic affect Results & Data Results & Data ([facility]) Vital Signs (Past 12 Hours) Vital Signs Temp Pulse Pulse Resp BP Pulse Ox 09/02/20 08:03 36.6 C 82 18 175/77 H 94 09/02/20 03:26 36.9 C 88 17 131/76 92 09/01/20 22:39 36.6 C 73 19 88/53 L 93 (1) Aortic stenosis Cardiac valve disease etiology: nonrheumatic Qualified Code(s): I35.0 - Nonrheumatic aortic (valve) stenosis
[2020-09-02] MEDS ORDERED: INFLUENZA VACCINE HIGH DOSE 65+ 0.7 ML SYR IM ONE (19:02)
[2020-09-02] MEDS ORDERED: INFLUENZA ADMINISTRATION CHARGE ONE (19:02)
[2020-09-03] MEDS: ATORVASTATIN 40 MG TAB PO SCH (08:55)
[2020-09-03] MEDS: ASPIRIN 81 MG ECTAB PO SCH (08:55)
[2020-09-03] MEDS: CARBIDOPA/LEVODOPA 25/100MG TAB PO SCH ×3 (08:56→14:29)
[2020-09-03] MEDS: CLOPIDOGREL BISULFATE 75 MG TAB PO SCH (08:56)
[2020-09-03] MEDS: ENOXAPARIN INJ 40 MG/0.4 ML SYR SQ SCH (08:56)
[2020-09-03] MEDS: NYSTATIN POWDER 15GM BTL EXT SCH (08:56)
[2020-09-03] MEDS: CLOTRIMAZOLE 1% CR 15 GM TUBE TOP SCH (08:57)
[2020-09-03] MEDS: TRIAMCINOLONE ACET 0.1% OINT 15 GM TUBE TOP SCH (08:57)
[2020-09-03] MEDS ORDERED: STROKE PATIENT DISCHARGE STA (12:46)
--- NOTE | 2020-09-03 12:47 | Discharge Summary ---
Date of Service September 03, 2020 Admission HPI Per Admitting Provider This is a 84-year-old female who has significant past medical history of Parkinson's disease, HTN, HLD, aortic valve stenosis, CKD stage IIIa, osteoporosis, chronic anemia, wheelchair-bound in setting of left femur fracture who presents to ED secondary to weakness left side and slurred speech since 9:30 AM. Her last known time well was 9:30 AM. 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 When daughter came to see her at approximately 930 she noted her to have slurred speech, difficulty speaking, blank stare and confusion. There was also concern for possible left-sided weakness. EMS was summoned. She was made a stroke alert in ER. Symptoms were resolving and therefore TPA was not initiated. She underwent head CT, and CTA of head and neck. Both were unremarkable for acute abnormality although neck CTA did reveal moderate plaque within the bilateral carotid bifurcations.Currently patient is unsure how she got here. Last thing she can remember is talking to her daughter and then realizing she was in an ambulance. She is unable to elicit exact details prior to arrival. She admits to this happening 3 times in the past. In ED she denies any fever, chills, sweats, lightheadedness, dizziness, headache, change in vision or hearing, chest pain, shortness with, cough, nausea, vomiting, abdominal pain. She denies any recent illness. She did recently just complete a 10-day course of oral doxycycline secondary to a rash on her left and right breast. She did grow positive MRSA culture per outpatient records. She continues to use topical creams for this. Admission Exam Per Admitting Provider Constitutional: Elderly, F, WD/WN, vitals as above, NAD, sitting up in bed, pleasant, conversing easily Head: Normocephalic, Atraumatic Eyes: PERRL, conjunctivae normal, anicteric sclerae ENMT: external ear and nose normal, oropharynx normal, poor dentition Neck: trachea midline, no thyromegaly normal visual inspection Respiratory: normal respiratory effort, lungs clear to auscultation, LLL crackle, no rales and rhonchi. Normal insp/exp effort, no accessory muscle use Cardiovascular: RRR, 2/6 MARGE RUSB, LLE edema, negative homans Vessels: no JVD or carotid bruit Chest: normal inspection of chest Abdomen: normal bowel sounds, soft, nontender, no hepatosplenomegaly Musculoskeletal: no cyanosis or clubbing, extremities motor strength 5/5 on R and 4/5 on L, weaker on L, and with entry level account manager Skin: + erythematous confluent rash under b/l rash, genoveva intertrigo, warm and dry normal turgor Neurologic: PERRL, EOMI, accommodation nl, no face palsy, no facial asymmetry, no dysarthria CN's II-XI intact bilaterally and moves all extremities Psychiatric: A+Ox3, euthymic affect : deferred Principal Diagnosis Transient ischemic attack Parkinson Disease Genoveva/Erythematous Intertrigo MRSA infection Chronic ambulatory dysfunction/wheelchair bound Discharge Exam Constitutional: + well hydrated; no acute distress Eyes: PERRL, conjunctivae normal, anicteric sclerae ENMT: external ear and nose normal, oropharynx normal Respiratory: normal respiratory effort, lungs clear to auscultation Cardiovascular: regular rate and regular rhythm Heart Sounds: + murmur S1 S2. No pedal edema Gastrointestina: normal bowel sounds, soft, nontender, no hepatosplenomegaly Musculoskeletal: Power 4/5 in both lower extremities (knee extension), 4/5 to dorsi- and plantar flexion and 5/5 in upper extremities Skin: Erythematous rash under breasts bilaterally, with confluent area mildly improved compared to admission. Intertrigo right groin skin fold Neurologic: PERRL, EOMI, accommodation nl, no face palsy, no dysarthria Psychiatric: A+Ox3, euthymic affect Discharge Data Allergies Allergy/AdvReac Type Severity Reaction Status Date / Time No Known Allergies Allergy Verified 08/27/20 14:51 Consultations 08/27/20 17:06 Consult Neurology Routine Ordered Studies 08/27/20 13:15 CT angio head w con Stat CT angio neck with con Stat CT head/brain wo con Stat 08/27/20 17:06 MR brain wo/w con Routine 08/27/20 17:22 US venous doppler LE BI Stat BILATERAL LOWER EXTREMITY VENOUS DOPPLER CLINICAL HISTORY: Bilateral lower extremity swelling. COMPARISON STUDY: No previous studies for comparison. TECHNIQUE: Sonography of the deep venous system of the bilateral lower extremities was performed. Compression and augmentation were evaluated. FINDINGS: The bilateral common femoral, superficial femoral and popliteal veins were compressible. Augmentation was normal. Flow was shown within the deep calf vessels. IMPRESSION: No evidence of deep venous thrombus within the bilateral lower extremities. ACT 112: Negative or not required by law. Electronically signed by: Uvaldo Peres M.D. 08/27/2020 6:01 PM Dictated: 08/27/20 1800Transcribed: 08/27/20 1800 MRI OF THE BRAIN WITHOUT AND WITH IV CONTRAST CLINICAL HISTORY: Left sided weakness, r/o CVA COMPARISON STUDY: Head CT and CTA of the head performed earlier today. Head CT July 08, 2020. TECHNIQUE: Utilizing a 1.5 Elena magnet and dedicated coil, multiplanar, multiecho imaging of the brain was performed pre and postcontrast administration. IV administration of 7.5 mL of Gadavist contrast was uneventful. FINDINGS: There are no foci of restricted diffusion to suggest acute infarct. No acute intracranial hemorrhage, midline shift or mass effect is present. Vent ricular system is unremarkable. Basal cisterns are patent. There are no extra- axial collections. Flow-voids for the major intracranial vessels are present. No intracranial mass or pathologic enhancement is present. Note is made of moderate atrophy. White matter T2 hyperintense foci suggest small vessel disease. Calvarial signal is unremarkable. Orbits are unremarkable. Sinuses are clear. There is no fluid within the mastoid air cells. IMPRESSION: 1. No acute intracranial findings. 2. No intracranial mass or pathologic enhancement. 3. Moderate atrophy. 4. White matter T2 hyperintense foci suggestive of small vessel disease. ACT 112: Negative or not required by law. Electronically signed by: Uvaldo Peres M.D. 08/27/2020 8:00 PM Dictated: 08/27/201955Transcribed: 08/27/201955 CT ANGIOGRAPHY OF THE NECK WITH CONTRAST CLINICAL HISTORY: Stroke Like Symptoms COMPARISON STUDY: No previous studies for comparison. Technique: CT angiography of the carotid and vertebral arteries was obtained using [employer] 320 IV and 3D reconstruction on an independent workstation. NASCET criteria was utilized. Automated exposure control was utilized for the study. A dose lowering technique was utilized adhering to the principles of ALARA. Findings: No acute cervical fracture is noted. There is no cervical lymphadenopathy. There is a portion of the lung apices are unremarkable. There is moderate plaque within the bilateral carotid bifurcations. There is no significant stenosis within the right common carotid or internal carotid arteries. There is 40% stenosis of the distal left common carotid artery. The more proximal common carotid artery measures 7 mm in caliber wall of the vessel measures 3.6 mm in caliber at site of stenosis. There is no stenosis within the cervical portion of the left internal carotid artery. There is no dissection within the vessels within the neck. The bilateral vertebral arteries are patent. IMPRESSION: 1. Moderate plaque within the bilateral carotid bifurcations. 40% stenosis of the distal left common carotid artery. No significant stenosis within the bilateral cervical internal carotid arteries. 2. No dissection within neck. ACT 112: Negative or not required by law. Electronically signed by: Uvaldo Peres M.D. 08/27/2020 1:51 PM Dictated: 08/27/20 1344Transcribed: 08/27/[address] angio head w con CLINICAL HISTORY: 84 years-old Female with Stroke Like Symptoms. Acute strokelike symptoms COMPARISON STUDY: Head CT of same day and also 07/08/2020 TECHNIQUE: Following the IV administration of 118 cc of Optiray 320, CT angiogram of the brain was performed from the skull base to the vertex. Images are reviewed in the axial, sagittal, and coronal planes. 3-D MIPS images are created and assessed. IV contrast was administered without complication. All measurements were obtained according to NASCET criteria. A dose lowering technique was utilized adhering to the principles of ALARA. CT DOSE: 1176.79 mGycm FINDINGS: CT ANGIOGRAM OF THE BRAIN: Motion degraded exam. Calcified plaque of the cavernous, clinoid and supraclinoid segments of the internal carotid arteries without high-grade stenosis. The middle and anterior cerebral arteries are patent. Diminutive right A1 segment, likely developmental. The imaged vertebral arteries are patent. Calcified plaque of the V4 segment left vertebral artery without high-grade stenosis. Patent basilar artery. There is mild multifocal luminal narrowing of the posterior cerebral arteries. No aneurysm, dissection, high-grade stenosis or proximal branch occlusion. The cerebral venous sinuses are patent. No abnormal intracranial enhancement. Unremarkable soft tissues. Prior bilateral lens repair. Metallic density surgical clip-shaped structure of the left parietal scalp redemonstrated. IMPRESSION: Unremarkable CTA of the head. ACT 112: Negative or not required by law. The above report was generated using voice recognition software. It may contain grammatical, syntax or spelling errors. Electronically signed by: Meño Aleman M.D. 08/27/2020 1:42 PM Dictated: 08/27/20 1337Transcribed: 08/27/[address] head/brain wo con CLINICAL HISTORY: 84 years-old Female with Stroke Like Symptoms. Acute strokelike symptoms TECHNIQUE: Multiple axial CT images of the head were obtained without contrast. A dose lowering technique was utilized adhering to the principles of ALARA. CT DOSE: 1259.45 mGycm COMPARISON: Head CT 07/08/2020 FINDINGS: No acute intracranial hemorrhage, midline shift, intracranial mass, hydrocephalus, territorial ischemia or abnormal extra-axial collection. Motion degraded exam. Age-related involutional changes with chronic microvascular ischemic disease. Cerebral vascular calcifications. The calvarium is intact. Prior bilateral lens replacement. Unchanged metallic density structure of the left parietal scalp. The paranasal sinuses, mastoid air cells, and middle ear cavities are clear. IMPRESSION: Motion degraded exam without acute intracranial abnormality identified. ACT 112: Negative or not required by law. The above report was generated using voice recognition software. It may contain grammatical, syntax or spelling errors. Electronically signed by: Meño Aleman M.D. 08/27/2020 1:31 PM Dictated: 08/27/20 1328Transcribed: 08/27/20 1328 Hospital Course (1) Stroke-like symptom: (2) Parkinson disease: (3) Hypertension: (4) Dyslipidemia: (5) Aortic stenosis: 84-year-old female who has significant past medical history of Parkinson's disease, HTN, HLD, aortic valve stenosis, CKD stage IIIa, osteoporosis, chronic anemia, wheelchair-bound in setting of left femur fracture who presents to ED secondary to weakness left side and slurred speech since 9:30 AM on 08/27/20 Pt reported to have had L sided weakness, confusion, blank stare and slurred speech this morning. Pt did not recall events Symptoms resolved and patient back to baseline CTA head /neck no acute abnormality, moderate plaque within the b/l carotid bifurcations. Stroke alert was called but pt not TPA candidate as symptoms were resolving at the time She did take a.m. aspirin 81mg on the day of presentation. Got 324mg on admission MRI brain did not show any acute infarct per report Echo 06/02/20: EF 55 to 60%, moderate aortic stenosis Possible TIA Patient does have some hypomimia and low volume speech/mild dysarthria. Neurologist evaluation and recommendations appreciated Continue ASA and plavix for 21 days, after which aspirin is discontinued and continue plavix only Continue atorvastatin BP has been quite labile She became hypotensive after resuming home lisinopril which has since been discontinued We will discontinue lisinopril even on discharge PT/OT/CONCESSION SUPERVISOR evaluation noted Patient's daughter now agreeable to SNF while she is working out a 24-hour caregiver with agency. clinique counter manager working on SNF placement Hypertensive Urgency Had hypotension after resumption of home lisinopril Lisinopril discontinued. BP has been labile since. Parkinson Disease Continue sinemet Genoveva/Erythematous Intertrigo MRSA infection Per Derm outpatient note, from 08/12/20, cultures grew MRSA Patient completed doxycycline Continue topical clotrimazole Chronic ambulatory dysfunction/wheel chair bound hx of L femur fx Miralax prn for constipation Monitor urine output DVT ppx - lovenox Discussed with CM. [facility] will be able to take patient tomorrow morning Total Time Total Time Spent Total Time Spent (In Minutes): 35 minutes Total Time Includes: Examination of the Patient, Discharge Planning, Medication Reconciliation, Communication With Other Providers and Other Discharge Plan Discharge Items Patient Disposition: Transfer Snf Fac Reason For Visit: L SIDED WEAKNESS, POSSIBLE TIA Discharge Diagnosis: Transient ischemic attack Parkinson Disease Genoveva/Erythematous Intertrigo MRSA infection Chronic ambulatory dysfunction/wheel chair bound Activity: As commented below Activity Comment: Per physical therapist instructions Non-emergency contact: Primary Care Provider and Neurologist Call non-emergency contact if: you have any medication questions and your symptoms worsen Follow-up/Referrals: Cheryl Byers DO [Primary Care Provider] - (Date & Time 09/02/2020 2:20 PM Provider Cheryl Byers DO Department [facility] ) Diet: Heart Healthy Addtl Attending Provider Instructions: Mrs Diaz You were brought to the hospital for left-sided weakness and slurred speech. You were evaluated for possible stroke. CAT scan of the head and neck did not show any acute stroke but showed moderate plaque in the blood vessels supplying the brain for the carotids. MRI brain did not show any stroke. You were managed for transient ischemic attack. Your symptoms resolved. You were evaluated by neurologist. You were started on aspirin and Plavix (clopidogrel) for 21 days. Please continue taking both medications until 09/16/20, after which you stop taking aspirin and continue taking plavix (clopidogrel) indefinitely. You were also started on a new medication called atorvastatin. Please check LFT in 1-2 weeks to monitor your liver enzymes since starting on atorvastatin Continue monitor your blood pressure Follow up with neurology with Dr. Martha Avendano in 4-6 weeks after discharge. Please continue to use the cream for your skin rash. It is important that you follow-up with your primary doctor as well as a neurologist for continued management. You are being discharged to a fdc facility for some rehab and continued care. It was a pleasure taking care of you. Pending Studies at Discharge: No Stand-Alone Forms: My [facility] Skilled Items Patient informed of condition?: Yes DNR: Yes Discharge Level of Care: Skilled Communicable Disease: No Discharge Prognosis: Stable Lines: None Urinary Catheter: No Medications and DC Order Prescriptions: New acetaminophen 325 mg Tablet 650 mg PO Q6H PRN (Reason: pain) Qty: 30 RF: 0 clopidogrel 75 mg Tablet 75 mg PO QAM 30 Days Qty: 30 RF: 0 polyethylene glycol 3350 [Miralax] 17 gram Powder In Packet 17 g PO DAILY PRN (Reason: constipation) Qty: 30 RF: 0 Continued alendronate [Fosamax] 70 mg Tablet 70 mg PO WK RF: 0 carbidopa-levodopa 25-100 mg Tablet See Rx Instructions .ROUTE .COMPLEX RF: 0 aspirin 81 mg Tablet,Delayed Release (Dr/Ec) 81 mg PO QAM RF: 0 nystatin 100,000 unit/gram Powder 1 applic TOPICAL BID RF: 0 clindamycin phosphate 1 % Gel 1 applic TOPICAL AMHS RF: 0 triamcinolone acetonide 0.1 % Ointment 1 applic TOPICAL BID RF: 0 clotrimazole 1 % Cream 1 applic TOPICAL BID RF: 0 Discontinued tramadol 50 mg Tablet 50 mg PO UD PRN (Reason: Pain) RF: 0 lisinopril 10 mg Tablet 10 mg PO QAM Qty: 14 RF: 0 Discharge Orders: Discharge Order (Routine); Ordered 09/03/20 Ordered By: Jerzy Guzman Admission Data Admit Date/Time: 08/27/20 17:06 Attending Provider: Jerzy Guzman Admit Provider: Ric Hankins Primary Care Provider: hCeryl Byers Other Providers: Ric Hankins ; Sergio Miranda ; [facility] ; Martha Avendano ; Loraine Andrade I.
== END 2020-09-03 16:07 ==
LOC: ED 13:11 → 2W 17:06 → SUATTDRO 17:06 → INTOOBSV 17:06 → 2W 19:44 → 3W 09-03 11:04

== ENCOUNTER 2021-12-26 17:18 | Observation (INO) ==
[2021-12-26 18:33] LABS: Basophils # (auto) 0.05 K/uL (0-0.2); Basophils % (auto) 0.7 %; Eosinophils % (auto) 5.3 %; Hematocrit (blood only) 38.6 % (34.1-44.9); Hemoglobin 12.3 g/dl (12.0-16.0); Immature Granulocytes # (auto) 0.02 K/uL (0.00-0.02); Immature Granulocytes % (auto) 0.3 %; Lymphocytes # (auto) 1.32 K/uL (1.2-3.4); Lymphocytes % (auto) 17.4 %; Mean Corpuscular Hemoglobin 30.1 pg (25.0-34.0); Mean Corpuscular Hgb Conc 31.9 g/dL (32.0-36.0); Mean Corpuscular Volume 94.4 fL (80.0-100.0); Mean Platelet Volume 10.9 fL (9.4-12.3); Monocytes # (auto) 0.72 K/uL (0.24-0.82); Monocytes % (auto) 9.5 %; Neutrophils # (auto) 5.07 K/uL (1.4-6.5); Neutrophils % (auto) 66.8 %; Platelet Count 230 K/uL (130-400); RDW Coefficient of Variation 14.6 % (11.5-14.5); RDW Standard Deviation 51.4 fL (36.4-46.3); Red Blood Count 4.09 M/uL (3.93-5.22); White Blood Count 7.58 K/ul (4.8-10.8)
--- NOTE | 2021-12-26 18:53 | Emergency Department Note ---
History of Present Illness General Chief complaint: Leg Injury/Pain Time Seen by Provider: 12/26/21 17:26 History of Present Illness Maximum Pain Intensity: 5 86-year-old female presents to the ED with a chief complaint of left leg swelling. She states that this has been there for about the past 4 days. It is mildly uncomfortable as well. She also states that she has a sore on her butt. She has a history of Parkinson's disease. She is mostly immobile and gets around in a wheelchair. She normally has a home health nurse 24 hours a day. The home health nurse that was taking care of her today quit. The daughter and another family member presents with the patient with concerns about this as well. No other complaints. No chest pains or shortness of breath. No fevers or recent illness. Home Medications Medication Instructions Recorded Confirmed Type carbidopa 25 mg-levodopa 100 mg See Rx Instructions .Route .COMPLEX 03/21/18 10/30/21 History tablet acetaminophen 325 mg tablet 650 mg PO Q6H PRN pain #30 tabs 09/03/20 10/30/21 Rx polyethylene glycol 3350 17 gram 17 g PO DAILY PRN constipation #30 09/03/20 10/30/21 Rx oral powder packet (Miralax) ea clopidogrel 75 mg tablet (Plavix) 75 mg PO DAILY 08/24/21 10/30/21 History Allergies Allergy/AdvReac Type Severity Reaction Status Date / Time No Known Allergies Allergy Verified 10/30/21 16:32 Past Med/Surg History Medical History Aortic stenosis "Mild-moderate per echo 03/15/17" Chronic allergic rhinitis Dyslipidemia Generalized weakness Hypertension Osteoporosis Parkinson disease Urinary tract infection Surgical History H/O colonoscopy "2011" History of fracture of left hip History of left hip replacement Hx of cataract surgery Family History Father Esophageal cancer Mother Breast cancer Social History Smoking Status: Never smoker Second Hand Exposure: No; Hx Alcohol Use: No Hx Substance Use: No Preferred Language: Kazakh Communication Ability: Effective 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 Livestock Required: No Beliefs That Will Affect Care: None marital status: / Current Living Situation: Alone Current Living Situation Comment: daughter comes in to help during the day How many Children do You have: 1 Feels Safe at Home: Yes during the past year weight has: remained stable Assistive Devices: Walker Review of Systems A total of 10 systems reviewed and were otherwise negative Physical Exam Vital Signs Vital Signs - 24 hr 12/26/21 17:32 Temperature 36.9 C Temperature Source Oral Pulse Rate 81 Respiratory Rate 14 Blood Pressure 167/122 H Blood Pressure Mean 137 Pulse Oximetry 95 Sepsis Recent Fever Within 48 Hours No Sepsis New/Unexplained Change in Mental Status N/A Sepsis Action Taken by Nursing No Action Required CONSTITUTIONAL/VITAL SIGNS: Reviewed / noted above. GENERAL: Non-toxic in appearance. INTEGUMENTARY: Warm, dry, and Leonard. Sacral decubitus ulcer noted. Some subacute bruising to the bilateral knees. HEAD: Normocephalic. EYES: without scleral icterus or trauma. ENT/OROPHARYNX: clear and moist. LYMPHADENOPATHY/NECK: Is supple without lymphadenopathy or meningismus. RESPIRATORY: Clear to auscultation bilaterally. No increased work of breathing. CARDIOVASCULAR: Regular rate and rhythm. GI/ABDOMEN: Soft and nontender. No organomegaly or pulsatile mass. EXTREMITIES: Warm and well perfused. The patient has some edema to the left leg. There is also a ulceration to the heel. Does not appear to be acutely infected or acute. BACK: No CVA tenderness. NEUROLOGICAL: Intact without focal deficits. PSYCHIATRIC: normal affect. MUSCULOSKELETAL: Normally developed with good muscle tone. TRIAGE NURSING DOCUMENTATION REVIEWED. Medical Decision Making Differential Diagnosis DVT, musculoskeletal, infection, joint effusion, trauma, lymphedema, idiopathic, CHF, as well as other pathologies. Medical Records Attestation: I reviewed the patient's medical records. Home Medications Current Medication List: was personally reviewed by me Laboratory Data Attestation: I reviewed the patient's lab results. Result diagrams: 12/26/21 18:18 12/26/21 18:18 Lab Results 12/26/21 12/26/21 12/26/21 Range/Units 18:18 18:18 18:18 WBC 7.58 (4.8-10.8) K/ul RBC 4.09 (3.93-5.22) M/uL Hgb 12.3 (12.0-16.0) g/dl Hct 38.6 (34.1-44.9) % MCV 94.4 (80.0-100.0) fL MCH 30.1 (25.0-34.0) pg MCHC 31.9 L (32.0-36.0) g/dL RDW Std Deviation 51.4 H (36.4-46.3) fL RDW Coeff of Conor 14.6 H (11.5-14.5) % Plt Count 230 (130-400) K/uL MPV 10.9 (9.4-12.3) fL Immature Gran % (Auto) 0.3 % Neut % (Auto) 66.8 % Lymph % (Auto) 17.4 % Alexander % (Auto) 9.5 % Eos % (Auto) 5.3 % Baso % (Auto) 0.7 % Neut # (Auto) 5.07 (1.4-6.5) K/uL Lymph # (Auto) 1.32 (1.2-3.4) K/uL Alexander # (Auto) 0.72 (0.24-0.82) K/uL Eos # (Auto) 0.40 (0-0.50) K/uL Baso # (Auto) 0.05 (0-0.2) K/uL Immature Gran # (Auto) 0.02 (0.00-0.02) K/uL PT 10.4 (9.0-12.0) Seconds INR 1.0 (0.9-1.1) APTT 30.8 (21.0-31.0) Seconds PTT Ratio 1.1 Sodium 141 (136-145) mmol/L Potassium 4.0 (3.5-5.1) mmol/L Chloride 105 (98-107) mmol/L Carbon Dioxide 29 (21-32) mmol/L Anion Gap 7 (3-11) BUN 14 (6-23) mg/dl Creatinine 0.67 (0.6-1.2) mg/dl Est Cr Clr Drug Dosing Not Reportable Est GFR ( Amer) 91.6 ml/min Est GFR (Non-Af Amer) 79.0 ml/min BUN/Creatinine Ratio 20.9 H (10-20) Glucose 86 (70-99(Fasting)) mg/dl Calcium 9.1 (8.5-10.1) mg/dl Total Bilirubin 0.6 (0.2-1.0) mg/dl AST 13 (13-39) U/L ALT < 3 L (7-52) U/L Alkaline Phosphatase 77 (34-104) U/L Total Protein 7.3 (6.0-8.3) gm/dl Albumin 3.6 (3.4-5.0) gm/dl Globulin 3.7 (2.5-4.0) gm/dl Albumin/Globulin Ratio 1.0 (0.9-2) Imaging Data My Impression: Ultrasound left leg: No DVT MDM Narrative 86-year-old female presents with a chief complaint of left leg swelling for the past 4 days or so. 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 Vital signs reveal some hypertension. She is in no distress. CBC is unremarkable. Chemistry panel was unremarkable. Ultrasound did not show DVT. The patient and family were told the results of the test. The family is concerned about the patient's wellbeing as the patient lives alone and the caregiver who was taking care of the patient has quit and the family feels the patient's needs would best be served in a intermediate and would like her to be admitted for that. I did speak with the hospitalist. Impression & Plan Leg edema, left Discharge Plan Visit Data Chief Complaint: Leg Injury/Pain ED Provider: Nehemias Jhaveri Discharge Problem: Leg edema, left Patient Disposition: Being Evaluated by Hospitalist Forms Stand Alone Forms: My [facility] Prescriptions Prescriptions: No Action carbidopa-levodopa 25-100 mg Tablet See Rx Instructions .ROUTE .COMPLEX Rx Instructions: 1.5 - 2 tab orally ;2 tablets QAM ~ 1.5 tablets at 1100,1400,1700, THEN 2 TABS AT HS acetaminophen 325 mg Tablet 650 mg PO Q6H PRN (Reason: pain) Qty: 30 0RF polyethylene glycol 3350 [Miralax] 17 gram Powder In Packet 17 g PO DAILY PRN (Reason: constipation) Qty: 30 0RF clopidogrel [Plavix] 75 mg Tablet 75 mg PO DAILY Referrals Referrals: Cheryl Byers DO [Primary Care Provider] -
[2021-12-26 18:57] LABS: Anion Gap 7 (3-11); BUN Creatinine Ratio 20.9 (10-20); Blood Urea Nitrogen 14 mg/dl (6-23); Calcium 9.1 mg/dl (8.5-10.1); Carbon Dioxide 29 mmol/L (21-32); Chloride 105 mmol/L (98-107); Est GFR (African American) 91.6 ml/min; Glucose 86 mg/dl (70-99(Fasting)); Sodium 141 mmol/L (136-145)
[2021-12-26 19:00] LABS: Alanine Aminotransferase < 3 U/L (7-52); Albumin Level 3.6 gm/dl (3.4-5.0); Alkaline Phosphatase 77 U/L (34-104); Aspartate Aminotransferase 13 U/L (13-39); Bilirubin,Total 0.6 mg/dl (0.2-1.0); Globulin 3.7 gm/dl (2.5-4.0); Partial Thromboplastin Ratio 1.1; Partial Thromboplastin Time 30.8 Seconds (21.0-31.0); Prothrombin Time 10.4 Seconds (9.0-12.0); Total Protein 7.3 gm/dl (6.0-8.3)
--- NOTE | 2021-12-26 19:22 | Ultrasound Report ---
US venous doppler LE LT CLINICAL HISTORY: swelling TECHNIQUE: Left lower extremity real-time compression venous ultrasound with Color Doppler imaging. U tilizing real-time ultrasonic imaging multiple real time high-resolution ultrasonic images with compr ession and noncompression maneuvers of the deep venous system in addition to color doppler imaging we re performed from the common femoral vein through the proximal calf veins. COMPARISON: Comparison is made to previous ultrasound 08/27/2020 FINDINGS: Currently there is normal compressibility of the deep venous system from the common femoral vein thro ugh the proximal calf veins. Left calf edema is noted. Impression: No evidence of deep venous thrombus. ACT 112: Negative or not required by law. Electronically signed by: Omar Cantu M.D. 12/26/2021 7:21 PM
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
[2021-12-26] MEDS ORDERED: DOXYCYCLINE HYCLATE 100 MG in DEXTROSE 5% 100 ML IV STA (20:07)
[2021-12-26] MEDS ORDERED: SODIUM CHLORIDE 0.45 % 1,000 ML IV ONE (20:19)
[2021-12-26] MEDS ORDERED: PROMETHAZINE HCL 6.25 MG in SODIUM CHLORIDE 0.9% 50 ML IV PRN (23:06)
[2021-12-26] MEDS ORDERED: ACETAMINOPHEN 325 MG TAB PO PRN ×2 (23:06)
[2021-12-26] MEDS ORDERED: traMADol HCL 50 MG TABLET PO PRN (23:06)
[2021-12-26] MEDS ORDERED: Patient's HEIGHT &/or WEIGHT Needed SCH (23:45)
--- NOTE | 2021-12-26 23:51 | XRay Report ---
XR chest 1V portable CLINICAL HISTORY: low o2. COMPARISON STUDY: 10/30/2021 TECHNIQUE: 1 view of the chest FINDINGS: Single frontal view of the chest demonstrates the cardiomediastinal silhouette to be within normal li mits. There is a decreased inspiratory effort with elevation of the hemidiaphragms and crowding of th e bronchovascular markings at the lung bases and centrally. The lungs are clear of alveolar opacities . There is no evidence for pleural effusion. There is no evidence for vascular congestion. There is n o acute osseous pathology. IMPRESSION: 1. . There is a decreased inspiratory effort with otherwise no acute chest disease. ACT 112: Negative or not required by law. Electronically signed by: Garrick Love M.D. 12/26/2021 11:50 PM
[2021-12-27] MEDS: CLOPIDOGREL BISULFATE 75 MG TAB PO SCH (07:29)
[2021-12-27] MEDS: DOXYCYCLINE HYCLATE 100 MG CAP PO SCH ×2 (07:30→21:26)
[2021-12-27] MEDS: CARBIDOPA/LEVODOPA 25/100MG TAB PO SCH ×5 (07:34→21:26)
[2021-12-27] MEDS: ENOXAPARIN INJ 40 MG/0.4 ML SYR SQ SCH (07:40)
--- NOTE | 2021-12-27 14:03 | Hospitalist Progress Note ---
Date of Service December 27, 2021 Assessment & Plan (1) Leg edema, left: Plan: Left Heel Cellulitis Sacral decubitus wound --Venous Doppler:No evidence of deep venous thrombus. No signs of sepsis Continue Doxycycline Continue wound Care Ambulatory dysfunction Functional disability from Parkinson's disease PT/OT Fall Precautions Case management to help with discharge planning H/O TIA Continue Plavix Parkinson's disease Continue Sinemet Also on Gabapentin Hypertension BP Variable likely situational Consider starting on meds if persistent Monitor BP Moderate aortic stenosis PVD Continue home meds DVT Px: Lovenox SQ Code Status DNR/DNI Admission and Anticipated Discharge Date Admission Date: December 26, 2021 Subjective Patient is seen and examined at bedside States having left leg swelling Leg pain is improving Denies any chest pain, shortness of breath, dizziness, abdominal pain Offers no other complaints Review of Systems Review of Systems: All systems reviewed & are unremarkable except as noted in Subjective Physical Exam Physical Exam: Physical Exam: Vitals signs as noted above General Appearance:Moderately built and nourished, no apparent distress, Elderly Head: normocephalic, Atraumatic Eyes: normal inspection, EOMI Neck: supple, Trachea midline Respiratory/Chest: Normal breath sounds, CTA, No accessory muscle use Cardiovascular: S1, S2, + murmur Abdomen/GI:Soft, Non tender, Bowel sounds present Extremities/Musculoskeletal:normal inspection, Left LE edema Neurologic/Psych:AAOX2, grossly no focal neurological deficits Skin: normal color, warm, +B/L heel wounds Results & Data Results & Data ([facility]) Vital Signs (Past 12 Hours) Vital Signs Temp Pulse Resp BP Pulse Ox O2 Del Method 12/27/21 07:30 36.6 C 79 18 189/83 H 96 Room Air Laboratory Results Short CBC 12/26/21 Range/Units 18:18 WBC 7.58 (4.8-10.8) K/ul Hgb 12.3 (12.0-16.0) g/dl Hct 38.6 (34.1-44.9) % Plt Count 230 (130-400) K/uL BMP 12/26/21 18:18 Sodium 141 Potassium 4.0 Chloride 105 Carbon Dioxide 29 BUN 14 Creatinine 0.67 Glucose 86 Calcium 9.1 Liver Function 12/26/21 Range/Units 18:18 Total Bilirubin 0.6 (0.2-1.0) mg/dl AST 13 (13-39) U/L ALT < 3 L (7-52) U/L Alkaline Phosphatase 77 (34-104) U/L Albumin 3.6 (3.4-5.0) gm/dl
[2021-12-27] MEDS: GABAPENTIN 100 MG CAP PO SCH (21:26)
[2021-12-28 08:01] LABS: Hematocrit (blood only) 38.5 % (34.1-44.9); Hemoglobin 12.1 g/dl (12.0-16.0); Mean Corpuscular Hemoglobin 29.7 pg (25.0-34.0); Mean Corpuscular Hgb Conc 31.4 g/dL (32.0-36.0); Mean Corpuscular Volume 94.6 fL (80.0-100.0); Mean Platelet Volume 11.1 fL (9.4-12.3); Platelet Count 216 K/uL (130-400); RDW Coefficient of Variation 14.4 % (11.5-14.5); RDW Standard Deviation 49.8 fL (36.4-46.3); Red Blood Count 4.07 M/uL (3.93-5.22); White Blood Count 6.28 K/ul (4.8-10.8)
[2021-12-28 08:20] LABS: Calcium 9.1 mg/dl (8.5-10.1); Creatinine Clr Calc Pharmacy 65.1 ml/min; Est GFR (African American) 94.5 ml/min; Est GFR (Non-African American) 81.5 ml/min; Potassium 3.7 mmol/L (3.5-5.1)
[2021-12-28] MEDS: DOXYCYCLINE HYCLATE 100 MG CAP PO SCH ×2 (08:41→21:51)
[2021-12-28] MEDS: CLOPIDOGREL BISULFATE 75 MG TAB PO SCH (08:41)
[2021-12-28] MEDS: CARBIDOPA/LEVODOPA 25/100MG TAB PO SCH ×5 (08:41→21:51)
[2021-12-28] MEDS: ENOXAPARIN INJ 40 MG/0.4 ML SYR SQ SCH (08:41)
--- NOTE | 2021-12-28 15:34 | Hospitalist Progress Note ---
Date of Service December 28, 2021 Assessment & Plan (1) Leg edema, left: Plan: Left Heel Cellulitis Sacral decubitus wound --Venous Doppler:No evidence of deep venous thrombus. No signs of sepsis Continue Doxycycline Continue wound Care Ambulatory dysfunction Functional disability from Parkinson's disease PT/OT Fall Precautions Case management to help with discharge planning H/O TIA Continue Plavix Parkinson's disease Continue Sinemet Also on Gabapentin Hypertension BP Variable likely situational, 158/73 Consider starting on meds if persistent, currently acceptable given age Monitor BP Moderate aortic stenosis PVD Continue home meds DVT Px: Lovenox SQ Code Status DNR/DNI Dispo: rehab, CM working on referrals Pt was seen and examined in collaboration with Dr. Hankins, please see addendum Admission and Anticipated Discharge Date Admission Date: December 27, 2021 Supervising Physician Co-Signing Physician Notes Patient is seen and examined at bedside. Denies any pain of left lower extremity. Reports left leg swelling is improved. No new complaints. Physical Exam: Vitals signs as noted above General Appearance:Moderately built and nourished, no apparent distress, Elderly Head: normocephalic, Atraumatic Eyes: normal inspection, EOMI Neck: supple, Trachea midline Respiratory/Chest: Normal breath sounds, CTA, No accessory muscle use Cardiovascular: S1, S2, + murmur Abdomen/GI:Soft, Non tender, Bowel sounds present Extremities/Musculoskeletal:normal inspection, Left LE edema improving Neurologic/Psych:AAOX2, grossly no focal neurological deficits Skin: normal color, warm, +B/L heel wounds Left Heel Cellulitis Sacral decubitus wound Ambulatory dysfunction --Venous Doppler:No evidence of deep venous thrombus. No signs of sepsis Continue Doxycycline Continue wound Care Waiting for placement I personally reviewed the record. Patient is interviewed and examined at bedside. Patient's care is coordinated with Eryn Wade PA-C. Please refer to the documentation above for details of patient's presentation and for discussion of other issues. Subjective Patient was seen and examined in room 353-1. Follow up L heel cellulitis. She was sitting up eating breakfast during todays visit. She offered no acute complaints. She denies pain. Denies f/c/s, chest pain, sob, n/v/d. Review of Systems Review of Systems: All systems reviewed & are unremarkable except as noted in HPI & below Physical Exam Physical Exam: Gen: WD/WN, Elderly F, sitting up in bed, NAD, A&O x3 HEENT: Normocephalic, atraumatic, conjunctivae moist, sclerae anicteric, mucous membranes moist. Lung: Clear to Auscultation bilaterally, no wheezes/rales/rhonchi Heart: Regular rate, regular rhythm, 2/6 MARGE RUSB, rubs, or gallops Abdomen: Soft, NT, ND +BS x 4 Extremities: No edema, LLE waffle boot in place, b/l heel wounds Skin: Warm, no rash, negative turgor. Results & Data Results & Data ([facility]) Vital Signs (Past 12 Hours) Vital Signs Temp Pulse Resp BP BP Pulse Ox O2 Del Method 12/28/21 14:47 36.5 C 70 18 158/73 H 94 Room Air 12/28/21 08:00 Room Air 12/28/21 07:35 36.6 C 85 16 167/85 H 98 Room Air Laboratory Results Short CBC 12/28/21 Range/Units 07:25 WBC 6.28 (4.8-10.8) K/ul Hgb 12.1 (12.0-16.0) g/dl Hct 38.5 (34.1-44.9) % Plt Count 216 (130-400) K/uL BMP 12/28/21 07:25 Sodium 140 Potassium 3.7 Chloride 106 Carbon Dioxide 30 BUN 14 Creatinine 0.61 Glucose 77 Calcium 9.1 Medications Administered Current Inpatient Medications Acetaminophen (Acetaminophen 325 Mg Tab) 650 mg PO Q6H PRN PRN Reason: Fever/pain Stop: 01/25/22 23:05 Last Admin: 12/28/21 06:08 Dose: 650 mg Carbidopa/Levodopa (Carbidopa/Levodopa 25/100mg Tab) 1.5 tab PO TID@1100,1400,1700 JEN Stop: 01/26/22 10:59 Last Admin: 12/28/21 14:01 Dose: 1.5 tab Carbidopa/Levodopa (Carbidopa/Levodopa 25/100mg Tab) 2 tab PO AMHS JEN Stop: 01/26/22 08:59 Last Admin: 12/28/21 08:41 Dose: 2 tab Clopidogrel Bisulfate (Clopidogrel Bisulfate 75 Mg Tab) 75 mg PO DAILY JEN Stop: 01/26/22 08:59 Last Admin: 12/28/21 08:41 Dose: 75 mg Doxycycline Hyclate (Doxycycline Hyclate 100 Mg Cap) 100 mg PO BID [facility] Stop: 01/03/22 08:59 Last Admin: 12/28/21 08:41 Dose: 100 mg Enoxaparin Sodium (Enoxaparin Inj 40 Mg/0.4 Ml Syr) 40 mg SQ QAM JEN Stop: 01/26/22 08:59 Last Admin: 12/28/21 08:41 Dose: 40 mg Gabapentin (Gabapentin 100 Mg Cap) 200 mg PO HS [facility] Stop: 01/26/22 20:59 Last Admin: 12/27/21 21:26 Dose: 200 mg Promethazine HCl 6.25 mg/ (Sodium Chloride) 50.25 mls @ 201 mls/hr IV Q6H PRN PRN Reason: Nausea And Vomiting Stop: 01/25/22 23:05 Nystatin (Nystatin Powder 15gm Btl) 1 appln EXT BID PRN PRN Reason: groin/inflammed skin folds Stop: 01/25/22 23:51 Tramadol HCl (Tramadol Hcl 50 Mg Tablet) 25 mg PO Q4H PRN PRN Reason: Pain Stop: 01/25/22 23:05
[2021-12-28] MEDS: GABAPENTIN 100 MG CAP PO SCH (21:51)
[2021-12-29] MEDS: ENOXAPARIN INJ 40 MG/0.4 ML SYR SQ SCH (09:15)
[2021-12-29] MEDS: DOXYCYCLINE HYCLATE 100 MG CAP PO SCH ×2 (09:16→20:18)
[2021-12-29] MEDS: CARBIDOPA/LEVODOPA 25/100MG TAB PO SCH ×5 (09:17→20:18)
[2021-12-29] MEDS: NYSTATIN POWDER 15GM BTL EXT PRN (09:18)
[2021-12-29] MEDS: CLOPIDOGREL BISULFATE 75 MG TAB PO SCH (09:18)
--- NOTE | 2021-12-29 14:17 | Hospitalist Progress Note ---
Date of Service December 29, 2021 Assessment & Plan (1) Leg edema, left: Plan: Left Heel Cellulitis Sacral decubitus wound --Venous Doppler:No evidence of deep venous thrombus. No signs of sepsis Continue Doxycycline, to complete 01/03/22 Continue wound Care Ambulatory dysfunction Functional disability from Parkinson's disease PT/OT Fall Precautions Case management to help with discharge planning H/O TIA Continue Plavix Parkinson's disease Continue Sinemet Also on Gabapentin Hypertension BP Variable likely situational, 126/74 Monitor BP Moderate aortic stenosis PVD Continue home meds DVT Px: Lovenox SQ Code Status DNR/DNI Dispo: rehab, CM working on referrals Pt was seen and examined in collaboration with Dr. Hankins, please see addendum Admission and Anticipated Discharge Date Admission Date: December 27, 2021 Supervising Physician Co-Signing Physician Notes Patient is seen and examined at bedside. Denies any pain of left lower extremity. Offers no complints Physical Exam: Vitals signs as noted above General Appearance:Moderately built and nourished, no apparent distress, Elderly Head: normocephalic, Atraumatic Eyes: normal inspection, EOMI Neck: supple, Trachea midline Respiratory/Chest: Normal breath sounds, CTA, No accessory muscle use Cardiovascular: S1, S2, + murmur Abdomen/GI:Soft, Non tender, Bowel sounds present Extremities/Musculoskeletal:normal inspection, Left LE edema improving Neurologic/Psych:AAOX2, grossly no focal neurological deficits Skin: normal color, warm, +B/L heel wounds Left Heel Cellulitis Pressure ulcer of left heel, stage- unstageable with eschar Pressure ulcer of right heel, stage_Stage II_ Pressure ulcer of sacrum, stage Stage III Ambulatory dysfunction --Venous Doppler:No evidence of deep venous thrombus. No signs of sepsis Continue Doxycycline Continue wound Care Consulted Ortho for Input I personally reviewed the record. Patient is interviewed and examined at bedside. Patient's care is coordinated with Eryn Wade PA-C. Please refer to the documentation above for details of patient's presentation and for discussion of other issues. Subjective Patient was seen and examined in room 353-1. Follow up L heel cellulitis. She offers no acute issues this morning. She denies heel pain, f/c/s, chest pain, sob, n/v/d, abd pain. Appetite has been fair. Awaiting rehab placement. Review of Systems Review of Systems: All systems reviewed & are unremarkable except as noted in HPI & below Physical Exam Physical Exam: Gen: WD/WN, Elderly F, sitting up in bed, NAD, A&O x3 HEENT: Normocephalic, atraumatic, conjunctivae moist, sclerae anicteric, mucous membranes moist. Lung: Clear to Auscultation bilaterally, no wheezes/rales/rhonchi Heart: Regular rate, regular rhythm, 2/6 MARGE RUSB, rubs, or gallops Abdomen: Soft, NT, ND +BS x 4 Extremities: No edema, LLE waffle boot in place, b/l heel wounds Skin: Warm, no rash, negative turgor. Results & Data Results & Data ([facility]) Vital Signs (Past 12 Hours) Vital Signs Temp Pulse Resp BP Pulse Ox O2 Del Method 12/29/21 07:37 36.4 C L 76 12 126/74 97 Room Air Medications Administered Current Inpatient Medications Acetaminophen (Acetaminophen 325 Mg Tab) 650 mg PO Q6H PRN PRN Reason: Fever/pain Stop: 01/25/22 23:05 Last Admin: 12/28/21 06:08 Dose: 650 mg Carbidopa/Levodopa (Carbidopa/Levodopa 25/100mg Tab) 1.5 tab PO TID@1100,1400,1700 JEN Stop: 01/26/22 10:59 Last Admin: 12/29/21 11:02 Dose: 1.5 tab Carbidopa/Levodopa (Carbidopa/Levodopa 25/100mg Tab) 2 tab PO AMHS JEN Stop: 01/26/22 08:59 Last Admin: 12/29/21 09:17 Dose: 2 tab Clopidogrel Bisulfate (Clopidogrel Bisulfate 75 Mg Tab) 75 mg PO DAILY JEN Stop: 01/26/22 08:59 Last Admin: 12/29/21 09:18 Dose: 75 mg Doxycycline Hyclate (Doxycycline Hyclate 100 Mg Cap) 100 mg PO BID JEN Stop: 01/03/22 08:59 Last Admin: 12/29/21 09:16 Dose: 100 mg Enoxaparin Sodium (Enoxaparin Inj 40 Mg/0.4 Ml Syr) 40 mg SQ QAM JEN Stop: 01/26/22 08:59 Last Admin: 08/16/22 09:15 Dose: 40 mg Gabapentin (Gabapentin 100 Mg Cap) 200 mg PO HS JEN Stop: 01/26/22 20:59 Last Admin: 12/28/21 21:51 Dose: 200 mg Promethazine HCl 6.25 mg/ (Sodium Chloride) 50.25 mls @ 201 mls/hr IV Q6H PRN PRN Reason: Nausea And Vomiting Stop: 01/25/22 23:05 Nystatin (Nystatin Powder 15gm Btl) 1 appln EXT BID PRN PRN Reason: groin/inflammed skin folds Stop: 01/25/22 23:51 Last Admin: 12/29/21 09:18 Dose: 1 appln Tramadol HCl (Tramadol Hcl 50 Mg Tablet) 25 mg PO Q4H PRN PRN Reason: Pain Stop: 01/25/22 23:05
[2021-12-29] MEDS: GABAPENTIN 100 MG CAP PO SCH (20:18)
[2021-12-30 09:13] LABS: Mean Corpuscular Hemoglobin 29.9 pg (25.0-34.0); Mean Corpuscular Hgb Conc 31.7 g/dL (32.0-36.0); Mean Corpuscular Volume 94.3 fL (80.0-100.0); Platelet Count 233 K/uL (130-400); RDW Coefficient of Variation 14.6 % (11.5-14.5); RDW Standard Deviation 50.4 fL (36.4-46.3); Red Blood Count 4.35 M/uL (3.93-5.22); White Blood Count 6.65 K/ul (4.8-10.8)
[2021-12-30 09:33] LABS: BUN Creatinine Ratio 41.4 (10-20); C Reactive Protein 1.72 mg/dl (0-0.5); Calcium 9.1 mg/dl (8.5-10.1); Creatinine Clr Calc Pharmacy 68.4 ml/min; Est GFR (African American) 96.1 ml/min; Est GFR (Non-African American) 82.9 ml/min; Potassium 3.7 mmol/L (3.5-5.1)
[2021-12-30] MEDS: ENOXAPARIN INJ 40 MG/0.4 ML SYR SQ SCH (09:41)
[2021-12-30] MEDS: DOXYCYCLINE HYCLATE 100 MG CAP PO SCH ×2 (09:42→19:55)
[2021-12-30] MEDS: CLOPIDOGREL BISULFATE 75 MG TAB PO SCH (09:43)
[2021-12-30] MEDS: CARBIDOPA/LEVODOPA 25/100MG TAB PO SCH ×5 (09:43→19:55)
[2021-12-30] MEDS: NYSTATIN POWDER 15GM BTL EXT PRN (09:43)
--- NOTE | 2021-12-30 10:17 | CT Scan Report ---
CT SCAN OF THE LEFT CALCANEUS WITHOUT IV CONTRAST CLINICAL HISTORY: Left heel wound. COMPARISON STUDY: Radiographs of the left foot dated 09/15/2020. TECHNIQUE: CT scan of the left calcaneus is performed from the ankle joint to the base of the foot. I mages are reviewed in the axial, sagittal, and coronal planes. IV contrast was not administered for t his examination. A dose lowering technique was utilized adhering to the principles of ALARA. Note maggi t interpretation is suboptimal without current plain film correlate. CT DOSE: 140.04 mGy.cm FINDINGS: The skeletal structures are heterogeneously osteopenic. No acute fracture is seen. The ankl e mortise is maintained. Large dorsal and plantar calcaneal enthesophytes are observed. There is no b shreyas erosion or periostitis to suggest osteomyelitis. Degenerative changes noted in the midfoot. Dorsa l soft tissue edema and dermal thickening is seen in the heel. No soft tissue gas is identified. Ther e is no evidence of organized fluid collection to indicate abscess. The Achilles tendon appears thick ened and tendonotic. There is generalized atrophy of the regional musculature. The plantar fascia is intact as visualized. IMPRESSION: 1. No acute bony abnormality is identified. 2. Soft tissue edema and dermal thickening is noted in the heel. Correlate clinically for evidence of cellulitis. 3. No organized fluid collection is seen to indicate abscess. 4. There is thickening and tendinopathy of the Achilles tendon. ACT 112: Negative or not required by law. Dictated: 12/30/2021 9:39 AM Transcribed: 12/30/2021 10:07 AM Shaylee [id number] [email or web address] Electronically signed by: Jone Tinoco M.D. 12/30/2021 10:14 AM
--- NOTE | 2021-12-30 13:25 | Orthopedic Consultation ---
Date of Consultation December 30, 2021 Assessment & Plan (1) Ulcer of left heel: Left Heel Ulcer likely due to pressure from bedrest. Currently the ulceration does not look grossly infected. There is no erythema, drainage, or odor. Right heel ulcer appears to be healing. CT scan reviewed. No abscesses identified. No osteomyelitis. No surgical intervention at this time. Recommend bilateral waffle boots. Continue regular dressing changes per Wound care team with Aquacel AG. Although pulses present, with h/o PVD, consider Duplex artery scan bilateral for baseline and Vascular consult if any stenoses noted. Recommend Podiatry follow up as well and regular wound care at [facility]. History of Present Illness Reason for Consultation: Bilateral Heel Ulcerations L>R Attending Physician: Marcos Emery MD History of Present Illness Pt is an 86 yo female with PMH of Parkinson's disease, TIA, hypertension, hyperlipidemia, moderate aortic stenosis (TTE 2021), PVD as per records. Pt was admitted several days ago for cellulitis of the LLE with noted left medial heel ulcer. It was found that she also had a sacral decubitus ulcer as well. Per the record, her left heel ulcer developed approximately 2 weeks ago. Pt has apparently had multiple hired care givers over time. The patient continued to want to remain at home. The latest health and social care teacher recently quit her position and informed the family of her heel ulcer. She was seen by her PCP prior to admission and examined the heel ulcer which at that time did not have erythema. No purulence was noted. The ulcer was treated with plans for f/u with Podiatry/Wound Care. Family noted increased swelling of her leg with erythema and found the sacarl ulcer. They brought her to be evaluated to the [facility] ED. Pt was admitted and started on antibx. We have been asked to see her for her heel wounds. Allergies Allergy/AdvReac Type Severity Reaction Status Date / Time No Known Allergies Allergy Verified 12/26/21 19:33 Home Medications Medication Instructions Recorded Confirmed Type carbidopa 25 mg-levodopa 100 mg 2 tab PO AMHS 03/21/18 12/26/21 History tablet clopidogrel 75 mg tablet (Plavix) 75 mg PO DAILY 08/24/21 12/26/21 History carbidopa 25 mg-levodopa 100 mg 1.5 tab PO TID 12/26/21 12/26/21 History tablet gabapentin 100 mg capsule 200 mg PO HS 12/26/21 12/26/21 History menthol 0.44 %-zinc oxide 20.6 % 1 applic topical BID 12/26/21 12/26/21 History topical ointment (Calmoseptine) Patient History Medical History Aortic stenosis "Mild-moderate per echo 03/15/17" Chronic allergic rhinitis Dyslipidemia Generalized weakness Hypertension Osteoporosis Parkinson disease Urinary tract infection Surgical History H/O colonoscopy "2011" History of fracture of left hip History of left hip replacement Hx of cataract surgery Family History Father Esophageal cancer Mother Breast cancer Social History Smoking Status: Never smoker Second Hand Exposure: No; Hx Alcohol Use: No Hx Substance Use: No Preferred Language: Canadian Communication Ability: Impaired Police Superintendent Required: No Beliefs That Will Affect Care: None marital status: / Current Living Situation: Alone Current Living Situation Comment: daughter comes in to help during the day How many Children do You have: 1 Other Information That Helps Us Care for You: No Feels Safe at Home: No Is there a partner from a previous relationship who is making you feel unsafe now?: No Any Concerns about Your Family Situation: No Would You Like to Speak to Someone About Your Situation: No Safety Concerns: Afraid for Self during the past year weight has: remained stable Assistive Devices: Wheelchair Physical Exam Physical Exam: Pt is sitting up in her chair at the bedside awake, alert. Denies pain in either heels at this time. Denies Fever, chills. On exam of her right heel, she has a small lateral heel wound less than a cm in width that appears to be healing. Small darkened area around a puntate central portion without drainage or erythema. Left medial heel dressing removed revealing approx. 2cm width ulceration with eschar and a small central portion of slough. The central portion of the wound is soft. There is no erythema. There is no purulence noted. No foul odor. Dressing replaced. Pt has h/o PVD. States she has sensation in both feet on palpation and ROM appears intact of her toes/ankles. No pain with ROM. Pulses present. Results & Data ([facility]) Vital Signs (Past 12 Hours) Vital Signs Temp Pulse Resp BP Pulse Ox O2 Del Method 12/30/21 07:30 36.7 C 78 16 172/81 H 95 Room Air
--- NOTE | 2021-12-30 15:15 | Hospitalist Progress Note ---
Date of Service December 30, 2021 Assessment & Plan (1) Leg edema, left: Plan: Left Heel Cellulitis B/L Heel wounds, L > R Sacral decubitus wound --Venous Doppler:No evidence of deep venous thrombus. No signs of sepsis Continue Doxycycline, to complete 01/03/[address]: No acute bony abnormality is identified. 2. Soft tissue edema and dermal thickening is noted in the heel. Correlate clinically for evidence of cellulitis. 3. No organized fluid collection is seen to indicate abscess. 4. There is thickening and tendinopathy of the Achilles tendon. Ortho feels non surgical, recommend follow up with podiatry and wound center as outpatient will obtain bilateral arterial duplex wound care instructions at d/c: Left heel - Apply Aquacel Ag. Cover with OPTi foam, change every other day and as needed. Sacrum - Apply stoma powder, cover with antifungal cream twice daily and as needed. Please off load all bony prominences from pressure at all times, waffle boots, air mattress, turn and repo q2h Will need wound clinic referral [phone] Ambulatory dysfunction Functional disability from Parkinson's disease PT/OT Fall Precautions Case management to help with discharge planning H/O TIA Continue Plavix Parkinson's disease Continue Sinemet Also on Gabapentin Hypertension BP Variable likely situational, 172/81 this morning Monitor BP Moderate aortic stenosis PVD Continue home meds DVT Px: Lovenox SQ Code Status DNR/DNI Dispo: rehab, CM working on referrals, pt is medically stable for discharge Pt was seen and examined in collaboration with Dr. Emery, please see addendum Admission and Anticipated Discharge Date Admission Date: December 27, 2021 Supervising Physician Co-Signing Physician Notes Patient was seen and examined independently at bedside. Chart reviewed. Case discussed with Eryn LIZAMA and agree with the documentation above in regards to HPI, physical exam, assessment and plan. In summary, patient is here for bilateral heel wound and sacral wound, on antibiotics, stable, non septic. CT and labs reviewed. Ortho recommendations reviewed. Stable for discharge to rehab. Awaiting placement. Subjective Patient was seen and examined in room 353-1. Follow up L heel cellulitis. She offers no acute issues this morning. She is unsure if she moved her bowels. She denies heel pain, f/c/s, chest pain, sob, n/v/d, abd pain. Appetite has been fair. Awaiting rehab placement. L heel wound is awaiting ortho eval. Review of Systems Review of Systems: All systems reviewed & are unremarkable except as noted in HPI & below Physical Exam Physical Exam: Gen: WD/WN, Elderly F, sitting up in bed, NAD, A&O x3 HEENT: Normocephalic, atraumatic, conjunctivae moist, sclerae anicteric, mucous membranes moist. Lung: Clear to Auscultation bilaterally, no wheezes/rales/rhonchi Heart: Regular rate, regular rhythm, 2/6 MARGE RUSB, rubs, or gallops Abdomen: Soft, NT, ND +BS x 4 Extremities: No edema, LLE waffle boot in place, b/l heel wounds Skin: Warm, no rash, negative turgor. Results & Data Results & Data ([facility]) Vital Signs (Past 12 Hours) Vital Signs Temp Pulse Resp BP Pulse Ox O2 Del Method 12/30/21 07:30 36.7 C 78 16 172/81 H 95 Room Air Laboratory Results Short CBC 12/30/21 Range/Units 08:45 WBC 6.65 (4.8-10.8) K/ul Hgb 13.0 (12.0-16.0) g/dl Hct 41.0 (34.1-44.9) % Plt Count 233 (130-400) K/uL BMP 12/30/21 08:45 Sodium 139 Potassium 3.7 Chloride 105 Carbon Dioxide 29 BUN 24 H Creatinine 0.58 L Glucose 120 H Calcium 9.1 Diagnostic Findings Venous Doppler Study 12/26/21 18:00 US venous doppler LE LT CLINICAL HISTORY: swelling TECHNIQUE: Left lower extremity real-time compression venous ultrasound with Color Doppler imaging. Utilizing real-time ultrasonic imaging multiple real time high-resolution ultrasonic images with compression and noncompression maneuvers of the deep venous system in addition to color doppler imaging were performed from the common femoral vein through the proximal calf veins. COMPARISON: Comparison is made to previous ultrasound 08/27/2020 FINDINGS: Currently there is normal compressibility of the deep venous system from the common femoral vein through the proximal calf veins. Left calf edema is noted. Impression: No evidence of deep venous thrombus. ACT 112: Negative or not required by law. Electronically signed by: Omar Cantu M.D. 12/26/2021 7:21 PM Chest X-Ray 12/26/21 23:26 XR chest 1V portable CLINICAL HISTORY: low o2. COMPARISON STUDY: 10/30/2021 TECHNIQUE: 1 view of the chest FINDINGS: Single frontal view of the chest demonstrates the cardiomediastinal silhouette to be within normal limits. There is a decreased inspiratory effort with elevation of the hemidiaphragms and crowding of the bronchovascular markings at the lung bases and centrally. The lungs are clear of alveolar opacities. There is no evidence for pleural effusion. There is no evidence for vascular congestion. There is no acute osseous pathology. IMPRESSION: 1. . There is a decreased inspiratory effort with otherwise no acute chest disease. ACT 112: Negative or not required by law. Electronically signed by: Garrick Love M.D. 12/26/2021 11:[address] 12/30/21 08:13 CT SCAN OF THE LEFT CALCANEUS WITHOUT IV CONTRAST CLINICAL HISTORY: Left heel wound. COMPARISON STUDY: Radiographs of the left foot dated 09/15/2020. TECHNIQUE: CT scan of the left calcaneus is performed from the ankle joint to the base of the foot. Images are reviewed in the axial, sagittal, and coronal planes. IV contrast was not administered for this examination. A dose lowering technique was utilized adhering to the principles of ALARA. Note that interpretation is suboptimal without current plain film correlate. CT DOSE: 140.04 mGy.cm FINDINGS: The skeletal structures are heterogeneously osteopenic. No acute fracture is seen. The ankle mortise is maintained. Large dorsal and plantar calcaneal enthesophytes are observed. There is no bony erosion or periostitis to suggest osteomyelitis. Degenerative changes noted in the midfoot. Dorsal soft tissue edema and dermal thickening is seen in the heel. No soft tissue gas is identified. There is no evidence of organized fluid collection to indicate abscess. The Achilles tendon appears thickened and tendonotic. There is generalized atrophy of the regional musculature. The plantar fascia is intact as visualized. IMPRESSION: 1. No acute bony abnormality is identified. 2. Soft tissue edema and dermal thickening is noted in the heel. Correlate clinically for evidence of cellulitis. 3. No organized fluid collection is seen to indicate abscess. 4. There is thickening and tendinopathy of the Achilles tendon. ACT 112: Negative or not required by law. Dictated: 12/30/2021 9:39 AM Transcribed: 12/30/2021 10:07 AM Shaylee [id number] [email or web address] Electronically signed by: Jone Tinoco M.D. 12/30/2021 10:14 AM Medications Administered Current Inpatient Medications Acetaminophen (Acetaminophen 325 Mg Tab) 650 mg PO Q6H PRN PRN Reason: Fever/pain Stop: 01/25/22 23:05 Last Admin: 12/28/21 06:08 Dose: 650 mg Carbidopa/Levodopa (Carbidopa/Levodopa 25/100mg Tab) 1.5 tab PO TID@1100,1400,1700 JEN Stop: 01/26/22 10:59 Last Admin: 12/30/21 12:29 Dose: 1.5 tab Carbidopa/Levodopa (Carbidopa/Levodopa 25/100mg Tab) 2 tab PO AMHS JEN Stop: 01/26/22 08:59 Last Admin: 12/30/21 09:43 Dose: 2 tab Clopidogrel Bisulfate (Clopidogrel Bisulfate 75 Mg Tab) 75 mg PO DAILY JEN Stop: 01/26/22 08:59 Last Admin: 12/30/21 09:43 Dose: 75 mg Doxycycline Hyclate (Doxycycline Hyclate 100 Mg Cap) 100 mg PO BID JEN Stop: 01/03/22 08:59 Last Admin: 12/30/21 09:42 Dose: 100 mg Enoxaparin Sodium (Enoxaparin Inj 40 Mg/0.4 Ml Syr) 40 mg SQ QAM JEN Stop: 01/26/22 08:59 Last Admin: 12/30/21 09:41 Dose: 40 mg Gabapentin (Gabapentin 100 Mg Cap) 200 mg PO HS JEN Stop: 01/26/22 20:59 Last Admin: 12/29/21 20:18 Dose: 200 mg Promethazine HCl 6.25 mg/ (Sodium Chloride) 50.25 mls @ 201 mls/hr IV Q6H PRN PRN Reason: Nausea And Vomiting Stop: 01/25/22 23:05 Nystatin (Nystatin Powder 15gm Btl) 1 appln EXT BID PRN PRN Reason: groin/inflammed skin folds Stop: 01/25/22 23:51 Last Admin: 12/30/21 09:43 Dose: 1 appln Tramadol HCl (Tramadol Hcl 50 Mg Tablet) 25 mg PO Q4H PRN PRN Reason: Pain Stop: 01/25/22 23:05
--- NOTE | 2021-12-30 18:43 | Ultrasound Report ---
BILATERAL LOWER EXTREMITY ARTERIAL DOPPLER ULTRASOUND CLINICAL HISTORY: Bilateral wounds eval for vascular abnormality COMPARISON STUDY: No previous studies for comparison. TECHNIQUE: Ankle to brachial indices were attempted. Color and duplex Doppler sonography of the arter ial systems of the lower extremities was then performed. FINDINGS: This exam was compromised from a technical standpoint. Right ankle to brachial index could not be obtained due to noncompressibility. Left ankle-brachial index measured 0.88 when using the nathaniel salis pedis. Biphasic flow is noted within the right common femoral, superficial femoral, popliteal, anterior tibial and dorsalis pedis vessels. The right posterior tibial and peroneal arteries were not well visualized on this exam. No elevated velocities were identified within the right lower extremit y. Mild atherosclerotic plaque was noted. Mild atherosclerotic plaque within the left lower extremity was noted. No elevated velocities were id entified. Biphasic flow is noted within the left common femoral, superficial femoral, popliteal, ante rior tibial and dorsalis pedis vessels. The left posterior tibial and peroneal arteries were not well visualized. These may contain monophasic flow. IMPRESSION: 1. Mildly diminished left ankle to brachial index of 0.88. Right ankle to brachial index could not b e obtained. 2. Mild atherosclerotic plaque within the lower extremities. No elevated velocities to suggest a hemo dynamically significant stenosis although exam compromised from a technical standpoint. 3. Biphasic flow within both lower extremities with the exception of probable monophasic flow within the bilateral posterior tibial and peroneal arteries which were not well visualized. ACT 112: Negative or not required by law. Electronically signed by: Uvaldo Peres M.D. 12/30/2021 6:40 PM
[2021-12-30] MEDS: GABAPENTIN 100 MG CAP PO SCH (19:55)
[2021-12-31] MEDS ORDERED: GLUCAGON FOR INJ 1 MG VIAL IM PRN (08:30)
[2021-12-31] MEDS ORDERED: GLUCOSE 10 TAB/TUBE PO PRN (08:30)
[2021-12-31] MEDS ORDERED: DEXTROSE 50% 50 ML SYRINGE IV PRN (08:30)
[2021-12-31] MEDS ORDERED: GLUCOSE 40% GEL 15 GM TUBE PO PRN (08:30)
[2021-12-31] MEDS ORDERED: CARBOHYDRATES FOR HYPOGLYCEMIA PO PRN (08:30)
[2021-12-31] MEDS: CARBIDOPA/LEVODOPA 25/100MG TAB PO SCH ×5 (10:10→20:09)
[2021-12-31] MEDS: DOXYCYCLINE HYCLATE 100 MG CAP PO SCH ×2 (10:10→20:07)
[2021-12-31] MEDS: CLOPIDOGREL BISULFATE 75 MG TAB PO SCH (10:10)
[2021-12-31] MEDS: ENOXAPARIN INJ 40 MG/0.4 ML SYR SQ SCH (10:45)
[2021-12-31] MEDS ORDERED: SODIUM CHLORIDE 0.9% 1000ML 500 ML IV ONE (14:17)
--- NOTE | 2021-12-31 16:06 | Hospitalist Progress Note ---
Date of Service December 31, 2021 Assessment & Plan (1) Leg edema, left: Plan: Left Heel Cellulitis B/L Heel wounds, L > R Sacral decubitus wound --Venous Doppler:No evidence of deep venous thrombus. No signs of sepsis Continue Doxycycline, to complete 01/03/[address]: No acute bony abnormality is identified. 2. Soft tissue edema and dermal thickening is noted in the heel. Correlate clinically for evidence of cellulitis. 3. No organized fluid collection is seen to indicate abscess. 4. There is thickening and tendinopathy of the Achilles tendon. Ortho feels non surgical, recommend follow up with podiatry and wound center as outpatient Bilateral arterial duplex - mildly diminished left ankle to brachial index of 0.88. Right ankle to brachial index could not be obtained. Mild atherosclerotic plaque within the lower extremities. No elevated velocities to suggest a hemodynamically significant stenosis although exam compromised from a technical standpoint. Wound care instructions at d/c: Left heel - Apply Aquacel Ag. Cover with OPTi foam, change every other day and as needed. Sacrum - Apply stoma powder, cover with antifungal cream twice daily and as needed. Please off load all bony prominences from pressure at all times, waffle boots, air mattress, turn and repo q2h Will need wound clinic referral [phone] Ambulatory dysfunction Functional disability from Parkinson's disease PT/OT Fall Precautions Case management to help with discharge planning H/O TIA Continue Plavix Parkinson's disease Continue Sinemet Also on Gabapentin Hypertension BP Variable likely situational, 164/79 Had episode of hypotension this afternoon and was notified by RN. Bolused 500 ml NSS with resolution. Encouraged to take positional changes slowly. Monitor Moderate aortic stenosis PVD Continue home meds DVT Px: Lovenox SQ Code Status DNR/DNI Dispo: rehab, CM working on referrals, pt is medically stable for discharge Pt was seen and examined in collaboration with Dr. Emery, please see addendum Admission and Anticipated Discharge Date Admission Date: December 27, 2021 Supervising Physician Co-Signing Physician Notes Patient was seen and examined independently at bedside. Chart reviewed. Case discussed with Shellie Jaeger PA-C and agree with the documentation above in regards to HPI, physical exam, assessment and plan. In summary, patient is here for bilateral heel wound and sacral wound, on antibiotics, stable, non septic. CT and labs reviewed. Ortho recommendations reviewed. Stable for discharge to rehab. Awaiting placement. Subjective Patient was seen and examined in room 353-1 in follow up for L heel cellulitis. No acute issues. Last bowel movement was yesterday. Denies heel pain, f/c/s, chest pain, sob, n/v/d, abd pain. Awaiting rehab placement. Review of Systems Review of Systems: At least ten systems reviewed and negative except as noted in the HPI. Physical Exam Physical Exam: Gen: WD/WN, NAD, sitting up in bed, A&Ox3 HEENT: Normocephalic, atraumatic, conjunctivae moist, sclerae anicteric, mucous membranes moist Lung: Clear to Auscultation bilaterally, no wheezes/rales/rhonchi Heart: Regular rate, regular rhythm, + 2/6 MARGE heard best at RUSB. No rubs or gallops Abdomen: Soft, NT, ND +BS x 4 Extremities: no edema, LLE waffle boot in place, b/l heel wounds Skin: Warm, no rash Results & Data Results & Data ([facility]) Vital Signs (Past 12 Hours) Vital Signs Temp Pulse Pulse Resp BP Pulse Ox O2 Del Method 12/31/21 15:28 84 164/79 H 12/31/21 14:40 36.4 C L 81 16 116/65 97 Room Air 12/31/21 14:13 36.5 C 75 20 103/57 L 97 Room Air 12/31/21 07:15 36.3 C L 81 14 162/75 H 98 Room Air
[2021-12-31] MEDS: GABAPENTIN 100 MG CAP PO SCH (20:07)
[2022-01-01] MEDS: CARBIDOPA/LEVODOPA 25/100MG TAB PO SCH ×5 (08:38→20:07)
[2022-01-01] MEDS: CLOPIDOGREL BISULFATE 75 MG TAB PO SCH (08:38)
[2022-01-01] MEDS: DOXYCYCLINE HYCLATE 100 MG CAP PO SCH ×2 (08:38→20:06)
[2022-01-01] MEDS: ENOXAPARIN INJ 40 MG/0.4 ML SYR SQ SCH (08:38)
--- NOTE | 2022-01-01 16:15 | Hospitalist Progress Note ---
Date of Service January 01, 2022 Assessment & Plan (1) Leg edema, left: Plan: Left Heel Cellulitis B/L Heel wounds, L > R Sacral decubitus wound --Venous Doppler:No evidence of deep venous thrombus. No signs of sepsis Continue Doxycycline, to complete 01/03/[address]: No acute bony abnormality is identified. 2. Soft tissue edema and dermal thickening is noted in the heel. Correlate clinically for evidence of cellulitis. 3. No organized fluid collection is seen to indicate abscess. 4. There is thickening and tendinopathy of the Achilles tendon. Ortho feels non surgical, recommend follow up with podiatry and wound center as outpatient Bilateral arterial duplex - mildly diminished left ankle to brachial index of 0.88. Right ankle to brachial index could not be obtained. Mild atherosclerotic plaque within the lower extremities. No elevated velocities to suggest a hemodynamically significant stenosis although exam compromised from a technical standpoint. Wound care instructions at d/c: Left heel - Apply Aquacel Ag. Cover with OPTi foam, change every other day and as needed. Sacrum - Apply stoma powder, cover with antifungal cream twice daily and as needed. Please off load all bony prominences from pressure at all times, waffle boots, air mattress, turn and repo q2h Will need wound clinic referral [phone] Ambulatory dysfunction Functional disability from Parkinson's disease PT/OT Fall Precautions Case management to help with discharge planning H/O TIA Continue Plavix Parkinson's disease Continue Sinemet Also on Gabapentin Hypertension BP Variable likely situational. Currently 133/74. Monitor Moderate aortic stenosis PVD Continue home meds DVT Px: Lovenox SQ Code Status DNR/DNI Dispo: rehab, CM working on referrals, pt is medically stable for discharge Pt was seen and examined in collaboration with Dr. Emery, please see addendum Admission and Anticipated Discharge Date Admission Date: December 27, 2021 Supervising Physician Co-Signing Physician Notes Patient was seen and examined independently at bedside. Chart reviewed. Case discussed with Shellie Jaeger PA-C and agree with the documentation above in regards to HPI, physical exam, assessment and plan. In summary, patient is here for bilateral heel wound and sacral wound, on antibiotics, stable, non septic. CT and labs reviewed. Ortho recommendations reviewed. Stable for discharge to rehab. Awaiting placement. Subjective Patient was seen and examined in room 353-1 in follow up for L heel cellulitis. No acute issues. Fatigued due to overnight interruptions but otherwise comfortable. Appetite at baseline. Denies heel pain, f/c/s, chest pain, sob, n/v/d, abd pain. Awaiting rehab placement. Review of Systems Review of Systems: At least ten systems reviewed and negative except as noted in the HPI. Physical Exam Physical Exam: Gen: WD/WN, NAD, sitting up in bed, A&Ox3 HEENT: Normocephalic, atraumatic, conjunctivae moist, sclerae anicteric, mucous membranes moist Lung: Clear to Auscultation bilaterally, no wheezes/rales/rhonchi Heart: Regular rate, regular rhythm, + 2/6 MARGE heard best at RUSB. No rubs or gallops Abdomen: Soft, NT, ND +BS x 4 Extremities: no edema, LLE waffle boot in place, b/l heel wounds Skin: Warm, no rash Results & Data Results & Data ([facility]) Vital Signs (Past 12 Hours) Vital Signs Temp Pulse Resp BP Pulse Ox O2 Del Method 01/01/22 15:43 36.7 C 89 16 133/74 98 Room Air 01/01/22 08:00 Room Air 01/01/22 06:48 36.4 C L 83 16 148/82 H 97 Room Air
[2022-01-01] MEDS: GABAPENTIN 100 MG CAP PO SCH (20:07)
[2022-01-02 06:50] LABS: Hematocrit (blood only) 37.1 % (34.1-44.9); Mean Corpuscular Hemoglobin 29.7 pg (25.0-34.0); Mean Corpuscular Hgb Conc 32.3 g/dL (32.0-36.0); Mean Corpuscular Volume 91.8 fL (80.0-100.0); Mean Platelet Volume 11.5 fL (9.4-12.3); Platelet Count 226 K/uL (130-400); RDW Coefficient of Variation 14.5 % (11.5-14.5); RDW Standard Deviation 49.1 fL (36.4-46.3); Red Blood Count 4.04 M/uL (3.93-5.22); White Blood Count 6.08 K/ul (4.8-10.8)
[2022-01-02 07:08] LABS: BUN Creatinine Ratio 46.2 (10-20); Calcium 9.2 mg/dl (8.5-10.1); Creatinine Clr Calc Pharmacy 76.3 ml/min; Est GFR (African American) 99.6 ml/min; Est GFR (Non-African American) 85.9 ml/min; Phosphorus 3.4 mg/dl (2.5-4.9); Potassium 4.1 mmol/L (3.5-5.1)
[2022-01-02] MEDS: CARBIDOPA/LEVODOPA 25/100MG TAB PO SCH ×5 (09:51→22:04)
[2022-01-02] MEDS: DOXYCYCLINE HYCLATE 100 MG CAP PO SCH ×2 (09:51→22:14)
[2022-01-02] MEDS: CLOPIDOGREL BISULFATE 75 MG TAB PO SCH (09:51)
[2022-01-02] MEDS: ENOXAPARIN INJ 40 MG/0.4 ML SYR SQ SCH (09:51)
[2022-01-02] MEDS: NYSTATIN POWDER 15GM BTL EXT PRN (09:52)
--- NOTE | 2022-01-02 14:16 | Hospitalist Progress Note ---
Date of Service January 02, 2022 Assessment & Plan (1) Leg edema, left: Plan: 1) Left Heel Cellulitis 2) B/L Heel wounds, L > R 3) Sacral decubitus wound --Venous Doppler:No evidence of deep venous thrombus. No signs of sepsis Continue Doxycycline, to complete 01/03/[address]: No acute bony abnormality is identified. 2. Soft tissue edema and dermal thickening is noted in the heel. Correlate clinically for evidence of cellulitis. 3. No organized fluid collection is seen to indicate abscess. 4. There is thickening and tendinopathy of the Achilles tendon. Ortho feels non surgical, recommend follow up with podiatry and wound center as outpatient Bilateral arterial duplex - mildly diminished left ankle to brachial index of 0.88. Right ankle to brachial index could not be obtained. Mild atherosclerotic plaque within the lower extremities. No elevated velocities to suggest a hemodynamically significant stenosis although exam compromised from a technical standpoint. Wound care instructions at d/c: Left heel - Apply Aquacel Ag. Cover with OPTi foam, change every other day and as needed. Sacrum - Apply stoma powder, cover with antifungal cream twice daily and as needed. Please off load all bony prominences from pressure at all times, waffle boots, air mattress, turn and repo q2h Will need wound clinic referral [phone] 4) Ambulatory dysfunction Functional disability from Parkinson's disease PT/OT Fall Precautions Case management to help with discharge planning.Possible discharge on Tuesday. Chronic Conditions: H/O TIA-Continue Plavix Parkinson's disease- Continue Sinemet, also on Gabapentin Hypertension- BP Variable likely situational. likely autonomic dysfunction. Moderate aortic stenosis PVD Continue home meds DVT Px: Lovenox SQ Code Status DNR/DNI Dispo: rehab, CM working on referrals, pt is medically stable for discharge Admission and Anticipated Discharge Date Admission Date: December 27, 2021 Subjective Patient seen and examined at bedside. She is lying comfortably on the bed. Not in any acute distress. She wanted me to talk with her daughter on the phone; provided medical updates over the phone answered questions. Review of Systems Review of Systems: All systems reviewed & are unremarkable except as noted in Subjective Physical Exam Physical Exam: Gen: WD/WN, NAD, sitting up in bed, A&Ox3 HEENT: Normocephalic, atraumatic, conjunctivae moist, sclerae anicteric, mucous membranes moist Lung: Clear to Auscultation bilaterally, no wheezes/rales/rhonchi Heart: Regular rate, regular rhythm, + 2/6 MARGE heard best at RUSB. No rubs or gallops Abdomen: Soft, NT, ND +BS x 4 Extremities: no edema, LLE waffle boot in place, b/l heel wounds Skin: Warm, no rash Results & Data Results & Data ([facility]) Vital Signs (Past 12 Hours) Vital Signs Temp Pulse Resp BP Pulse Ox O2 Del Method 01/02/22 08:25 36.7 C 82 16 131/73 95 Room Air COVID-19 Results Results COVID-19 Adm Lab Results: RBC 4.04 M/uL (3.93-5.22) 01/02/22 WBC 6.08 K/ul (4.8-10.8) 01/02/22 Hgb 12.0 g/dl (12.0-16.0) 01/02/22 Hct 37.1 % (34.1-44.9) 01/02/22 Plt Count 226 K/uL (130-400) 01/02/22 Neutrophils (%) (Auto) 66.8 % 12/26/21 Lymphocytes (%) (Auto) 17.4 % 12/26/21 Monocytes # (Auto) 0.72 K/uL (0.24-0.82) 12/26/21 Eosinophils # (Auto) 0.40 K/uL (0-0.50) 12/26/21 Immature Granulocyte % (Auto) 0.3 % 12/26/21 Neutrophils # (Auto) 5.07 K/uL (1.4-6.5) 12/26/21 Lymphocytes # (Auto) 1.32 K/uL (1.2-3.4) 12/26/21 Monocytes # (Auto) 0.72 K/uL (0.24-0.82) 12/26/21 Eosinophils # (Auto) 0.40 K/uL (0-0.50) 12/26/21 Basophils # (Auto) 0.05 K/uL (0-0.2) 12/26/21 Immature Granulocyte # (Auto) 0.02 K/uL (0.00-0.02) 2 Na 137 mmol/L (136-145) 01/02/22 K 4.1 mmol/L (3.5-5.1) 01/02/22 Cl 106 mmol/L (98-107) 01/02/22 CO2 25 mmol/L (21-32) 01/02/22 Anion Gap 6 (3-11) 01/02/22 BUN 24 mg/dl (6-23) H 01/02/22 Creatinine 0.52 mg/dl (0.6-1.2) L 01/02/22 BUN/Creatinine Ratio 46.2 (10-20) H 01/02/22 Glucose Level 83 mg/dl (70-99(Fasting)) 01/02/22 Ca 9.2 mg/dl (8.5-10.1) 01/02/22 Phosphorus Level 3.4 mg/dl (2.5-4.9) 01/02/22 Total Bilirubin 0.6 mg/dl (0.2-1.0) 12/26/21 AST/SGOT 13 U/L (13-39) 12/26/21 ALT/SGPT < 3 U/L (7-52) L 12/26/21 Alkaline Phosphatase 77 U/L (34-104) 12/26/21 Total Protein 7.3 gm/dl (6.0-8.3) 12/26/21 Albumin 3.6 gm/dl (3.4-5.0) 12/26/21 Globulin 3.7 gm/dl (2.5-4.0) 12/26/21 Albumin/Globulin Ratio 1.0 (0.9-2) 12/26/21 CRP 1.72 mg/dl (0-0.5) H 12/30/21 PTT 30.8 Seconds (21.0-31.0) 12/26/21 INR 1.0 (0.9-1.1) 12/26/21 SARS-CoV-2, RNA, NAAT NEGATIVE (NEGATIVE) 12/26/21 Chest X-Ray 12/26/21
[2022-01-02] MEDS: GABAPENTIN 100 MG CAP PO SCH (22:03)
[2022-01-03] MEDS: ENOXAPARIN INJ 40 MG/0.4 ML SYR SQ SCH (10:02)
[2022-01-03] MEDS: CLOPIDOGREL BISULFATE 75 MG TAB PO SCH (10:02)
[2022-01-03] MEDS: CARBIDOPA/LEVODOPA 25/100MG TAB PO SCH ×5 (10:02→20:51)
[2022-01-03 10:08] LABS: Base Excess VBG 3.2 mEq/L; HCO3 VBG 29 mmol/L; Oxygen Saturation VBG < 60.0 %; PCO2 VBG 45 mmHg (38-50); PO2 VBG 35 mmHg; pH VBG 7.41 (7.36-7.41)
[2022-01-03 10:14] LABS: Appearance Urine Clear (Clear); Bilirubin Urine Negative (Negative); Blood Urine Negative (Negative); Color Urine Yellow; Glucose Urine UA Negative (Negative); Ketones Urine Trace (Negative); Leukocyte Esterase Urine Negative (Negative); Nitrite Urine Negative (Negative); Protein Urine Negative (Negative); Specific Gravity Urine 1.023 (1.000-1.030); Urobilinogen Urine Negative (Negative); pH Urine 5.5 (4.5-7.5)
--- NOTE | 2022-01-03 10:45 | CT Scan Report ---
HEAD CT NONCONTRAST CT DOSE: 537.48 mGy.cm HISTORY: Altered mental status TECHNIQUE: Multiaxial CT images of the head were performed without the use of intravenous contrast. A utomated exposure control was utilized for this study. A dose lowering technique was utilized adheri ng to the principles of ALARA. Comparison: Head CT 10/30/2021. Findings: The paranasal sinuses and mastoid air cells are clear. The calvarium and skull base are int act. There is no mass, hematoma, midline shift, acute infarct. White matter hypodensity is nonspecifi c but suggestive of microvascular ischemic change. The ventricles and sulci demonstrate mild age-rela christine involutional changes. Impression: No significant change compared to the prior study. No acute intracranial abnormality. ACT 112: Negative or not required by law. Electronically signed by: Carlos Billings M.D. 01/03/2022 10:43 AM
[2022-01-03] MEDS: D5W AND NSS 1,000 ML IV SCH (14:12)
--- NOTE | 2022-01-03 14:31 | Hospitalist Progress Note ---
Date of Service January 03, 2022 Assessment & Plan (1) Leg edema, left: Plan: 1) AMS likely 2/2 Urinary Retention/Hypoglycemia -On 01/03 morning; patient was found to be lethargic. Only responding to tactile stimuli. CT head done which did not show acute abnormality --VBG unremarkable POCT glucose test 94 --Bladder scan greater than 60 cc -- Urinalysis -no signs of infection Plan; We will start her on D5 NS at 50 cc/h to prevent any hypoglycemia. Bladder scan every 8 hours; straight cath if postvoid residual is greater than 250. -Tramadol, promethazine stopped which would contribute to the AMS. 2) Left Heel Cellulitis 3) B/L Heel wounds, L > R 4) Sacral decubitus wound --Venous Doppler:No evidence of deep venous thrombus. No signs of sepsis Continue Doxycycline, to complete 01/03/[address]: No acute bony abnormality is identified. 2. Soft tissue edema and dermal thickening is noted in the heel. Correlate clinically for evidence of cellulitis. 3. No organized fluid collection is seen to indicate abscess. 4. There is thickening and tendinopathy of the Achilles tendon. Ortho feels non surgical, recommend follow up with podiatry and wound center as outpatient Bilateral arterial duplex - mildly diminished left ankle to brachial index of 0.88. Right ankle to brachial index could not be obtained. Mild atherosclerotic plaque within the lower extremities. No elevated velocities to suggest a hemodynamically significant stenosis although exam compromised from a technical standpoint. Wound care instructions at d/c: Left heel - Apply Aquacel Ag. Cover with OPTi foam, change every other day and as needed. Sacrum - Apply stoma powder, cover with antifungal cream twice daily and as needed. Please off load all bony prominences from pressure at all times, waffle boots, air mattress, turn and repo q2h Will need wound clinic referral [phone] Ambulatory dysfunction Functional disability from Parkinson's disease PT/OT Fall Precautions Case management to help with discharge planning.Possible discharge on Tuesday. Chronic Conditions: H/O TIA-Continue Plavix Parkinson's disease- Continue Sinemet, also on Gabapentin Hypertension- BP Variable likely situational. likely autonomic dysfunction. Moderate aortic stenosis PVD Continue home meds DVT Px: Lovenox SQ Code Status DNR/DNI Dispo: rehab, CM working on referrals, pt is medically stable for discharge Admission and Anticipated Discharge Date Admission Date: December 27, 2021 Subjective Patient seen multiple times today. In the morning, patient was lethargic; opening her eyes to sternal rub only. CT head done which did not show any acute abnormality, VBG did not show CO 2 narcosis. POCT glucose was 94; was given 25 mL dextrose 50%. Bladder scan showed urinary retention of greater than 600 cc. Straight cath done; urinalysis did not show any signs of infection. Patient's mentation slightly improved over the course of the afternoon. Review of Systems Review of Systems: Unobtainable due to cognitive status Physical Exam Physical Exam: Gen: Lethargic; awakens to tactile stimuli. Able to say her name. HEENT: Normocephalic, atraumatic, conjunctivae moist, sclerae anicteric, mucous membranes moist Lung: Clear to Auscultation bilaterally, no wheezes/rales/rhonchi Heart: Regular rate, regular rhythm, + 2/6 MARGE heard best at RUSB. No rubs or gallops Abdomen: Soft, NT, ND +BS x 4. Tenderness to lower abdomen Extremities: no edema, LLE waffle boot in place, b/l heel wounds Skin: Warm, no rash Results & Data Results & Data ([facility]) Vital Signs (Past 12 Hours) Vital Signs Temp Pulse Resp BP Pulse Ox O2 Del Method 01/03/22 14:18 36.8 C 66 16 154/70 H 96 Room Air 01/03/22 07:05 36.9 C 81 16 135/75 98 Room Air COVID-19 Results Results COVID-19 Adm Lab Results: RBC 4.04 M/uL (3.93-5.22) 01/02/22 WBC 6.08 K/ul (4.8-10.8) 01/02/22 Hgb 12.0 g/dl (12.0-16.0) 01/02/22 Hct 37.1 % (34.1-44.9) 01/02/22 Plt Count 226 K/uL (130-400) 01/02/22 Neutrophils (%) (Auto) 66.8 % 12/26/21 Lymphocytes (%) (Auto) 17.4 % 12/26/21 Monocytes # (Auto) 0.72 K/uL (0.24-0.82) 12/26/21 Eosinophils # (Auto) 0.40 K/uL (0-0.50) 12/26/21 Immature Granulocyte % (Auto) 0.3 % 12/26/21 Neutrophils # (Auto) 5.07 K/uL (1.4-6.5) 12/26/21 Lymphocytes # (Auto) 1.32 K/uL (1.2-3.4) 12/26/21 Monocytes # (Auto) 0.72 K/uL (0.24-0.82) 12/26/21 Eosinophils # (Auto) 0.40 K/uL (0-0.50) 12/26/21 Basophils # (Auto) 0.05 K/uL (0-0.2) 12/26/21 Immature Granulocyte # (Auto) 0.02 K/uL (0.00-0.02) 2 Na 137 mmol/L (136-145) 01/02/22 K 4.1 mmol/L (3.5-5.1) 01/02/22 Cl 106 mmol/L (98-107) 01/02/22 CO2 25 mmol/L (21-32) 01/02/22 Anion Gap 6 (3-11) 01/02/22 BUN 24 mg/dl (6-23) H 01/02/22 Creatinine 0.52 mg/dl (0.6-1.2) L 01/02/22 BUN/Creatinine Ratio 46.2 (10-20) H 01/02/22 Glucose Level 83 mg/dl (70-99(Fasting)) 01/02/22 Ca 9.2 mg/dl (8.5-10.1) 01/02/22 Phosphorus Level 3.4 mg/dl (2.5-4.9) 01/02/22 Total Bilirubin 0.6 mg/dl (0.2-1.0) 12/26/21 AST/SGOT 13 U/L (13-39) 12/26/21 ALT/SGPT < 3 U/L (7-52) L 12/26/21 Alkaline Phosphatase 77 U/L (34-104) 12/26/21 Total Protein 7.3 gm/dl (6.0-8.3) 12/26/21 Albumin 3.6 gm/dl (3.4-5.0) 12/26/21 Globulin 3.7 gm/dl (2.5-4.0) 12/26/21 Albumin/Globulin Ratio 1.0 (0.9-2) 12/26/21 CRP 1.72 mg/dl (0-0.5) H 12/30/21 PTT 30.8 Seconds (21.0-31.0) 12/26/21 INR 1.0 (0.9-1.1) 12/26/21 SARS-CoV-2, RNA, NAAT NEGATIVE (NEGATIVE) 12/26/21 Chest X-Ray 12/26/21
[2022-01-03] MEDS: NYSTATIN POWDER 15GM BTL EXT PRN (17:00)
[2022-01-03] MEDS: GABAPENTIN 100 MG CAP PO SCH (20:51)
[2022-01-04] MEDS: ENOXAPARIN INJ 40 MG/0.4 ML SYR SQ SCH (08:32)
[2022-01-04] MEDS: CLOPIDOGREL BISULFATE 75 MG TAB PO SCH (08:32)
[2022-01-04] MEDS: D5W AND NSS 1,000 ML IV SCH (08:32)
[2022-01-04] MEDS: CARBIDOPA/LEVODOPA 25/100MG TAB PO SCH ×3 (08:32→13:19)
[2022-01-04 08:35] LABS: Hematocrit (blood only) 38.9 % (34.1-44.9); Hemoglobin 12.2 g/dl (12.0-16.0); Mean Corpuscular Hemoglobin 29.7 pg (25.0-34.0); Mean Corpuscular Hgb Conc 31.4 g/dL (32.0-36.0); Mean Corpuscular Volume 94.6 fL (80.0-100.0); Mean Platelet Volume 11.5 fL (9.4-12.3); Platelet Count 239 K/uL (130-400); RDW Standard Deviation 52.8 fL (36.4-46.3); Red Blood Count 4.11 M/uL (3.93-5.22); White Blood Count 7.06 K/ul (4.8-10.8)
[2022-01-04 08:58] LABS: BUN Creatinine Ratio 34.5 (10-20); Calcium 8.9 mg/dl (8.5-10.1); Creatinine Clr Calc Pharmacy 68.4 ml/min; Est GFR (African American) 96.1 ml/min; Est GFR (Non-African American) 82.9 ml/min; Potassium 3.9 mmol/L (3.5-5.1)
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
[2022-01-05] MEDS ORDERED: SENNA 8.6 MG TAB PO SCH (09:00)
[2022-01-05] MEDS ORDERED: POLYETHYLENE (MIRALAX) 17 GM PACK PO SCH (09:00)
== END 2022-01-04 15:50 ==
LOC: 3W 17:18 → ED 17:18 → 3W 22:14 → SUATTDRO 12-27 14:04

== ENCOUNTER 2022-01-24 10:46 | Observation (INO) ==
[2022-01-24] MEDS ORDERED: SODIUM CHLORIDE 0.9% 1000ML 1,000 ML IV SCH (11:30)
--- NOTE | 2022-01-24 11:31 | CT Scan Report ---
CT head/brain wo con CLINICAL HISTORY: 86 years-old Female with fall. Acute head and neck trauma status post fall TECHNIQUE: Multiple axial CT images of the head were obtained without contrast. A dose lowering tech nique was utilized adhering to the principles of ALARA. COMPARISON: CT cervical spine of same day, head CT 01/03/2022 FINDINGS: No acute intracranial hemorrhage, midline shift, intracranial mass, hydrocephalus, territorial ischem ia or abnormal extra-axial collection. Motion degraded exam. Age-related involutional changes. White matter hypodensities suggestive of chronic microvascular ischemic disease. The calvarium is intact. Bilateral nasal bone fractures appear unchanged from comparison. Surgical cl ips within the left parietal scalp. 9 cm forehead scalp contusion with laceration and subcutaneous em physema. Prior bilateral lens repair. The paranasal sinuses, mastoid air cells, and middle ear caviti es are clear. IMPRESSION: 1. Motion degraded exam without acute intracranial abnormality or calvarial fracture 2. Left frontal scalp contusion with laceration. ACT 112: Negative or not required by law. The above report was generated using voice recognition software. It may contain grammatical, syntax o r spelling errors. Electronically signed by: David Aleman M.D. 01/24/2022 11:29 AM
--- NOTE | 2022-01-24 11:37 | CT Scan Report ---
CT cervical spine w con HISTORY: 86 years-old Female fall acute neck injury status post fall COMPARISON: CTA neck 10/30/2021, CT cervical spine 08/24/2021 TECHNIQUE: Multiple axial CT images of the cervical spine were obtained without the use of IV contras t. A dose lowering technique was used consistent with the principals of CHENTE. FINDINGS: Atherosclerosis of the carotid bulbs. No prevertebral edema. Heterogeneous thyroid. Biapical pleural- parenchymal scarring. Multilevel degenerative changes appear similar to the 08/24/2021 study. Grade 1 anterolisthesis C4 on C5 likely secondary to chronic facet arthrosis. There is severe multilevel face t arthropathy. Levoscoliosis of the cervical spine. Multilevel central canal and neural foraminal hector rowing. IMPRESSION: No acute cervical spine fracture or subluxation. ACT 112: Negative or not required by law. The above report was generated using voice recognition software. It may contain grammatical, syntax o r spelling errors. Electronically signed by: David Aleman M.D. 01/24/2022 11:35 AM
[2022-01-24] MEDS ORDERED: XYLOCAINE 1%/SOD BICARB 20 ML VIAL INFIL ONE ×2 (11:50→11:58)
[2022-01-24 12:03] LABS: Basophils # (auto) 0.07 K/uL (0-0.2); Basophils % (auto) 0.6 %; Eosinophils % (auto) 3.5 %; Hematocrit (blood only) 36.9 % (34.1-44.9); Hemoglobin 11.4 g/dl (12.0-16.0); Immature Granulocytes # (auto) 0.05 K/uL (0.00-0.02); Immature Granulocytes % (auto) 0.4 %; Lymphocytes # (auto) 1.23 K/uL (1.2-3.4); Lymphocytes % (auto) 10.7 %; Mean Corpuscular Hemoglobin 29.6 pg (25.0-34.0); Mean Corpuscular Hgb Conc 30.9 g/dL (32.0-36.0); Mean Corpuscular Volume 95.8 fL (80.0-100.0); Mean Platelet Volume 10.8 fL (9.4-12.3); Monocytes # (auto) 0.66 K/uL (0.24-0.82); Monocytes % (auto) 5.7 %; Neutrophils # (auto) 9.12 K/uL (1.4-6.5); Neutrophils % (auto) 79.1 %; Platelet Count 243 K/uL (130-400); RDW Coefficient of Variation 15.5 % (11.5-14.5); Red Blood Count 3.85 M/uL (3.93-5.22); White Blood Count 11.53 K/ul (4.8-10.8)
[2022-01-24 12:25] LABS: Albumin Globulin Ratio 0.9 (0.9-2); Albumin Level 3.4 gm/dl (3.4-5.0); BUN Creatinine Ratio 29.4 (10-20); Bilirubin,Total 0.4 mg/dl (0.2-1.0); Calcium 9.1 mg/dl (8.5-10.1); Creatinine Clr Calc Pharmacy 59.2 ml/min; Est GFR (African American) 91.2 ml/min; Est GFR (Non-African American) 78.6 ml/min; Globulin 3.6 gm/dl (2.5-4.0)
[2022-01-24 12:29] LABS: Troponin I High Sensitivity 8.1 pg/ml (0-14)
[2022-01-24] MEDS ORDERED: ceFAZolin 1000MG 1,000 MG/7.5 ML SYR IV STA (12:46)
[2022-01-24] MEDS ORDERED: ACETAMINOPHEN 1,000 MG/100 ML VIAL IV STA (12:47)
--- NOTE | 2022-01-24 13:14 | History & Physical Report ---
Date of Service January 24, 2022 Assessment & Plan (1) Fall: Plan: -Admit to observation -Patient fell out of her chair this AM and sustained the large scalp laceration -CT of the head/neck and CXR negative for any other acute trauma -Patient is alert and oriented, no focal neuro defects compared to her baseline -Bruising and pain to the left shoulder and right forearm, will get xrays to rule out acute fractures -Hold MOLECULAR BIOLOGY PROFESSOR plavix for now to monitor for further bleeding -[facility] should be able to get safer wheelchair by tomorrow, if she is stable and they got the chair she should be able to be discharged back tomorrow -AM CBC and BMP (2) Scalp laceration: Plan: -Repaired by ED staff and given 1g Ancef -Not currently bleeding -No other acute trauma to the head or neck -Continue to monitor for bleeding -Q4H neuro checks ordered (3) Urinary retention: Plan: -Noted in the ED this AM, leon cath placed -Leon draining cloudy yellow urine, UA with reflex already sent -Renal function stable -Will folow-up with UA and start abx if necessary -Will start flomax and remove leon as able (4) Parkinson disease: Plan: -Continue MOLECULAR BIOLOGY PROFESSOR carbidopa-levodopa and gabapentin (5) Hypertension: Plan: -Not on medication, hemodynamically stable at the present time (6) Dyslipidemia: Plan: Not on a statin Plan The patient was discussed with Dr. Cotton at the time of admission History of Present Illness Chief Complaint: Fall Primary Care Provider: Trisha Kendall Trujillo is an 86 year old female with a PMH significant for Parkinson's disease, TIA, hypertension, hyperlipidemia, moderate aortic stenosis (TTE 2021), PVD who presented to the [facility] ED on 01/24/22 with a chief complaint of fall. Per the ED staff, the patient has been at [facility] since her last admission in December for hell and sacral ulcers. The patient has fallen out of her chair multiple times recently, with the most recent episode she hit her head, causing a large scalp laceration. In the ED the patient was found to be afebrile, hemodynamically stable, and stable on room air. Xray of the chest and CT of the head/cervical spine were negative for acute trauma besides the large left front scalp laceration. The ED staff irrigated and closed her scalp laceration and the patient was given 1g of ancef. At the time of the exam the patient was lying comfortably in bed in no acute distress, her family had already left the hospital at the time of the exam. She states that she was brought to the hospital because she fell and hit her head. She states that she has a headache at the current time and that her right forearm is also painful. She denies losing consciousness and any other pain at the time of the exam. The patient is currently alert and completely oriented. I called and spoke to both the patient's Daughter (Nu [phone]) and the patient's sister (Ana [phone]) who was the family contact at the hospital today. Nu states that if the patient is deemed stable from our standpoint and can go back to [facility] with a safe discharge plan she is comfortably with that plan. I spoke with Ana who initially stated that she wished the patient to be observed overnight due to the size of the head laceration. I explained that the patient appears stable from our standpoint and we would not be doing anything else besides observing her, which could also be done at [facility]. I explained that we would be happy to observe her if that is still what is wanted but that her insurance may not cover the stay as we are not actively treating anything else at this time. Her Daughter, Nu, also expressed concerns that her mother could lose her bed hold at [facility] if she did not go back. I explained that I would speak with our care managers to get a better idea of the situation and see if we could arrange a safe discharge back to [facility] today. If one cannot be setup today then we will admit her for observation. After discussions with Care management, [facility] will not be able to have the new safety plan in place until tomorrow at the earliest. The patient will be admitted to observation until it is safe for her to return Allergies Allergy/AdvReac Type Severity Reaction Status Date / Time No Known Allergies Allergy Verified 12/26/21 19:33 Home Medications Medication Instructions Recorded Confirmed Type carbidopa 25 mg-levodopa 100 mg 2 tab PO AMHS 03/21/18 12/26/21 History tablet clopidogrel 75 mg tablet (Plavix) 75 mg PO DAILY 08/24/21 12/26/21 History carbidopa 25 mg-levodopa 100 mg 1.5 tab PO TID 12/26/21 12/26/21 History tablet gabapentin 100 mg capsule 200 mg PO HS 12/26/21 12/26/21 History menthol 0.44 %-zinc oxide 20.6 % 1 applic topical BID 12/26/21 12/26/21 History topical ointment (Calmoseptine) Past Med/Surg History Medical History Aortic stenosis "Mild-moderate per echo 03/15/17" Chronic allergic rhinitis Dyslipidemia Generalized weakness Hypertension Osteoporosis Parkinson disease Urinary tract infection Surgical History H/O colonoscopy "2011" History of fracture of left hip History of left hip replacement Hx of cataract surgery Family History Father Esophageal cancer Mother Breast cancer Social History Smoking Status: Unknown if ever smoked Second Hand Exposure: No; Hx Alcohol Use: No Hx Substance Use: No Preferred Language: Kyrgyz Communication 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 Physical Exam Physical Exam: Physical Exam: General: In no acute distress, stated age, malnourished, chronically ill- appearing HEENT: Patient with head laceration currently wrapped and without signs of drainage through the bandage, bruising noted under the right eye, no trauma noted to the nose or the mouth on exam Chest/Pulm: No respiratory distress, symmetrical chest expansion, clear breath sounds throughout Cardiac: RRR, 3/6 systolic murmur noted, loudest in the aortic region Abdomen: Negative for ascites and bruising, normoactive bowel sounds, soft, non-tender to palpation throughout : Patient currently with leon cath placed by ED staff, draining cloudy yellow urine Musculoskeletal: Head wrapped as stated above, bruising noted to the left shoulder and radial aspect of the right forearm, patient is tedner to palpation over the right forearm. Patient with ful ROM of the BL upper and lower extremities, no tenderness or instability noted on palpation of the pelvis, intact flexion of the BL hips and knees without pain, no tenderness to palpation noted down the spine Extremities: Radial, dorsalis pedis, and posterior tibial pulses are intact and symmetrical, no edema noted in the BL LE's Skin: Warm, dry, no rashes , lesions, or scars noted, bruising noted above Neuro: Alert and oriented to person, place, month, year, and president, patient with masked facies, slow speech, CN II-XII tested and intact Psych: No acute distress, calm and cooperative during the exam Results & Data Results & Data ([facility]) Vital Signs (Past 12 Hours) Vital Signs Temp Pulse Pulse Resp BP BP Pulse Ox 01/24/22 11:38 98 H 18 99 01/24/22 11:38 36.4 C L 98 H 20 165/80 H 99 01/24/22 11:38 36.6 C 98 H 20 165/80 H 99 O2 Del Method 01/24/22 11:38 01/24/22 11:38 01/24/22 11:38 Room Air Laboratory Results Abnormal lab results 01/24/22 01/24/22 Range/Units 11:45 11:45 WBC 11.53 H (4.8-10.8) K/ul RBC 3.85 L (3.93-5.22) M/uL Hgb 11.4 L (12.0-16.0) g/dl MCHC 30.9 L (32.0-36.0) g/dL RDW Std Deviation 55.0 H (36.4-46.3) fL RDW Coeff of Conor 15.5 H (11.5-14.5) % Neut # (Auto) 9.12 H (1.4-6.5) K/uL Immature Gran # (Auto) 0.05 H (0.00-0.02) K/uL BUN/Creatinine Ratio 29.4 H (10-20) Glucose 111 H (70-99(Fasting)) mg/dl ALT 3 L (7-52) U/L Diagnostic Findings Cervical Spine CT 01/24/22 11:02 CT cervical spine w con HISTORY: 86 years-old Female fall acute neck injury status post fall COMPARISON: CTA neck 10/30/2021, CT cervical spine 08/24/2021 TECHNIQUE: Multiple axial CT images of the cervical spine were obtained without the use of IV contrast. A dose lowering technique was used consistent with the principals of ALARA. FINDINGS: Atherosclerosis of the carotid bulbs. No prevertebral edema. Heterogeneous thyroid. Biapical pleural-parenchymal scarring. Multilevel degenerative changes appear similar to the 08/24/2021 study. Grade 1 anterolisthesis C4 on C5 likely secondary to chronic facet arthrosis. There is severe multilevel facet arthropathy. Levoscoliosis of the cervical spine. Multilevel central canal and neural foraminal narrowing. IMPRESSION: No acute cervical spine fracture or subluxation. ACT 112: Negative or not required by law. The above report was generated using voice recognition software. It may contain grammatical, syntax or spelling errors. Electronically signed by: David Aleman M.D. 01/24/2022 11:[address] 01/24/22 11:02 CT head/brain wo con CLINICAL HISTORY: 86 years-old Female with fall. Acute head and neck trauma s tatus post fall TECHNIQUE: Multiple axial CT images of the head were obtained without contrast. A dose lowering technique was utilized adhering to the principles of ALARA. COMPARISON: CT cervical spine of same day, head CT 01/03/2022 FINDINGS: No acute intracranial hemorrhage, midline shift, intracranial mass, hydrocephalus, territorial ischemia or abnormal extra-axial collection. Motion degraded exam. Age-related involutional changes. White matter hypodensities suggestive of chronic microvascular ischemic disease. The calvarium is intact. Bilateral nasal bone fractures appear unchanged from comparison. Surgical clips within the left parietal scalp. 9 cm forehead scalp contusion with laceration and subcutaneous emphysema. Prior bilateral lens repair. The paranasal sinuses, mastoid air cells, and middle ear cavities are clear. IMPRESSION: 1. Motion degraded exam without acute intracranial abnormality or calvarial fracture 2. Left frontal scalp contusion with laceration. ACT 112: Negative or not required by law. The above report was generated using voice recognition software. It may contain grammatical, syntax or spelling errors. Electronically signed by: David Aleman M.D. 01/24/2022 11:29 AM Chest X-Ray 01/24/22 11:19 XR chest 1V portable HISTORY: 86 years-old Female Trauma acute chest trauma status post fall COMPARISON: Chest radiograph 12/26/2021 TECHNIQUE: Portable AP view of the chest FINDINGS: Cardiac mediastinal and hilar silhouettes are within normal limits. No pneumothorax, large pleural effusion or overt pulmonary edema. Chronic interstitial coarsening. Degenerative changes of the shoulders and line. IMPRESSION: No acute process. ACT 112: Negative or not required by law. The above report was generated using voice recognition software. It may contain grammatical, syntax or spelling errors. Electronically signed by: David Aleman M.D. 01/24/2022 1:19 PM ECG Additional Comments: Poor data quality, interpretation may be adversely affected Sinus rhythm with occasional Premature ventricular complexes Left axis deviation Pulmonary disease pattern Moderate voltage criteria for LVH, may be normal variant Cannot rule out Septal infarct (cited on or before 24-JAN-2022) Abnormal ECG When compared with ECG of 30-OCT-2021 11:38, Premature ventricular complexes are now Present Incomplete right bundle branch block is no longer Present ... Code Status & VTE Plan Code Status DNR/DNI Supervising Physician Co-Signing Physician Notes Patient seen and examined, chart reviewed, case discussed with Nehemias Cuevas PA-C and I agree with the assessment and plan as above except as otherwise noted Labs and images reviewed Fall in the setting of Parkinson's without syncope/presyncope with large scalp laceration. CThead negative for intracranial bleeding, no signs of fracture. Patient with substantial mid and left forehead laceration repaired with multiple itzel, bleeding at time of assessment. Revised with ER provider, cleaned, additional itzel added and hemostasis achieved. Patient denies lightheadedness/dizziness, endorses pain at her forehead with palpation some pain at rest since additional itzel added. Denies chest pain, chest pressure, shortness of breath. Endorses difficulty ambulating and Parkinson's. Fall 2/2 Parkinson's, with laceration: Continue carbidopa/levodopa, case management following and coordinating additional safety/assistive devices for [facility]. Will monitor overnight and follow H&H due to laceration with extensive bleeding. Plavix temporarily held. Hemoglobin trended. PG Care Time/CCT Total # of Minutes Spent Total Time Spent with Patient: Total time spent is greater than 50% in coordination of care (as documented) at patient's floor/unit and/or counseling patient: Coding Level of Care Code Established Pt INT OBSERVATION CARE 70M LVL 3 Patient Type Established Medical Decision Making High Complexity Diagnoses Fall W19.XXXA Scalp laceration S01.01XA Urinary retention R33.9 Parkinson disease G20 Hypertension I10 Hypertension type: primary hypertension Dyslipidemia E78.5 (1) Hypertension Hypertension type: primary hypertension Qualified Code(s): I10 - Essential (primary) hypertension
--- NOTE | 2022-01-24 13:20 | XRay Report ---
XR chest 1V portable HISTORY: 86 years-old Female Trauma acute chest trauma status post fall COMPARISON: Chest radiograph 12/26/2021 TECHNIQUE: Portable AP view of the chest FINDINGS: Cardiac mediastinal and hilar silhouettes are within normal limits. No pneumothorax, large pleural ef fusion or overt pulmonary edema. Chronic interstitial coarsening. Degenerative changes of the shoulde rs and line. IMPRESSION: No acute process. ACT 112: Negative or not required by law. The above report was generated using voice recognition software. It may contain grammatical, syntax o r spelling errors. Electronically signed by: David Aleman M.D. 01/24/2022 1:19 PM
[2022-01-24 14:04] LABS: Appearance Urine Turbid (Clear); Bacteria Urine Automated 4+ (Negative); Bilirubin Urine Negative (Negative); Blood Urine Negative (Negative); Color Urine Yellow; Glucose Urine UA Negative (Negative); Ketones Urine Negative (Negative); Leukocyte Esterase Urine 3+ (Negative); Nitrite Urine Positive (Negative); RBC Urine Automated 0-4 /hpf (0-4); Specific Gravity Urine 1.017 (1.000-1.030); Urobilinogen Urine Negative (Negative); WBC Urine Automated >30 /hpf (0-5); pH Urine 7.5 (4.5-7.5)
[2022-01-24 14:22] LABS: Protein Urine 1+ (Negative)
[2022-01-24] MEDS ORDERED: GELATIN SPONGE 12-7MM ONE (14:33)
[2022-01-24] MEDS ORDERED: LIDO/EPINEPHRINE/SOD BICARB 20 ML VIAL INFIL ONE (14:34)
--- NOTE | 2022-01-24 14:35 | XRay Report ---
XR shoulder LT min 2V routine HISTORY: 86 years-old Female fall with cruising and pain acute left shoulder pain status post fall COMPARISON: Chest radiograph 12/26/2021 TECHNIQUE: 2 views of the left shoulder FINDINGS: Demineralized appearance of the bones with moderate glenohumeral and AC joint osteoarthritis. No acut e fracture, dislocation or opaque foreign body. The imaged lung mejia appear clear. IMPRESSION: No acute fracture or dislocation. ACT 112: Negative or not required by law. The above report was generated using voice recognition software. It may contain grammatical, syntax o r spelling errors. Electronically signed by: David Aleman M.D. 01/24/2022 2:33 PM
--- NOTE | 2022-01-24 14:36 | XRay Report ---
XR forearm RT 2V HISTORY: 86 years-old Female fall with pain and bruising acute pain of the right forearm COMPARISON: None TECHNIQUE: 2 views of the right forearm FINDINGS: Demineralized appearance of the bones. Osteoarthritis of the wrist and elbow. IV catheter is in place . Mild dorsal proximal to mid forearm soft tissue swelling. No acute fracture or dislocation. IMPRESSION: Mild soft tissue swelling without acute fracture or dislocation. ACT 112: Negative or not required by law. The above report was generated using voice recognition software. It may contain grammatical, syntax o r spelling errors. Electronically signed by: David Aleman M.D. 01/24/2022 2:35 PM
[2022-01-24] MEDS ORDERED: HYDROmorphone INJ 0.5 MG/0.5 ML SYR IV STA (14:46)
--- NOTE | 2022-01-24 14:56 | Emergency Department Note ---
Impression & Plan Acute head trauma, Parkinson disease, Fall, Scalp laceration ED Provider Note CHIEF COMPLAINT: Scalp laceration, fall from wheelchair HISTORY OF PRESENT ILLNESS: This 86-year-old female patient presents to the emergency department by EMS with complaints of a large head laceration after fal ling out of her wheelchair. The patient apparently fell forward out of her wheelchair hitting her scalp on the hard ground, by report. The patient denies any loss of consciousness. She stated it was a mechanical fall as she does not have any strength to hold herself up. The patient apparently has Parkinson's disease and has been residing at [facility] the last 2 weeks. Patient's family states she moved there because she was having frequent falls at home. She has had several falls while at the nursing facility. Family is frustrated because they were informed they could not restrain the patient in her wheelchair to prevent these falls. In review of patient records, her tetanus status is up-to-date. REVIEW OF SYSTEMS: A review of systems was performed with positives and pertinent negatives listed in the history of present illness. 10 systems were reviewed and are otherwise negative. ALLERGIES: see below MEDICATIONS: see below PMH: see below SOCIAL HISTORY: see below DDx: Fracture, dislocation, contusion, intra-abdominal, pneumothorax, intrathoracic, intracranial, neurologic, compartment syndrome, rhabdomyolysis, as well as other pathologies. PHYSICAL EXAM: Vital signs reviewed. General: Elderly, chronically ill-appearing 86-year-old female, in no significant distress. HEENT: No conjunctival injection, PERRLA, neck supple. Large U-shaped laceration to the mid forehead through the parietal scalp with a large flap exposing the skull. Cardiovascular: Regular rate and rhythm, no extra sounds. Pulmonary: Clear to auscultation bilaterally, normal work of breathing. Abdomen: Soft, nontender, nondistended, positive bowel sounds. Musculoskeletal: Atraumatic, no significant deformity. Cervical, thoracic and lumbar spine are palpated, nontender, no step-off or deformity appreciated. Neurologic: Patient awake alert and oriented x 3, full strength in all 4 extremities. Skin: Warm, dry, no rash. As above, lacerations to the scalp and right elbow EMERGENCY DEPARTMENT COURSE/MDM: This patient was evaluated and appeared to be in no distress but critically ill. Needed CT imaging of the head and neck was performed and reveals no evidence of acute intracranial hemorrhage. There is no cervical spine fracture. The patient's dressing was applied by EMS was taken down and reveals a very large flap laceration exposing the skull. Thankfully the patient was awake and alert, lidocaine used to numb the surface of the wo und. The wound was diligently cleansed with the pulse research greenhouse supervisor. The patient was medicated with IV Ancef. Together with medical student's assistance will nicely. Patient's laboratory work is fairly reassuring. She did receive IV normal saline solution and IV acetaminophen for pain. I spoke with the hospitalist after speaking with family who requested observation in the hospital which I think is reasonable. Case management has been involved regarding the family's concerns about frequent falls. They will contact [facility] for care planning. Was called back as the patient went to the initial dressing. The dressing was taken down and several additional itzel were placed after the patient was anesthetized with 1% lidocaine with epinephrine. Gelfoam was applied over the wound and again a gauze dressing by nursing staff. Dr. Casillas of the hospitalist service was at the bedside, and care was transitioned to him. PROCEDURE: Scalp laceration Location: Scalp Total length: 20 cm Complexity: Complex Verbal consent was obtained after the risks and benefits were explained, in cluding but not limited to bleeding, scarring, infection, pain, and bone/joint/nerve damage. At this time, the risks of the procedure are less than the risks of NOT performing the procedure. A time out was taken and the correct patient and site identified. The skin was prepped with betadine. The target area was anesthetized with 10 ml of 1% lidocaine without epinephrine. Copious irrigation was performed using pulse research greenhouse supervisor and 2 L of normal saline solution. The skin was re-prepped with betadine and a sterile field set. The wound was explored for foreign bodies and none found. The wound edges were approximated using 2 deep 4.0 Vicryl interrupted sutures and 30 itzel. Hemostasis and excellent approximation was achieved. Antibacterial ointment and a sterile dressing applied. Location: Right elbow skin tear Total length: 5 cm Complexity: Simple Verbal consent was obtained after the risks and benefits were explained, including but not limited to bleeding, scarring, infection, pain, and bone/joint/nerve damage. At this time, the risks of the procedure are less than the risks of NOT performing the procedure. A time out was taken and the correct patient and site identified. The skin was prepped with betadine. The target area was anesthetized with LET gel. Copious irrigation was performed using saline. The skin was re-prepped with betadine and a sterile field set. The wound was explored for foreign bodies and none found. Examination revealed no injury to deep structures such as tendons, bone, or significant blood vessels. The wound edges were approximated using Dermabond and overlying Steri-Strips hemostasis and excellent approximation was achieved. No complications and the patient tolerated the procedure well. MONITORING: An order for cardiac monitoring was placed and the patient is noted to be in a normal sinus rhythm with PVCs at 98 beats per minute. RADIOLOGY: See below EKG: Normal sinus rhythm with occasional PVCs at 95 bpm. Poor quality baseline for interpretation. Left axis deviation, QTC is 437. Likely LVH. Likely previous septal infarct. When compared to previous dated October 30, 2021, PVCs are now present, incomplete right bundle branch block is no longer present. DISPOSITION: Admission Past Med/Surg History Medical History Aortic stenosis "Mild-moderate per echo 03/15/17" Chronic allergic rhinitis Dyslipidemia Generalized weakness Hypertension Osteoporosis Parkinson disease Urinary tract infection Surgical History H/O colonoscopy "2011" History of fracture of left hip History of left hip replacement Hx of cataract surgery Family History Father Esophageal cancer Mother Breast cancer Social History Smoking Status: Never smoker Second Hand Exposure: No; Do You Dip or Chew Tobacco: No; Tobacco Cessation Education Requested by Patient: No Hx Alcohol Use: No Hx Substance Use: No Preferred Language: Lao Communication Ability: Impaired Corn Chip Maker Required: No Beliefs That Will Affect Care: None marital status: / Current Living Situation: Personal Care Facility Current Living Situation Comment: daughter comes in to help during the day How many Children do You have: 1 Other Information That Helps Us Care for You: No Feels Safe at Home: Yes Safety Concerns: Feels Safe At This Time during the past year weight has: remained stable Assistive Devices: Wheelchair Allergies Allergies Allergy/AdvReac Type Severity Reaction Status Date / Time No Known Allergies Allergy Verified 01/24/22 15:36 Home Meds Home Medications Medication Instructions Recorded Confirmed carbidopa 25 mg-levodopa 100 mg 1.5 tab PO TID 03/21/18 01/24/22 tablet clopidogrel 75 mg tablet (Plavix) 75 mg PO DAILY 08/24/21 01/24/22 carbidopa 25 mg-levodopa 100 mg 2 tab PO AMPM 12/26/21 01/24/22 tablet gabapentin 100 mg capsule 200 mg PO HS 12/26/21 01/24/22 acetaminophen 325 mg tablet 650 mg PO Q6H PRN Fever Or Pain 01/24/22 01/24/22 (Tylenol) bacitracin 500 unit/gram topical 1 applic topical DAILY 01/24/22 01/24/22 ointment magnesium hydroxide 400 mg/5 mL 30 ml PO DAILY PRN Constipation 01/24/22 01/24/22 oral suspension (Milk of Magnesia) multivitamin with minerals 1 tab PO DAILY 01/24/22 01/24/22 (Multiple Vitamin-Minerals tablet) polyethylene glycol 3350 17 17 g PO QAM 01/24/22 01/24/22 gram/dose oral powder (Miralax) Results & Data (ED) Vital Signs Vital Signs - 24 hr 01/24/22 11:38 01/24/22 11:38 01/24/22 11:38 Temperature 36.6 C 36.4 C L Temperature Source Oral Oral Pulse Rate 98 H 98 H Pulse Rate [Finger] 98 H Pulse Rate from SpO2 Sensor Respiratory Rate 20 20 18 Respiratory Effort / Characteristics Non-Labored Spontaneous Blood Pressure 165/80 H Blood Pressure [Left Arm] 165/80 H Blood Pressure Mean 108 Blood Pressure Mean [Left Arm] 108 Blood Pressure Position Lying Pulse Oximetry 99 99 99 Oxygen Delivery Method Room Air Sepsis Recent Fever Within 48 Hours No Sepsis New/Unexplained Change in Mental Status N/A Sepsis Action Taken by Nursing No Action Required 01/24/22 13:22 01/24/22 13:30 01/24/22 14:00 Temperature Temperature Source Pulse Rate 90 105 H 91 H Pulse Rate [Finger] Pulse Rate from SpO2 Sensor 90 96 H 98 H Respiratory Rate 18 21 18 Respiratory Effort / Characteristics Blood Pressure Blood Pressure [Left Arm] Blood Pressure Mean Blood Pressure Mean [Left Arm] Blood Pressure Position Pulse Oximetry 98 100 100 Oxygen Delivery Method Sepsis Recent Fever Within 48 Hours Sepsis New/Unexplained Change in Mental Status Sepsis Action Taken by Nursing 01/24/22 14:01 01/24/22 14:01 Temperature Temperature Source Pulse Rate 90 Pulse Rate [Finger] Pulse Rate from SpO2 Sensor 94 H Respiratory Rate 17 Respiratory Effort / Characteristics Blood Pressure 106/40 L Blood Pressure [Left Arm] Blood Pressure Mean 62 Blood Pressure Mean [Left Arm] Blood Pressure Position Pulse Oximetry 100 Oxygen Delivery Method Sepsis Recent Fever Within 48 Hours Sepsis New/Unexplained Change in Mental Status Sepsis Action Taken by Nursing Laboratory Data Result diagrams: 01/24/22 17:43 01/24/22 11:45 Lab Results 01/24/22 01/24/22 01/24/22 Range/Units 11:45 11:45 13:00 WBC 11.53 H (4.8-10.8) K/ul RBC 3.85 L (3.93-5.22) M/uL Hgb 11.4 L (12.0-16.0) g/dl Hct 36.9 (34.1-44.9) % MCV 95.8 (80.0-100.0) fL MCH 29.6 (25.0-34.0) pg MCHC 30.9 L (32.0-36.0) g/dL RDW Std Deviation 55.0 H (36.4-46.3) fL RDW Coeff of Conor 15.5 H (11.5-14.5) % Plt Count 243 (130-400) K/uL MPV 10.8 (9.4-12.3) fL Immature Gran % (Auto) 0.4 % Neut % (Auto) 79.1 % Lymph % (Auto) 10.7 % [place] % (Auto) 5.7 % Eos % (Auto) 3.5 % Baso % (Auto) 0.6 % Neut # (Auto) 9.12 H (1.4-6.5) K/uL Lymph # (Auto) 1.23 (1.2-3.4) K/uL [place] # (Auto) 0.66 (0.24-0.82) K/uL Eos # (Auto) 0.40 (0-0.50) K/uL Baso # (Auto) 0.07 (0-0.2) K/uL Immature Gran # (Auto) 0.05 H (0.00-0.02) K/uL Sodium 142 (136-145) mmol/L Potassium 4.0 (3.5-5.1) mmol/L Chloride 107 (98-107) mmol/L Carbon Dioxide 30 (21-32) mmol/L Anion Gap 5 (3-11) BUN 20 (6-23) mg/dl Creatinine 0.68 (0.6-1.2) mg/dl Est Cr Clr Drug Dosing 59.2 ml/min Est GFR ( Amer) 91.2 ml/min Est GFR (Non-Af Amer) 78.6 ml/min BUN/Creatinine Ratio 29.4 H (10-20) Glucose 111 H (70-99(Fasting)) mg/dl Calcium 9.1 (8.5-10.1) mg/dl Total Bilirubin 0.4 (0.2-1.0) mg/dl AST 13 (13-39) U/L ALT 3 L (7-52) U/L Alkaline Phosphatase 69 (34-104) U/L Troponin I High Sens 8.1 (0-14) pg/ml Total Protein 7.0 (6.0-8.3) gm/dl Albumin 3.4 (3.4-5.0) gm/dl Globulin 3.6 (2.5-4.0) gm/dl Albumin/Globulin Ratio 0.9 (0.9-2) Urine Color Yellow Urine Appearance Turbid A (Clear) Urine pH 7.5 (4.5-7.5) Ur Specific [place] 1.017 (1.000-1.030) Urine Protein 1+ H (Negative) Urine Glucose (UA) Negative (Negative) Urine Ketones Negative (Negative) Urine Blood Negative (Negative) Urine Nitrite Positive A (Negative) Urine Bilirubin Negative (Negative) Urine Urobilinogen Negative (Negative) Ur Leukocyte Esterase 3+ H (Negative) Urine WBC (Auto) >30 H (0-5) /hpf Urine RBC (Auto) 0-4 (0-4) /hpf U Hyaline Cast (Auto) 1-5 (0-5) /lpf U Epithel Cells (Auto) 10-20 H (0-5) /lpf Urine Bacteria (Auto) 4+ H (Negative) Administered Medications Acetaminophen (Acetaminophen 325 Mg Tab) 650 mg PO Q4H PRN PRN Reason: pain/fever Stop: 02/23/22 16:44 Last Admin: 01/24/22 21:20 Dose: 650 mg Documented By: LINUS Carbidopa/Levodopa (Carbidopa/Levodopa 25/100mg Tab) 2 tab PO AMHS JEN Stop: 02/23/22 20:59 Last Admin: 01/24/22 21:22 Dose: 2 tab Documented By: QG Gabapentin (Gabapentin 100 Mg Cap) 200 mg PO HS JEN Stop: 02/23/22 20:59 Last Admin: 01/24/22 21:24 Dose: 200 mg Documented By: QG Tamsulosin HCl (Tamsulosin Hcl 0.4 Mg Cap) 0.4 mg PO [facility] Stop: 02/23/22 16:59 Last Admin: 01/24/22 17:42 Dose: 0.4 mg Documented By: LANA Discontinued Medications Gelatin (Gelatin Sponge 12-7mm) Confirm Administered Dose 1 each .ROUTE .STK-MED ONE Stop: 01/24/22 14:34 Last Admin: 01/24/22 14:55 Dose: 1 each Documented By: ANATOLY Hydromorphone HCl (Hydromorphone Inj 0.5 Mg/0.5 Ml Syr) 0.25 mg IV NOW STA Stop: 01/24/22 14:47 Last Admin: 01/24/22 15:03 Dose: Not Given Documented By: ANATOLY Sodium Chloride (Nss 1000ml) 1,000 mls @ 125 mls/hr IV .Q8H JEN Stop: 01/24/22 19:29 Last Admin: 01/24/22 11:27 Dose: 125 mls/hr Documented By: MAGDIEL Cefazolin Sodium (Ancef 1000mg) 1,000 mg in 7.5 mls @ 2.5 mls/min IV NOW STA Stop: 01/24/22 12:48 Last Admin: 01/24/22 13:28 Dose: 2.5 mls/min Documented By: ANATOLY Acetaminophen (Ofirmev) 1,000 mg in 100 mls @ 400 mls/hr IV NOW STA Stop: 01/24/22 13:01 Last Infusion: 01/24/22 13:54 Dose: 0 mls/hr Documented By: Admin: 01/24/22 13:28 Dose: 400 mls/hr Documented By: ANATOLY Lidocaine HCl (Xylocaine 1%/Sod Bicarb 20 Ml Vial) Confirm Administered Dose 20 ml INFIL .STK-MED ONE Stop: 01/24/22 11:51 Last Admin: 01/24/22 12:11 Dose: 20 ml Documented By: ADDISON Lidocaine HCl (Xylocaine 1%/Sod Bicarb 20 Ml Vial) Confirm Administered Dose 20 ml INFIL .STK-MED ONE Stop: 01/24/22 11:59 Last Admin: 01/24/22 12:10 Dose: 20 ml Documented By: ADDISON Lidocaine/Epinephrine (Lido/Epinephrine/Sod Bicarb 20 Ml Vial) Confirm Administered Dose 20 ml INFIL .STK-MED ONE Stop: 01/24/22 14:35 Last Admin: 01/24/22 14:55 Dose: 20 ml Documented By: ANATOLY Imaging Data Radiologist's Impression: Cervical Spine CT 01/24/22 11:02 CT cervical spine w con HISTORY: 86 years-old Female fall acute neck injury status post fall COMPARISON: CTA neck 10/30/2021, CT cervical spine 08/24/2021 TECHNIQUE: Multiple axial CT images of the cervical spine were obtained without the use of IV contrast. A dose lowering technique was used consistent with the principals of ALARA. FINDINGS: Atherosclerosis of the carotid bulbs. No prevertebral edema. Heterogeneous thyroid. Biapical pleural-parenchymal scarring. Multilevel degenerative changes appear similar to the 08/24/2021 study. Grade 1 anterolisthesis C4 on C5 likely secondary to chronic facet arthrosis. There is severe multilevel facet arthropathy. Levoscoliosis of the cervical spine. Multilevel central canal and neural foraminal narrowing. IMPRESSION: No acute cervical spine fracture or subluxation. ACT 112: Negative or not required by law. The above report was generated using voice recognition software. It may contain grammatical, syntax or spelling errors. Electronically signed by: David Aleman M.D. 01/24/2022 11:[address] 01/24/22 11:02 CT head/brain wo con CLINICAL HISTORY: 86 years-old Female with fall. Acute head and neck trauma status post fall TECHNIQUE: Multiple axial CT images of the head were obtained without contrast. A dose lowering technique was utilized adhering to the principles of ALARA. COMPARISON: CT cervical spine of same day, head CT 01/03/2022 FINDINGS: No acute intracranial hemorrhage, midline shift, intracranial mass, hydrocephalus, territorial ischemia or abnormal extra-axial collection. Motion degraded exam. Age-related involutional changes. White matter hypodensities suggestive of chronic microvascular ischemic disease. The calvarium is intact. Bilateral nasal bone fractures appear unchanged from comparison. Surgical clips within the left parietal scalp. 9 cm forehead scalp contusion with laceration and subcutaneous emphysema. Prior bilateral lens repair. The paranasal sinuses, mastoid air cells, and middle ear cavities are c lear. IMPRESSION: 1. Motion degraded exam without acute intracranial abnormality or calvarial fracture 2. Left frontal scalp contusion with laceration. ACT 112: Negative or not required by law. The above report was generated using voice recognition software. It may contain grammatical, syntax or spelling errors. Electronically signed by: David Aleman M.D. 01/24/2022 11:29 AM Chest X-Ray 01/24/22 11:19 XR chest 1V portable HISTORY: 86 years-old Female Trauma acute chest trauma status post fall COMPARISON: Chest radiograph 12/26/2021 TECHNIQUE: Portable AP view of the chest FINDINGS: Cardiac mediastinal and hilar silhouettes are within normal limits. No pneumothorax, large pleural effusion or overt pulmonary edema. Chronic interstitial coarsening. Degenerative changes of the shoulders and line. IMPRESSION: No acute process. ACT 112: Negative or not required by law. The above report was generated using voice recognition software. It may contain grammatical, syntax or spelling errors. Electronically signed by: David Aleman M.D. 01/24/2022 1:19 PM Discharge Plan Visit Data Chief Complaint: Fall Stated Complaint: fall ED Provider: Karyn Dicksno Discharge Problem: Acute head trauma, Parkinson disease, Fall, Scalp laceration Patient Disposition: Admitted As Inpatient Discharge Instructions Interventions: ED Discharge Assessment Last Done: 01/24/22 16:25
[2022-01-24] MEDS: TAMSULOSIN HCL 0.4 MG CAP PO SCH (17:42)
[2022-01-24 17:56] LABS: Hematocrit (blood only) 30.3 % (34.1-44.9); Hemoglobin 9.5 g/dl (12.0-16.0)
[2022-01-24] MEDS: ACETAMINOPHEN 325 MG TAB PO PRN (21:20)
[2022-01-24] MEDS: CARBIDOPA/LEVODOPA 25/100MG TAB PO SCH (21:22)
[2022-01-24] MEDS: GABAPENTIN 100 MG CAP PO SCH (21:24)
[2022-01-24] MEDS ORDERED: MoRPHine SULFATE 2 MG/ML CARP IV STA (23:11)
--- NOTE | 2022-01-24 23:34 | Communication Note ---
Date of Service: January 24, 2022 [facility] [place] requested transfer of service given patient admission under [facility] service during last visit. Patient listed PCP as per outpatient records is Flor Olivares PA-C of [facility].
[2022-01-24] MEDS ORDERED: SODIUM CHLORIDE 0.9% 500 ML IV ONE (23:49)
[2022-01-24] MEDS ORDERED: KETOROLAC TROMETHAMINE 15 MG/ML VIAL IV ONE (23:50)
[2022-01-24] MEDS ORDERED: traMADol HCL 50 MG TABLET PO PRN (23:50)
[2022-01-25] MEDS ORDERED: SODIUM CHLORIDE 0.9% 1000ML 1,000 ML IV ONE
[2022-01-25 00:27] LABS: Hematocrit (blood only) 26.6 % (34.1-44.9); Hemoglobin 8.4 g/dl (12.0-16.0)
[2022-01-25] MEDS ORDERED: MAGNESIUM SULFATE / D5W 1 GM/100 ML BAG IV ONE (00:53)
[2022-01-25] MEDS: CARBIDOPA/LEVODOPA 25/100MG TAB PO SCH ×5 (08:10→21:11)
[2022-01-25 08:50] LABS: Hematocrit (blood only) 27.2 % (34.1-44.9); Hemoglobin 8.6 g/dl (12.0-16.0); Mean Corpuscular Hemoglobin 30.1 pg (25.0-34.0); Mean Corpuscular Hgb Conc 31.6 g/dL (32.0-36.0); Mean Corpuscular Volume 95.1 fL (80.0-100.0); Mean Platelet Volume 11.3 fL (9.4-12.3); Platelet Count 184 K/uL (130-400); RDW Coefficient of Variation 15.6 % (11.5-14.5); RDW Standard Deviation 53.9 fL (36.4-46.3); Red Blood Count 2.86 M/uL (3.93-5.22)
[2022-01-25 09:19] LABS: BUN Creatinine Ratio 34.5 (10-20); Calcium 7.9 mg/dl (8.5-10.1); Creatinine Clr Calc Pharmacy 67.5 ml/min; Est GFR (African American) 97.7 ml/min; Est GFR (Non-African American) 84.3 ml/min; Magnesium 2.1 mg/dl (1.7-2.4); Potassium 3.6 mmol/L (3.5-5.1)
--- NOTE | 2022-01-25 10:13 | Electrocardiogram Report ---
Test Reason : Blood Pressure : / mmHG Vent. Rate : 095 BPM Atrial Rate : 095 BPM P-R Int : 206 ms QRS Dur : 088 ms QT Int : 348 ms P-R-T Axes : 103 -46 064 degrees QTc Int : 437 ms Poor data quality, interpretation may be adversely affected Sinus rhythm with occasional Premature ventricular complexes Left axis deviation Moderate voltage criteria for LVH, may be normal variant Abnormal ECG When compared with ECG of 30-OCT-2021 11:38, Premature ventricular complexes are now Present Incomplete right bundle branch block is no longer Present Confirmed by Markel Bañuelos ([id number]) on 01/25/2022 10:13:33 AM Referred By: [facility] Confirmed By:Markel Bañuelos
[2022-01-25] MEDS: cefTRIAXone SODIUM 2,000 MG in DEXTROSE 5% 50 ML IV SCH (11:00)
[2022-01-25] MEDS ORDERED: NSS + 20MEQ KCL 20 MEQ/1,000 ML BAG IV ONE (16:50)
--- NOTE | 2022-01-25 17:02 | Hospitalist Progress Note ---
Date of Service January 25, 2022 Assessment & Plan (1) Acute head trauma: Plan: Head trauma Scalp laceration S/P repair Secondary to fall --CT Head:Motion degraded exam without acute intracranial abnormality or calvarial fracture. Left frontal scalp contusion with laceration. --Right Forearm X ray:Mild soft tissue swelling without acute fracture or dislocation. --Left Shoulder X ray:No acute fracture or dislocation. Fall Precautions Plan to discharge to [facility] when stable Plavix on hold Monitor CBC Resume as able Abnormal Urinalysis R/O UTI Empirically on Rocephin Follow-up culture Blood pressure relatively low Continue IV fluids Urinary retention: Tanner Placed Voiding trial as InPt Vs Out Pt Started on Flomax Parkinson disease: Continue carbidopa-levodopa and gabapentin Hypertension: Relatively hypotensive Monitor BP Dyslipidemia: Not on a statin DVT Px: SCDs for now Admission and Anticipated Discharge Date Admission Date: January 24, 2022 Subjective Seen and examined at bedside States having mild scalp tenderness Denies any chest pain, shortness of breath, dizziness, nausea, abdominal pain Offers no other complaints Review of Systems Review of Systems: All systems reviewed & are unremarkable except as noted in Subjective Physical Exam Physical Exam: Physical Exam: Vitals signs as noted above General Appearance:Moderately built and nourished, no apparent distress, Elderly Head: normocephalic, +traumatic, scalp laceration and dressing Eyes: normal inspection, EOMI Neck: supple, Trachea midline Respiratory/Chest: Decreased breath sounds, CTA, No accessory muscle use Cardiovascular: S1, S2, + murmur Abdomen/GI:Soft, Non tender, Bowel sounds present Extremities/Musculoskeletal:normal inspection, no edema, right upper extremity ecchymosis Neurologic/Psych:AAOX3, grossly no focal neurological deficits Skin: normal color, warm Results & Data Results & Data ([facility]) Vital Signs (Past 12 Hours) Vital Signs Temp Pulse Pulse Resp BP BP Pulse Ox 01/25/22 16:41 72 01/25/22 15:00 36.6 C 66 18 94/55 L 96 01/25/22 08:26 72 01/25/22 07:51 36.4 C L 79 116/67 95 O2 Del Method 01/25/22 16:41 01/25/22 15:00 Room Air 01/25/22 08:26 01/25/22 07:51 Room Air Laboratory Results Short CBC 01/24/22 01/25/22 01/25/22 Range/Units 17:43 00:13 08:12 WBC 6.30 (4.8-10.8) K/ul Hgb 9.5 L 8.4 L 8.6 L (12.0-16.0) g/dl Hct 30.3 L 26.6 L 27.2 L (34.1-44.9) % Plt Count 184 (130-400) K/uL BMP 01/25/22 08:12 Sodium 141 Potassium 3.6 Chloride 112 H Carbon Dioxide 27 BUN 19 Creatinine 0.55 L Glucose 112 H Calcium 7.9 L (1) Acute head trauma Encounter type: initial encounter Qualified Code(s): S09.90XA - Unspecified injury of head, initial encounter
[2022-01-25] MEDS ORDERED: KETOROLAC TROMETHAMINE 15 MG/ML VIAL IV STA (20:06)
[2022-01-25] MEDS: GABAPENTIN 100 MG CAP PO SCH (21:12)
[2022-01-25] MEDS: TAMSULOSIN HCL 0.4 MG CAP PO SCH (21:12)
[2022-01-26] MEDS: CARBIDOPA/LEVODOPA 25/100MG TAB PO SCH ×5 (08:05→20:03)
[2022-01-26] MEDS: ACETAMINOPHEN 325 MG TAB PO PRN (08:11)
[2022-01-26 09:31] LABS: Hematocrit (blood only) 24.1 % (34.1-44.9); Hemoglobin 7.5 g/dl (12.0-16.0); Mean Corpuscular Hemoglobin 29.4 pg (25.0-34.0); Mean Corpuscular Hgb Conc 31.1 g/dL (32.0-36.0); Mean Corpuscular Volume 94.5 fL (80.0-100.0); Mean Platelet Volume 11.4 fL (9.4-12.3); Platelet Count 168 K/uL (130-400); RDW Coefficient of Variation 15.5 % (11.5-14.5); RDW Standard Deviation 53.6 fL (36.4-46.3); Red Blood Count 2.55 M/uL (3.93-5.22); White Blood Count 6.28 K/ul (4.8-10.8)
[2022-01-26 09:58] LABS: Calcium 8.1 mg/dl (8.5-10.1); Creatinine Clr Calc Pharmacy 73.2 ml/min; Est GFR (African American) 100.9 ml/min; Magnesium 1.9 mg/dl (1.7-2.4); Potassium 4.2 mmol/L (3.5-5.1)
[2022-01-26] MEDS ORDERED: SODIUM CHLORIDE 0.9% 1000ML 500 ML IV ONE (12:19)
[2022-01-26] MEDS ORDERED: SODIUM CHLORIDE 0.9% 250 ML IV PRN (12:40)
[2022-01-26] MEDS ORDERED: SODIUM CHLORIDE 0.9% 1000ML 1,000 ML IV SCH (13:15)
--- NOTE | 2022-01-26 13:23 | CT Scan Report ---
HEAD CT NONCONTRAST CT DOSE: 1577.26 mGycm HISTORY: Change in mental status TECHNIQUE: Multiaxial CT images of the head were performed without the use of intravenous contrast. A utomated exposure control was utilized for this study. A dose lowering technique was utilized adheri ng to the principles of ALARA. Comparison: Head CT 01/24/2022. Findings: Motion artifact. Skin itzel overlying the large frontal scalp laceration overall, the fro ntal scalp swelling and left parietal scalp swelling has slightly improved. The calvarium and skull b ase are intact. There is no mass, hematoma, midline shift, acute infarct. White matter hypodensity is nonspecific but suggestive of microvascular ischemic change. The ventricles and sulci demonstrate mi ld age-related involutional changes. Impression: 1. Mild motion artifact. No definite acute intracranial abnormality. 2. Slight improvement in the scalp injuries. ACT 112: Negative or not required by law. Electronically signed by: Carlos Billings M.D. 01/26/2022 1:22 PM
[2022-01-26] MEDS: cefTRIAXone SODIUM 2,000 MG in DEXTROSE 5% 50 ML IV SCH (13:40)
--- NOTE | 2022-01-26 14:12 | CT Scan Report ---
CT abd pelvis wo con CLINICAL HISTORY: Anemia R/O bleeding TECHNIQUE: Helical axial images of the abdomen and pelvis were obtained. Automated dose lowering tech niques and/or adjustment according to patient size were utilized for this exam. This exam was perfor med without intravenous contrast. COMPARISON: Comparison is made to CT abdomen pelvis 01/26/2022 FINDINGS: Lower chest: Small bilateral pleural effusions are noted. Cardiomegaly is noted with mitral annular calcifications. Liver: Unremarkable. No focal lesions are seen. Gallbladder and biliary tree: Numerous gallstones are seen without gallbladder thickening. No intra- or extrahepatic biliary ductal dilation. Pancreas: Fatty replacement of the pancreas is seen. Spleen: Unremarkable. Adrenals: Unremarkable. Kidneys and ureters: Unremarkable. Bladder: Limited evaluation due to underdistention. Reproductive organs: Unremarkable. Bowel: Diverticulosis is seen without evidence of diverticulitis. The appendix is normal. There is a small hiatal hernia. Heterogeneous gastric contents are seen. Lymph nodes Retroperitoneal: Unremarkable. Pelvic: Unremarkable. Mesenteric: Unremarkable. Peritoneum: Normal. Vessels: Unremarkable. Abdominal wall: Unremarkable. Bones: Degenerative changes in the visualized spine. Patient is status post left total hip arthroplas ty. Partial visualization of internal fixation of the left femur. IMPRESSION: 1. No evidence of intraperitoneal hemorrhage in this patient with declining hematocrit. 2. Extensive diverticulosis without diverticulitis. 3. Cholelithiasis. No evidence of cholecystitis. ACT 112: Negative or not required by law. Electronically signed by: Omar Cantu M.D. 01/26/2022 2:11 PM
--- NOTE | 2022-01-26 14:53 | Hospitalist Progress Note ---
Date of Service January 26, 2022 Assessment & Plan (1) Acute head trauma: Plan: Head trauma Scalp laceration S/P repair Secondary to fall --CT Head:Motion degraded exam without acute intracranial abnormality or calvarial fracture. Left frontal scalp contusion with laceration. --Right Forearm X ray:Mild soft tissue swelling without acute fracture or dislocation. --Left Shoulder X ray:No acute fracture or dislocation. Fall Precautions Plan to discharge to [facility] when stable Plavix on hold Monitor CBC Resume Plavix as able Anemia Likely Multifactorial: Acute Blood loss, dilutional due to IV fluids Imaging studies not contributory Anemia work up pending Transfuse 1 unit PRBCs today Monitor H&H Transient Change in Mental Status ? 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 No definite acute intracranial abnormality. Slight improvement in the scalp injuries. Monitor UTI-POA Urine Culture:E Coli, Proteus Continue Rocephin Urinary retention: Tanner Placed Voiding trial as InPt Vs Out Pt Started on Flomax Parkinson disease: Continue carbidopa-levodopa and gabapentin Hypertension: BP low Monitor BP Not on any antihypertensives Dyslipidemia: Not on a statin DVT Px: SCDs for now Admission and Anticipated Discharge Date Admission Date: January 24, 2022 Subjective Seen and examined at bedside Patient had a transient change in mental status and was found to be hypotensive Doing better currently Updated family at bedside Denies any chest pain, shortness of breath, dizziness, nausea, abdominal pain Review of Systems Review of Systems: All systems reviewed & are unremarkable except as noted in Subjective Physical Exam Physical Exam: Physical Exam: Vitals signs as noted above General Appearance:Moderately built and nourished, no apparent distress, Elderly Head: normocephalic, +traumatic, scalp laceration and dressing Eyes: normal inspection, EOMI Neck: supple, Trachea midline Respiratory/Chest: Decreased breath sounds, CTA, No accessory muscle use Cardiovascular: S1, S2, + murmur Abdomen/GI:Soft, Non tender, Bowel sounds present Extremities/Musculoskeletal:normal inspection, no edema, right upper extremity ecchymosis Neurologic/Psych:AAOX3, grossly no focal neurological deficits Skin: normal color, warm Results & Data Results & Data ([facility]) Vital Signs (Past 12 Hours) Vital Signs Temp Pulse Pulse Resp BP BP BP 01/26/22 14:40 36.7 C 73 18 109/53 L 01/26/22 14:25 36.6 C 74 18 90/50 L 01/26/22 14:08 36.7 C 70 18 98/59 L 01/26/22 13:43 68 101/58 L 01/26/22 12:45 75/38 L 01/26/22 12:25 62/38 L 01/26/22 12:20 70/39 L 01/26/22 12:15 77/43 L 01/26/22 10:54 36.8 C 76 17 93/51 L 01/26/22 10:49 01/26/22 08:00 36.4 C L 77 18 115/72 01/26/22 07:00 71 01/26/22 03:59 36.5 C 76 20 103/54 L Pulse Ox O2 Del Method 01/26/22 14:40 99 01/26/22 14:25 97 01/26/22 14:08 97 01/26/22 13:43 96 Room Air 01/26/22 12:45 01/26/22 12:25 01/26/22 12:20 01/26/22 12:15 01/26/22 10:54 93 Room Air 01/26/22 10:49 Room Air 01/26/22 08:00 94 Room Air 01/26/22 07:00 01/26/22 03:59 93 Room Air Laboratory Results Short CBC 01/26/22 Range/Units 08:45 WBC 6.28 (4.8-10.8) K/ul Hgb 7.5 L (12.0-16.0) g/dl Hct 24.1 L (34.1-44.9) % Plt Count 168 (130-400) K/uL BMP 01/26/22 08:45 Sodium 139 Potassium 4.2 Chloride 113 H Carbon Dioxide 24 BUN 14 Creatinine 0.50 L Glucose 89 Calcium 8.1 L (1) Acute head trauma Encounter type: initial encounter Qualified Code(s): S09.90XA - Unspecified injury of head, initial encounter
--- NOTE | 2022-01-26 17:40 | Surgery Consultation ---
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 I recommend to do debridement left foot wound at bedside, D/w benefits, risks and alternatives of the surgery, the risks - infection, bleeding, may need more procedure,unhealing wound, pt understood, she agrees with the procedure, she signed informed consent, I answered all questions, I did debridement on left foot, pt tolerated the procedure well, wound care nurse consult for dressing change, will F/U, Supervising Physician Co-Signing Physician Notes Patient seen and examined, chart reviewed, case discussed with Nehemias Cuevas PA-C and I agree with the assessment and plan as above except as otherwise noted Labs and images reviewed Fall in the setting of Parkinson's without syncope/presyncope with large scalp laceration. CThead negative for intracranial bleeding, no signs of fracture. Patient with substantial mid and left forehead laceration repaired with multiple itzel, bleeding at time of assessment. Revised with ER provider, cleaned, additional itzel added and hemostasis achieved. Patient denies lightheadedness/dizziness, endorses pain at her forehead with palpation some pain at rest since additional itzel added. Denies chest pain, chest pressure, shortness of breath. Endorses difficulty ambulating and Parkinson's. Fall 2/2 Parkinson's, with laceration: Continue carbidopa/levodopa, case management following and coordinating additional safety/assistive devices for [facility]. Will monitor overnight and follow H&H due to laceration with extensive bleeding. Plavix temporarily held. Hemoglobin trended. History of Present Illness Reason for Consultation: left foot chronic wound Requesting Physician: Ric Hankins MD Attending Physician: Ric Hankins MD History of Present Illness History of Present Illness Chief Complaint: Fall Primary Care Provider: Trisha Argueta Cassandra is an 86 year old female with a PMH significant for Parkinson's disease, TIA, hypertension, hyperlipidemia, moderate aortic stenosis (TTE 2021), PVD who presented to the [facility] ED on 01/24/22 with a chief complaint of fall. Per the ED staff, the patient has been at [facility] since her last admission in December for hell and sacral ulcers. The patient has fallen out of her chair multiple times recently, with the most recent episode she hit her head, causing a large scalp laceration. In the ED the patient was found to be afebrile, hemodynamically stable, and stable on room air. Xray of the chest and CT of the head/cervical spine were negative for acute trauma besides the large left front scalp laceration. The ED staff irrigated and closed her scalp laceration and the patient was given 1g of ancef. At the time of the exam the patient was lying comfortably in bed in no acute distress, her family had already left the hospital at the time of the exam. She states that she was brought to the hospital because she fell and hit her head. She states that she has a headache at the current time and that her right forearm is also painful. She denies losing consciousness and any other pain at the time of the exam. The patient is currently alert and completely oriented. I called and spoke to both the patient's Daughter (Nu [phone]) and the patient's sister (Ana [phone]) who was the family contact at the hospital today. Nu states that if the patient is deemed stable from our standpoint and can go back to [facility] with a safe discharge plan she is comfortably with that plan. I spoke with Ana who initially stated that she wished the patient to be observed overnight due to the size of the head laceration. I explained that the patient appears stable from our standpoint and we would not be doing anything else besides observing her, which could also be done at [facility]. I explained that we would be happy to observe her if that is still what is wanted but that her insurance may not cover the stay as we are not actively treating anything else at this time. Her Daughter, Nu, also expressed concerns that her mother could lose her bed hold at [facility] if she did not go back. I explained that I would speak with our care managers to get a better idea of the situation and see if we could arrange a safe discharge back to [facility] today. If one cannot be setup today then we will admit her for observation. After discussions with Care management, [facility] will not be able to have the new safety plan in place until tomorrow at the earliest. The patient will be admitted to observation until it is safe for her to return I ( Js Padron MD ) got a call for consult debridement left foot chronic wound, I reviewed pt's H/P, labs with pt, Allergies Allergy/AdvReac Type Severity Reaction Status Date / Time No Known Allergies Allergy Verified 12/26/21 19:33 Home Medications Medication Instructions Recorded Confirmed Type carbidopa 25 mg-levodopa 100 mg 2 tab PO AMHS 03/21/18 12/26/21 History tablet clopidogrel 75 mg tablet (Plavix) 75 mg PO DAILY 08/24/21 History carbidopa 25 mg-levodopa 100 mg 1.5 tab PO TID 12/26/21 12/26/21 History tablet gabapentin 100 mg capsule 200 mg PO HS 12/26/21 12/26/21 Histo ry menthol 0.44 %-zinc oxide 20.6 % 1 applic topical BID 12/26/21 History topical ointment (Calmoseptine) Past Med/Surg History Medical History Aortic stenosis "Mild-moderate per echo 03/15/17"Chronic allergic rhinitis Dyslipidemia Generalized weakness Hypertension Osteoporosis Parkinson disease Urinary tract infection Surgical History H/O colonoscopy "2011"History of fracture of left hip History of left hip replacement Hx of cataract surgery Family History Father Esophageal cancerMother Breast cancer Social History Smoking Status: Unknown if ever smoked Second Hand Exposure: No; Hx Alcohol Use: No Hx Substance Use: No Preferred Language: Bengali Communication Ability: Impaired Hand Rounder Required: No Beliefs That Will Affect Care: None marital status: / Current Living Situation: Alone Current Living Situation Comment: daughter comes in to help during the day How many Children do You have: 1 Feels Safe at Home: Yes during the past year weight has: remained stable Assistive Devices: Wheelchair Review of Systems Review of Systems: Denies current fever, chills, changes in vision, hearing, taste, and smell, chest pain, SOB, cough, abdominal pain, nausea, vomiting, diarrhea, hematemesis, melena, dysuria, hematuria All systems have been reviewed and are otherwise negative. Allergies Allergy/AdvReac Type Severity Reaction Status Date / Time No Known Allergies Allergy Verified 01/24/22 15:36 Home Medications Medication Instructions Recorded Confirmed Type carbidopa 25 mg-levodopa 100 mg 1.5 tab PO TID 03/21/18 01/24/22 History tablet clopidogrel 75 mg tablet (Plavix) 75 mg PO DAILY 08/24/21 01/24/22 History carbidopa 25 mg-levodopa 100 mg 2 tab PO AMPM 12/26/21 01/24/22 History tablet gabapentin 100 mg capsule 200 mg PO HS 12/26/21 01/24/22 History acetaminophen 325 mg tablet 650 mg PO Q6H PRN Fever Or Pain 01/24/22 01/24/22 History (Tylenol) bacitracin 500 unit/gram topical 1 applic topical DAILY 01/24/22 01/24/22 History ointment magnesium hydroxide 400 mg/5 mL 30 ml PO DAILY PRN Constipation 01/24/22 01/24/22 History oral suspension (Milk of Magnesia) multivitamin with minerals 1 tab PO DAILY 01/24/22 01/24/22 History (Multiple Vitamin-Minerals tablet) polyethylene glycol 3350 17 17 g PO QAM 01/24/22 01/24/22 History gram/dose oral powder (Miralax) Patient History Medical History Aortic stenosis "Mild-moderate per echo 03/15/17" Chronic allergic rhinitis Dyslipidemia Generalized weakness Hypertension Osteoporosis Parkinson disease Urinary tract infection Surgical History H/O colonoscopy "2011" History of fracture of left hip History of left hip replacement Hx of cataract surgery Family History Father Esophageal cancer Mother Breast cancer Social History Smoking Status: Never smoker Second Hand Exposure: No; Do You Dip or Chew Tobacco: No; Tobacco Cessation Education Requested by Patient: No Hx Alcohol Use: No Hx Substance Use: No Preferred Language: Bengali Communication Ability: Effective Hand Rounder Required: No Beliefs That Will Affect Care: None marital status: / Current Living Situation: Personal Care Facility Current Living Situation Comment: daughter comes in to help during the day How many Children do You have: 1 Other Information That Helps Us Care for You: No Feels Safe at Home: Yes Safety Concerns: Feels Safe At This Time during the past year weight has: remained stable Assistive Devices: Wheelchair Review of Systems Constitutional: as per Subjective / HPI Respiratory: as per Subjective / HPI Cardiovascular: as per Subjective / HPI Neurologic: as per Subjective / HPI Psychiatric: as per Subjective / HPI Hematologic / Lymphatic: as per Subjective / HPI Physical Exam Constitutional: WD/WN, vitals as above Eyes: some blue color on both eyes, Neck: trachea midline, no thyromegaly Respiratory: normal respiratory effort, lungs clear to auscultation Cardiovascular: RRR, no murmur, no edema Skin: one chronic wound on left foot heel, size about 1.5x1.5cm, necrotic tissue cover the wound, no redness, Neurologic: patellar DTR's 2+ bilat, sensation intact Psychiatric: A+Ox3, euthymic affect Results & Data ([facility]) Vital Signs (Past 12 Hours) Vital Signs Temp Pulse Pulse Resp BP BP BP 01/26/22 17:36 93/51 L 01/26/22 17:31 36.7 C 78 16 84/44 L 01/26/22 17:10 36.6 C 69 16 124/51 L 01/26/22 16:41 74 01/26/22 16:10 36.8 C 70 17 117/69 01/26/22 15:10 36.9 C 69 18 112/67 01/26/22 14:40 36.7 C 73 18 109/53 L 01/26/22 14:25 36.6 C 74 18 90/50 L 01/26/22 14:08 36.7 C 70 18 98/59 L 01/26/22 13:43 68 101/58 L 01/26/22 12:45 75/38 L 01/26/22 12:25 62/38 L 01/26/22 12:20 70/39 L 01/26/22 12:15 77/43 L 01/26/22 10:54 36.8 C 76 17 93/51 L 01/26/22 10:49 01/26/22 08:00 36.4 C L 77 18 115/72 01/26/22 07:00 71 Pulse Ox O2 Del Method 01/26/22 17:36 01/26/22 17:31 94 01/26/22 17:10 96 01/26/22 16:41 01/26/22 16:10 99 01/26/22 15:10 98 01/26/22 14:40 99 01/26/22 14:25 97 01/26/22 14:08 97 01/26/22 13:43 96 Room Air 01/26/22 12:45 01/26/22 12:25 01/26/22 12:20 01/26/22 12:15 01/26/22 10:54 93 Room Air 01/26/22 10:49 Room Air 01/26/22 08:00 94 Room Air 01/26/22 07:00 Laboratory Results Abnormal lab results 01/25/22 01/26/22 01/26/22 Range/Units 00:13 08:45 08:45 RBC 2.55 L (3.93-5.22) M/uL Hgb 7.5 L (12.0-16.0) g/dl Hct 24.1 L (34.1-44.9) % MCHC 31.1 L (32.0-36.0) g/dL RDW Std Deviation 53.6 H (36.4-46.3) fL RDW Coeff of Conor 15.5 H (11.5-14.5) % Chloride 113 H (98-107) mmol/L Anion Gap 2 L (3-11) Creatinine 0.50 L (0.6-1.2) mg/dl BUN/Creatinine Ratio 28.0 H (10-20) POC Glucose (70-99) mg/dl Calcium 8.1 L (8.5-10.1) mg/dl Crossmatch See Detail 01/26/22 Range/Units 12:16 RBC (3.93-5.22) M/uL Hgb (12.0-16.0) g/dl Hct (34.1-44.9) % MCHC (32.0-36.0) g/dL RDW Std Deviation (36.4-46.3) fL RDW Coeff of Conor (11.5-14.5) % Chloride (98-107) mmol/L Anion Gap (3-11) Creatinine (0.6-1.2) mg/dl BUN/Creatinine Ratio (10-20) POC Glucose 139 H (70-99) mg/dl Calcium (8.5-10.1) mg/dl Crossmatch
[2022-01-26] MEDS: DOXYCYCLINE HYCLATE 100 MG in DEXTROSE 5% 100 ML IV SCH (17:42)
[2022-01-26] MEDS: GABAPENTIN 100 MG CAP PO SCH (20:03)
[2022-01-26] MEDS: TAMSULOSIN HCL 0.4 MG CAP PO SCH (20:03)
--- NOTE | 2022-01-26 20:05 | Operative Report (OR) ---
DATE OF PROCEDURE: 01/26/2022. PREOPERATIVE DIAGNOSIS: Left foot chronic wound. POSTOPERATIVE DIAGNOSIS: Left foot chronic wound, stage IV. OPERATION: Debridement, left foot chronic wound. SURGEON: Js Padron MD. ANESTHESIA: None. FINDINGS: Chronic tissue deep to muscle layer into the muscle layer, left foot chronic wound, stage IV. COMPLICATIONS: None. INDICATIONS FOR THE PROCEDURE: This is an 86-year-old female who is consulted for debridement, left foot chronic wound. I did talk to the patient about the benefit, risk, alternate procedure. I indicated the risks may include, but not limited to, such as bleeding, infection, may need more procedure, unhealing the wound. The patient understands. She signed informed consent and I answered all questions. DETAILS OF PROCEDURE: We apply betadine on left foot at patient bedsideside. The patient's left side of the foot wound on the heel, wound size about 1.5 x 1.5 cm and there is some necrotic tissue covering the wound. So I used sharp scissors to remove necrotic tissue on the wound deeply into the muscle layer, completely removed necrotic tissue size about 1.5 x 1.5 cm into the muscle layer. Hemostasis was obtained. Then, we put the dressing on. The patient tolerated the procedure well. The wound care nurse will follow up the patient for dressing change and I will follow up the patient. Job ID: [id number] [facility]
[2022-01-27] MEDS: DOXYCYCLINE HYCLATE 100 MG in DEXTROSE 5% 100 ML IV SCH (00:05)
[2022-01-27 06:21] LABS: Hematocrit (blood only) 27.2 % (34.1-44.9); Hemoglobin 8.7 g/dl (12.0-16.0); Reticulocyte % 1.9 % (0.5-2.0); Reticulocytes # 0.05 10^6/uL (0.02-0.10)
[2022-01-27 06:51] LABS: BUN Creatinine Ratio 30.2 (10-20); Calcium 8.1 mg/dl (8.5-10.1); Creatinine Clr Calc Pharmacy 87.5 ml/min; Est GFR (Non-African American) 91.5 ml/min; Potassium 4.1 mmol/L (3.5-5.1)
[2022-01-27 07:06] LABS: Ferritin 284.6 ng/ml (8-388)
[2022-01-27 07:12] LABS: Folate (Folic Acid) 13.89 ng/ml (>5.38)
[2022-01-27] MEDS: ACETAMINOPHEN 325 MG TAB PO PRN (07:48)
[2022-01-27] MEDS: CARBIDOPA/LEVODOPA 25/100MG TAB PO SCH ×5 (07:49→22:54)
--- NOTE | 2022-01-27 08:44 | Hospitalist Progress Note ---
Date of Service January 27, 2022 Assessment & Plan (1) Acute head trauma: Plan: Head trauma Scalp laceration S/P repair Secondary to fall --CT Head:Motion degraded exam without acute intracranial abnormality or calvarial fracture. Left frontal scalp contusion with laceration. --Right Forearm X ray:Mild soft tissue swelling without acute fracture or dislocation. --Left Shoulder X ray:No acute fracture or dislocation. Fall Precautions Plan to discharge to [facility] when stable Plavix on hold Monitor CBC Resume Plavix as able Anemia Likely Multifactorial: Acute Blood loss, dilutional due to IV fluids Imaging studies not contributory Anemia work up pending Transfuse 1 unit PRBCs on 01/26 Monitor H&H Transient Change in Mental Status ? 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 No definite acute intracranial abnormality. Slight improvement in the scalp injuries. Monitor UTI-POA Urine Culture:E Coli, Proteus Continue Rocephin Pressure ulcer of left heel, stage 4, POA Pressure ulcer of right heel, unstageable, POA -Patient underwent wound debridement with surgery, left heel (01/26) -Wound care follow-up Urinary retention: Tanner Placed Voiding trial as InPt Vs Out Pt Started on Flomax Parkinson disease: Continue carbidopa-levodopa and gabapentin Hypertension: BP low Monitor BP - BP now 145/82 Not on any antihypertensives Dyslipidemia: Not on a statin DVT Px: SCDs for now Admission and Anticipated Discharge Date Admission Date: January 26, 2022 Subjective Patient seen status post fall, scalp laceration, history of Parkinson's History of wound, had a debridement with general surgery yesterday at the bedside Also treated for UTI, E. coli, Proteus Yesterday blood pressure low, current 155/74 Pt is currently sitting up in bd, in NAD Denies fevers, chills, chest pain, shortness of breath, abdominal pain, nausea vomiting Review of Systems Review of Systems: All systems reviewed & are unremarkable except as noted in Subjective Physical Exam Physical Exam: General Appearance:Moderately built and nourished, no apparent distress, Elderly Head: normocephalic, +traumatic, scalp laceration and dressing Eyes: normal inspection, EOMI Neck: supple Respiratory/Chest: Decreased breath sounds, CTA, No accessory muscle use Cardiovascular: S1, S2, + murmur Abdomen/GI:Soft, Non tender, Bowel sounds present Extremities/Musculoskeletal:normal inspection, no edema, right upper extremity ecchymosis, ankles in dressings Neurologic/Psych:AAOX3, grossly no focal neurological deficits Skin: normal color, warm Results & Data Results & Data ([facility]) Vital Signs (Past 12 Hours) Vital Signs Temp Pulse Pulse Resp BP Pulse Ox O2 Del Method 01/27/22 07:34 Room Air 01/27/22 07:12 36.4 C L 73 16 155/74 H 94 Room Air 01/27/22 06:59 67 01/27/22 03:18 36.7 C 69 20 127/68 98 Room Air 01/27/22 00:00 68 01/26/22 23:10 37.0 C 66 18 95/50 L 94 Room Air Laboratory Results 01/27/22 01/27/22 01/27/22 Range/Units 05:44 05:44 05:44 WBC (4.8-10.8) K/ul RBC (3.93-5.22) M/uL Hgb 8.7 L (12.0-16.0) g/dl Hct 27.2 L (34.1-44.9) % MCV (80.0-100.0) fL MCH (25.0-34.0) pg MCHC (32.0-36.0) g/dL RDW Std Deviation (36.4-46.3) fL RDW Coeff of Conor (11.5-14.5) % Plt Count (130-400) K/uL MPV (9.4-12.3) fL Reticulocyte % (Auto) 1.9 (0.5-2.0) % Reticulocyte # 0.05 (0.02-0.10) 10^6/uL Sodium 139 (136-145) mmol/L Potassium 4.1 (3.5-5.1) mmol/L Chloride 113 H (98-107) mmol/L Carbon Dioxide 22 (21-32) mmol/L Anion Gap 4 (3-11) BUN 13 (6-23) mg/dl Creatinine 0.43 L (0.6-1.2) mg/dl Est Cr Clr Drug Dosing 87.5 ml/min Est GFR ( Amer) 106.0 ml/min Est GFR (Non-Af Amer) 91.5 ml/min BUN/Creatinine Ratio 30.2 H (10-20) Glucose 68 L (70-99(Fasting)) mg/dl POC Glucose (70-99) mg/dl Calcium 8.1 L (8.5-10.1) mg/dl Magnesium (1.7-2.4) mg/dl Iron 50 (35-150) mcg/dl Transferrin 154 L (200-360) mg/dl Ferritin 284.6 (8-388) ng/ml Vitamin B12 293 (180-914) pg/ml Folate 13.89 (>5.38) ng/ml Blood Type Antibody Screen Crossmatch 01/26/22 01/26/22 01/26/22 Range/Units 12:16 08:45 08:45 WBC 6.28 (4.8-10.8) K/ul RBC 2.55 L (3.93-5.22) M/uL Hgb 7.5 L (12.0-16.0) g/dl Hct 24.1 L (34.1-44.9) % MCV 94.5 (80.0-100.0) fL MCH 29.4 (25.0-34.0) pg MCHC 31.1 L (32.0-36.0) g/dL RDW Std Deviation 53.6 H (36.4-46.3) fL RDW Coeff of Conor 15.5 H (11.5-14.5) % Plt Count 168 (130-400) K/uL MPV 11.4 (9.4-12.3) fL Reticulocyte % (Auto) (0.5-2.0) % Reticulocyte # (0.02-0.10) 10^6/uL Sodium 139 (136-145) mmol/L Potassium 4.2 (3.5-5.1) mmol/L Chloride 113 H (98-107) mmol/L Carbon Dioxide 24 (21-32) mmol/L Anion Gap 2 L (3-11) BUN 14 (6-23) mg/dl Creatinine 0.50 L (0.6-1.2) mg/dl Est Cr Clr Drug Dosing 73.2 ml/min Est GFR ( Amer) 100.9 ml/min Est GFR (Non-Af Amer) 87.0 ml/min BUN/Creatinine Ratio 28.0 H (10-20) Glucose 89 (70-99(Fasting)) mg/dl POC Glucose 139 H (70-99) mg/dl Calcium 8.1 L (8.5-10.1) mg/dl Magnesium 1.9 (1.7-2.4) mg/dl Iron (35-150) mcg/dl Transferrin (200-360) mg/dl Ferritin (8-388) ng/ml Vitamin B12 (180-914) pg/ml Folate (>5.38) ng/ml Blood Type Antibody Screen Crossmatch 01/25/22 Range/Units 00:13 WBC (4.8-10.8) K/ul RBC (3.93-5.22) M/uL Hgb (12.0-16.0) g/dl Hct (34.1-44.9) % MCV (80.0-100.0) fL MCH (25.0-34.0) pg MCHC (32.0-36.0) g/dL RDW Std Deviation (36.4-46.3) fL RDW Coeff of Conor (11.5-14.5) % Plt Count (130-400) K/uL MPV (9.4-12.3) fL Reticulocyte % (Auto) (0.5-2.0) % Reticulocyte # (0.02-0.10) 10^6/uL Sodium (136-145) mmol/L Potassium (3.5-5.1) mmol/L Chloride (98-107) mmol/L Carbon Dioxide (21-32) mmol/L Anion Gap (3-11) BUN (6-23) mg/dl Creatinine (0.6-1.2) mg/dl Est Cr Clr Drug Dosing ml/min Est GFR ( Amer) ml/min Est GFR (Non-Af Amer) ml/min BUN/Creatinine Ratio (10-20) Glucose (70-99(Fasting)) mg/dl POC Glucose (70-99) mg/dl Calcium (8.5-10.1) mg/dl Magnesium (1.7-2.4) mg/dl Iron (35-150) mcg/dl Transferrin (200-360) mg/dl Ferritin (8-388) ng/ml Vitamin B12 (180-914) pg/ml Folate (>5.38) ng/ml Blood Type O Positive Antibody Screen NEGATIVE Crossmatch See Detail Medications Administered Current Inpatient Medications Acetaminophen (Acetaminophen 325 Mg Tab) 650 mg PO Q4H PRN PRN Reason: pain/fever Stop: 02/23/22 16:44 Last Admin: 01/27/22 07:48 Dose: 650 mg Carbidopa/Levodopa (Carbidopa/Levodopa 25/100mg Tab) 2 tab PO AMHS JEN Stop: 02/23/22 20:59 Last Admin: 01/27/22 07:49 Dose: 2 tab Carbidopa/Levodopa (Carbidopa/Levodopa 25/100mg Tab) 1.5 tab PO 1100,1400,1700 JEN Stop: 02/24/22 10:59 Last Admin: 01/26/22 17:22 Dose: 1.5 tab Gabapentin (Gabapentin 100 Mg Cap) 200 mg PO HS JEN Stop: 02/23/22 20:59 Last Admin: 01/26/22 20:03 Dose: 200 mg Ceftriaxone Sodium 2,000 mg/ (Dextrose) 70 mls @ 100 mls/hr IV Q24H JEN; Protocol Stop: 01/30/22 11:59 Last Infusion: 01/26/22 14:37 Dose: Infused Doxycycline Hyclate 100 mg/ (Dextrose) 110 mls @ 50 mls/hr IV Q12H JEN Stop: 02/02/22 12:59 Last Infusion: 01/27/22 02:20 Dose: Infused Tamsulosin HCl (Tamsulosin Hcl 0.4 Mg Cap) 0.4 mg PO HS JEN Stop: 02/23/22 16:59 Last Admin: 01/26/22 20:03 Dose: 0.4 mg Tramadol HCl (Tramadol Hcl 50 Mg Tablet) 25 - 50 mg PO Q4H PRN PRN Reason: Pain Stop: 02/23/22 23:49 Last Admin: 01/25/22 01:21 Dose: 50 mg (1) Acute head trauma Encounter type: initial encounter Qualified Code(s): S09.90XA - Unspecified injury of head, initial encounter
--- NOTE | 2022-01-27 10:32 | Surgery Progress Note ---
Date of Service January 27, 2022 Assessment & Plan (1) Chronic wound of extremity: Plan: pt is consulted for debridement left foot chronic wound, IMP: left foot chronic wound stage 4 I recommend to do debridement left foot wound at bedside, D/w benefits, risks a nd alternatives of the surgery, the risks - infection, bleeding, may need more procedure,unhealing wound, pt understood, she agrees with the procedure, she signed informed consent, I answered all questions, I did debridement on left foot, pt tolerated the procedure well, wound care nurse consult for dressing change, will F/U, 01/27/2022 10:31AM F/U S/P debridement left foot wound, pt is doing fine, no fever wound care nurse change dressing once a day, sign off today, please call with questions, Thanks, Admission and Anticipated Discharge Date Admission Date: January 26, 2022 Supervising Physician Co-Signing Physician Notes Patient seen and examined, chart reviewed, case discussed with Nehemias Cuevas PA-C and I agree with the assessment and plan as above except as otherwise noted Labs and images reviewed Fall in the setting of Parkinson's without syncope/presyncope with large scalp laceration. CThead negative for intracranial bleeding, no signs of fracture. Patient with substantial mid and left forehead laceration repaired with multiple itzel, bleeding at time of assessment. Revised with ER provider, cleaned, additional itzel added and hemostasis achieved. Patient denies lightheadedness/dizziness, endorses pain at her forehead with palpation some pain at rest since additional itzel added. Denies chest pain, chest pressure, shortness of breath. Endorses difficulty ambulating and Parkinson's. Fall 2/2 Parkinson's, with laceration: Continue carbidopa/levodopa, case management following and coordinating additional safety/assistive devices for center care. Will monitor overnight and follow H&H due to laceration with extensive bleeding. Plavix temporarily held. Hemoglobin trended. Subjective Patient seen status post fall, scalp laceration, history of Parkinson's History of wound, had a debridement with general surgery yesterday at the bedside Also treated for UTI, E. coli, Proteus Yesterday blood pressure low, current 155/74 Seen and examined at bedside Patient had a transient change in mental status and was found to be hypotensive Doing better currently Updated family at bedside Denies any chest pain, shortness of breath, dizziness, nausea, abdominal pain 01/27/2022 10:29AM, Dr. Padron F/U S/P debridement left foot wound. POD 1 pt is doing fine, no fever, Review of Systems Constitutional: as per Subjective / HPI Respiratory: as per Subjective / HPI Cardiovascular: as per Subjective / HPI Neurologic: as per Subjective / HPI Psychiatric: as per Subjective / HPI Hematologic / Lymphatic: as per Subjective / HPI Physical Exam Constitutional: WD/WN, vitals as above Neck: trachea midline, no thyromegaly Respiratory: normal respiratory effort, lungs clear to auscultation Cardiovascular: RRR, no murmur, no edema Skin: the wound is dry, no drainage, Neurologic: patellar DTR's 2+ bilat, sensation intact Psychiatric: A+Ox3, euthymic affect Results & Data ([facility]) Vital Signs (Past 12 Hours) Vital Signs Temp Pulse Pulse Resp BP Pulse Ox O2 Del Method 01/27/22 07:34 Room Air 01/27/22 07:12 36.4 C L 73 16 155/74 H 94 Room Air 01/27/22 06:59 67 01/27/22 03:18 36.7 C 69 20 127/68 98 Room Air 01/27/22 00:00 68 01/26/22 23:10 37.0 C 66 18 95/50 L 94 Room Air
[2022-01-27] MEDS: cefTRIAXone SODIUM 2,000 MG in DEXTROSE 5% 50 ML IV SCH (11:44)
[2022-01-27] MEDS: DOXYCYCLINE HYCLATE 100 MG CAP PO SCH (12:46)
[2022-01-27] MEDS: GABAPENTIN 100 MG CAP PO SCH (22:55)
[2022-01-27] MEDS: TAMSULOSIN HCL 0.4 MG CAP PO SCH (22:56)
[2022-01-28] MEDS: DOXYCYCLINE HYCLATE 100 MG CAP PO SCH ×2 (02:04→11:38)
[2022-01-28] MEDS: ACETAMINOPHEN 325 MG TAB PO PRN (07:48)
[2022-01-28] MEDS: CARBIDOPA/LEVODOPA 25/100MG TAB PO SCH ×3 (07:49→13:24)
--- NOTE | 2022-01-28 09:58 | Hospitalist Progress Note ---
Date of Service January 28, 2022 Assessment & Plan (1) Acute head trauma: Plan: Head trauma Scalp laceration S/P repair Secondary to fall --CT Head:Motion degraded exam without acute intracranial abnormality or calvarial fracture. Left frontal scalp contusion with laceration. --Right Forearm X ray:Mild soft tissue swelling without acute fracture or dislocation. --Left Shoulder X ray:No acute fracture or dislocation. Fall Precautions Plan to discharge to [facility] when stable Plavix on hold Monitor CBC Resume Plavix as able Anemia Likely Multifactorial: Acute Blood loss, dilutional due to IV fluids Imaging studies not contributory Anemia work up pending Transfused 1 unit PRBCs on 01/26 Monitor H&H Transient Change in Mental Status ? 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 No definite acute intracranial abnormality. Slight improvement in the scalp injuries. Monitor UTI-POA Urine Culture:E Coli, Proteus Continue Rocephin while inpt Pressure ulcer of left heel, stage 4, POA Pressure ulcer of right heel, unstageable, POA -Patient underwent wound debridement with surgery, left heel (01/26) -Wound care follow-up Urinary retention: Tanner Placed Voiding trial as InPt Vs Out Pt Started on Flomax Parkinson disease: Continue carbidopa-levodopa and gabapentin Hypertension: BP was low Monitor BP - BP now 155/72 Not on any antihypertensives Dyslipidemia: Not on a statin DVT Px: SCDs for now Dispo: [facility] Admission and Anticipated Discharge Date Admission Date: January 26, 2022 Subjective Patient seen status post fall, scalp laceration, history of Parkinson's History of wound, had a debridement with general surgery at the bedside Also treated for UTI, E. coli, Proteus Pt is currently sitting up in bed, in NAD Denies fevers, chills, chest pain, shortness of breath, abdominal pain, nausea vomiting Review of Systems Review of Systems: All systems reviewed & are unremarkable except as noted in Subjective Physical Exam Physical Exam: General Appearance:Moderately built and nourished, no apparent distress, Elderly Head: normocephalic, +traumatic, scalp laceration and dressings Eyes: normal inspection, EOMI Neck: supple Respiratory/Chest: Decreased breath sounds, CTA, No accessory muscle use Cardiovascular: S1, S2, + murmur Abdomen/GI:Soft, Non tender, Bowel sounds present Extremities/Musculoskeletal:normal inspection, no edema, right upper extremity ecchymosis, ankles in dressings, wound s/p debridement (see photo in EMR) Neurologic/Psych:AAOX3, grossly no focal neurological deficits Skin: normal color, warm Results & Data Results & Data ([facility]) Vital Signs (Past 12 Hours) Vital Signs Temp Pulse Pulse Resp BP Pulse Ox O2 Del Method 01/28/22 09:32 Room Air 01/28/22 08:09 36.6 C 72 17 155/72 H 94 Room Air 01/28/22 07:00 71 01/28/22 06:15 74 01/28/22 03:00 36.4 C L 71 18 127/61 96 Room Air 01/27/22 22:00 36.5 C 73 20 136/66 95 Room Air Medications Administered Current Inpatient Medications Acetaminophen (Acetaminophen 325 Mg Tab) 650 mg PO Q4H PRN PRN Reason: pain/fever Stop: 02/23/22 16:44 Last Admin: 01/28/22 07:48 Dose: 650 mg Carbidopa/Levodopa (Carbidopa/Levodopa 25/100mg Tab) 2 tab PO AMHS JEN Stop: 02/23/22 20:59 Last Admin: 01/28/22 07:49 Dose: 2 tab Carbidopa/Levodopa (Carbidopa/Levodopa 25/100mg Tab) 1.5 tab PO 1100,1400,1700 JEN Stop: 02/24/22 10:59 Last Admin: 01/27/22 16:46 Dose: 1.5 tab Doxycycline Hyclate (Doxycycline Hyclate 100 Mg Cap) 100 mg PO Q12H JEN Stop: 02/02/22 11:59 Last Admin: 01/28/22 02:04 Dose: 100 mg Gabapentin (Gabapentin 100 Mg Cap) 200 mg PO HS JEN Stop: 02/23/22 20:59 Last Admin: 01/27/22 22:55 Dose: 200 mg Ceftriaxone Sodium 2,000 mg/ (Dextrose) 70 mls @ 100 mls/hr IV Q24H JEN; Prot ocol Stop: 01/30/22 11:59 Last Infusion: 01/27/22 12:30 Dose: Infused Tamsulosin HCl (Tamsulosin Hcl 0.4 Mg Cap) 0.4 mg PO HS JEN Stop: 02/23/22 16:59 Last Admin: 01/27/22 22:56 Dose: 0.4 mg Tramadol HCl (Tramadol Hcl 50 Mg Tablet) 25 - 50 mg PO Q4H PRN PRN Reason: Pain Stop: 02/23/22 23:49 Last Admin: 01/25/22 01:21 Dose: 50 mg (1) Acute head trauma Encounter type: initial encounter Qualified Code(s): S09.90XA - Unspecified injury of head, initial encounter
[2022-01-28 10:39] LABS: Hematocrit (blood only) 28.8 % (34.1-44.9); Hemoglobin 9.3 g/dl (12.0-16.0); Hemoglobin 9.4 g/dl (12.0-16.0); Mean Corpuscular Hemoglobin 30.3 pg (25.0-34.0); Mean Corpuscular Hgb Conc 32.1 g/dL (32.0-36.0); Mean Corpuscular Volume 94.5 fL (80.0-100.0); Mean Platelet Volume 10.6 fL (9.4-12.3); Platelet Count 176 K/uL (130-400); RDW Coefficient of Variation 15.7 % (11.5-14.5); Red Blood Count 3.07 M/uL (3.93-5.22); White Blood Count 6.35 K/ul (4.8-10.8)
[2022-01-28 11:05] LABS: BUN Creatinine Ratio 21.1 (10-20); Calcium 8.6 mg/dl (8.5-10.1); Est GFR (African American) 96.6 ml/min; Est GFR (Non-African American) 83.4 ml/min; Potassium 3.8 mmol/L (3.5-5.1)
--- NOTE | 2022-01-28 12:31 | Discharge Summary ---
Date of Service January 28, 2022 Admission HPI Per Admitting Provider Cassandra is an 86 year old female with a PMH significant for Parkinson's disease, TIA, hypertension, hyperlipidemia, moderate aortic stenosis (TTE 2021), PVD who presented to the [facility] ED on 01/24/22 with a chief complaint of fall. Per the ED staff, the patient has been at [facility] for acute rehab since her last admission in December for hell and sacral ulcers. The patient has fallen out of her chair multiple times recently, with the most recent episode she hit her head, causing a large scalp laceration. In the ED the patient was found to be afebrile, hemodynamically stable, and stable on room air. Xray of the chest and CT of the head/cervical spine were negative for acute trauma besides the large left front scalp laceration. The ED staff irrigated and closed her scalp laceration and the patient was given 1g of ancef. At the time of the exam the patient was lying comfortably in bed in no acute distress, her family had already left the hospital at the time of the exam. She states that she was brought to the hospital because she fell and hit her head. She states that she has a headache at the current time and that her right forearm is also painful. She denies losing consciousness and any other pain at the time of the exam. The patient is currently alert and completely oriented. I called and spoke to both the patient's Daughter (Nu [phone]) and the patient's sister (Ana [phone]) who was the family contact at the hospital today. Nu states that if the patient is deemed stable from our standpoint and can go back to [facility] with a safe discharge plan she is comfortably with that plan. I spoke with Ana who initially stated that she wished the patient to be observed overnight due to the size of the head laceration. I explained that the patient appears stable from our standpoint and we would not be doing anything else besides observing her, which could also be done at [facility]. I explained that we would be happy to observe her if that is still what is wanted but that her insurance may not cover the stay as we are not actively treating anything else at this time. Her Daughter, Nu, also expressed concerns that her mother could lose her bed hold at [facility] if she did not go back. I explained that I would speak with our care managers to get a better idea of the situation and see if we could arrange a safe discharge back to [facility] today. If one cannot be setup today then we will admit her for observation. After discussions with Care management, [facility] will not be able to have the new safety plan in place until tomorrow at the earliest. The patient will be admitted to observation until it is safe for her to return Admission Exam Per Admitting Provider General:In no acute distress, stated age, malnourished, chronically ill-appearing HEENT:Patient with head laceration currently wrapped and without signs of drainage through the bandage, bruising noted under the right eye, no trauma noted to the nose or the mouth on exam Chest/Pulm:No respiratory distress, symmetrical chest expansion, clear breath sounds throughout Cardiac:RRR, 3/6 systolic murmur noted, loudest in the aortic region Abdomen:Negative for ascites and bruising, normoactive bowel sounds, soft, non-tender to palpation throughout :Patient currently with leon cath placed by ED staff, draining cloudy yellow urine Musculoskeletal:Head wrapped as stated above, bruising noted to the left shoulder and radial aspect of the right forearm, patient is tedner to palpation over the right forearm. Patient with ful ROM of the BL upper and lower extremities, no tenderness or instability noted on palpation of the pelvis, intact flexion of the BL hips and knees without pain, no tenderness to palpation noted down the spine Extremities:Radial, dorsalis pedis, and posterior tibial pulses are intact and symmetrical, no edema noted in the BL LE's Skin:Warm, dry, no rashes , lesions, or scars noted, bruising noted above Neuro:Alert and oriented to person, place, month, year, and president, patient with masked facies, slow speech, CN II-XII tested and intact Psych:No acute distress, calm and cooperative during the exam Principal Diagnosis Fall and head laceration UTI Pressure ulcer of left heel, stage 4, POA Pressure ulcer of right heel, unstageable, POA Discharge Exam General Appearance:Moderately built and nourished, no apparent distress, Elderly Head: normocephalic, +traumatic, scalp laceration and dressings Eyes: normal inspection, EOMI Neck: supple Respiratory/Chest: Decreased breath sounds, CTA, No accessory muscle use Cardiovascular: S1, S2, + murmur Abdomen/GI:Soft, Non tender, Bowel sounds present Extremities/Musculoskeletal:normal inspection, no edema, right upper extremity ecchymosis, ankles in dressings, wound s/p debridement (see photo in EMR) Neurologic/Psych:AAOX3, grossly no focal neurological deficits Skin: normal color, warm Discharge Data Allergies Allergy/AdvReac Type Severity Reaction Status Date / Time No Known Allergies Allergy Verified 01/24/22 15:36 Consultations 01/24/22 13:10 ED Decision to Admit Stat 01/26/22 12:02 Consult General Surgery Routine Ordered Studies 01/24/22 11:02 CT cervical spine wo con Stat FINDINGS: Atherosclerosis of the carotid bulbs. No prevertebral edema. Heterogeneous thyroid. Biapical pleural-parenchymal scarring. Multilevel degenerative changes appear similar to the 08/24/2021 study. Grade 1 anterolisthesis C4 on C5 likely secondary to chronic facet arthrosis. There is severe multilevel facet arthropathy. Levoscoliosis of the cervical spine. Multilevel central canal and neural foraminal narrowing. IMPRESSION: No acute cervical spine fracture or subluxation. CT head/brain wo con Stat FINDINGS: No acute intracranial hemorrhage, midline shift, intracranial mass, hydrocephalus, territorial ischemia or abnormal extra-axial collection. Motion degraded exam. Age-related involutional changes. White matter hypodensities suggestive of chronic microvascular ischemic disease. The calvarium is intact. Bilateral nasal bone fractures appear unchanged from comparison. Surgical clips within the left parietal scalp. 9 cm forehead scalp contusion with laceration and subcutaneous emphysema. Prior bilateral lens repair. The paranasal sinuses, mastoid air cells, and middle ear cavities are clear. IMPRESSION: 1. Motion degraded exam without acute intracranial abnormality or calvarial fracture 2. Left frontal scalp contusion with laceration. 01/26/22 12:01 CT head/brain wo con Urgent Findings: Motion artifact. Skin itzel overlying the large frontal scalp laceration overall, the frontal scalp swelling and left parietal scalp swelling has slightly improved. The calvarium and skull base are intact. There is no mass, hematoma, midline shift, acute infarct. White matter hypodensity is nonspecific but suggestive of microvascular ischemic change. The ventricles and sulci demonstrate mild age-related involutional changes. Impression: 1. Mild motion artifact. No definite acute intracranial abnormality. 2. Slight improvement in the scalp injuries. 01/26/22 13:17 CT abd pelvis wo con Urgent FINDINGS: Lower chest: Small bilateral pleural effusions are noted. Cardiomegaly is noted with mitral annular calcifications. Liver: Unremarkable. No focal lesions are seen. Gallbladder and biliary tree: Numerous gallstones are seen without gallbladder thickening. No intra- or extrahepatic biliary ductal dilation. Pancreas: Fatty replacement of the pancreas is seen. Spleen: Unremarkable. Adrenals: Unremarkable. Kidneys and ureters: Unremarkable. Bladder: Limited evaluation due to underdistention. Reproductive organs: Unremarkable. Bowel: Diverticulosis is seen without evidence of diverticulitis. The appendix is normal. There is a small hiatal hernia. Heterogeneous gastric contents are seen. Lymph nodes Retroperitoneal: Unremarkable. Pelvic: Unremarkable. Mesenteric: Unremarkable. Peritoneum: Normal. Vessels: Unremarkable. Abdominal wall: Unremarkable. Bones: Degenerative changes in the visualized spine. Patient is status post left total hip arthroplasty. Partial visualization of internal fixation of the left femur. IMPRESSION: 1. No evidence of intraperitoneal hemorrhage in this patient with declining hematocrit. 2. Extensive diverticulosis without diverticulitis. 3. Cholelithiasis. No evidence of cholecystitis. Hospital Course (1) Acute head trauma: Head trauma Scalp laceration S/P repair Secondary to fall --CT Head:Motion degraded exam without acute intracranial abnormality or calvarial fracture. Left frontal scalp contusion with laceration. --Right Forearm X ray:Mild soft tissue swelling without acute fracture or dislocation. --Left Shoulder X ray:No acute fracture or dislocation. Fall Precautions Plan to discharge to [facility] when stable Plavix on hold Monitor CBC Resume Plavix as able Anemia Likely Multifactorial: Acute Blood loss, dilutional due to IV fluids Imaging studies not contributory Anemia work up pending Transfused 1 unit PRBCs on 01/26 Monitor H&H Hgb stable at 9.4 today Transient Change in Mental Status ? 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 No definite acute intracranial abnormality. Slight improvement in the scalp injuries. Monitor UTI-POA Urine Culture:E Coli, Proteus Continued Rocephin while inpt Pressure ulcer of left heel, stage 4, POA Pressure ulcer of right heel, unstageable, POA -Patient underwent wound debridement with surgery, left heel (01/26) -Wound care nurse in follow-up -Discussed with wound care nurse and the surgeon, that patient is in need of chemical debridement. Santyl (collagenase) ordered by wound care nurse. Discussed with CM, patient will need close wound care follow-up. Given her UTI, and ongoing treatment of left wound, will discharge patient on Augmentin and doxycycline. She will need to be re-evaluated by wound care provider. Urinary retention: Leon Placed Voiding trial as InPt Vs Out Pt Started on Flomax Parkinson disease: Continue carbidopa-levodopa and gabapentin Hypertension: BP was low Monitor BP - BP now 155/72 Not on any antihypertensives Dyslipidemia: Not on a statin Dispo: plan to DC to [facility] Total Time Total Time Spent Total Time Spent (In Minutes): 40 Discharge Plan Discharge Items Patient Disposition: Transfer [facility] Reason For Visit: FALL AND HEAD LACERATION Discharge Diagnosis: Fall and head laceration UTI Pressure ulcer of left heel, stage 4, POA Pressure ulcer of right heel, unstageable, POA Activity: Per Instructions section Non-emergency contact: Primary Care Provider and Surgeon Call non-emergency contact if: you have any medication questions and your symptoms worsen Follow-up/Referrals: [facility] [Primary Care Provider] - Diet: Regular Diet Texture: Easy to Chew Addtl Attending Provider Instructions: Patient will need to follow-up with primary care provider, and will also need to closely follow-up with wound care provider. Patient will need to finish antibiotic treatment for UTI. Patient underwent debridement of left ankle/heel wound, however will need continuous chemical debridement and further wound care. Pending Studies at Discharge: No Stand-Alone Forms: Count Includes [facility] Skilled Items Patient informed of condition?: Yes DNR: Yes Discharge Level of Care: Skilled Communicable Disease: No Discharge Prognosis: Stable Lines: None Urinary Catheter: Yes Medications and DC Order Prescriptions: New doxycycline hyclate 100 mg Capsule 100 mg PO Q12H 5 Days Qty: 10 0RF amoxicillin-pot clavulanate 875-125 mg tablet 1 tab PO BID 5 Days Qty: 10 0RF tamsulosin 0.4 mg Capsule 0.4 mg PO HS Qty: 30 0RF tramadol 50 mg Tablet 25 mg PO Q4H PRN (Reason: pain) Qty: 7 0RF Continued carbidopa-levodopa 25-100 mg Tablet 1.5 tab PO TID Rx Instructions: GIVE AT 1100,1400, & 1700 carbidopa-levodopa 25-100 mg Tablet 2 tab PO AMPM Rx Instructions: GIVE AT 0830 & 2030 gabapentin 100 mg Capsule 200 mg PO HS clopidogrel [Plavix] 75 mg Tablet 75 mg PO DAILY bacitracin 500 unit/gram Ointment 1 applic TOPICAL DAILY Rx Instructions: BEGIN 01/18/22 , APPLY TO FOREHEAD LACERATION DAILY X 10 DAYS. Multiple Vitamin-Minerals Tablet 1 tab PO DAILY magnesium hydroxide [Milk of Magnesia] 400 mg/5 mL Suspension 30 ml PO DAILY PRN (Reason: Constipation) Rx Instructions: GIVE AFTER 3 DAYS WITH NO BOWEL MOVEMENT. polyethylene glycol 3350 [Miralax] 17 gram/dose Powder 17 g PO QAM acetaminophen [Tylenol] 325 mg Tablet 650 mg PO Q6H MDD 3G PRN (Reason: Fever Or Pain) Rx Instructions: GIVE FOR PAIN # 1-10, OR TEMP > 100F Discharge Orders: Discharge Order (Routine); Ordered 01/28/22 Ordered By: Sridhar Ndiaye Admission Data Admit Date/Time: 01/26/22 15:01 Attending Provider: Sridhar Ndiaye Admit Provider: Ric Hankins Primary Care Provider: [facility] Other Providers: Ino Yanez ; Jc Ontiveros ; Sadaf Diggs ; Tracey Dejesus ; Tiago Lang ; Stephen White ; Aarti Dunn ; Viki Montoya ; Glenn Lewis Jr ; Js Padron ; Estiven Freeman ; Izzy Cota ; Ric Hankins Other Interventions: Discharge Summary Assessment (RN) Last Done: 01/28/22 12:17
[2022-01-28] MEDS: cefTRIAXone SODIUM 2,000 MG in DEXTROSE 5% 50 ML IV SCH (12:48)
[2022-01-28] MEDS ORDERED: COLLAGENASE OINT 30 GM TUBE TOP SCH (13:00)
== END 2022-01-28 14:26 ==
LOC: 2W 10:46 → ED 10:46 → 2W 16:25 → SUATTDRO 01-26 15:01

== ENCOUNTER 2022-08-19 12:40 | Inpatient (IN) ==
[2022-08-19 13:08] LABS: Hemoglobin 11.3 g/dl (12.0-16.0); Mean Corpuscular Hemoglobin 30.1 pg (25.0-34.0); Mean Corpuscular Hgb Conc 33.2 g/dL (32.0-36.0); Mean Corpuscular Volume 90.4 fL (80.0-100.0); Mean Platelet Volume 10.5 fL (9.4-12.4); Platelet Count 264 K/uL (130-400); RDW Coefficient of Variation 15.9 % (11.5-14.5); RDW Standard Deviation 52.3 fL (36.4-46.3); Red Blood Count 3.76 M/uL (4.20-5.40); White Blood Count 7.96 K/ul (4.8-10.8)
--- NOTE | 2022-08-19 13:22 | Emergency Department Note ---
History of Present Illness General Chief complaint: Shortness of Breath/Dyspnea Stated complaint: SOB Time Seen by Provider: 08/19/22 13:20 History of Present Illness The patient was not verbally responsive so all history was obtained from EMS, the patient's daughter Nu ([phone]), and Dr. Chaudhry from [facility]. This 86-year-old female patient presents to the emergency department via EMS for evaluation of shortness of breath. She was diagnosed with pneumonia on 08/14/2022 and started on antibiotics per EMS. She lives at [facility] and was found to have decreased mental status and increasing shortness of breath today. Pulse ox was in the low 80s on room air. The patient was transitioned to 6 L by nasal cannula by EMS with improvement of her symptoms. She is a DNR. I spoke with Dr. Chaudhry who stated the patient became ill on 08/14/2022. There was an outbreak of human metapneumovirus on her floor in the senior living and they assumed that she had the same illness. On 08/15/2022 a chest x-ray was obtained and showed a left-sided infiltrate. She was started on ceftriaxone IM, Solu-Medrol IM, and supplemental O2. On 08/16/2022 she was more alert, awake, and talking, but still had rhonchi and required O2. On 08/17/2022 symptoms continue to improve and her IM Solu-Medrol was switched to oral prednisone 60 mg daily. She continued with the IM ceftriaxone with no oral antibiotics. However, per Dr. Chaudhry, this morning she woke up with 100 F fever, tachycardia, worsening hypoxia, and was not very responsive. Dr. Chaudhry spoke with the patient's daughter in regards to the amount of care she wanted the patient to have due to her DNR status. The patient's daughter did want the patient to be sent to the emergency department for further evaluation and treatment. I spoke with the patient's daughter Nu who stated the patient does not want any invasive procedures per her DNR status, but that she would be okay with CPAP/BiPAP, IV antibiotics, IV fluids/medications, and supplemental O2. Home Medications Medication Instructions Recorded Confirmed Type carbidopa 25 mg-levodopa 100 mg 1.5 tab PO TID 03/21/18 08/19/22 History tablet clopidogrel 75 mg tablet (Plavix) 75 mg PO DAILY 08/24/21 08/19/22 History carbidopa 25 mg-levodopa 100 mg 2 tab PO AMPM 12/26/21 08/19/22 History tablet gabapentin 100 mg capsule 200 mg PO HS 12/26/21 08/19/22 History acetaminophen 325 mg tablet 650 mg PO Q6H PRN Fever Or Pain 01/24/22 08/19/22 History (Tylenol) multivitamin with minerals 1 tab PO DAILY 01/24/22 08/19/22 History (Multiple Vitamin-Minerals tablet) polyethylene glycol 3350 17 17 g PO QAM 01/24/22 08/19/22 History gram/dose oral powder (Miralax) tamsulosin 0.4 mg capsule 0.4 mg PO HS #30 caps 01/28/22 08/19/22 Rx tramadol 50 mg tablet 25 mg PO Q4H PRN pain #7 tabs 01/28/22 08/19/22 Rx cholecalciferol (vitamin D3) 50 50 mcg PO DAILY 06/06/22 08/19/22 History mcg (2,000 unit) capsule (Vitamin D3) food supplemt, lactose-reduced 1 ea PO BIDM 06/06/22 08/19/22 History (Protein Nutritional Shake oral liquid) menthol 0.44 %-zinc oxide 20.6 % 1 applic topical BID 06/06/22 08/19/22 History topical ointment (Calmoseptine) DuoNeb 3 ml inhalation QID 08/19/22 08/19/22 History atropine 0.4 mg/mL injection 0.4 mg PO Q6H PRN Secretions 08/19/22 08/19/22 History solution benzonatate 100 mg capsule 200 mg PO TID 08/19/22 08/19/22 History ceftriaxone 1 gram solution for 1 g IM DAILY 08/19/22 08/19/22 History injection guaifenesin 100 mg/5 mL oral liquid 200 mg PO QID 08/19/22 08/19/22 History prednisone 50 mg tablet 50 mg PO DAILY 08/19/22 08/19/22 History Allergies Allergy/AdvReac Type Severity Reaction Status Date / Time No Known Allergies Allergy Verified 08/19/22 17:38 Past Med/Surg History Medical History Aortic stenosis "Mild-moderate per echo 03/15/17" Asymptomatic hypertensive urgency Chronic allergic rhinitis Dyslipidemia Generalized weakness Hypertension Leg edema, left Osteoporosis Parkinson disease Ulcer of left heel Urinary tract infection Surgical History H/O colonoscopy "2011" History of fracture of left hip History of left hip replacement Hx of cataract surgery Family History Father Esophageal cancer Mother Breast cancer Social History Smoking Status: Never smoker Second Hand Exposure: No; Do You Dip or Chew Tobacco: No; Tobacco Cessation Education Requested by Patient: No Hx Alcohol Use: No Hx Substance Use: No Preferred Language: Syriac Communication Ability: Effective 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 Physical Exam Vital Signs Vital Signs - 24 hr 08/19/22 12:44 08/19/22 12:55 08/19/22 12:55 Temperature 37.4 C Temperature Source Oral Pulse Rate 103 H Pulse Rate [Apical] 101 H Pulse Rhythm [Apical] Respiratory Rate 34 H 30 H Respiratory Effort / Characteristics Short of Breath Short of Breath Respiratory Pattern Blood Pressure 148/80 H Blood Pressure [Left Arm] 138/71 Blood Pressure Mean 102 Blood Pressure Mean [Left Arm] 93 Blood Pressure Position [Left Arm] Pulse Oximetry 96 96 96 Oxygen Delivery Method Nasal Cannula Nasal Cannula Nasal Cannula Oxygen Flow Rate 6 6 6 Sepsis Recent Fever Within 48 Hours Yes Sepsis New/Unexplained Change in Mental Status No Sepsis Action Taken by Nursing No Action Required 08/19/22 12:55 08/19/22 13:01 08/19/22 13:04 Temperature Temperature Source Pulse Rate 101 H Pulse Rate [Apical] Pulse Rhythm [Apical] Respiratory Rate Respiratory Effort / Characteristics Spontaneous Labored Short of Breath Respiratory Pattern Tachypnea Blood Pressure Blood Pressure [Left Arm] Blood Pressure Mean Blood Pressure Mean [Left Arm] Blood Pressure Position [Left Arm] Pulse Oximetry 96 Oxygen Delivery Method Nasal Cannula Nasal Cannula Oxygen Flow Rate 6 6 Sepsis Recent Fever Within 48 Hours Sepsis New/Unexplained Change in Mental Status Sepsis Action Taken by Nursing 08/19/22 13:18 08/19/22 14:15 08/19/22 14:54 Temperature Temperature Source Pulse Rate Pulse Rate [Apical] 98 H 102 H 96 H Pulse Rhythm [Apical] Respiratory Rate 28 H 34 H Respiratory Effort / Characteristics Short of Breath Respiratory Pattern Tachypnea Tachypnea Blood Pressure Blood Pressure [Left Arm] 129/67 139/75 83/47 L Blood Pressure Mean Blood Pressure Mean [Left Arm] 87 96 59 Blood Pressure Position [Left Arm] Pulse Oximetry 96 93 80 L Oxygen Delivery Method Nasal Cannula Nasal Cannula Nebulizer Non-rebreather Oxygen Flow Rate 6 15 Sepsis Recent Fever Within 48 Hours Sepsis New/Unexplained Change in Mental Status Sepsis Action Taken by Nursing 08/19/22 15:00 08/19/22 15:10 08/19/22 15:19 Temperature Temperature Source Pulse Rate Pulse Rate [Apical] 101 H 120 H 118 H Pulse Rhythm [Apical] Respiratory Rate 36 H 34 H Respiratory Effort / Characteristics Respiratory Pattern Tachypnea Tachypnea Blood Pressure Blood Pressure [Left Arm] 106/61 114/52 L 114/75 Blood Pressure Mean Blood Pressure Mean [Left Arm] 76 72 88 Blood Pressure Position [Left Arm] Sitting Pulse Oximetry 85 L 95 Oxygen Delivery Method Non-rebreather Non-rebreather Oxygen Flow Rate 15 Sepsis Recent Fever Within 48 Hours Sepsis New/Unexplained Change in Mental Status Sepsis Action Taken by Nursing 08/19/22 15:36 08/19/22 16:00 08/19/22 16:13 Temperature Temperature Source Pulse Rate Pulse Rate [Apical] 124 H 109 H 108 H Pulse Rhythm [Apical] Irregular Irregular Respiratory Rate 26 H 26 H 26 H Respiratory Effort / Characteristics Spontaneous Labored Short of Breath Short of Breath Respiratory Pattern Blood Pressure Blood Pressure [Left Arm] 109/53 L Blood Pressure Mean Blood Pressure Mean [Left Arm] 71 Blood Pressure Position [Left Arm] Pulse Oximetry 98 89 L 91 Oxygen Delivery Method Non-rebreather Oxymask Oxymask Oxygen Flow Rate 15 15 15 Sepsis Recent Fever Within 48 Hours Sepsis New/Unexplained Change in Mental Status Sepsis Action Taken by Nursing 08/19/22 14:53 08/19/22 16:20 Temperature Temperature Source Pulse Rate Pulse Rate [Apical] 105 H Pulse Rhythm [Apical] Irregular Respiratory Rate 25 H Respiratory Effort / Characteristics Short of Breath Respiratory Pattern Blood Pressure Blood Pressure [Left Arm] 122/67 Blood Pressure Mean Blood Pressure Mean [Left Arm] 85 Blood Pressure Position [Left Arm] Sitting Pulse Oximetry 76 L 92 Oxygen Delivery Method Nasal Cannula Oxymask Oxygen Flow Rate 6 15 Sepsis Recent Fever Within 48 Hours Sepsis New/Unexplained Change in Mental Status Sepsis Action Taken by Nursing VITALS: Vitals are noted on the nurse's note and reviewed by myself. GENERAL: The patient does respond to verbal stimuli and attempts to follow commands, but she is not verbally responsive and appears weak and ill-appearing. Mild respiratory distress on 6 L of oxygen by nasal cannula. Non-diaphoretic. SKIN: Capillary refill <2 sec. EARS: External auditory canals clear, tympanic membranes pearly bradley without erythema or effusion bilaterally. EYES: PERRL. EOMI. Conjunctivae without injection, sclerae without icterus. NOSE: Patent without discharge. MOUTH: Tongue is dry, but other mucous membranes are moist. The patient has thrush throughout her mouth as well as a brown thick mucous on her tongue. Uvula midline. Airway patent. No evidence for peritonsillar abscess. NECK: Supple without nuchal rigidity. No lymphadenopathy. HEART: Tachycardic without obvious murmurs gallops or rubs, but exam difficult due to her lung sounds. LUNGS: On 6 L of O2 by nasal cannula with pulse ox of 96% on exam. Initial exam she was mildly tachypneic on supplemental oxygen, but her breathing did become worse throughout her stay. Rhonchi and rales throughout the lung mejia with audible rhonchi and gurgling in her throat. No retractions initially, but she does have accessory muscle use. However, throughout her stay she did develop retractions along with the accessory muscle use. The patient was nonverbal and unable to determine whether she could speak in sentences. ABDOMEN: Positive bowel sounds x 4. Normal tympanic percussion. Soft, nontender, without masses or organomegaly. Hu sign negative. No guarding or rebound tenderness. No focal RLQ or LLQ tenderness. MUSCULOSKELETAL: Peripheral pulses 2+. NEURO: The patient does respond to verbal stimuli and attempts to follow commands, but she is not verbally responsive. Course Administered Medications Carbidopa/Levodopa (Carbidopa/Levodopa 25/100mg Tab) 2 tab PO BID@0830,2030 [facility] Stop: 09/18/22 20:29 Last Admin: 08/19/22 20:26 Dose: Not Given Documented By: EMILEE Enoxaparin Sodium (Enoxaparin Inj 40 Mg/0.4 Ml Syr) 40 mg SQ QPM [facility] Stop: 09/18/22 20:59 Last Admin: 08/19/22 20:26 Dose: 40 mg Documented By: EMILEE Acetaminophen (Ofirmev) 1,000 mg in 100 mls @ 400 mls/hr IV Q8H PRN PRN Reason: Pain or Fever Stop: 08/22/22 19:03 Last Infusion: 08/19/22 23:28 Dose: 0 mls/hr Documented By: Admin: 08/19/22 23:02 Dose: 400 mls/hr Documented By: EMILEE Cefepime HCl 2,000 mg/ Syringe 20 mls @ 5 mls/min IV Q8H [facility]; Protocol Stop: 08/26/22 22:59 Last Admin: 08/19/22 23:02 Dose: 5 mls/min Documented By: EMILEE Metronidazole (Flagyl) 500 mg in 100 mls @ 100 mls/hr IV Q8H [facility] Stop: 08/26/22 19:59 Last Infusion: 08/19/22 21:30 Dose: 0 mls/hr Documented By: Admin: 08/19/22 20:20 Dose: 100 mls/hr Documented By: EMILEE Pantoprazole Sodium 40 mg/ (Syringe) 10 mls @ 5 mls/min IV DAILY@1100 [facility] Stop: 09/18/22 19:03 Last Admin: 08/19/22 20:20 Dose: 5 mls/min Documented By: EMILEE Lactated Ringer's (Lr) 1,000 mls @ 80 mls/hr IV .[id number] [facility] Stop: 08/20/22 23:44 Last Admin: 08/19/22 23:02 Dose: 80 mls/hr Documented By: EMILEE Nystatin (Nystatin 500,000 Unit Tab) 500,000 units PO QID [facility] Stop: 08/29/22 19:03 Last Admin: 08/19/22 20:26 Dose: Not Given Documented By: Admin: 08/19/22 20:20 Dose: Not Given Documented By: EMILEE Discontinued Medications Albuterol (Albut/Ipratrop 3mg/0.5mg Neb 3 Ml Vial) 3 ml NEB NOW STA; Protocol Stop: 08/19/22 13:47 Last Admin: 08/19/22 14:07 Dose: 3 ml Documented By: HELADIO Albuterol (Albut/Ipratrop 3mg/0.5mg Neb 3 Ml Vial) 3 ml NEB NOW STA; Protocol Stop: 08/19/22 15:34 Last Admin: 08/19/22 15:36 Dose: 3 ml Documented By: MICHELLE Sodium Chloride (Nss) 250 mls @ 999 mls/hr IV .Q16M ONE Stop: 08/19/22 14:03 Last Infusion: 08/19/22 14:38 Dose: 0 mls/hr Documented By: Admin: 08/19/22 14:08 Dose: 999 mls/hr Documented By: HELADIO Cefepime HCl (Maxipime) 2,000 mg in 20 mls @ 5 mls/min IV NOW STA; Protocol Stop: 08/19/22 14:01 Last Admin: 08/19/22 14:40 Dose: 5 mls/min Documented By: LESLEY Azithromycin 500 mg/ Dextrose 255 mls @ 127.5 mls/hr IV NOW STA Stop: 08/19/22 15:57 Last Infusion: 08/19/22 17:14 Dose: 0 mls/hr Documented By: Admin: 08/19/22 14:54 Dose: 127.5 mls/hr Documented By: LESLEY Fluconazole (Diflucan) 200 mg in 100 mls @ 100 mls/hr IV NOW STA; Protocol Stop: 08/19/22 15:56 Last Infusion: 08/19/22 17:58 Dose: 0 mls/hr Documented By: Admin: 08/19/22 16:06 Dose: 100 mls/hr Documented By: JASON Lactated Ringer's (Lr) 1,000 mls @ 999 mls/hr IV .Q1H1M ONE Stop: 08/19/22 16:05 Last Infusion: 08/19/22 17:14 Dose: 0 mls/hr Documented By: Admin: 08/19/22 15:37 Dose: 999 mls/hr Documented By: NA Piperacillin Sod/Tazobactam Sod (Zosyn) 4.5 gm in 120 mls @ 240 mls/hr IV NOW ONE Stop: 08/19/22 15:45 Last Infusion: 08/19/22 16:06 Dose: 0 mls/hr Documented By: Admin: 08/19/22 15:39 Dose: 240 mls/hr Documented By: NA Vancomycin HCl 1,250 mg/ (Sodium Chloride) 525 mls @ 200 mls/hr IV TODAY@1630 ONE Stop: 08/19/22 19:07 Last Admin: 08/19/22 17:11 Dose: 200 mls/hr Documented By: ADARSH Fluconazole (Diflucan) 200 mg in 100 mls @ 100 mls/hr IV Q1H [facility]; Protocol Stop: 08/19/22 19:29 Last Infusion: 08/19/22 21:30 Dose: 0 mls/hr Documented By: Admin: 08/19/22 20:18 Dose: 100 mls/hr Documented By: Infusion: 08/19/22 20:18 Dose: 100 mls/hr Documented By: Admin: 08/19/22 19:24 Dose: 100 mls/hr Documented By: Infusion: 08/19/22 18:57 Dose: 100 mls/hr Documented By: Admin: 08/19/22 17:57 Dose: 100 mls/hr Documented By: ADARSH Ioversol (Optiray 320 500ml) 114 ml IV ONCE ONE Stop: 08/19/22 16:37 Last Admin: 08/19/22 16:37 Dose: 114 ml Documented By: KSF Medical Decision Making Differential Diagnosis Differential diagnosis includes pneumonia, COVID, human metapneumovirus, URI, bronchitis, bronchiolitis, pneumothorax, hemothorax, PE, DC, pericarditis, myocarditis, airway obstruction, aspiration, pulmonary edema, asthma, COPD, CHF, pleurisy, metabolic acidosis, anemia, neoplasm, sepsis, UTI, or others. Laboratory Data Attestation: I reviewed the patient's lab results. 08/19/22 12:50 08/19/22 12:50 Lab Results 08/19/22 08/19/22 08/19/22 Range/Units 12:50 12:50 14:17 WBC 7.96 (4.8-10.8) K/ul RBC 3.76 L (4.20-5.40) M/uL Hgb 11.3 L (12.0-16.0) g/dl Hct 34.0 L (37.0-47.0) % MCV 90.4 (80.0-100.0) fL MCH 30.1 (25.0-34.0) pg MCHC 33.2 (32.0-36.0) g/dL RDW Std Deviation 52.3 H (36.4-46.3) fL RDW Coeff of Conor 15.9 H (11.5-14.5) % Plt Count 264 (130-400) K/uL MPV 10.5 (9.4-12.4) fL Immature Gran % (Auto) 2.5 % Neut % (Auto) 87.9 % Lymph % (Auto) 5.0 % Garden % (Auto) 4.3 % Eos % (Auto) 0.0 % Baso % (Auto) 0.3 % Neut # (Auto) 7.00 H (1.40-6.50) K/uL Lymph # (Auto) 0.40 L (1.2-3.4) K/uL Garden # (Auto) 0.34 (0.11-0.59) K/uL Eos # (Auto) 0.00 (0-0.50) K/uL Baso # (Auto) 0.02 (0-0.2) K/uL Immature Gran # (Auto) 0.20 (0.01-0.20) K/uL ABG pH (7.35-7.45) ABG pCO2 (35-46) mmHg ABG pO2 (80-95) mmHg ABG HCO3 (19-24) mmol/L ABG O2 Saturation (90-95) % ABG Base Excess (-9-1.8) mEq/L Aakash Test (Pos) Oxygen Given Sodium 145 (136-145) mmol/L Potassium 4.1 (3.5-5.1) mmol/L Chloride 109 H (98-107) mmol/L Carbon Dioxide 28 (21-32) mmol/L Anion Gap 8 (3-11) BUN 28 H (6-23) mg/dl Creatinine 0.60 (0.6-1.2) mg/dl Est Cr Clr Drug Dosing 62.9 ml/min Est GFR ( Amer) 95.0 ml/min Est GFR (Non-Af Amer) 82.0 ml/min BUN/Creatinine Ratio 46.7 H (10-20) Glucose 174 H (70-99(Fasting)) mg/dl Lactate (0.4-2.0) mmol/L Calcium 9.2 (8.6-10.3) mg/dl Total Bilirubin 0.7 (0.2-1.0) mg/dl AST 24 (13-39) U/L ALT 7 (7-52) U/L Alkaline Phosphatase 71 (34-104) U/L Troponin I High Sens 53.2 H* (0-14) pg/ml Total Protein 7.0 (6.0-8.3) gm/dl Albumin 2.8 L (3.4-5.0) gm/dl Globulin 4.2 H (2.5-4.0) gm/dl Albumin/Globulin Ratio 0.7 L (0.9-2) Procalcitonin (0-0.5) ng/ml Urine Color Urine Appearance (Clear) Urine pH (4.5-7.5) Ur Specific Crescent (1.000-1.030) Urine Protein (Negative) Urine Glucose (UA) (Negative) Urine Ketones (Negative) Urine Blood (Negative) Urine Nitrite (Negative) Urine Bilirubin (Negative) Urine Urobilinogen (Negative) Ur Leukocyte Esterase (Negative) Urine WBC (Auto) (0-5) /hpf Urine RBC (Auto) (0-4) /hpf U Hyaline Cast (Auto) (0-5) /lpf U Epithel Cells (Auto) (0-5) /lpf Urine Bacteria (Auto) (Negative) Nasal Screen MRSA (PCR) Positive A (Negative) Adenovirus (PCR) (NotDetected) B. pertussis DNA (PCR) (NotDetected) B.parapertussis DNA PCR (NotDetected) C. pneumoniae DNA (PCR) (NotDetected) Coronavirus OC43 (PCR) (NotDetected) Coronavirus HKU1 (PCR) (NotDetected) Coronavirus 229E (PCR) (NotDetected) SARS-CoV-2 (PCR) (NotDetected) Coronavirus NL63 (PCR) (NotDetected) Human Metapneumovir PCR (NotDetected) Influenza Type A (PCR) (NotDetected) Influenza Type B (PCR) (NotDetected) M. pneumoniae (PCR) (NotDetected) Parainfluenza 1 (PCR) (NotDetected) Parainfluenza 2 (PCR) (NotDetected) Parainfluenza 3 (PCR) (NotDetected) Parainfluenza 4 (PCR) (NotDetected) RSV (PCR) (NotDetected) Entero/Rhino (PCR) (NotDetected) 08/19/22 08/19/22 08/19/22 Range/Units 14:17 14:38 14:38 WBC (4.8-10.8) K/ul RBC (4.20-5.40) M/uL Hgb (12.0-16.0) g/dl Hct (37.0-47.0) % MCV (80.0-100.0) fL MCH (25.0-34.0) pg MCHC (32.0-36.0) g/dL RDW Std Deviation (36.4-46.3) fL RDW Coeff of Conor (11.5-14.5) % Plt Count (130-400) K/uL MPV (9.4-12.4) fL Immature Gran % (Auto) % Neut % (Auto) % Lymph % (Auto) % Garden % (Auto) % Eos % (Auto) % Baso % (Auto) % Neut # (Auto) (1.40-6.50) K/uL Lymph # (Auto) (1.2-3.4) K/uL Garden # (Auto) (0.11-0.59) K/uL Eos # (Auto) (0-0.50) K/uL Baso # (Auto) (0-0.2) K/uL Immature Gran # (Auto) (0.01-0.20) K/uL ABG pH 7.47 H (7.35-7.45) ABG pCO2 38 (35-46) mmHg ABG pO2 69 L (80-95) mmHg ABG HCO3 28 H (19-24) mmol/L ABG O2 Saturation 96.1 H (90-95) % ABG Base Excess 3.9 H (-9-1.8) mEq/L Aakash Test Pos (Pos) Oxygen Given 6L Sodium (136-145) mmol/L Potassium (3.5-5.1) mmol/L Chloride (98-107) mmol/L Carbon Dioxide (21-32) mmol/L Anion Gap (3-11) BUN (6-23) mg/dl Creatinine (0.6-1.2) mg/dl Est Cr Clr Drug Dosing ml/min Est GFR ( Amer) ml/min Est GFR (Non-Af Amer) ml/min BUN/Creatinine Ratio (10-20) Glucose (70-99(Fasting)) mg/dl Lactate 1.3 (0.4-2.0) mmol/L Calcium (8.6-10.3) mg/dl Total Bilirubin (0.2-1.0) mg/dl AST (13-39) U/L ALT (7-52) U/L Alkaline Phosphatase (34-104) U/L Troponin I High Sens (0-14) pg/ml Total Protein (6.0-8.3) gm/dl Albumin (3.4-5.0) gm/dl Globulin (2.5-4.0) gm/dl Albumin/Globulin Ratio (0.9-2) Procalcitonin (0-0.5) ng/ml Urine Color Urine Appearance (Clear) Urine pH (4.5-7.5) Ur Specific Crescent (1.000-1.030) Urine Protein (Negative) Urine Glucose (UA) (Negative) Urine Ketones (Negative) Urine Blood (Negative) Urine Nitrite (Negative) Urine Bilirubin (Negative) Urine Urobilinogen (Negative) Ur Leukocyte Esterase (Negative) Urine WBC (Auto) (0-5) /hpf Urine RBC (Auto) (0-4) /hpf U Hyaline Cast (Auto) (0-5) /lpf U Epithel Cells (Auto) (0-5) /lpf Urine Bacteria (Auto) (Negative) Nasal Screen MRSA (PCR) (Negative) Adenovirus (PCR) Not Detected (NotDetected) B. pertussis DNA (PCR) Not Detected (NotDetected) B.parapertussis DNA PCR Not Detected (NotDetected) C. pneumoniae DNA (PCR) Not Detected (NotDetected) Coronavirus OC43 (PCR) Not Detected (NotDetected) Coronavirus HKU1 (PCR) Not Detected (NotDetected) Coronavirus 229E (PCR) Not Detected (NotDetected) SARS-CoV-2 (PCR) Not Detected (NotDetected) Coronavirus NL63 (PCR) Not Detected (NotDetected) Human Metapneumovir PCR DETECTED A* (NotDetected) Influenza Type A (PCR) Not Detected (NotDetected) Influenza Type B (PCR) Not Detected (NotDetected) M. pneumoniae (PCR) Not Detected (NotDetected) Parainfluenza 1 (PCR) Not Detected (NotDetected) Parainfluenza 2 (PCR) Not Detected (NotDetected) Parainfluenza 3 (PCR) Not Detected (NotDetected) Parainfluenza 4 (PCR) Not Detected (NotDetected) RSV (PCR) Not Detected (NotDetected) Entero/Rhino (PCR) Not Detected (NotDetected) 08/19/22 08/19/22 08/19/22 Range/Units 14:39 14:41 15:50 WBC (4.8-10.8) K/ul RBC (4.20-5.40) M/uL Hgb (12.0-16.0) g/dl Hct (37.0-47.0) % MCV (80.0-100.0) fL MCH (25.0-34.0) pg MCHC (32.0-36.0) g/dL RDW Std Deviation (36.4-46.3) fL RDW Coeff of Conor (11.5-14.5) % Plt Count (130-400) K/uL MPV (9.4-12.4) fL Immature Gran % (Auto) % Neut % (Auto) % Lymph % (Auto) % Garden % (Auto) % Eos % (Auto) % Baso % (Auto) % Neut # (Auto) (1.40-6.50) K/uL Lymph # (Auto) (1.2-3.4) K/uL Garden # (Auto) (0.11-0.59) K/uL Eos # (Auto) (0-0.50) K/uL Baso # (Auto) (0-0.2) K/uL Immature Gran # (Auto) (0.01-0.20) K/uL ABG pH (7.35-7.45) ABG pCO2 (35-46) mmHg ABG pO2 (80-95) mmHg ABG HCO3 (19-24) mmol/L ABG O2 Saturation (90-95) % ABG Base Excess (-9-1.8) mEq/L Aakash Test (Pos) Oxygen Given Sodium (136-145) mmol/L Potassium (3.5-5.1) mmol/L Chloride (98-107) mmol/L Carbon Dioxide (21-32) mmol/L Anion Gap (3-11) BUN (6-23) mg/dl Creatinine (0.6-1.2) mg/dl Est Cr Clr Drug Dosing ml/min Est GFR ( Amer) ml/min Est GFR (Non-Af Amer) ml/min BUN/Creatinine Ratio (10-20) Glucose (70-99(Fasting)) mg/dl Lactate (0.4-2.0) mmol/L Calcium (8.6-10.3) mg/dl Total Bilirubin (0.2-1.0) mg/dl AST (13-39) U/L ALT (7-52) U/L Alkaline Phosphatase (34-104) U/L Troponin I High Sens 57.5 H* (0-14) pg/ml Total Protein (6.0-8.3) gm/dl Albumin (3.4-5.0) gm/dl Globulin (2.5-4.0) gm/dl Albumin/Globulin Ratio (0.9-2) Procalcitonin 0.34 (0-0.5) ng/ml Urine Color Dark Yellow Urine Appearance Clear (Clear) Urine pH 5.5 (4.5-7.5) Ur Specific Crescent 1.027 (1.000-1.030) Urine Protein 1+ H (Negative) Urine Glucose (UA) Negative (Negative) Urine Ketones Trace H (Negative) Urine Blood Negative (Negative) Urine Nitrite Negative (Negative) Urine Bilirubin Negative (Negative) Urine Urobilinogen Negative (Negative) Ur Leukocyte Esterase Negative (Negative) Urine WBC (Auto) 1-5 (0-5) /hpf Urine RBC (Auto) 0-4 (0-4) /hpf U Hyaline Cast (Auto) 5-10 H (0-5) /lpf U Epithel Cells (Auto) 20-30 H (0-5) /lpf Urine Bacteria (Auto) Negative (Negative) Nasal Screen MRSA (PCR) (Negative) Adenovirus (PCR) (NotDetected) B. pertussis DNA (PCR) (NotDetected) B.parapertussis DNA PCR (NotDetected) C. pneumoniae DNA (PCR) (NotDetected) Coronavirus OC43 (PCR) (NotDetected) Coronavirus HKU1 (PCR) (NotDetected) Coronavirus 229E (PCR) (NotDetected) SARS-CoV-2 (PCR) (NotDetected) Coronavirus NL63 (PCR) (NotDetected) Human Metapneumovir PCR (NotDetected) Influenza Type A (PCR) (NotDetected) Influenza Type B (PCR) (NotDetected) M. pneumoniae (PCR) (NotDetected) Parainfluenza 1 (PCR) (NotDetected) Parainfluenza 2 (PCR) (NotDetected) Parainfluenza 3 (PCR) (NotDetected) Parainfluenza 4 (PCR) (NotDetected) RSV (PCR) (NotDetected) Entero/Rhino (PCR) (NotDetected) Imaging Data Radiologist's Impression: Chest X-Ray 08/19/22 12:52 XR chest 1V portable CLINICAL HISTORY: Dyspnea TECHNIQUE: Single frontal radiograph of the chest was obtained. Comparison: Comparison is made to chest radiograph 01/24/2022 FINDINGS: No lines and tubes are seen. Cardiomegaly is noted. The aortic arch is calcified. Bilateral lower lung predominant airspace opacities are seen. No evidence of pleural effusion or pneumothorax. IMPRESSION: Bilateral lower lung predominant airspace opacities which may represent atelectasis, pneumonia, and/or aspiration. ACT 112: Negative or not required by law. Electronically signed by: Omar Cantu M.D. 08/19/2022 1:41 PM Chest CTA 08/19/22 16:18 CHEST CTA for PULMONARY ARTERIES CT DOSE: 361.15 mGy.cm HISTORY: Shortness of breath. TECHNIQUE: Multiaxial CT images of the chest were performed following the intravenous administration of contrast to evaluate the pulmonary arteries. Maximal intensity projection images were also obtained. A dose lowering technique was utilized adhering to the principles of ALARA. COMPARISON STUDY: Chest CT 09/15/2020. FINDINGS: There is normal marrow and old bilateral rib fractures again noted. No acute fractures identified within the chest. Limited views of the upper abdomen demonstrate normal liver and spleen. The thyroid gland enhances normally. Normal caliber esophagus. There is a small hiatus hernia. The heart is borderline enlarged. No pleural or pericardial effusions. Mild mediastinal lymphadenopathy. This may be reactive. A dominant subcarinal lymph node measures 22 x 15 mm. Normal caliber thoracic aorta with no evidence for a dissection. Nondiagnostic evaluation of the majority of the segmental/subsegmental pulmonary arteries due to the respiratory motion artifact. Otherwise, no definite filling defects within the visualized pulmonary arteries to suggest a pulmonary embolus. No pneumothorax. The central airways are patent. Suboptimal evaluation of the lungs due to the respiratory motion. Dense consolidation throughout the majority of the left lower lobe. Additional multifocal patchy and nodular airspace opacities seen throughout the lungs most pronounced within the right upper lobe anteriorly. Findings are consistent with a multifocal pneumonia. IMPRESSION: 1. No evidence for a pulmonary embolus with limitations as described above. 2. Multifocal bilateral airspace opacities with dense consolidation within the majority of the left lower lobe. This likely represents a pneumonia and could be due to aspiration. Follow-up recommended to ensure resolution. 3. Mild mediastinal lymphadenopathy. This may be reactive. Attention at follow- up recommended. ACT 112: Positive. There are findings on this exam that require communication between the performing entity and the patient following Patient Test Result Information Act ([place] Act 112) guidelines. Electronically signed by: Carlos Billings M.D. 08/19/2022 4:51 PM MDM Narrative I examined the patient with Benigno ZELAYA. The patient was unable to give any history due to her current status so all history was obtained from EMS, Dr. Chaudhry, and her daughter as above. An IV lock was placed and labs were drawn. Blood cultures were also obtained and are pending. Continuous casing in line feeder: Order was placed for continuous casing in line feeder. Patient was placed on the casing in line feeder and continuous pulse ox. Patient was noted to be in sinus tachy cardia at an initial rate of 96 bpm per my interpretation. EKG was interpreted by myself and Dr. Ybarra and showed sinus tachycardia at 103 bpm with left axis deviation and incomplete right bundle branch block with some nonspecific changes, but no acute ST or T wave changes. Chest x-ray was interpreted by myself and read by radiology as above and shows bilateral lower lung predominant airspace opacities which may represent atelectasis, pneumonia, and/or aspiration. Per Dr. Chaudhry, her chest x-ray on 08/15/2022 only showed a left-sided infiltrate. The patient has been receiving IM ceftriaxone as well as IM and oral steroids since the chest x-ray on 08/15/2022. The patient's symptoms got significantly worse this morning. White blood cell count normal at 7.96. Hemoglobin stable at 11.3. Platelet count normal. BUN elevated at 30, but creatinine normal at 0.59. Glucose 175. CMP otherwise essentially unremarkable. Troponin was elevated at 53.2. Lactate 1.3. Two hour repeat troponin 57.5. Procalcitonin normal at 0.34. Urinalysis still pending at time of admission I spoke with the ED pharmacist in regards to treatment for this patient. She recommended IV cefepime and IV azithromycin. She also recommended a MRSA nasal swab to see if vancomycin would need to be added. She recommended IV Diflucan 200 mg due to her thrush which is new per Dr. Chaudhry and had not been being treated. She was also given 250 mL bolus of normal saline solution initially and additional fluids as below. The patient was given a DuoNeb treatment with no change in her symptoms or lung sounds. ABG was ordered to determine whether the patient required BiPAP. [facility] respiratory panel revealed human metapneumovirus, but otherwise negative. The patient was independently evaluated by Dr. Ybarra, who agrees with my assessment and treatment plan. We feel the patient requires admission for fu rther evaluation and treatment. I spoke with the on-call hospitalist, Dr. Hooper, who agreed to admit the patient for further evaluation and treatment. Please refer to his dictation for further details. Just after I spoke with Dr. Hooper about admission nursing staff came to me stating that the patient became hypotensive, had worsening tachycardia, worsening respiratory distress, and became hypoxic in the 70s despite supplemental O2. This was shortly after the cefepime had started. The patient had been placed on an oxy mask at 15 L. Trendelenburg was attempted, but this made her respiratory distress worse. The patient was started on an additional 1 L of normal saline solution bolus to start with improvement of her blood pressure. We attempted to suction the patient with Yankauer suction, but the patient kept biting on the suction and it was unsuccessful. Dr. Ybarra did come in and evaluate the patient again and we contacted respiratory therapy to place the patient on BiPAP. I also contacted Dr. Hooper to let them know about the patient's change in condition. Dr. Hooper was concerned for possible PE in addition to the pneumonia and wanted to hold on BiPAP. Respiratory was able to use nasopharyngeal suctioning and obtained a large amount of grayish mucus that was sent for culture. The patient did have improvement of her breathing after suctioning. Her tachycardia improved and her blood pressure improved as well. The patient continued on 15 L of supplemental oxygen by OxyMask. Respiratory stayed by the patient's bedside as well for respiratory assistance. I p ersonally checked on the patient multiple times to continue to monitor her condition. The patient's daughter again confirmed that the patient does not want any invasive procedures such as intubation, resuscitation, arterial lines, central lines, or vasopressors. The patient's daughter also confirmed that the patient would be okay with CPAP or BiPAP for comfort measures. The patient's MRSA swab did come back positive and she was started on vancomycin as well. The patient had been given a total of 2250 mL of normal saline solution in the ER. The patient was then admitted in guarded, but stable condition. I have personally spent 45 minutes of critical care time in the direct management of this patient. This includes bedside care, interpretation of diagnostic studies, and testing, discussion with consultants, patient, and family members, and other required patient management activities. This 45 minutes is in excess of all separately billable procedures. Impression & Plan Sepsis, Thrush, Altered mental state, Pneumonia, Hypoxia Discharge Plan Visit Data Chief Complaint: Shortness of Breath/Dyspnea Stated Complaint: SOB ED Provider: Jone Ybarra ED Midlevel Provider: Elodia Samson Discharge Problem: Sepsis, Thrush, Altered mental state, Pneumonia, Hypoxia Patient Disposition: Admitted As Inpatient Condition: Fair Discharge Instructions Interventions: ED Discharge Assessment Last Done: 08/19/22 18:19
[2022-08-19 13:27] LABS: Creatinine Clr Calc Pharmacy 62.9 ml/min
[2022-08-19 13:32] LABS: Basophils # (auto) 0.02 K/uL (0-0.2); Basophils % (auto) 0.3 %; Immature Granulocytes % (auto) 2.5 %; Monocytes # (auto) 0.34 K/uL (0.11-0.59); Monocytes % (auto) 4.3 %; Neutrophils % (auto) 87.9 %
--- NOTE | 2022-08-19 13:43 | XRay Report ---
XR chest 1V portable CLINICAL HISTORY: Dyspnea TECHNIQUE: Single frontal radiograph of the chest was obtained. Comparison: Comparison is made to chest radiograph 01/24/2022 FINDINGS: No lines and tubes are seen. Cardiomegaly is noted. The aortic arch is calcified. Bilateral lower david g predominant airspace opacities are seen. No evidence of pleural effusion or pneumothorax. IMPRESSION: Bilateral lower lung predominant airspace opacities which may represent atelectasis, pneumonia, and/o r aspiration. ACT 112: Negative or not required by law. Electronically signed by: Omar Cantu M.D. 08/19/2022 1:41 PM
[2022-08-19] MEDS ORDERED: ALBUT/IPRATROP 3MG/0.5MG NEB 3 ML VIAL NEB STA ×2 (13:46→15:33)
[2022-08-19] MEDS ORDERED: SODIUM CHLORIDE 0.9% 250 ML IV ONE (13:48)
[2022-08-19] MEDS ORDERED: CEFEPIME 2,000 MG/20 ML VIAL IV STA (13:58)
[2022-08-19] MEDS ORDERED: AZITHROMYCIN 500 MG in DEXTROSE 5% 250 ML IV STA (13:58)
[2022-08-19] MEDS ORDERED: FLUCONAZOLE 200 MG/100 ML BAG IV SCH (14:00)
--- NOTE | 2022-08-19 14:17 | Emergency Department Note ---
ED Visit Note I was consulted by the Advanced Practice Provider. I saw the patient personally and performed a substantive portion of the visit. This includes aspects of the HPI, MDM, diagnostic interpretations, and disposition/plan. The patient has what appears to be a worsening pneumonia. She is now requiring a significant amount of O2. Hospitalization is indicated. Of note, she is a DNR .
[2022-08-19 14:28] LABS: Troponin I High Sensitivity 53.2 pg/ml (0-14)
[2022-08-19 14:37] LABS: Albumin Globulin Ratio 0.7 (0.9-2); Albumin Level 2.8 gm/dl (3.4-5.0); BUN Creatinine Ratio 46.7 (10-20); Bilirubin,Total 0.7 mg/dl (0.2-1.0); Calcium 9.2 mg/dl (8.6-10.3); Globulin 4.2 gm/dl (2.5-4.0); Potassium 4.1 mmol/L (3.5-5.1)
[2022-08-19] MEDS ORDERED: FLUCONAZOLE 200 MG/100 ML BAG IV STA (14:57)
[2022-08-19 15:04] LABS: Base Excess ABG 3.9 mEq/L (-9-1.8); HCO3 ABG 28 mmol/L (19-24); Oxygen Saturation ABG 96.1 % (90-95); PCO2 ABG 38 mmHg (35-46); PO2 ABG 69 mmHg (80-95); pH ABG 7.47 (7.35-7.45)
[2022-08-19] MEDS ORDERED: LACTATED RINGER'S 1,000 ML IV ONE (15:05)
--- NOTE | 2022-08-19 15:12 | History & Physical Report ---
Date of Service August 19, 2022 Assessment & Plan (1) Goals of care, counseling/discussion: Plan: Patient is DNR/DNI. Discussed escalation of care with daughter Nu at bedside. Not for aggressive care such as arterial lines, central lines or vasopressors. Ok to continue antibiotics and oxygen as we have been doing. Ok for short trials of non-invasive ventilation (CPAP/BiPAP) to clear mucus plugging but not for prolonged use. Aware this is a critical life threatening illness. Wishes to be contacted for any deterioration overnight. If unable to improve patient status with below measures then goal would ultimately be comfort per her mothers wishes. (2) Sepsis: Plan: Suspected pneumonia source Lactate 1.3 Hypotensive after cefepime given in the ER - suspect toxin effect of bacteria as antibiotic working - responded to IV fluid 2L bolus Failed ceftriaxone treatment given as outpatient (started 08/15) Initially switched to Zosyn to better cover anaerobes but given MRSA nose swab positive - will add on vancomycin and switch back to cefepime + add metronidazole for anaerobic coverage Fluconazole IV for oral and presumed esophageal candidiasis Follow up blood/sputum/urine cultures (3) Pneumonia: Plan: High risk of aspiration - NPO except nystatin (switch and spit) and Sinemet initially, pending SLT assessment HOB > 30 degrees at all times Aim O2 sats > 90% As above short trial of CPAP if O2 drops but not for prolonged use SLT assessment due to concerns for aspiration (4) Thrush: Plan: Significant oropharygeal thrush - suspect she also has esophageal and would treat as such - clearly would not tolerate EGD to confirm Nystatin swish and spit if able without coughing/choking Fluconazole 800mg IV now then 400mg IV daily (5) Parkinson disease: Plan: Continue Sinemet as able Plan VTE Prophylaxis - Lovenox 40mg SQ daily Diet - NPO except meds Disposition - admit to PCU Admission and Anticipated Discharge Date Admission Date: August 19, 2022 History of Present Illness Chief Complaint: Shortness of breath, altered mental state, hypoxia Primary Care Provider: Trisha Argueta Cassandra Contreras is an 86 year old female with Parkinson's disease who presents from [facility] who presents to the ER with hypoxia, altered mental status. Unable to get any history from patient due to altered mental status. History obtained from [facility] notes. Seen on August 12 with 2 days history of mild clear rhinorrhea with numerous other residents on same floor with metapneumovirus. Hypoxic 80% on room air and profound lethargy on August 14, CXR concerning for left lower consolidation and she was started on Solu-medrol, duonebs and ceftriaxone. Although on discussion with her daughter and review of [facility] notes she has no history of reactive airway disease such as COPD or asthma. Apparently initially improving on this treatment but was on 6LPM O2 nasal cannula and she was switched to oral prednisone. At baseline she does not have an oxygen requirement. Today she was hypoxic, tachycardia, febrile, tachypneic and less responsive. [employer] offered comfort approach in house vs. hospital transfer and daughter wished her mother to be transferred to the ER for active treatment. Allergies Allergy/AdvReac Type Severity Reaction Status Date / Time No Known Allergies Allergy Verified 08/19/22 17:38 Home Medications Medication Instructions Recorded Confirmed Type carbidopa 25 mg-levodopa 100 mg 1.5 tab PO TID 03/21/18 08/19/22 History tablet clopidogrel 75 mg tablet (Plavix) 75 mg PO DAILY 08/24/21 08/19/22 History carbidopa 25 mg-levodopa 100 mg 2 tab PO AMPM 12/26/21 08/19/22 History tablet gabapentin 100 mg capsule 200 mg PO HS 12/26/21 08/19/22 History acetaminophen 325 mg tablet 650 mg PO Q6H PRN Fever Or Pain 01/24/22 08/19/22 History (Tylenol) multivitamin with minerals 1 tab PO DAILY 01/24/22 08/19/22 History (Multiple Vitamin-Minerals tablet) polyethylene glycol 3350 17 17 g PO QAM 01/24/22 08/19/22 History gram/dose oral powder (Miralax) tamsulosin 0.4 mg capsule 0.4 mg PO HS #30 caps 01/28/22 08/19/22 Rx tramadol 50 mg tablet 25 mg PO Q4H PRN pain #7 tabs 01/28/22 08/19/22 Rx cholecalciferol (vitamin D3) 50 50 mcg PO DAILY 06/06/22 08/19/22 History mcg (2,000 unit) capsule (Vitamin D3) food supplemt, lactose-reduced 1 ea PO BIDM 06/06/22 08/19/22 History (Protein Nutritional Shake oral liquid) menthol 0.44 %-zinc oxide 20.6 % 1 applic topical BID 06/06/22 08/19/22 History topical ointment (Calmoseptine) DuoNeb 3 ml inhalation QID 08/19/22 08/19/22 History atropine 0.4 mg/mL injection 0.4 mg PO Q6H PRN Secretions 08/19/22 08/19/22 History solution benzonatate 100 mg capsule 200 mg PO TID 08/19/22 08/19/22 History ceftriaxone 1 gram solution for 1 g IM DAILY 08/19/22 08/19/22 History injection guaifenesin 100 mg/5 mL oral liquid 200 mg PO QID 08/19/22 08/19/22 History prednisone 50 mg tablet 50 mg PO DAILY 08/19/22 08/19/22 History Past Med/Surg History Medical History Aortic stenosis "Mild-moderate per echo 03/15/17" Asymptomatic hypertensive urgency Chronic allergic rhinitis Dyslipidemia Generalized weakness Hypertension Leg edema, left Osteoporosis Parkinson disease Ulcer of left heel Urinary tract infection Surgical History H/O colonoscopy "2011" History of fracture of left hip History of left hip replacement Hx of cataract surgery Family History Father Esophageal cancer Mother Breast cancer Social History Smoking Status: Never smoker Second Hand Exposure: No; Do You Dip or Chew Tobacco: No; Tobacco Cessation Education Requested by Patient: No Hx Alcohol Use: No Hx Substance Use: No Preferred Language: Welsh Communication Ability: Effective Washroom Operator Required: No Beliefs That Will Affect Care: None marital status: / Current Living Situation: Detention Current Living Situation Comment: daughter comes in to help during the day How many Children do You have: 1 Other Information That Helps Us Care for You: No Feels Safe at Home: Yes Safety Concerns: Feels Safe At This Time during the past year weight has: remained stable Assistive Devices: None Review of Systems Review of Systems: Unobtainable due to cognitive status Physical Exam Constitutional: well developed and + acute distress (respiratory); + not well nourished Eyes: PERRL, conjunctivae normal, anicteric sclerae ENMT: brown thick mucus on tongue in addition to white patchy oral thrush on majority of oral mucus membranes Respiratory: normal respiratory effort, + respiratory distress, + labored breathing, + uses accessory muscles and + tachypneic; + not able to speak in complete sentence and expiratory phase not prolonged Auscultation: + rhonchi (throughout) and + wheezes (bibasal) Cardiovascular: Rate/Rhythm: regular rhythm and + tachycardic Heart Sounds: no murmur Extremities: normal capillary refill; no calf tenderness and no pedal edema Gastrointestinal (Abdomen): normal bowel sounds, soft, nontender, no hepatos plenomegaly Musculoskeletal: no cyanosis or clubbing, extremities motor strength 5/5 Skin: no rashes, warm and dry Neurologic: moves all extremities and awake; not confused Psychiatric: Orientation: alert and oriented to person (to daughter); + not oriented to place and + not oriented to time Results & Data Results & Data Vital Signs (Past 12 Hours) Vital Signs Temp Pulse Pulse Resp BP BP Pulse Ox 08/19/22 15:00 101 H 36 H 106/61 85 L 08/19/22 14:54 96 H 34 H 83/47 L 80 L 08/19/22 14:15 102 H 28 H 139/75 93 08/19/22 13:18 98 H 129/67 96 08/19/22 13:04 101 H 08/19/22 13:01 08/19/22 12:55 96 08/19/22 12:55 101 H 30 H 138/71 96 08/19/22 12:55 96 08/19/22 12:44 37.4 C 103 H 34 H 148/80 H 96 O2 Del Method O2 Flow Rate 08/19/22 15:00 Non-rebreather 08/19/22 14:54 Non-rebreather 15 08/19/22 14:15 Nasal Cannula, Nebulizer 08/19/22 13:18 Nasal Cannula 6 08/19/22 13:04 08/19/22 13:01 Nasal Cannula 6 08/19/22 12:55 Nasal Cannula 6 08/19/22 12:55 Nasal Cannula 6 08/19/22 12:55 Nasal Cannula 6 08/19/22 12:44 Nasal Cannula 6 Laboratory Results Abnormal lab results 08/19/22 08/19/22 08/19/22 Range/Units 12:50 12:50 14:38 RBC 3.76 L (4.20-5.40) M/uL Hgb 11.3 L (12.0-16.0) g/dl Hct 34.0 L (37.0-47.0) % RDW Std Deviation 52.3 H (36.4-46.3) fL RDW Coeff of Conor 15.9 H (11.5-14.5) % Neut # (Auto) 7.00 H (1.40-6.50) K/uL Lymph # (Auto) 0.40 L (1.2-3.4) K/uL ABG pH 7.47 H (7.35-7.45) ABG pO2 69 L (80-95) mmHg ABG HCO3 28 H (19-24) mmol/L ABG O2 Saturation 96.1 H (90-95) % ABG Base Excess 3.9 H (-9-1.8) mEq/L Chloride 109 H (98-107) mmol/L BUN 28 H (6-23) mg/dl BUN/Creatinine Ratio 46.7 H (10-20) Glucose 174 H (70-99(Fasting)) mg/dl Troponin I High Sens 53.2 H* (0-14) pg/ml Albumin 2.8 L (3.4-5.0) gm/dl Globulin 4.2 H (2.5-4.0) gm/dl Albumin/Globulin Ratio 0.7 L (0.9-2) Diagnostic Findings XR chest 1V portable CLINICAL HISTORY: Dyspnea TECHNIQUE: Single frontal radiograph of the chest was obtained. Comparison: Comparison is made to chest radiograph 01/24/2022 FINDINGS: No lines and tubes are seen. Cardiomegaly is noted. The aortic arch is calcified. Bilateral lower lung predominant airspace opacities are seen. No evidence of pleural effusion or pneumothorax. IMPRESSION: Bilateral lower lung predominant airspace opacities which may represent atelectasis, pneumonia, and/or aspiration. Medications Administered ER Medications Given: Duoneb 3ml NEB NSS 250ml bolus Cefepime 2g IV ECG Rate (beats per minute): 103 Rhythm: sinus tachycardia Findings: + RBBB (incomplete) and + left axis deviation Comparison ECG Date: from (January 24, 2022) Change: the following changes noted Code Status & VTE Plan Code Status DNR/DNI VTE Prophylaxis Plan VTE Prophylaxis will be ordered: Yes Critical Care Time Critical Care Time: Yes Total Critical Care Time: 45 This is a life threatening illness requiring multiple examinations follow treatments. Discussion with family regarding end of life care. Intepretation of CXR, CT, ABG and all other labs taken. PG Care Time/CCT Total # of Minutes Spent Total Time Spent with Patient: Total time spent is greater than 50% in coordination of care (as documented) at patient's floor/unit and/or counseling patient: Critical Care Time: Yes Total Critical Care Time: 45 Coding Level of Care Code 81831 INT INP/OBS CARE 3/75MIN Diagnoses Goals of care, counseling/discussion Z71.89 Sepsis A41.9 Pneumonia J18.9 Thrush B37.0 Parkinson disease G20 Additional Codes Critical Care Time - Critical Care Time: Yes ([id number])
[2022-08-19] MEDS ORDERED: PIPERACILLIN/TAZOBACTAM 4.5 GM/120 ML BAG IV ONE (15:16)
[2022-08-19 15:22] LABS: Adenovirus PCR Not Detected (NotDetected); Bordetella parapertussis PCR Not Detected (NotDetected); Bordetella pertussis PCR Not Detected (NotDetected); Chlamydia pneumoniae PCR Not Detected (NotDetected); Coronavirus 229E PCR Not Detected (NotDetected); Coronavirus CoV-2 (COVID19)PCR Not Detected (NotDetected); Coronavirus HKU1 PCR Not Detected (NotDetected); Coronavirus NL63 PCR Not Detected (NotDetected); Coronavirus OC43PCR Not Detected (NotDetected); Influenza A PCR Not Detected (NotDetected); Influenza B PCR Not Detected (NotDetected); Mycoplasma pneumoniae PCR Not Detected (NotDetected); Parainfluenza Virus 1 PCR Not Detected (NotDetected); Parainfluenza Virus 2 PCR Not Detected (NotDetected); Parainfluenza Virus 3 PCR Not Detected (NotDetected); Parainfluenza Virus 4 PCR Not Detected (NotDetected); Respiratory Syncytial VirusPCR Not Detected (NotDetected); Rhinovirus/Enterovirus PCR Not Detected (NotDetected)
[2022-08-19 15:36] LABS: Human Metapneumovirus PCR DETECTED (NotDetected)
[2022-08-19] MEDS ORDERED: VANCOMYCIN CONSULT ACTIVE PRN (15:55)
[2022-08-19 16:06] LABS: Appearance Urine Clear (Clear); Bacteria Urine Automated Negative (Negative); Bilirubin Urine Negative (Negative); Blood Urine Negative (Negative); Color Urine Dark Yellow; Epithelial Cell Urine Auto 20-30 /lpf (0-5); Glucose Urine UA Negative (Negative); Ketones Urine Trace (Negative); Leukocyte Esterase Urine Negative (Negative); Nitrite Urine Negative (Negative); Protein Urine 1+ (Negative); RBC Urine Automated 0-4 /hpf (0-4); Specific Gravity Urine 1.027 (1.000-1.030); Urobilinogen Urine Negative (Negative); pH Urine 5.5 (4.5-7.5)
[2022-08-19 16:14] LABS: Allen Test Pos (Pos)
[2022-08-19] MEDS ORDERED: VANCOMYCIN HCL 1,250 MG in SODIUM CHLORIDE 0.9% 500 ML IV ONE (16:30)
[2022-08-19] MEDS ORDERED: OPTIRAY 320 500ml IV ONE (16:36)
--- NOTE | 2022-08-19 16:50 | Electrocardiogram Report ---
Test Reason : Blood Pressure : / mmHG Vent. Rate : 103 BPM Atrial Rate : 103 BPM P-R Int : 184 ms QRS Dur : 102 ms QT Int : 336 ms P-R-T Axes : 046 -39 060 degrees QTc Int : 440 ms Sinus tachycardia Left ventricular hypertrophy with QRS widening and repolarization abnormality Abnormal ECG When compared with ECG of 24-JAN-2022 11:05, Premature ventricular complexes are no longer Present Confirmed by Raymundo Heaton ([id number]) on 08/19/2022 4:49:48 PM Referred By: Confirmed By:Raymundo Heaton
--- NOTE | 2022-08-19 16:53 | CT Scan Report ---
CHEST CTA for PULMONARY ARTERIES CT DOSE: 361.15 mGy.cm HISTORY: Shortness of breath. TECHNIQUE: Multiaxial CT images of the chest were performed following the intravenous administration of contrast to evaluate the pulmonary arteries. Maximal intensity projection images were also obtaine d. A dose lowering technique was utilized adhering to the principles of ALARA. COMPARISON STUDY: Chest CT 09/15/2020. FINDINGS: There is normal marrow and old bilateral rib fractures again noted. No acute fractures iden tified within the chest. Limited views of the upper abdomen demonstrate normal liver and spleen. The thyroid gland enhances normally. Normal caliber esophagus. There is a small hiatus hernia. The heart is borderline enlarged. No pleural or pericardial effusions. Mild mediastinal lymphadenopathy. This m ay be reactive. A dominant subcarinal lymph node measures 22 x 15 mm. Normal caliber thoracic aorta w ith no evidence for a dissection. Nondiagnostic evaluation of the majority of the segmental/subsegmen fadi pulmonary arteries due to the respiratory motion artifact. Otherwise, no definite filling defects within the visualized pulmonary arteries to suggest a pulmonary embolus. No pneumothorax. The centra l airways are patent. Suboptimal evaluation of the lungs due to the respiratory motion. Dense consoli dation throughout the majority of the left lower lobe. Additional multifocal patchy and nodular airsp claudia opacities seen throughout the lungs most pronounced within the right upper lobe anteriorly. Findi ngs are consistent with a multifocal pneumonia. IMPRESSION: 1. No evidence for a pulmonary embolus with limitations as described above. 2. Multifocal bilateral airspace opacities with dense consolidation within the majority of the left l ower lobe. This likely represents a pneumonia and could be due to aspiration. Follow-up recommended t o ensure resolution. 3. Mild mediastinal lymphadenopathy. This may be reactive. Attention at follow-up recommended. ACT 112: Positive. There are findings on this exam that require communication between the performing entity and the patient following Patient Test Result Information Act ([place] Act 112) guidelines. Electronically signed by: Carlos Billings M.D. 08/19/2022 4:51 PM
[2022-08-19] MEDS: FLUCONAZOLE 200 MG/100 ML BAG IV SCH ×3 (17:57→20:18)
[2022-08-19] MEDS: NYSTATIN 500,000 UNIT TAB PO SCH ×2 (20:20→20:26)
[2022-08-19] MEDS: PANTOprazole 40 MG in SYRINGE 0 ML IV SCH (20:20)
[2022-08-19] MEDS: metroNIDAZOLE 500 MG/100 ML BAG IV SCH (20:20)
[2022-08-19] MEDS: CARBIDOPA/LEVODOPA 25/100MG TAB PO SCH (20:26)
[2022-08-19] MEDS: ENOXAPARIN INJ 40 MG/0.4 ML SYR SQ SCH (20:26)
[2022-08-19] MEDS ORDERED: CARBIDOPA/LEVODOPA 25/100MG TAB PO SCH (21:00)
[2022-08-19] MEDS: ACETAMINOPHEN 1,000 MG/100 ML VIAL IV PRN (23:02)
[2022-08-19] MEDS: CEFEPIME 2,000 MG in SYRINGE 0 ML IV SCH (23:02)
[2022-08-19] MEDS: LACTATED RINGER'S 1,000 ML IV SCH (23:02)
[2022-08-20] MEDS: metroNIDAZOLE 500 MG/100 ML BAG IV SCH ×3 (04:03→19:41)
[2022-08-20] MEDS: VANCOMYCIN HCL 750 MG in SODIUM CHLORIDE 0.9% 250 ML IV SCH ×2 (06:12→17:15)
[2022-08-20] MEDS: CEFEPIME 2,000 MG in SYRINGE 0 ML IV SCH ×3 (06:12→23:38)
[2022-08-20] MEDS: ALBUT/IPRATROP 3MG/0.5MG NEB 3 ML VIAL NEB SCH ×4 (07:12→19:19)
[2022-08-20 08:09] LABS: Creatinine Clr Calc Pharmacy 65.1 ml/min; Est GFR (African American) 96.6 ml/min; Est GFR (Non-African American) 83.4 ml/min
[2022-08-20] MEDS: CARBIDOPA/LEVODOPA 25/100MG TAB PO SCH ×4 (08:59→18:13)
[2022-08-20] MEDS: NYSTATIN 500,000 UNIT TAB PO SCH ×2 (08:59→12:59)
[2022-08-20] MEDS: ACETAMINOPHEN 1,000 MG/100 ML VIAL IV PRN ×2 (09:01→18:36)
--- NOTE | 2022-08-20 11:06 | Pharmacy Report ---
Pharmacy PK ABX Note - Date of Service August 20, 2022 - Assessment and Plan Assessment 86 year old F receiving Vancomycin, Cefepime and Metronidazole for treatment of pneumonia. Also receiving IV Fluconazole for presumed esophageal and oropharyngeal candidiasis. * PMHx significant for Parkinson's and resides in [facility]. * Failed outpatient treatment with steroids and IM ceftriaxone. * Lactate normal. Procal 0.34. No leukocytosis. Afebrile. Renal fxn at baseline. Blood and sputum cultures pending. MRSA nasal swab positive. Viral respiratory PCR panel positive for human metapneumovirus. Chest CTA suspicious for pneumonia possibly from aspiration. Plan Vancomycin * Loading dose: 1250 mg IV x 1 * Maintenance dose: 750 mg IV every 12 hours * Regimen is predicted to achieve target AUC/DOMINGO of 400-600 mg/L.hr * Random level ordered for: 08/21/22 Cefepime * 2000 mg IV every 8 hours Metronidazole * 500 mg IV every 8 hours Fluconazole * 800 mg IV x 1 loading dose then 200 mg IV every 24 hours Pharmacy will continue to follow and will adjust dose/frequency as necessary. Thank you. Pharmacy has transitioned to AUC monitoring for vancomycin. AUC/DOMINGO is the preferred PK/PD target and is associated with decreased risk of nephrotoxicity compared to traditional trough targets.
[2022-08-20] MEDS: PANTOprazole 40 MG in SYRINGE 0 ML IV SCH (11:43)
[2022-08-20] MEDS: LACTATED RINGER'S 1,000 ML IV SCH (11:44)
--- NOTE | 2022-08-20 14:59 | XRay Report ---
XR chest 1V portable CLINICAL HISTORY: hypoxia TECHNIQUE: Single frontal radiograph of the chest was obtained. Comparison: Comparison is made to chest radiograph 08/19/2022 FINDINGS: No lines and tubes are seen. Cardiomegaly is noted. The aortic arch is calcified. Multifocal airspace opacities are seen. Small left pleural effusion is seen. IMPRESSION: Small left pleural effusion and multifocal airspace opacities are increased from prior exam. Findings likely represent worsening pneumonia with or without elements of aspiration/atelectasis. ACT 112: Negative or not required by law. Electronically signed by: Omar Cantu M.D. 08/20/2022 2:58 PM
[2022-08-20 15:05] LABS: Hematocrit (blood only) 30.5 % (37.0-47.0); Hemoglobin 10.1 g/dl (12.0-16.0); Mean Corpuscular Hemoglobin 30.5 pg (25.0-34.0); Mean Corpuscular Hgb Conc 33.1 g/dL (32.0-36.0); Mean Corpuscular Volume 92.1 fL (80.0-100.0); Mean Platelet Volume 10.4 fL (9.4-12.4); Platelet Count 228 K/uL (130-400); RDW Coefficient of Variation 15.9 % (11.5-14.5); RDW Standard Deviation 54.1 fL (36.4-46.3); Red Blood Count 3.31 M/uL (4.20-5.40); White Blood Count 18.32 K/ul (4.8-10.8)
[2022-08-20 15:06] LABS: Base Excess VBG -1.1 mEq/L; HCO3 VBG 23 mmol/L; Oxygen Saturation VBG > 100.0 %; PCO2 VBG 34 mmHg (38-50); PO2 VBG 100 mmHg; pH VBG 7.43 (7.36-7.41)
[2022-08-20 15:19] LABS: BUN Creatinine Ratio 40.3 (10-20); Creatinine Clr Calc Pharmacy 59.8 ml/min; Est GFR (Non-African American) 81.1 ml/min; Potassium 3.6 mmol/L (3.5-5.1)
[2022-08-20 15:36] LABS: C Reactive Protein 29.64 mg/dl (0-0.5)
[2022-08-20] MEDS ORDERED: NYSTATIN SUSP 500,000 U/5 ML UDC PO SCH (17:00)
[2022-08-20] MEDS: CARBIDOPA/LEVODOPA 25/100MG TAB ODT PO SCH ×2 (17:14→20:57)
[2022-08-20] MEDS: NYSTATIN SUSP 500,000 U/5 ML UDC PO SCH ×2 (17:15→21:24)
[2022-08-20] MEDS: FLUCONAZOLE 200 MG/100 ML BAG IV SCH (17:16)
[2022-08-20] MEDS: ENOXAPARIN INJ 40 MG/0.4 ML SYR SQ SCH (21:04)
--- NOTE | 2022-08-20 22:38 | Hospitalist Progress Note ---
Date of Service August 20, 2022 Assessment & Plan (1) Goals of care, counseling/discussion: Plan: Patient is DNR/DNI. Discussed escalation of care with daughter Nu at bedside. Not for aggressive care such as arterial lines, central lines or vasopressors. Ok to continue antibiotics and oxygen as we have been doing. Ok for short trials of non-invasive ventilation (CPAP/BiPAP) to clear mucus plugging but not for prolonged use. Aware this is a critical life threatening illness. Wishes to be contacted for any deterioration overnight. If unable to improve patient status with below measures then goal would ultimately be comfort per her mothers wishes. Patient appears to have a viral pneumonia secondary to human metapneumovirus. will continue siupportive care. chest vest therapy. hold off IVF. closely monitor inflammatory markers. updated family (2) Sepsis: Plan: Suspected pneumonia source Lactate 1.3 Hypotensive after cefepime given in the ER - suspect toxin effect of bacteria as antibiotic working - responded to IV fluid 2L bolus Failed ceftriaxone treatment given as outpatient (started 08/15) Initially switched to Zosyn to better cover anaerobes but given MRSA nose swab positive - will add on vancomycin and switch back to cefepime + add metronidazole for anaerobic coverage Fluconazole IV for oral and presumed esophageal candidiasis Follow up blood/sputum/urine cultures (3) Pneumonia: Plan: High risk of aspiration - NPO except nystatin (switch and spit) and Sinemet initially, pending SLT assessment HOB > 30 degrees at all times Aim O2 sats > 90% As above short trial of CPAP if O2 drops but not for prolonged use SLT assessment due to concerns for aspiration (4) Thrush: Plan: Significant oropharygeal thrush - suspect she also has esophageal and would treat as such - clearly would not tolerate EGD to confirm Nystatin swish and spit if able without coughing/choking Fluconazole 800mg IV now then 400mg IV daily (5) Parkinson disease: Plan: Continue Sinemet, switched to dissolvable tablet on 08/21 Plan VTE Prophylaxis - Lovenox 40mg SQ daily Diet - NPO except meds Disposition - admit to PCU Admission and Anticipated Discharge Date Admission Date: August 19, 2022 Subjective Patient is not able to verbalize complaints. Daughter and grand-daughter at bedside. Review of Systems Review of Systems: Unobtainable due to cognitive status Physical Exam Physical Exam: Constitutional: well developed and not well nourished Eyes: PERRL, conjunctivae normal, anicteric sclerae Respiratory: normal respiratory effort+ tachypneic; + not able to speak in complete sentence and expiratory phase not prolonged Auscultation: + rhonchi (throughout) Cardiovascular: Rate/Rhythm: regular rhythm and + tachycardic Heart Sounds: no murmur Extremities: normal capillary refill; no calf tenderness and no pedal edema Gastrointestinal (Abdomen): normal bowel sounds, soft, nontender, no hepatosplenomegaly Musculoskeletal: no cyanosis or clubbing, extremities motor strength 5/5 Skin: no rashes, warm and dry Neurologic: moves all extremities and awake; not confused Psychiatric: Orientation: alert and oriented to person (to daughter); + not oriented to place and + not oriented to time Results & Data Results & Data Vital Signs (Past 12 Hours) Vital Signs Temp Pulse Pulse Resp BP Pulse Ox Pulse Ox 08/20/22 19:40 08/20/22 19:49 96 08/20/22 19:47 36.8 C 96 H 28 H 146/75 H 96 08/20/22 19:19 89 26 H 98 08/20/22 15:15 90 08/20/22 14:14 37.3 C 103 H 33 H 127/60 96 08/20/22 14:30 96 H 30 H 96 08/20/22 12:37 37.0 C 93 H 31 H 130/67 94 08/20/22 11:34 92 H 30 H 97 O2 Del Method O2 Del Method O2 Flow Rate O2 Flow Rate 08/20/22 19:40 Oxymask 5 08/20/22 19:49 Oxymask 5 08/20/22 19:47 Oxymask 5 08/20/22 19:19 Oxymask 6 08/20/22 15:15 08/20/22 14:14 Oxymask 7 08/20/22 14:30 Oxymask 6 08/20/22 12:37 Face Tent 08/20/22 11:34 Oxymask 7 PG Care Time/CCT Total # of Minutes Spent Total Time Spent with Patient: Total time spent is greater than 50% in coordination of care (as documented) at patient's floor/unit and/or counseling patient: Coding Level of Care Code 72147 SUB INP/OBS CARE 3/50MIN Diagnoses Goals of care, counseling/discussion Z71.89 Sepsis A41.9 Pneumonia J18.9 Laterality: bilateral Lung location: lower lobe of lung Pneumonia type: due to unspecified organism Thrush B37.0 Parkinson disease G20 (3) Pneumonia Laterality: bilateral Lung location: lower lobe of lung Pneumonia type: due to unspecified organism Qualified Code(s): J18.9 - Pneumonia, unspecified organism
[2022-08-21] MEDS: metroNIDAZOLE 500 MG/100 ML BAG IV SCH ×3 (03:16→19:55)
[2022-08-21] MEDS: GLYCOPYRROLATE 0.2 MG/ML VIAL IV PRN (03:24)
[2022-08-21] MEDS: ACETAMINOPHEN 1,000 MG/100 ML VIAL IV PRN ×2 (03:32→15:55)
[2022-08-21] MEDS ORDERED: VANCOMYCIN LEVEL ONE (05:30)
[2022-08-21] MEDS: CEFEPIME 2,000 MG in SYRINGE 0 ML IV SCH ×3 (06:04→23:00)
[2022-08-21] MEDS: VANCOMYCIN HCL 750 MG in SODIUM CHLORIDE 0.9% 250 ML IV SCH ×2 (06:08→17:12)
[2022-08-21 06:45] LABS: Creatinine Clr Calc Pharmacy 66.3 ml/min; Est GFR (African American) 97.2 ml/min; Est GFR (Non-African American) 83.8 ml/min
[2022-08-21] MEDS: ALBUT/IPRATROP 3MG/0.5MG NEB 3 ML VIAL NEB SCH ×4 (06:57→19:34)
[2022-08-21 07:40] LABS: Hematocrit (blood only) 31.4 % (37.0-47.0); Hemoglobin 10.4 g/dl (12.0-16.0); Mean Corpuscular Hemoglobin 30.2 pg (25.0-34.0); Mean Corpuscular Hgb Conc 33.1 g/dL (32.0-36.0); Mean Corpuscular Volume 91.3 fL (80.0-100.0); Mean Platelet Volume 10.3 fL (9.4-12.4); Platelet Count 253 K/uL (130-400); RDW Coefficient of Variation 15.8 % (11.5-14.5); RDW Standard Deviation 52.6 fL (36.4-46.3); Red Blood Count 3.44 M/uL (4.20-5.40); White Blood Count 20.93 K/ul (4.8-10.8)
[2022-08-21 07:47] LABS: Base Excess VBG -2.3 mEq/L; HCO3 VBG 21 mmol/L; Oxygen Saturation VBG 99.5 %; PCO2 VBG 31 mmHg (38-50); PO2 VBG 80 mmHg; pH VBG 7.44 (7.36-7.41)
[2022-08-21 07:58] LABS: Albumin Globulin Ratio 0.6 (0.9-2); Albumin Level 2.3 gm/dl (3.4-5.0); BUN Creatinine Ratio 44.6 (10-20); Bilirubin,Total 0.6 mg/dl (0.2-1.0); Calcium 7.9 mg/dl (8.6-10.3); Creatinine Clr Calc Pharmacy 66.3 ml/min; Est GFR (African American) 97.2 ml/min; Est GFR (Non-African American) 83.8 ml/min; Globulin 3.6 gm/dl (2.5-4.0); Potassium 3.5 mmol/L (3.5-5.1); Total Protein 5.9 gm/dl (6.0-8.3)
[2022-08-21 08:00] LABS: Basophils # (auto) 0.03 K/uL (0-0.2); Basophils % (auto) 0.1 %; Eosinophils # (auto) 0.01 K/uL (0-0.50); Immature Granulocytes # (auto) 0.53 K/uL (0.01-0.20); Immature Granulocytes % (auto) 2.5 %; Lymphocytes # (auto) 0.89 K/uL (1.2-3.4); Lymphocytes % (auto) 4.3 %; Monocytes # (auto) 0.59 K/uL (0.11-0.59); Monocytes % (auto) 2.8 %; Neutrophils # (auto) 18.88 K/uL (1.40-6.50); Neutrophils % (auto) 90.3 %
[2022-08-21] MEDS: CARBIDOPA/LEVODOPA 25/100MG TAB ODT PO SCH ×4 (08:29→17:11)
[2022-08-21] MEDS: NYSTATIN SUSP 500,000 U/5 ML UDC PO SCH ×4 (08:30→19:55)
--- NOTE | 2022-08-21 10:26 | Pharmacy Report ---
Pharmacy PK ABX Note - Date of Service August 21, 2022 - Assessment and Plan Assessment 86 year old F receiving Vancomycin, Cefepime and Metronidazole for treatment of pneumonia. Also receiving IV Fluconazole for presumed esophageal and oropharyngeal candidiasis. * PMHx significant for Parkinson's and resides in custodial. * Failed outpatient treatment with steroids and IM ceftriaxone. * Lactate normal. Procal 0.34. No leukocytosis. Afebrile. Renal fxn at baseline. Blood and sputum cultures pending. MRSA nasal swab positive. Viral respiratory PCR panel positive for human metapneumovirus. Chest CTA suspicious for pneumonia possibly from aspiration. 08/21: Blood and sputum culture with no growth. WBC did elevate significantly last evening and this morning, but remains afebrile. Plan Vancomycin * Level this morning @0542: 12.6 * Continue Maintenance dose: 750 mg IV every 12 hours * Regimen is predicted to achieve target AUC/DOMINGO of 400-600 mg/L.hr * Random level ordered for:repeat in ~48 hours or as clinically indicated Cefepime * 2000 mg IV every 8 hours Metronidazole * 500 mg IV every 8 hours Fluconazole * 800 mg IV x 1 loading dose then 200 mg IV every 24 hours Pharmacy will continue to follow and will adjust dose/frequency as necessary. Thank you. Pharmacy has transitioned to AUC monitoring for vancomycin. AUC/DOMINGO is the preferred PK/PD target and is associated with decreased risk of nephrotoxicity compared to traditional trough targets.
[2022-08-21] MEDS: PANTOprazole 40 MG in SYRINGE 0 ML IV SCH (11:12)
[2022-08-21] MEDS ORDERED: DEXTROSE 5% 500 ML IV SCH (13:00)
--- NOTE | 2022-08-21 14:58 | Electrocardiogram Report ---
Test Reason : Blood Pressure : / mmHG Vent. Rate : 114 BPM Atrial Rate : 082 BPM P-R Int : 000 ms QRS Dur : 098 ms QT Int : 280 ms P-R-T Axes : 000 221 101 degrees QTc Int : 385 ms Poor data quality, interpretation may be adversely affected Atrial fibrillation with rapid ventricular response Suspect limb lead reversal Abnormal ECG When compared with ECG of 19-AUG-2022 12:48, Atrial fibrillation has replaced Sinus rhythm Limb lead reversal now likely present Confirmed by Ja Vargas ([id number]) on 08/21/2022 2:58:23 PM Referred By: [facility] Confirmed By:Ja Vargas
[2022-08-21] MEDS ORDERED: ENOXAPARIN 1 MG/KG SQ SCH (15:30)
[2022-08-21] MEDS: ENOXAPARIN INJ 60 MG/0.6 ML SYR SQ SCH (15:54)
[2022-08-21] MEDS: FLUCONAZOLE 200 MG/100 ML BAG IV SCH (17:13)
--- NOTE | 2022-08-21 21:06 | Hospitalist Progress Note ---
Date of Service August 21, 2022 Assessment & Plan (1) Goals of care, counseling/discussion: Plan: Patient is DNR/DNI. Discussed escalation of care with daughter Nu at bedside. Not for aggressive care such as arterial lines, central lines or vasopressors. Ok to continue antibiotics and oxygen as we have been doing. Ok for short trials of non-invasive ventilation (CPAP/BiPAP) to clear mucus plugging but not for prolonged use. Aware this is a critical life threatening illness. Wishes to be contacted for any deterioration overnight. If unable to improve patient status with below measures then goal would ultimately be comfort per her mothers wishes. Patient appears to have a viral pneumonia secondary to human metapneumovirus. will continue supportive care. chest vest therapy. ordered 500 ml of fluid. closely monitor inflammatory markers. updated family Though patient is requiign a lower amount of oxygen, she does not appear to be improving clinically. (2) Sepsis: Plan: Suspected pneumonia source Lactate 1.3 Hypotensive after cefepime given in the ER - suspect toxin effect of bacteria as antibiotic working - responded to IV fluid 2L bolus Failed ceftriaxone treatment given as outpatient (started 08/15) Initially switched to Zosyn to better cover anaerobes but given MRSA nose swab positive - will add on vancomycin and switch back to cefepime + add metronidazole for anaerobic coverage Fluconazole IV for oral and presumed esophageal candidiasis Follow up blood/sputum/urine cultures (3) Pneumonia: Plan: High risk of aspiration - NPO except nystatin (switch and spit) and Sinemet initially, pending SLT assessment HOB > 30 degrees at all times Aim O2 sats > 90% As above short trial of CPAP if O2 drops but not for prolonged use SLT assessment due to concerns for aspiration (4) Thrush: Plan: Significant oropharygeal thrush - suspect she also has esophageal and would treat as such - clearly would not tolerate EGD to confirm Nystatin swish and spit if able without coughing/choking Fluconazole 800mg IV now then 400mg IV daily (5) Parkinson disease: Plan: Continue Sinemet, switched to dissolvable tablet on 08/21 Plan VTE Prophylaxis - Lovenox 40mg SQ daily Diet - NPO except meds Disposition - admit to PCU Admission and Anticipated Discharge Date Admission Date: August 19, 2022 Subjective 86 yo female is mainly non verbal. She is resting and appears to have slept the majority of the day. Review of Systems Review of Systems: All systems reviewed & are unremarkable except as noted in HPI & below Physical Exam Physical Exam: Constitutional: well developed and not well nourished Eyes: PERRL, conjunctivae normal, anicteric sclerae Respiratory: normal respiratory effort+ tachypneic; + not able to speak in complete sentence and expiratory phase not prolonged Auscultation: + rhonchi (throughout) Cardiovascular: Rate/Rhythm: regular rhythm and + tachycardic Heart Sounds: no murmur Extremities: normal capillary refill; no calf tenderness and no pedal edema Gastrointestinal (Abdomen): normal bowel sounds, soft, nontender, no hepatosplenomegaly Musculoskeletal: no cyanosis or clubbing, extremities motor strength 5/5 Skin: no rashes, warm and dry Neurologic: moves all extremities and awake; not confused Psychiatric: lethargic. Results & Data Results & Data Vital Signs (Past 12 Hours) Vital Signs Temp Pulse Pulse Pulse Resp BP Pulse Ox 08/21/22 19:34 93 H 24 94 08/21/22 19:25 37.3 C 94 H 26 H 144/81 H 94 08/21/22 15:57 37.2 C 115 H 36 H 100/72 93 08/21/22 15:20 103 H 26 H 96 08/21/22 12:30 99 H 08/21/22 11:28 36.9 C 101 H 24 133/68 93 08/21/22 11:02 93 H 24 96 08/21/22 10:24 91 H 08/21/22 10:24 O2 Del Method O2 Flow Rate 08/21/22 19:34 Nasal Cannula 2 08/21/22 19:25 Nasal Cannula 2 08/21/22 15:57 Nasal Cannula 3 08/21/22 15:20 Nasal Cannula 2 08/21/22 12:30 08/21/22 11:28 Nasal Cannula 2 08/21/22 11:02 Nasal Cannula 3 08/21/22 10:24 08/21/22 10:24 Nasal Cannula 3 PG Care Time/CCT Total # of Minutes Spent Total Time Spent with Patient: Total time spent is greater than 50% in coordination of care (as documented) at patient's floor/unit and/or counseling patient: Coding Level of Care Code 99223 SUB INP/OBS CARE 3/50MIN Diagnoses Goals of care, counseling/discussion Z71.89 Sepsis A41.9 Pneumonia J18.9 Laterality: bilateral Lung location: lower lobe of lung Pneumonia type: due to unspecified organism Thrush B37.0 Parkinson disease G20 Time Spent (min) 50 Comment updated daughter on phone (3) Pneumonia Laterality: bilateral Lung location: lower lobe of lung Pneumonia type: due to unspecified organism Qualified Code(s): J18.9 - Pneumonia, unspecified organism
[2022-08-22] MEDS: CARBIDOPA/LEVODOPA 25/100MG TAB ODT PO SCH ×6 (00:03→23:33)
[2022-08-22] MEDS: metroNIDAZOLE 500 MG/100 ML BAG IV SCH ×3 (04:04→20:39)
[2022-08-22] MEDS: ENOXAPARIN INJ 60 MG/0.6 ML SYR SQ SCH ×2 (04:04→16:40)
[2022-08-22] MEDS: VANCOMYCIN HCL 750 MG in SODIUM CHLORIDE 0.9% 250 ML IV SCH ×2 (04:05→17:44)
[2022-08-22] MEDS: CEFEPIME 2,000 MG in SYRINGE 0 ML IV SCH ×3 (06:09→20:40)
[2022-08-22 06:26] LABS: Creatinine Clr Calc Pharmacy 67.5 ml/min; Est GFR (African American) 97.7 ml/min; Est GFR (Non-African American) 84.3 ml/min
[2022-08-22] MEDS: ALBUT/IPRATROP 3MG/0.5MG NEB 3 ML VIAL NEB SCH ×4 (06:55→19:17)
[2022-08-22] MEDS: NYSTATIN SUSP 500,000 U/5 ML UDC PO SCH ×4 (08:26→20:40)
[2022-08-22] MEDS: ACETAMINOPHEN 1,000 MG/100 ML VIAL IV PRN (08:43)
[2022-08-22] MEDS: PANTOprazole 40 MG in SYRINGE 0 ML IV SCH (12:32)
[2022-08-22] MEDS ORDERED: D5W AND 1/2NSS 1,000 ML IV SCH (14:45)
[2022-08-22] MEDS: FLUCONAZOLE 200 MG/100 ML BAG IV SCH (17:44)
--- NOTE | 2022-08-22 22:48 | Hospitalist Progress Note ---
Date of Service August 22, 2022 Assessment & Plan (1) Goals of care, counseling/discussion: Plan: Patient is DNR/DNI. Discussed escalation of care with daughter Nu at bedside. Not for aggressive care such as arterial lines, central lines or vasopressors. Ok to continue antibiotics and oxygen as we have been doing. Ok for short trials of non-invasive ventilation (CPAP/BiPAP) to clear mucus plugging but not for prolonged use. Aware this is a critical life threatening illness. Wishes to be contacted for any deterioration overnight. If unable to improve patient status with below measures then goal would ultimately be comfort per her mothers wishes. Patient appears to have a viral pneumonia secondary to human metapneumovirus. will continue supportive care. chest vest therapy. ordered IVF on 08/22. closely monitor inflammatory markers. updated family Though patient is requiring a lower amount of oxygen, she does not appear to be improving clinically. Will consider NG tube feeding on 08/23 (2) Sepsis: Plan: Suspected pneumonia source Lactate 1.3 Hypotensive after cefepime given in the ER - suspect toxin effect of bacteria as antibiotic working - responded to IV fluid 2L bolus Failed ceftriaxone treatment given as outpatient (started 08/15) Initially switched to Zosyn to better cover anaerobes but given MRSA nose swab positive -will add on vancomycin and switch back to cefepime + add metronidazole for anaerobic coverage Fluconazole IV for oral and presumed esophageal candidiasis Follow up blood/sputum/urine cultures (3) Pneumonia: Plan: High risk of aspiration - NPO except nystatin (switch and spit) and Sinemet initially, pending SLT assessment HOB > 30 degrees at all times Aim O2 sats > 90% As above short trial of CPAP if O2 drops but not for prolonged use SLT assessment due to concerns for aspiration (4) Thrush: Plan: Significant oropharygeal thrush - suspect she also has esophageal and would treat as such - clearly would not tolerate EGD to confirm Nystatin swish and spit if able without coughing/choking Fluconazole 800mg IV now then 400mg IV daily (5) Parkinson disease: Plan: Continue Sinemet, switched to dissolvable tablet on 08/21 Plan VTE Prophylaxis - Lovenox 40mg SQ daily Disposition - admit to PCU Admission and Anticipated Discharge Date Admission Date: August 19, 2022 Subjective Patient is more lethargic today. Review of Systems Review of Systems: Unobtainable due to cognitive status Physical Exam Physical Exam: Constitutional: well developed and not well nourished Eyes: PERRL, conjunctivae normal, anicteric sclerae Respiratory: normal respiratory effort+ tachypneic; + not able to speak in complete sentence and expiratory phase not prolonged Auscultation: + rhonchi (throughout) Cardiovascular: Rate/Rhythm: regular rhythm and + tachycardic Heart Sounds: no murmur Extremities: normal capillary refill; no calf tenderness and no pedal edema Gastrointestinal (Abdomen): normal bowel sounds, soft, nontender, no hepatosplenomegaly Musculoskeletal: no cyanosis or clubbing, extremities motor strength 5/5 Skin: no rashes, warm and dry Neurologic: moves all extremities and awake; not confused Psychiatric: lethargic. Results & Data Results & Data Vital Signs (Past 12 Hours) Vital Signs Temp Pulse Resp BP Pulse Ox O2 Del Method O2 Flow Rate 08/22/22 22:14 Nasal Cannula 4 08/22/22 19:19 84 18 96 Nasal Cannula 4 08/22/22 19:03 37.0 C 85 32 H 165/86 H 96 Nasal Cannula 4 08/22/22 16:14 36.9 C 117 H 32 H 104/83 95 Nasal Cannula 4 08/22/22 15:01 107 H 18 94 Nasal Cannula 3 08/22/22 11:38 36.7 C 74 18 122/81 95 Room Air 08/22/22 11:17 94 H 16 93 Nasal Cannula 3 PG Care Time/CCT Total # of Minutes Spent Total Time Spent with Patient: Total time spent is greater than 50% in coordination of care (as documented) at patient's floor/unit and/or counseling patient: Coding Level of Care Code 74481 SUB INP/OBS CARE 2/35MIN Diagnoses Goals of care, counseling/discussion Z71.89 Sepsis A41.9 Pneumonia J18.9 Laterality: bilateral Lung location: lower lobe of lung Pneumonia type: due to unspecified organism Thrush B37.0 Parkinson disease G20 (3) Pneumonia Laterality: bilateral Lung location: lower lobe of lung Pneumonia type: due to unspecified organism Qualified Code(s): J18.9 - Pneumonia, unspecified organism
[2022-08-23] MEDS: metroNIDAZOLE 500 MG/100 ML BAG IV SCH ×3 (03:43→21:20)
[2022-08-23] MEDS: ENOXAPARIN INJ 60 MG/0.6 ML SYR SQ SCH ×2 (03:44→15:22)
[2022-08-23] MEDS: VANCOMYCIN HCL 750 MG in SODIUM CHLORIDE 0.9% 250 ML IV SCH (03:44)
[2022-08-23] MEDS: CEFEPIME 2,000 MG in SYRINGE 0 ML IV SCH ×3 (06:39→22:24)
[2022-08-23] MEDS: ALBUT/IPRATROP 3MG/0.5MG NEB 3 ML VIAL NEB SCH ×4 (07:21→19:38)
[2022-08-23] MEDS: CARBIDOPA/LEVODOPA 25/100MG TAB ODT PO SCH ×5 (08:50→21:20)
[2022-08-23] MEDS: NYSTATIN SUSP 500,000 U/5 ML UDC PO SCH ×4 (08:50→21:20)
[2022-08-23 08:58] LABS: Creatinine Clr Calc Pharmacy 80.7 ml/min; Est GFR (African American) 103.7 ml/min; Est GFR (Non-African American) 89.4 ml/min
[2022-08-23] MEDS: PANTOprazole 40 MG in SYRINGE 0 ML IV SCH (11:33)
--- NOTE | 2022-08-23 13:13 | XRay Report ---
KUB HISTORY: Status post placement of a feeding tube feeding tube placement COMPARISON: CT abdomen and pelvis 01/26/2022 FINDINGS: Distal tip of enteric tube projects superiorly within the expected location of the gastric body. Nonobstructive bowel gas pattern. No renal calculi. No ureteral calculi. No pneumoperitoneum o r pneumatosis. Degenerative changes of the spine, pelvis and hips. No fracture. Cardiomegaly with lef t basilar opacity suggestive of a combination of atelectasis with pleural effusion. IMPRESSION: Distal tip of enteric tube is projected superiorly within the expected location of the gastric body. ACT 112: Negative or not required by law. The above report was generated using voice recognition software. It may contain grammatical, syntax o r spelling errors. Electronically signed by: David Aleman M.D. 08/23/2022 1:12 PM
[2022-08-23] MEDS: TUBE FEEDING WATER FLUSH NG SCH ×3 (15:30→22:26)
[2022-08-23] MEDS: VANCOMYCIN HCL 1,000 MG in SODIUM CHLORIDE 0.9% 250 ML IV SCH (15:34)
[2022-08-23] MEDS: FIBERSOURCE HN 1.2 CAL 1000 ML BAG NG SCH (17:04)
[2022-08-23] MEDS: FLUCONAZOLE 200 MG/100 ML BAG IV SCH (17:06)
--- NOTE | 2022-08-23 22:08 | Hospitalist Progress Note ---
Date of Service August 23, 2022 Assessment & Plan (1) Goals of care, counseling/discussion: Plan: Patient is DNR/DNI. Discussed escalation of care with daughter Nu at bedside. Not for aggressive care such as arterial lines, central lines or vasopressors. Ok to continue antibiotics and oxygen as we have been doing. Ok for short trials of non-invasive ventilation (CPAP/BiPAP) to clear mucus plugging but not for prolonged use. Aware this is a critical life threatening illness. Wishes to be contacted for any deterioration overnight. If unable to improve patient status with below measures then goal would ultimately be comfort per her mothers wishes. Patient appears to have a viral pneumonia secondary to human metapneumovirus. will continue supportive care. chest vest is not helping as patient is not able to cough, will have respiratory continue to suction secretion. updated family Though patient is requiring a lower amount of oxygen, she continues to be lethargic. will place ng tube, and will initiate tube feeding (2) Sepsis: Plan: Suspected pneumonia source Lactate 1.3 Hypotensive after cefepime given in the ER - suspect toxin effect of bacteria as antibiotic working - responded to IV fluid 2L bolus Failed ceftriaxone treatment given as outpatient (started 08/15) Initially switched to Zosyn to better cover anaerobes but given MRSA nose swab positive -will add on vancomycin and switch back to cefepime + add metronidazole for anaerobic coverage Fluconazole IV for oral and presumed esophageal candidiasis Follow up blood/sputum/urine cultures (3) Pneumonia: Plan: High risk of aspiration - NPO except nystatin (switch and spit) and Sinemet initially, pending SLT assessment HOB > 30 degrees at all times Aim O2 sats > 90% As above short trial of CPAP if O2 drops but not for prolonged use SLT assessment due to concerns for aspiration (4) Thrush: Plan: Significant oropharygeal thrush - suspect she also has esophageal and would treat as such - clearly would not tolerate EGD to confirm Nystatin swish and spit if able without coughing/choking Fluconazole 800mg IV now then 400mg IV daily (5) Parkinson disease: Plan: Continue Sinemet, switched to dissolvable tablet on 08/21 Plan VTE Prophylaxis - Lovenox 40mg SQ daily Disposition - admit to PCU Admission and Anticipated Discharge Date Admission Date: August 19, 2022 Subjective Patient continues to be lethargic Review of Systems Review of Systems: All systems reviewed & are unremarkable except as noted in HPI & below Physical Exam Physical Exam: Constitutional: well developed and not well nourished Eyes: PERRL, conjunctivae normal, anicteric sclerae Respiratory: normal respiratory effort+ tachypneic; + not able to speak in complete sentence and expiratory phase not prolonged Auscultation: + rhonchi (throughout) Cardiovascular: Rate/Rhythm: regular rhythm and + tachycardic Heart Sounds: no murmur Extremities: normal capillary refill; no calf tenderness and no pedal edema Gastrointestinal (Abdomen): normal bowel sounds, soft, nontender, no hepatosplenomegaly Musculoskeletal: no cyanosis or clubbing, extremities motor strength 5/5 Skin: no rashes, warm and dry Neurologic: moves all extremities and awake; not confused Psychiatric: lethargic. Results & Data Results & Data Vital Signs (Past 12 Hours) Vital Signs Temp Pulse Pulse Resp BP BP Pulse Ox 08/23/22 19:57 08/23/22 19:43 37.3 C 80 30 H 137/65 98 08/23/22 19:38 80 22 95 08/23/22 15:46 37.3 C 93 H 88 26 H 141/64 H 93 08/23/22 15:00 85 18 94 08/23/22 11:07 86 22 95 08/23/22 11:01 36.4 C L 75 26 H 146/72 H 96 O2 Del Method O2 Flow Rate 08/23/22 19:57 Nasal Cannula 4 08/23/22 19:43 Oxymask 08/23/22 19:38 Nasal Cannula 3 08/23/22 15:46 Nasal Cannula 4 08/23/22 15:00 Nasal Cannula 3 08/23/22 11:07 Nasal Cannula 4 08/23/22 11:01 Nasal Cannula 4 PG Care Time/CCT Total # of Minutes Spent Total Time Spent with Patient: Total time spent is greater than 50% in coordination of care (as documented) at patient's floor/unit and/or counseling patient: Coding Level of Care Code 96512 SUB INP/OBS CARE 2/35MIN Diagnoses Goals of care, counseling/discussion Z71.89 Sepsis A41.9 Pneumonia J18.9 Laterality: bilateral Lung location: lower lobe of lung Pneumonia type: due to unspecified organism Thrush B37.0 Parkinson disease G20 (3) Pneumonia Laterality: bilateral Lung location: lower lobe of lung Pneumonia type: due to unspecified organism Qualified Code(s): J18.9 - Pneumonia, unspecified organism
[2022-08-24] MEDS: VANCOMYCIN HCL 1,000 MG in SODIUM CHLORIDE 0.9% 250 ML IV SCH ×2 (04:55→16:32)
[2022-08-24] MEDS: TUBE FEEDING WATER FLUSH NG SCH ×6 (04:56→23:53)
[2022-08-24] MEDS: ENOXAPARIN INJ 60 MG/0.6 ML SYR SQ SCH ×2 (04:56→16:32)
[2022-08-24] MEDS: metroNIDAZOLE 500 MG/100 ML BAG IV SCH ×3 (05:57→20:31)
[2022-08-24] MEDS: ALBUT/IPRATROP 3MG/0.5MG NEB 3 ML VIAL NEB SCH ×2 (07:05→18:50)
[2022-08-24 07:24] LABS: Hematocrit (blood only) 31.5 % (37.0-47.0); Hemoglobin 10.4 g/dl (12.0-16.0); Mean Corpuscular Hemoglobin 29.6 pg (25.0-34.0); Mean Corpuscular Volume 89.7 fL (80.0-100.0); Mean Platelet Volume 10.5 fL (9.4-12.4); Platelet Count 262 K/uL (130-400); RDW Coefficient of Variation 15.9 % (11.5-14.5); RDW Standard Deviation 52.3 fL (36.4-46.3); Red Blood Count 3.51 M/uL (4.20-5.40); White Blood Count 11.79 K/ul (4.8-10.8)
[2022-08-24 07:32] LABS: Creatinine Clr Calc Pharmacy 86.3 ml/min; Est GFR (Non-African American) 91.5 ml/min
[2022-08-24] MEDS: CEFEPIME 2,000 MG in SYRINGE 0 ML IV SCH ×3 (08:43→23:53)
[2022-08-24] MEDS: NYSTATIN SUSP 500,000 U/5 ML UDC PO SCH ×4 (08:44→20:31)
[2022-08-24] MEDS: CARBIDOPA/LEVODOPA 25/100MG TAB ODT PO SCH ×5 (08:44→20:31)
[2022-08-24] MEDS: PANTOprazole 40 MG in SYRINGE 0 ML IV SCH (11:42)
--- NOTE | 2022-08-24 13:51 | Pharmacy Report ---
Pharmacy PK ABX Note - Date of Service August 24, 2022 - Assessment and Plan Assessment 86 year old F receiving Vancomycin, Cefepime and Metronidazole for treatment of pneumonia. MRSA nasal swab positive. Biofire (+) metapneumovirus. Sputum culture (+) MRSA. Blood culture- no growth. Renal function stable. * Vancomycin dose increased to 1gm IV q12h on 08/23 to target higher end of AUC. Plan Vancomycin * Random level this afternoon (~7.5hr level) - 20.3mcg/mL. Regimen is predicted to achieve a steady state trough of 16.4mcg/mL and AUC 539mg/L.hr which is therapeutic. * Continue Maintenance dose: 1000 mg IV every 12 hours * Regimen is predicted to achieve target AUC/DOMINGO of 400-600 mg/L.hr * Will repeat a level in ~ 48hr or sooner if clinically indicated Pharmacy will continue to follow and will adjust dose/frequency as necessary. Thank you. Pharmacy has transitioned to AUC monitoring for vancomycin. AUC/DOMINGO is the preferred PK/PD target and is associated with decreased risk of nephrotoxicity compared to traditional trough targets.
[2022-08-24] MEDS: FLUCONAZOLE SUSP 200 MG/5 ML UDP NG SCH (18:24)
[2022-08-24] MEDS: ACETAMINOPHEN SUSP 325 MG/10.15 ML UDC PO SCH (18:35)
--- NOTE | 2022-08-25 00:01 | Hospitalist Progress Note ---
Date of Service August 24, 2022 Assessment & Plan (1) Goals of care, counseling/discussion: Plan: Patient is DNR/DNI. Discussed escalation of care with daughter Nu at bedside. Not for aggressive care such as arterial lines, central lines or vasopressors. Ok to continue antibiotics and oxygen as we have been doing. Ok for short trials of non-invasive ventilation (CPAP/BiPAP) to clear mucus plugging but not for prolonged use. Aware this is a critical life threatening illness. Wishes to be contacted for any deterioration overnight. If unable to improve patient status with below measures then goal would ultimately be comfort per her mothers wishes. Patient appears to have a viral pneumonia secondary to human metapneumovirus. will continue supportive care. chest vest was discontinued as limited benefit and response respiratory continue to suction secretions. updated family Patient is requiring a lower amount of oxygen, and is more awake, continue tube feedings, will do about a week trial. If patient declines, may transition to comfort If improves dramatically, may consider a shorter course reviewed labs. (2) Sepsis: Plan: Suspected pneumonia source Lactate 1.3 Hypotensive after cefepime given in the ER - suspect toxin effect of bacteria as antibiotic working - responded to IV fluid 2L bolus Failed ceftriaxone treatment given as outpatient (started 08/15) Initially switched to Zosyn to better cover anaerobes but given MRSA nose swab positive -will add on vancomycin and switch back to cefepime + add metronidazole for anaerobic coverage Fluconazole IV for oral and presumed esophageal candidiasis Follow up blood/sputum/urine cultures (3) Pneumonia: Plan: High risk of aspiration - NPO except nystatin (switch and spit) and Sinemet initially, pending SLT assessment HOB > 30 degrees at all times Aim O2 sats > 90% As above short trial of CPAP if O2 drops but not for prolonged use SLT assessment due to concerns for aspiration (4) Thrush: Plan: Significant oropharygeal thrush - suspect she also has esophageal and would treat as such - clearly would not tolerate EGD to confirm Nystatin swish and spit if able without coughing/choking Fluconazole 800mg IV now then 400mg IV daily (5) Parkinson disease: Plan: Continue Sinemet, switched to dissolvable tablet on 08/21 Plan VTE Prophylaxis - Lovenox 40mg SQ daily Disposition - admit to PCU Admission and Anticipated Discharge Date Admission Date: August 19, 2022 Subjective Patient is more awake, unable to verbalize complaints. Showing grimacing when she is being suctioned Review of Systems Review of Systems: Unobtainable due to cognitive status Physical Exam Physical Exam: Constitutional: well developed and not well nourished Eyes: PERRL, conjunctivae normal, anicteric sclerae Respiratory: normal respiratory effort+ tachypneic; + not able to speak in complete sentence and expiratory phase not prolonged Auscultation: + rhonchi (throughout) Cardiovascular: Rate/Rhythm: regular rhythm and + tachycardic Heart Sounds: no murmur Extremities: normal capillary refill; no calf tenderness and no pedal edema Gastrointestinal (Abdomen): normal bowel sounds, soft, nontender, no hepatosplenomegaly Musculoskeletal: no cyanosis or clubbing, extremities motor strength 5/5 Skin: no rashes, warm and dry Neurologic: moves all extremities and awake; not confused Psychiatric: lethargic. Results & Data Results & Data Vital Signs (Past 12 Hours) Vital Signs Temp Pulse Pulse Resp BP BP Pulse Ox 08/24/22 22:53 36.8 C 73 26 H 129/56 L 95 08/24/22 19:00 08/24/22 19:00 08/24/22 19:32 36.9 C 79 28 H 117/50 L 95 08/24/22 18:51 75 18 94 08/24/22 16:02 36.9 C 77 24 128/65 93 08/24/22 15:09 78 Pulse Ox O2 Del Method O2 Del Method O2 Flow Rate O2 Flow Rate 08/24/22 22:53 Nasal Cannula 4 08/24/22 19:00 Nasal Cannula 08/24/22 19:00 92 Nasal Cannula 4 08/24/22 19:32 Nasal Cannula 4 08/24/22 18:51 Nasal Cannula 4 08/24/22 16:02 Nasal Cannula 3.0 08/24/22 15:09 PG Care Time/CCT Total # of Minutes Spent Total Time Spent with Patient: Total time spent is greater than 50% in coordination of care (as documented) at patient's floor/unit and/or counseling patient: Coding Level of Care Code 03706 SUB INP/OBS CARE 3/50MIN Diagnoses Goals of care, counseling/discussion Z71.89 Sepsis A41.9 Pneumonia J18.9 Laterality: bilateral Lung location: lower lobe of lung Pneumonia type: due to unspecified organism Thrush B37.0 Parkinson disease G20 (3) Pneumonia Laterality: bilateral Lung location: lower lobe of lung Pneumonia type: due to unspecified organism Qualified Code(s): J18.9 - Pneumonia, unspecified organism
[2022-08-25] MEDS: ACETAMINOPHEN SUSP 325 MG/10.15 ML UDC PO SCH ×4 (01:56→18:06)
[2022-08-25] MEDS: ENOXAPARIN INJ 60 MG/0.6 ML SYR SQ SCH ×2 (03:55→16:11)
[2022-08-25] MEDS: metroNIDAZOLE 500 MG/100 ML BAG IV SCH ×3 (03:55→21:23)
[2022-08-25] MEDS: TUBE FEEDING WATER FLUSH NG SCH ×6 (03:55→23:02)
[2022-08-25] MEDS: VANCOMYCIN HCL 1,000 MG in SODIUM CHLORIDE 0.9% 250 ML IV SCH ×2 (05:25→16:12)
[2022-08-25 07:04] LABS: Creatinine Clr Calc Pharmacy 84.3 ml/min; Est GFR (African American) 105.2 ml/min; Est GFR (Non-African American) 90.8 ml/min
[2022-08-25] MEDS: ALBUT/IPRATROP 3MG/0.5MG NEB 3 ML VIAL NEB SCH ×2 (07:17→19:17)
[2022-08-25] MEDS: NYSTATIN SUSP 500,000 U/5 ML UDC PO SCH ×4 (07:31→21:33)
[2022-08-25] MEDS: CARBIDOPA/LEVODOPA 25/100MG TAB ODT PO SCH ×2 (07:31→11:40)
[2022-08-25] MEDS: CEFEPIME 2,000 MG in SYRINGE 0 ML IV SCH ×3 (07:31→23:02)
[2022-08-25] MEDS: PANTOprazole 40 MG in SYRINGE 0 ML IV SCH (11:40)
[2022-08-25] MEDS: CARBIDOPA/LEVODOPA 25/100MG TAB NG SCH ×3 (14:19→21:30)
[2022-08-25] MEDS: FLUCONAZOLE SUSP 200 MG/5 ML UDP NG SCH (18:07)
[2022-08-25] MEDS ORDERED: CARBIDOPA/LEVODOPA 25/100MG TAB PO SCH (20:30)
--- NOTE | 2022-08-25 22:09 | Hospitalist Progress Note ---
Date of Service August 25, 2022 Assessment & Plan (1) Goals of care, counseling/discussion: Plan: Patient is DNR/DNI. Discussed escalation of care with daughter Nu at bedside. Not for aggressive care such as arterial lines, central lines or vasopressors. Ok to continue antibiotics and oxygen as we have been doing. Ok for short trials of non-invasive ventilation (CPAP/BiPAP) to clear mucus plugging but not for prolonged use. Aware this is a critical life threatening illness. Wishes to be contacted for any deterioration overnight. If unable to improve patient status with below measures then goal would ultimately be comfort per her mothers wishes. Patient appears to have a viral pneumonia secondary to human metapneumovirus. will continue supportive care. chest vest was discontinued as limited benefit and response respiratory continue to suction secretions. updated family Patient is requiring a lower amount of oxygen, mental status has been waxing and waning. Given patient's parkinson's complicated by Human metapneumovirus and metabolic encephalopathy, without tube feeding, patient would likely further decompensate from this viral illness. 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 If patient declines, may transition to comfort If improves dramatically, may consider a shorter course reviewed labs. Started on 08/23 (2) Sepsis: Plan: Suspected pneumonia source Lactate 1.3 Hypotensive after cefepime given in the ER - suspect toxin effect of bacteria as antibiotic working - responded to IV fluid 2L bolus Failed ceftriaxone treatment given as outpatient (started 08/15) Initially switched to Zosyn to better cover anaerobes but given MRSA nose swab positive -will add on vancomycin and switch back to cefepime + add metronidazole for anaerobic coverage Fluconazole IV for oral and presumed esophageal candidiasis Follow up blood/sputum/urine cultures (3) Pneumonia: Plan: Human metapneumovirus oneumonia High risk of aspiration - NPO except nystatin (switch and spit) and Sinemet initially, pending SLT assessment HOB > 30 degrees at all times Aim O2 sats > 90% As above short trial of CPAP if O2 drops but not for prolonged use SLT assessment due to concerns for aspiration (4) Thrush: Plan: Significant oropharygeal thrush - suspect she also has esophageal and would treat as such - clearly would not tolerate EGD to confirm Nystatin swish and spit if able without coughing/choking Continue fluconazole (5) Parkinson disease: Plan: Metabolic encephalopathy Continue Sinemet, switched to dissolvable tablet on 08/21 Plan VTE Prophylaxis - Lovenox 40mg SQ daily Disposition - admit to PCU Admission and Anticipated Discharge Date Admission Date: August 19, 2022 Subjective Patient does not verbalize complaints. She appears more lethargic today. Review of Systems Review of Systems: Unobtainable due to cognitive status Physical Exam Physical Exam: Constitutional: well developed and not well nourished Eyes: PERRL, conjunctivae normal, anicteric sclerae Respiratory: normal respiratory effort+ tachypneic; + not able to speak in complete sentence and expiratory phase not prolonged Auscultation: + rhonchi (throughout) Cardiovascular: Rate/Rhythm: regular rhythm and regular rhythm Heart Sounds: no murmur Extremities: normal capillary refill; no calf tenderness and no pedal edema Gastrointestinal (Abdomen): normal bowel sounds, soft, nontender, no hepatosplenomegaly Musculoskeletal: no cyanosis or clubbing, extremities motor strength 5/5 Skin: no rashes, warm and dry Neurologic: moves all extremities and awake; Psychiatric: does open eyes to verbal stimuli, Results & Data Results & Data Vital Signs (Past 12 Hours) Vital Signs Temp Pulse Pulse Pulse Resp BP BP 08/25/22 20:05 37.2 C 77 35 H 144/67 H 08/25/22 19:19 74 36 H 08/25/22 14:30 76 08/25/22 15:51 36.8 C 74 18 142/68 H 08/25/22 11:04 37.0 C 78 32 H 162/75 H Pulse Ox O2 Del Method O2 Flow Rate 08/25/22 20:05 97 Nasal Cannula 2 08/25/22 19:19 97 Nasal Cannula 2 08/25/22 14:30 08/25/22 15:51 95 Nasal Cannula 2.0 08/25/22 11:04 96 Nasal Cannula 2.0 PG Care Time/CCT Total # of Minutes Spent Total Time Spent with Patient: Total time spent is greater than 50% in coordination of care (as documented) at patient's floor/unit and/or counseling patient: Coding Level of Care Code 69029 SUB INP/OBS CARE 3/50MIN Diagnoses Goals of care, counseling/discussion Z71.89 Sepsis A41.9 Pneumonia J18.9 Laterality: bilateral Lung location: lower lobe of lung Pneumonia type: due to unspecified organism Thrush B37.0 Parkinson disease G20 (3) Pneumonia Laterality: bilateral Lung location: lower lobe of lung Pneumonia type: due to unspecified organism Qualified Code(s): J18.9 - Pneumonia, unspecified organism
[2022-08-26] MEDS: ACETAMINOPHEN SUSP 325 MG/10.15 ML UDC PO SCH ×4 (00:30→17:15)
[2022-08-26] MEDS: metroNIDAZOLE 500 MG/100 ML BAG IV SCH ×2 (03:45→11:44)
[2022-08-26] MEDS: ENOXAPARIN INJ 60 MG/0.6 ML SYR SQ SCH ×2 (03:46→15:37)
[2022-08-26] MEDS: TUBE FEEDING WATER FLUSH NG SCH ×6 (03:46→23:15)
[2022-08-26] MEDS: VANCOMYCIN HCL 1,000 MG in SODIUM CHLORIDE 0.9% 250 ML IV SCH ×2 (05:28→17:12)
[2022-08-26] MEDS: ALBUT/IPRATROP 3MG/0.5MG NEB 3 ML VIAL NEB SCH ×2 (06:58→19:38)
[2022-08-26 08:08] LABS: Hematocrit (blood only) 27.4 % (37.0-47.0); Hemoglobin 9.5 g/dl (12.0-16.0); Mean Corpuscular Hemoglobin 30.1 pg (25.0-34.0); Mean Corpuscular Hgb Conc 34.7 g/dL (32.0-36.0); Mean Corpuscular Volume 86.7 fL (80.0-100.0); Mean Platelet Volume 10.7 fL (9.4-12.4); Platelet Count 303 K/uL (130-400); RDW Coefficient of Variation 15.5 % (11.5-14.5); RDW Standard Deviation 49.8 fL (36.4-46.3); Red Blood Count 3.16 M/uL (4.20-5.40); White Blood Count 14.14 K/ul (4.8-10.8)
[2022-08-26 08:28] LABS: Calcium 7.5 mg/dl (8.6-10.3); Magnesium 1.7 mg/dl (1.7-2.4); Potassium 2.7 mmol/L (3.5-5.1)
[2022-08-26 08:34] LABS: BUN Creatinine Ratio 42.9 (10-20); Creatinine Clr Calc Pharmacy 88.3 ml/min; Est GFR (African American) 106.8 ml/min; Est GFR (Non-African American) 92.2 ml/min
[2022-08-26 08:43] LABS: Phosphorus 1.1 mg/dl (2.5-4.9)
[2022-08-26] MEDS ORDERED: MAGNESIUM SULFATE / D5W 1 GM/100 ML BAG IV ONE (08:45)
[2022-08-26] MEDS ORDERED: POTASSIUM PHOS 3 MMOL/1 ML INFUSION IV STA (09:17)
[2022-08-26] MEDS ORDERED: POTASSIUM PHOSPHATE 15 MMOL in SODIUM CHLORIDE 0.9% 250 ML IV ONE (09:30)
[2022-08-26] MEDS: CEFEPIME 2,000 MG in SYRINGE 0 ML IV SCH ×2 (09:38→15:36)
[2022-08-26] MEDS: CARBIDOPA/LEVODOPA 25/100MG TAB NG SCH ×5 (09:46→21:48)
[2022-08-26] MEDS: LANSOPRAZOLE 15 MG SOLTAB PO SCH ×2 (09:47→11:42)
[2022-08-26] MEDS: NYSTATIN SUSP 500,000 U/5 ML UDC PO SCH ×5 (09:48→21:47)
[2022-08-26] MEDS: POTASSIUM CHLORIDE / WTR 10 MEQ/100 ML PLCT IV SCH ×3 (09:49→12:53)
--- NOTE | 2022-08-26 10:38 | Hospitalist Progress Note ---
Date of Service August 26, 2022 Assessment & Plan (1) Goals of care, counseling/discussion: Plan: Patient is DNR/DNI. Family is aware this is a critical life threatening illness. Wishes to be contacted for any deterioration overnight. If unable to improve goal would ultimately be comfort per her mothers wishes. viral pneumonia secondary to human metapneumovirus. Patient is requiring a lower amount of oxygen, mental status has been waxing and waning. Given patient's parkinson's complicated by Human metapneumovirus and metabolic encephalopathy, Tube feeds were started on August 23 with decision to try to improve patient's functional status but to consider limiting trial about 1 week time Bedside swallow evaluation by myself failed on August 26, 2022 (2) Sepsis: Plan: Acute/resolved suspected pneumonia source Lactate 1.3 Blood cultures negative, respiratory specimen grew MRSA, will continue vancomycin and supportive care for human metapneumovirus (3) Pneumonia: Plan: acute moderate to severe risk Human metapneumovirus pneumonia High risk of aspiration - NPO except nystatin (switch and spit) and Sinemet initially, pending SLT assessment HOB > 30 degrees at all times Aim O2 sats > 90% bedside with high risk of continued swallowing dysfunction (4) Thrush: Plan: acute moderate risk Significant oropharygeal thrush - suspect she also has esophageal and would treat as such - clearly would not tolerate EGD to confirm Nystatin swish and spit if able without coughing/choking Continue fluconazole (5) Parkinson disease: Plan: chronic progressive, likely great impact on swallowing dysfunction, high risk to patient Continue Sinemet, switched to dissolvable tablet on 08/21, able to give via ngt Plan VTE Prophylaxis - Lovenox 40mg SQ daily outlook guarded Admission and Anticipated Discharge Date Admission Date: August 19, 2022 Subjective Patient makes eye contact with that is about the limit of her interaction. She is nonverbal. Attempted to put a moistened swab in her mouth to see if she had any swallowing reflex at all and she began coughing. She was initiated on nasogastric feedings by the previous hospital team with notation of trying it for period of time to see if it improves her strength. It also seems that previous discussions did not feel a PEG tube was in consideration for this patient Physical Exam Physical Exam: Patient is limited in her interaction she is masklike facies Attempts of putting a small drop of water mouth as a swab stick was met with coughing She seems to want to be left alone rolling away from me when I try to examine her Medications are about the timeout today do there 1 week course Results & Data Results & Data Vital Signs (Past 12 Hours) Vital Signs Temp Pulse Pulse Pulse Resp BP Pulse Ox 08/26/22 07:19 99.5 F 86 20 132/61 94 08/26/22 06:58 83 20 96 08/26/22 03:10 99.5 F 83 30 H 154/68 H 95 08/25/22 23:00 72 08/25/22 23:58 99.0 F 76 38 H 134/62 95 O2 Del Method O2 Flow Rate 08/26/22 07:19 Room Air 08/26/22 06:58 Nasal Cannula 2 08/26/22 03:10 Nasal Cannula 2 08/25/22 23:00 08/25/22 23:58 Nasal Cannula 2 PG Care Time/CCT Total # of Minutes Spent Total Time Spent with Patient: Total time spent is greater than 50% in coordination of care (as documented) at patient's floor/unit and/or counseling patient: Coding Level of Care Code 06480 SUB INP/OBS CARE 3/50MIN Diagnoses Goals of care, counseling/discussion Z71.89 Sepsis A41.9 Pneumonia J18.9 Laterality: bilateral Lung location: lower lobe of lung Pneumonia type: due to unspecified organism Thrush B37.0 Parkinson disease G20 (3) Pneumonia Laterality: bilateral Lung location: lower lobe of lung Pneumonia type: due to unspecified organism Qualified Code(s): J18.9 - Pneumonia, unspecified organism
--- NOTE | 2022-08-26 13:19 | Pharmacy Report ---
Pharmacy PK ABX Note - Date of Service August 26, 2022 - Assessment and Plan Assessment 86 year old F receiving Vancomycin, Cefepime and Metronidazole for treatment of pneumonia. MRSA nasal swab positive. Biofire (+) metapneumovirus. Sputum culture (+) MRSA. Blood culture- no growth. Renal function stable. * Vancomycin dose increased to 1gm IV q12h on 08/23 to target higher end of AUC. Plan Vancomycin * Random level this afternoon (~6.75hr level) - 21.1mcg/mL. Regimen is predicted to achieve a steady state trough of 15.8mcg/mL and AUC 522mg/L.hr which is therapeutic. * Continue Maintenance dose: 1000mg IV every 12 hours * Regimen is predicted to achieve target AUC/DOIMNGO of 400-600 mg/L.hr * Will repeat a level in ~ 48hr or sooner if clinically indicated Pharmacy will continue to follow and will adjust dose/frequency as necessary. Thank you. Pharmacy has transitioned to AUC monitoring for vancomycin. AUC/DOMINGO is the preferred PK/PD target and is associated with decreased risk of nephrotoxicity compared to traditional trough targets.
[2022-08-26] MEDS: FIBERSOURCE HN 1.2 CAL 1000 ML BAG NG SCH (15:36)
[2022-08-26] MEDS: FLUCONAZOLE SUSP 200 MG/5 ML UDP NG SCH (17:15)
[2022-08-27] MEDS: ACETAMINOPHEN SUSP 325 MG/10.15 ML UDC PO SCH ×4 (00:35→17:01)
[2022-08-27] MEDS: TUBE FEEDING WATER FLUSH NG SCH ×4 (03:15→16:07)
[2022-08-27] MEDS: VANCOMYCIN HCL 1,000 MG in SODIUM CHLORIDE 0.9% 250 ML IV SCH ×2 (06:24→17:01)
[2022-08-27] MEDS: ENOXAPARIN INJ 60 MG/0.6 ML SYR SQ SCH (06:24)
[2022-08-27 07:01] LABS: Hematocrit (blood only) 28.1 % (37.0-47.0); Hemoglobin 9.4 g/dl (12.0-16.0); Mean Corpuscular Hemoglobin 29.7 pg (25.0-34.0); Mean Corpuscular Hgb Conc 33.5 g/dL (32.0-36.0); Mean Corpuscular Volume 88.9 fL (80.0-100.0); Mean Platelet Volume 10.6 fL (9.4-12.4); Platelet Count 319 K/uL (130-400); RDW Coefficient of Variation 15.9 % (11.5-14.5); Red Blood Count 3.16 M/uL (4.20-5.40); White Blood Count 12.65 K/ul (4.8-10.8)
[2022-08-27] MEDS: ALBUT/IPRATROP 3MG/0.5MG NEB 3 ML VIAL NEB SCH (07:16)
[2022-08-27] MEDS: CARBIDOPA/LEVODOPA 25/100MG TAB NG SCH ×4 (07:36→17:01)
[2022-08-27] MEDS: LANSOPRAZOLE 15 MG SOLTAB PO SCH (07:37)
[2022-08-27] MEDS: NYSTATIN SUSP 500,000 U/5 ML UDC PO SCH ×3 (07:37→17:01)
[2022-08-27] MEDS: GLYCOPYRROLATE 0.2 MG/ML VIAL IV PRN ×2 (10:31→20:29)
[2022-08-27] MEDS: FIBERSOURCE HN 1.2 CAL 1000 ML BAG NG SCH (13:43)
[2022-08-27] MEDS ORDERED: ONDANSETRON INJ 2 MG/ML 2 ML VIAL IV PRN (16:46)
[2022-08-27] MEDS ORDERED: GLYCOPYRROLATE 0.2 MG/ML VIAL IV PRN (16:46)
[2022-08-27] MEDS ORDERED: ONDANSETRON 4 MG OD TAB SL PRN (16:46)
[2022-08-27] MEDS ORDERED: MoRPHine SULFATE 10 MG/0.5 ML UDP PO PRN (16:46)
[2022-08-27] MEDS ORDERED: PROMETHAZINE HCL 12.5 MG in SODIUM CHLORIDE 0.9% 50 ML IV PRN (16:46)
[2022-08-27] MEDS ORDERED: LORazepam 0.5 MG TAB PO PRN (16:46)
[2022-08-27] MEDS: FLUCONAZOLE SUSP 200 MG/5 ML UDP NG SCH (17:01)
--- NOTE | 2022-08-27 17:21 | Hospitalist Progress Note ---
Date of Service August 27, 2022 Assessment & Plan (1) Goals of care, counseling/discussion: Plan: Patient is DNR/DNI. Goals of care counseling session also performed on 27 August family at the bedside wishes to progress towards comfort care measures discontinuing tube feeding and any unnecessary testing or medications. Family understands patient likely will in the hospital if she is not improved from her metabolic encephalopathy worsening profound Parkinson's disease and dysphagia. Patient was not responsive during the visit even with attempts of interaction. viral pneumonia secondary to human metapneumovirus. Patient is requiring a lower amount of oxygen, Given patient's parkinson's complicated by Human metapneumovirus and metabolic encephalopathy, Tube feeds were started on August 23 with decision to try to improve patient's functional status no improvement after tube feeds family wishes to discontinue them (2) Sepsis: Plan: Acute/resolved suspected pneumonia source Lactate 1.3 Blood cultures negative, respiratory specimen grew MRSA, will continue vancomycin and supportive care for human metapneumovirus (3) Pneumonia: Plan: acute moderate to severe risk Human metapneumovirus pneumonia High risk of aspiration - NPO except nystatin (switch and spit) and Sinemet initially, pending SLT assessment HOB > 30 degrees at all times Aim O2 sats > 90% bedside with high risk of continued swallowing dysfunction (4) Parkinson disease: Plan: chronic progressive, likely great impact on swallowing dysfunction, high risk to patient Discontinued medications as patient cannot swallow and family wishes to stop tube feeding and NG tube due to discomfort Plan Patient expected to pass away here in the hospital outlook guarded Admission and Anticipated Discharge Date Admission Date: August 19, 2022 Subjective Patient is barely responsive she does move about in the bed only speak to her her daughter and granddaughter at the bedside we discussed comfort care measures with eventual decision to progress towards comfort care measures at this point time Physical Exam Physical Exam: Withdraws to pain seems to be want to be left alone tries to move away when being examined has gurgling upper respiratory sounds despite NG tube and n.p.o. status and attempts at oral suctioning by nursing staff Results & Data Results & Data Vital Signs (Past 12 Hours) Vital Signs Temp Pulse Pulse Pulse Resp BP Pulse Ox 08/27/22 16:25 80 08/27/22 15:35 99.7 F H 84 18 128/66 93 08/27/22 11:36 99.1 F 86 20 147/87 H 96 08/27/22 08:54 74 08/27/22 08:27 08/27/22 07:58 97.7 F 73 20 144/69 H 95 08/27/22 07:16 71 24 93 O2 Del Method O2 Flow Rate 08/27/22 16:25 08/27/22 15:35 Nasal Cannula 93 08/27/22 11:36 Nasal Cannula 3 08/27/22 08:54 08/27/22 08:27 Nasal Cannula 2 08/27/22 07:58 Nasal Cannula 3 08/27/22 07:16 Nasal Cannula 3 Laboratory Results Reviewed CBC PG Care Time/CCT Total # of Minutes Spent Total Time Spent with Patient: Total time spent is greater than 50% in coordination of care (as documented) at patient's floor/unit and/or counseling patient: Coding Level of Care Code 93095 SUB INP/OBS CARE 3/50MIN Diagnoses Goals of care, counseling/discussion Z71.89 Sepsis A41.9 Pneumonia J18.9 Laterality: bilateral Lung location: lower lobe of lung Pneumonia type: due to unspecified organism Parkinson disease G20 (3) Pneumonia Laterality: bilateral Lung location: lower lobe of lung Pneumonia type: due to unspecified organism Qualified Code(s): J18.9 - Pneumonia, unspecified organism
[2022-08-27] MEDS ORDERED: ACETAMINOPHEN 1,000 MG/100 ML VIAL IV PRN (18:59)
[2022-08-27] MEDS: MoRPHine SULFATE 2 MG/ML CARP IV PRN ×2 (20:21→21:51)
[2022-08-27] MEDS: LORazepam 2 MG/1 ML VIAL IV PRN (21:51)
[2022-08-28] MEDS: GLYCOPYRROLATE 0.2 MG/ML VIAL IV PRN ×6 (00:17→21:36)
[2022-08-28] MEDS: MoRPHine SULFATE 2 MG/ML CARP IV PRN ×10 (00:20→23:17)
[2022-08-28] MEDS: LORazepam 2 MG/1 ML VIAL IV PRN ×5 (01:52→21:37)
[2022-08-28] MEDS ORDERED: MoRPHine SULFATE 2 MG/ML CARP IV STA (05:55)
[2022-08-28] MEDS ORDERED: ENOXAPARIN INJ 40 MG/0.4 ML SYR SQ SCH (09:00)
--- NOTE | 2022-08-28 14:58 | Hospitalist Progress Note ---
Date of Service August 28, 2022 Assessment & Plan (1) Goals of care, counseling/discussion: Plan: Patient is DNR/DNI. Goals of care counseling session also performed on 27 August family at the bedside wishes to progress towards comfort care measures Family understands patient likely will in the hospital Patient was not responsive during the visit but appears to be comfortable in her current condition with medication viral pneumonia secondary to human metapneumovirus. Patient is requiring a lower amount of oxygen, Given patient's parkinson's complicated by Human metapneumovirus and metabolic encephalopathy, Tube feeds were started on August 23 with decision to try to improve patient's functional status no improvement after tube feeds family wished to discontinue them (2) Sepsis: Plan: Acute/resolved suspected pneumonia source Lactate 1.3 Blood cultures negative, respiratory specimen grew MRSA, oral antibiotics have been discontinued (3) Pneumonia: Plan: acute moderate to severe risk Human metapneumovirus pneumonia High risk of aspiration - (4) Parkinson disease: Plan: chronic progressive, likely great impact on swallowing dysfunction, high risk to patient Discontinued medications as patient cannot swallow and family wishes to stop tube feeding and NG tube due to discomfort Plan Patient expected to pass away here in the hospital outlook guarded Admission and Anticipated Discharge Date Admission Date: August 19, 2022 Subjective Patient not responsive. She may have beginnings of Matt-Kim breathing. Family is not present at bedside with patient appears comfortable Physical Exam Physical Exam: Patient does not respond to tactile stimulation she has coarse rhonchorous respirations consistent with her aspiration risk She however overall appears comfortable and is medicated with morphine Results & Data Results & Data Vital Signs (Past 12 Hours) Vital Signs O2 Del Method O2 Flow Rate 08/28/22 07:45 Nasal Cannula 2 PG Care Time/CCT Total # of Minutes Spent Total Time Spent with Patient: Total time spent is greater than 50% in coordination of care (as documented) at patient's floor/unit and/or counseling patient: Coding Level of Care Code 58637 SUB INP/OBS CARE 2/35MIN Diagnoses Goals of care, counseling/discussion Z71.89 Sepsis A41.9 Pneumonia J18.9 Laterality: bilateral Lung location: lower lobe of lung Pneumonia type: due to unspecified organism Parkinson disease G20 (3) Pneumonia Laterality: bilateral Lung location: lower lobe of lung Pneumonia type: due to unspecified organism Qualified Code(s): J18.9 - Pneumonia, unspecified organism
[2022-08-28] MEDS ORDERED: MoRPHine BOLUS from BAG IV PRN (17:21)
[2022-08-28] MEDS ORDERED: MoRPHine SULF/NSS 250 MG/250 ML BTL IV SCH (17:30)
[2022-08-28] MEDS ORDERED: GLYCOPYRROLATE 0.2 MG/ML VIAL IV PRN (21:17)
[2022-08-28] MEDS ORDERED: LORazepam 2 MG/1 ML VIAL IV PRN (21:17)
--- NOTE | 2022-08-29 00:37 | Death Pronouncement Note ---
Date of Service August 29, 2022 Pronouncement Note Admission Date Admission Date: August 19, 2022 Contributing Factors (1) Goals of care, counseling/discussion: (2) Sepsis: (3) Pneumonia: (4) Parkinson disease: Summary Additional details: At approximately 11:30 PM, was notified by nurse that patient had . Nurse had already notified patient's family. Went to bedside to examine the patient. Unable to detect radial pulse. No heart sounds heard on auscultation. No breath sounds heard on auscultation. No pupillary reflex. No corneal scratch reflex. Time of at conclusion of exam 12:04 AM. Additional Data Attending physician: Chris Rangel MD Resident Activity Tracking Resident Involvement: Resident Care Provided and Engineer Process Coverage Note Care Provided: Adult Hospital Medicine
--- NOTE | 2022-08-29 07:50 | Discharge Summary ---
Date of Service August 28, 2022 Admission HPI Per Admitting Provider Cassandra Contreras is an 86 year old female with Parkinson's disease who presents from [facility] who presents to the ER with hypoxia, altered mental status. Unable to get any history from patient due to altered mental status. History obtained from [facility] notes. Seen on August 12 with 2 days history of mild clear rhinorrhea with numerous other residents on same floor with metapneumovirus. Hypoxic 80% on room air and profound lethargy on August 14, CXR concerning for left lower consolidation and she was started on Solu-medrol, duonebs and ceftriaxone. Although on discussion with her daughter and review of [facility] notes she has no history of reactive airway disease such as COPD or asthma. Apparently initially improving on this treatment but was on 6LPM O2 nasal cannula and she was switched to oral prednisone. At baseline she does not have an oxygen requirement. Today she was hypoxic, tachycardia, febrile, tachypneic and less responsive. [employer]ROP[employer]Y offered comfort approach in house vs. hospital transfer and daughter wished her mother to be transferred to the ER for active treatment. Principal Diagnosis pneumonia parkinsons disease dysphagia Discharge Exam Pt was pronounced at 1130 on 08/28/22 Discharge Data Allergies Allergy/AdvReac Type Severity Reaction Status Date / Time No Known Allergies Allergy Verified 08/19/22 17:38 Consultations 08/19/22 14:45 ED Decision to Admit Stat Ordered Studies 08/19/22 16:18 CT for pulmonary embolism PE [CT angio chest PE protocol] Stat Hospital Course (1) Goals of care, counseling/discussion: Patient is DNR/DNI. Goals of care counseling session also performed on 27 August family at the bedside wishes to progress towards comfort care measures Family understands patient likely will in the hospital Patient was not responsive during the visit but appears to be comfortable in her current condition with medication Pt while on comfort care 08/28/22 at 2330 viral pneumonia secondary to human metapneumovirus. Patient is requiring a lower amount of oxygen, Given patient's parkinson's complicated by Human metapneumovirus and metabolic encephalopathy, Tube feeds were started on August 23 with decision to try to improve patient's functional status no improvement after tube feeds family wished to discontinue them (2) Sepsis: Acute/resolved suspected pneumonia source Lactate 1.3 Blood cultures negative, respiratory specimen grew MRSA, oral antibiotics have been discontinued (3) Pneumonia: acute moderate to severe risk Human metapneumovirus pneumonia High risk of aspiration - (4) Parkinson disease: chronic progressive, likely great impact on swallowing dysfunction, high risk to patient Discontinued medications as patient cannot swallow and family wishes to stop tube feeding and NG tube due to discomfort Plan Patient expected to pass away here in the hospital outlook guarded Total Time Total Time Spent Total Time Spent (In Minutes): greater than 30 minutes spent wtih patient on 08/28/22 Discharge Plan Discharge Items Patient Disposition: Other Date/Time: 08/29/22 00:04 Coding Level of Care Code 21746 INP/OBS DISCH >30 MIN Diagnoses Goals of care, counseling/discussion Z71.89 Sepsis A41.9 Pneumonia J18.9 Laterality: bilateral Lung location: lower lobe of lung Pneumonia type: due to unspecified organism Parkinson disease G20
== END 2022-08-29 00:45 | disposition expired | DRG 871 ==
LOC: ED 12:40 → 2E 16:22 → SUATTDRO 16:22 → 2E 18:19 → 3E 08-27 22:41